=== PATIENT | female | born 1940 | race Caucasian/White ===

== ENCOUNTER 2018-03-23 09:40 | Emergency (ER) | payer OTHER ==
--- OUTSIDE RECORDS SUMMARY | 2018-03-23 09:43 | XMS REPORT ---
:1940 [facility] Address [address] [place] [id number] Care Team Providers Name Role Phone PENNY GAMEZ Unavailable Unavailable Problems This patient has no known problems. Allergies, Adverse Reactions, Alerts This patient has no known allergies or adverse reactions. Medications This patient has no known medications. Results Test Description Test Time Test Comments Text Results Atomic Results Result Comments CBC W/PLT COUNT & AUTO DIFFERENTIAL 2017-04-15 05:50:00 Test Item Value Reference Range Comments WHITE BLOOD CELL COUNT (BEAKER) (test erpf=211) 5.5 K/ L 4.0-10.0 RED BLOOD CELL COUNT (BEAKER) (test niqh=338) 3.54 M/ L 4.00-5.00 HEMOGLOBIN (BEAKER) (test uqtn=711) 10.8 GM/DL 12.0-15.0 HEMATOCRIT (BEAKER) (test gmgw=560) 33.5 % 36.0-45.0 MEAN CORPUSCULAR VOLUME (BEAKER) (test ccfq=787) 94.8 fL 82.0-99.0 MEAN CORPUSCULAR HEMOGLOBIN (BEAKER) (test giao=640) 30.4 pg 27.0-33.0 MEAN CORPUSCULAR HEMOGLOBIN CONC (BEAKER) (test yuph=189) 32.1 GM/DL 32.0- 36.0 RED CELL DISTRIBUTION WIDTH (BEAKER) (test nmpc=747) 12.7 % 10.3-14.2 PLATELET COUNT (BEAKER) (test hnqo=533) 190 K/CU MM 150-430 MEAN PLATELET VOLUME (BEAKER) (test tsha=262) 6.6 fL 6.5-10.5 NUCLEATED RED BLOOD CELLS (BEAKER) (test derh=840) 0 /100 WBC 0-0 NEUTROPHILS RELATIVE PERCENT (BEAKER) (test juqo=532) 59 % LYMPHOCYTES RELATIVE PERCENT (BEAKER) (test grnh=959) 30 % MONOCYTES RELATIVE PERCENT (BEAKER) (test ieoa=285) 8 % EOSINOPHILS RELATIVE PERCENT (BEAKER) (test nxic=556) 3 % BASOPHILS RELATIVE PERCENT (BEAKER) (test wbet=711) 0 % NEUTROPHILS ABSOLUTE COUNT (BEAKER) (test puky=119) 3.23 K/ L 1.80-8.00 LYMPHOCYTES ABSOLUTE COUNT (BEAKER) (test wlbl=407) 1.63 K/ L 1.48-4.50 MONOCYTES ABSOLUTE COUNT (BEAKER) (test blqq=546) 0.44 K/ L 0.00-1.30 EOSINOPHILS ABSOLUTE COUNT (BEAKER) (test dtox=887) 0.15 K/ L 0.00-0.50 BASOPHILS ABSOLUTE COUNT (BEAKER) (test jujh=931) 0.00 K/ L 0.00-0.20 0.00BASIC METABOLIC [id number] 05:42:00 Test Item Value Reference Range Comments SODIUM (BEAKER) (test 135 meq/L 136-145 dtyq=514) POTASSIUM (BEAKER) (test 4.1 meq/L 3.5-5.1 fxcx=080) CHLORIDE (BEAKER) (test 97 meq/L 98-107 dyma=894) CO2 (BEAKER) (test 31 meq/L 22-29 awfo=953) BLOOD UREA NITROGEN 21 mg/dL 7-21 (BEAKER) (test gofo=417) CREATININE (BEAKER) (test 0.66 mg/dL 0.57-1.25 kxfl=291) GLUCOSE RANDOM (BEAKER) 95 mg/dL 70-105 (test dqnx=843) CALCIUM (BEAKER) (test 9.1 mg/dL 8.4-10.2 fetv=536) EGFR (BEAKER) (test 88 mL/min/1.73 sq m ESTIMATED GFR IS NOT qqvc=2663) ACCURATE CREATININE CLEARANCE IN PREDICTING GLOMERULAR FILTRATION RATE. ESTIMATED GFR IS NOT APPLICABLE FOR DIALYSIS PATIENTS. [id number] 05:38:00 Test Item Value Reference Range Comments PROTIME (BEAKER) (test hqmt=838) 13.0 seconds 11.7-14.7 INR (BEAKER) (test bjyr=711) 1.0 <=5.9 PARTIAL THROMBOPLASTIN TIME (BEAKER) (test 27.7 seconds 22.5-36.0 bpjh=468) RECOMMENDED COUMADIN/WARFARIN INR THERAPY RANGESSTANDARD DOSE: 2.0 - 3.0 Includes: PROPHYLAXIS forvenous thrombosis, systemic embolization; TREATMENT for venous thrombosis and/or pulmonary embolus.HIGH RISK: Target INR is 2.5-3.5 for patients with mechanical heart valves.PROTHROMBIN [id number] 05:37: 00 Test Item Value Reference Range Comments PROTIME (BEAKER) (test ttvg=366) 13.0 seconds 11.7-14.7 INR (BEAKER) (test zcmi=716) 1.0 <=5.9 RECOMMENDED COUMADIN/WARFARIN INR THERAPY RANGESSTANDARD DOSE: 2.0 - 3.0 Includes: PROPHYLAXIS forvenous thrombosis, systemic embolization; TREATMENT for venous thrombosis and/or pulmonary embolus.HIGH RISK: Target INR is 2.5-3.5 for patients with mechanical heart valves.BASIC METABOLIC [id number] 05:34: 00 Test Item Value Reference Range Comments SODIUM (BEAKER) (test 137 meq/L 136-145 hycw=117) POTASSIUM (BEAKER) (test 4.0 meq/L 3.5-5.1 xjdn=528) CHLORIDE (BEAKER) (test 95 meq/L 98-107 kbco=384) CO2 (BEAKER) (test 34 meq/L 22-29 phsl=068) BLOOD UREA NITROGEN 20 mg/dL 7-21 (BEAKER) (test fnyz=162) CREATININE (BEAKER) (test 0.69 mg/dL 0.57-1.25 zmmv=002) GLUCOSE RANDOM (BEAKER) 114 mg/dL 70-105 (test qtqv=004) CALCIUM (BEAKER) (test 9.4 mg/dL 8.4-10.2 iwby=504) EGFR (BEAKER) (test 83 mL/min/1.73 sq m ESTIMATED GFR IS NOT shhr=7002) ACCURATE CREATININE CLEARANCE IN PREDICTING GLOMERULAR FILTRATION RATE. ESTIMATED GFR IS NOT APPLICABLE FOR DIALYSIS PATIENTS. BASIC METABOLIC [id number] 07:18:00 Test Item Value Reference Range Comments SODIUM (BEAKER) (test 134 meq/L 136-145 zzbx=193) POTASSIUM (BEAKER) (test 4.1 meq/L 3.5-5.1 gyjv=185) CHLORIDE (BEAKER) (test 93 meq/L 98-107 ipep=492) CO2 (BEAKER) (test 36 meq/L 22-29 htsy=506) BLOOD UREA NITROGEN 17 mg/dL 7-21 (BEAKER) (test mmok=802) CREATININE (BEAKER) (test 0.65 mg/dL 0.57-1.25 hjvr=944) GLUCOSE RANDOM (BEAKER) 100 mg/dL 70-105 (test spsv=795) CALCIUM (BEAKER) (test 9.6 mg/dL 8.4-10.2 kdzs=922) EGFR (BEAKER) (test 89 mL/min/1.73 sq m ESTIMATED GFR IS NOT ildd=6192) ACCURATE CREATININE CLEARANCE IN PREDICTING GLOMERULAR FILTRATION RATE. ESTIMATED GFR IS NOT APPLICABLE FOR DIALYSIS PATIENTS. URINALYSIS W/ REFLEX URINE [id number] 07:08:00 Test Item Value Reference Range Comments COLOR (BEAKER) (test srye=280) Yellow CLARITY (BEAKER) (test ldsh=738) Hazy SPECIFIC GRAVITY UA (BEAKER) (test qiwc=792) 1.035 1.001-1.035 PH UA (BEAKER) (test ebvj=772) 7.0 5.0-8.0 PROTEIN UA (BEAKER) (test wrek=956) 10 mg/dL Negative GLUCOSE UA (BEAKER) (test krtm=190) Negative Negative KETONES UA (BEAKER) (test clmq=756) Negative Negative BILIRUBIN UA (BEAKER) (test dybg=254) Negative Negative BLOOD UA (BEAKER) (test dzys=945) Negative Negative NITRITE UA (BEAKER) (test vzsp=946) Negative Negative LEUKOCYTE ESTERASE UA (BEAKER) (test gane=257) Small Negative UROBILINOGEN UA (BEAKER) (test qzfa=448) 0.2 mg/dL 0.2-1.0 RBC UA (BEAKER) (test vupl=848) 1 /HPF WBC UA (BEAKER) (test vlox=615) 9 /HPF BACTERIA (BEAKER) (test bkvi=614) Occasional MUCUS (BEAKER) (test iewm=9290) Rare SQUAMOUS EPITHELIAL (BEAKER) (test cmid=111) 7 /HPF SOURCE(BEAKER) (test qbro=0566) BASIC METABOLIC [id number] 06:11:00 Test Item Value Reference Range Comments SODIUM (BEAKER) (test 136 meq/L 136-145 nosn=140) POTASSIUM (BEAKER) (test 4.4 meq/L 3.5-5.1 tigu=785) CHLORIDE (BEAKER) (test 95 meq/L 98-107 ffvn=880) CO2 (BEAKER) (test 35 meq/L 22-29 ohvb=118) BLOOD UREA NITROGEN 25 mg/dL 7-21 (BEAKER) (test uull=471) CREATININE (BEAKER) (test 0.66 mg/dL 0.57-1.25 eiqu=144) GLUCOSE RANDOM (BEAKER) 116 mg/dL 70-105 (test vcmw=554) CALCIUM (BEAKER) (test 9.0 mg/dL 8.4-10.2 iind=417) EGFR (BEAKER) (test 88 mL/min/1.73 sq m ESTIMATED GFR IS NOT azga=7766) ACCURATE CREATININE CLEARANCE IN PREDICTING GLOMERULAR FILTRATION RATE. ESTIMATED GFR IS NOT APPLICABLE FOR DIALYSIS PATIENTS. VITAMIN D, [id number] 05:04:00 Test Item Value Reference Range Comments VITAMIN D 25-OH (BEAKER) (test ygtj=1839) < ng/mL 13.0-47.8 COMPREHENSIVE METABOLIC [id number] 22:54:00 Test Item Value Reference Range Comments TOTAL PROTEIN (BEAKER) 6.8 gm/dL 6.0-8.3 (test jply=265) ALBUMIN (BEAKER) (test 3.5 g/dL 3.5-5.0 ldrg=9859) ALKALINE PHOSPHATASE 83 U/L 40-150 (BEAKER) (test pcdx=972) BILIRUBIN TOTAL (BEAKER) 0.3 mg/dL 0.2-1.2 (test jabu=433) SODIUM (BEAKER) (test 136 meq/L 136-145 jobu=433) POTASSIUM (BEAKER) (test 4.4 meq/L 3.5-5.1 uhue=518) CHLORIDE (BEAKER) (test 95 meq/L 98-107 knku=737) CO2 (BEAKER) (test 34 meq/L 22-29 yggr=949) BLOOD UREA NITROGEN 28 mg/dL 7-21 (BEAKER) (test pokg=485) CREATININE (BEAKER) (test 0.76 mg/dL 0.57-1.25 teqp=126) GLUCOSE RANDOM (BEAKER) 150 mg/dL 70-105 (test bbpy=939) CALCIUM (BEAKER) (test 9.0 mg/dL 8.4-10.2 bdhq=747) AST (SGOT) (BEAKER) (test 22 U/L 5-34 erej=242) ALT (SGPT) (BEAKER) (test 51 U/L 6-55 iuyk=110) EGFR (BEAKER) (test 74 mL/min/1.73 sq m ESTIMATED GFR IS NOT fwqf=8055) ACCURATE CREATININE CLEARANCE IN PREDICTING GLOMERULAR FILTRATION RATE. ESTIMATED GFR IS NOT APPLICABLE FOR DIALYSIS PATIENTS. PROTHROMBIN [id number] 22:38:00 Test Item Value Reference Range Comments PROTIME (BEAKER) (test sbag=911) 13.3 seconds 11.7-14.7 INR (BEAKER) (test mktt=614) 1.0 <=5.9 RECOMMENDED COUMADIN/WARFARIN INR THERAPY RANGESSTANDARD DOSE: 2.0 - 3.0 Includes: PROPHYLAXIS forvenous thrombosis, systemic embolization; TREATMENT for venous thrombosis and/or pulmonary embolus.HIGH RISK: Target INR is 2.5-3.5 for patients with mechanical heart valves.CBC (HEMOGRAM ONLY)[id number] 22:31:00 Test Item Value Reference Range Comments WHITE BLOOD CELL COUNT (BEAKER) (test qxbf=344) 6.5 K/ L 4.0-10.0 RED BLOOD CELL COUNT (BEAKER) (test lvqa=218) 3.76 M/ L 4.00-5.00 HEMOGLOBIN (BEAKER) (test bygg=284) 11.4 GM/DL 12.0-15.0 HEMATOCRIT (BEAKER) (test otes=795) 35.5 % 36.0-45.0 MEAN CORPUSCULAR VOLUME (BEAKER) (test wvgu=567) 94.6 fL 82.0-99.0 MEAN CORPUSCULAR HEMOGLOBIN (BEAKER) (test 30.4 pg 27.0-33.0 eujm=570) MEAN CORPUSCULAR HEMOGLOBIN CONC (BEAKER) (test 32.2 GM/DL 32.0-36.0 xwnm=285) RED CELL DISTRIBUTION WIDTH (BEAKER) (test 13.6 % 10.3-14.2 zrrl=576) PLATELET COUNT (BEAKER) (test zrux=841) 195 K/CU MM 150-430 MEAN PLATELET VOLUME (BEAKER) (test uqxu=960) 6.2 fL 6.5-10.5 NUCLEATED RED BLOOD CELLS (BEAKER) (test 0 /100 WBC 0-0 uyhy=540) 0.00CBC W/PLT COUNT & AUTO [id number] 22:31:00 Test Item Value Reference Range Comments WHITE BLOOD CELL COUNT (BEAKER) (test jmrf=157) 6.5 K/ L 4.0-10.0 RED BLOOD CELL COUNT (BEAKER) (test wrka=741) 3.76 M/ L 4.00-5.00 HEMOGLOBIN (BEAKER) (test lndt=452) 11.4 GM/DL 12.0-15.0 HEMATOCRIT (BEAKER) (test azth=846) 35.5 % 36.0-45.0 MEAN CORPUSCULAR VOLUME (BEAKER) (test cgdn=973) 94.6 fL 82.0-99.0 MEAN CORPUSCULAR HEMOGLOBIN (BEAKER) (test 30.4 pg 27.0-33.0 nzsu=628) MEAN CORPUSCULAR HEMOGLOBIN CONC (BEAKER) (test 32.2 GM/DL 32.0-36.0 vdcz=114) RED CELL DISTRIBUTION WIDTH (BEAKER) (test 13.6 % 10.3-14.2 agad=011) PLATELET COUNT (BEAKER) (test pdtq=873) 195 K/CU MM 150-430 MEAN PLATELET VOLUME (BEAKER) (test bhwt=849) 6.2 fL 6.5-10.5 NUCLEATED RED BLOOD CELLS (BEAKER) (test 0 /100 WBC 0-0 xgwe=043) NEUTROPHILS RELATIVE PERCENT (BEAKER) (test 57 % yssj=339) LYMPHOCYTES RELATIVE PERCENT (BEAKER) (test 33 % mvag=669) MONOCYTES RELATIVE PERCENT (BEAKER) (test 8 % veot=098) EOSINOPHILS RELATIVE PERCENT (BEAKER) (test 2 % fymo=573) BASOPHILS RELATIVE PERCENT (BEAKER) (test 0 % ivmf=553) NEUTROPHILS ABSOLUTE COUNT (BEAKER) (test 3.66 K/ L 1.80-8.00 lkpr=231) LYMPHOCYTES ABSOLUTE COUNT (BEAKER) (test 2.13 K/ L 1.48-4.50 sugi=458) MONOCYTES ABSOLUTE COUNT (BEAKER) (test 0.52 K/ L 0.00-1.30 ypkv=712) EOSINOPHILS ABSOLUTE COUNT (BEAKER) (test 0.14 K/ L 0.00-0.50 esfc=903) BASOPHILS ABSOLUTE COUNT (BEAKER) (test 0.02 K/ L 0.00-0.20 kqim=853)
--- OUTSIDE RECORDS SUMMARY | 2018-03-23 09:43 | XMS REPORT | Clinical Summary ---
:1940 Author Organization [facility] Address [address] [place] [address] Phone Care Team Providers Name Role Phone Unavailable Primary Care Provider Unavailable Allergies Active Allergy Reactions Severity Noted Date Comments Penicillins Hives, Rash High 04/10/2017 Current Medications Prescription Sig. Disp. Refills Start Date End Date Status citalopram (CELEXA) Take 10 mg by Active 10 MG tablet mouth nightly. spironolactone Take 25 mg by Active (ALDACTONE) 25 MG mouth every tablet morning. predniSONE Take 5 mg by Active (DELTASONE) 5 MG mouth 2 (two) tablet times daily with breakfast and lunch. gabapentin Take 400 mg by Active (NEURONTIN) 400 MG mouth 2 (two) capsule times daily. primidone (MYSOLINE) Take 50 mg by Active 50 MG tablet mouth 2 (two) times daily. esomeprazole (NEXIUM) Take 40 mg by Active 40 MG capsule mouth daily. HYDROcodone-acetamino Take 1 tablet by Active phen (NORCO 10-325) mouth every 6 10-325 mg per tablet (six) hours as needed for Pain. ALPRAZolam (XANAX) Take 0.5 mg by Active 0.5 MG tablet mouth 4 (four) times daily as needed for Anxiety. QUEtiapine (SEROQUEL) Take 50 mg by Active 50 MG tablet mouth nightly. levalbuterol (XOPENEX Inhale 1 puff by Active HFA) 45 mcg/actuation mouth via inhaler inhaler 2 (two) times daily as needed for Wheezing or Shortness of Breath. metoprolol Take 25 mg by Active (LOPRESSOR) 25 MG mouth 2 (two) tabletIndications: times daily. hypertension senna (SENOKOT) 8.6 Take 1 tablet 30 tablet 0 04/18/2017 04/18/2018 Active mg tablet (8.6 mg total) by mouth every night as needed for Constipation. lidocaine (LIDODERM) Place 3 patches 30 patch 0 04/18/2017 05/18/2017 5 % patch onto the skin daily for 30 days Remove & Discard patch within 12 hours or as directed by MD. magnesium citrate Take 296 mLs by 300 mL 0 04/18/2017 04/18/2017 solution mouth once for 1 dose. polyethylene glycol Take 17 g by 14 each 0 04/18/2017 2017 (GLYCOLAX) 17 gram mouth daily as packet needed (Constipation) for up to 3 days. zolpidem (AMBIEN) 5 Take 1 tablet (5 30 tablet 0 04/18/2017 05/18/2017 MG tablet mg total) by mouth every night as needed for Insomnia for up to 30 days. Max Daily Amount: 5 mg Active Problems Problem Noted Date Back pain 04/10/2017 Pneumonia 04/10/2017 Right lower lobe pneumonia (HCC) 04/10/2017 Depression 04/10/2017 Anxiety 04/10/2017 Encounters Date Type Specialty Care Team Description 04/15/2017 Procedure Pass 04/15/2017 Surgery Virtual, Surgeon PROCEDURE DONE OUTSIDE OR 04/14/2017 Anesthesia Event Tanisha Phan CRNA 04/10/2017 - Hospital Encounter General Internal Georgiadis, Pneumonia of right 04/18/2017 Medicine Barrie lower lobe due to MD Duane infectious organism Jennie Alvarenga (HCC);Acute midline MD Sonny low back pain Baljinder Pearson MD without sciatica Chava Husain MD Kulkarni, Mrinalini Zade, MD after 03/22/2017 Social History Tobacco Use Types Packs/Day Years Used Date Former Smoker Cigarettes 1 60 Quit: 12/2016 Smokeless Tobacco: Never Used Alcohol Use Drinks/Week oz/Week Comments No Sex Assigned at Date Recorded Not on file Last Filed Vital Signs Vital Sign Reading Time Taken Blood Pressure 143/65 04/18/2017 7:54 PM CDT Pulse 67 04/18/2017 7:54 PM CDT Temperature 36.9 C (98.4 F) 04/18/2017 7:54 PM CDT Respiratory Rate 18 04/18/2017 7:54 PM CDT Oxygen Saturation 97% 04/18/2017 7:54 PM CDT Inhaled Oxygen Concentration - - Weight 56.4 kg (124 lb 4.8 oz) 04/10/2017 6:00 PM CDT Height 162.6 cm (5' 4") 04/10/2017 6:00 PM CDT Body Mass Index 21.34 04/10/2017 6:00 PM CDT Plan of Treatment Not on file Procedures Procedure Name Priority Date/Time Associated Diagnosis Comments PROCEDURE DONE OUTSIDE 04/15/2017 2:00 PM COMPRESSION FRACTURE OR CDT Special Needs (TO BE DONE IN [facility])( 2227 PT ROOM NUMBER) after 03/22/2017 Results RHYTHM STRIP - SCAN (04/23/2017 8:40 AM)NV Vertebroplasty/Kyphoplasty (2016 5:55 PM) Specimen Performing Laboratory GE RIS Impressions : 1. Technically successful L2 percutaneous vertebral augmentation. No immediate complications. Total fluoroscopy time: 9.6 mins Estimated dose reported as (Ka,r): 664 mGy Signed: Gunnar Llanes MD Report Verified Date/Time:04/22/2017 08:53:06 Reading Location: [place] [address] Angio Body Reading Room Narrative FINAL REPORT HISTORY: L2 compression fracture and severe lower back pain despite conservative therapy. PROCEDURE: Following informed written consent, general endotracheal anesthesia was performed by the anesthesiology service and the patient was placed in a prone position on the angiographic table. The lower back was prepped and draped in the usual sterile manner. 2% lidocaine was given locally for anesthesia. Using a bilateral posterior transpedicular approach and fluoroscopic guidance, the access needles were placed into the L2 vertebral body. Tracts were drilled through each cannula into the L2 vertebral body. Vertebral augmentation balloons were placed through the access cannulas and inflated bilaterally. The balloons were deflated, removed and a total of five cc of methyl methacrylate was infused into the L2 vertebral body under constant fluoroscopic visualization. The cannulas were then removed and the access sites closed with Steri-Strips. Sterile bandages were applied and the patient was transferred from the department in stable condition. There were no immediate complications. FINDINGS: Images obtained during the procedure show the access needles, cannulas and balloons in expected positions within the L2 vertebral body. Following methacrylate infusion, adequate distribution is seen within the L2 vertebral body without extravasation. Procedure Note Interface, External Ris In - 04/22/2017 8:55 AM CDT FINAL REPORT HISTORY: L2 compression fracture and severe lower back pain despite conservative therapy. PROCEDURE: Following informed written consent, general endotracheal anesthesia was performed by the anesthesiology service and the patient was placed in a prone position on the angiographic table. The lower back was prepped and draped in the usual sterile manner. 2% lidocaine was given locally for anesthesia. Using a bilateral posterior transpedicular approach and fluoroscopic guidance, the access needles were placed into the L2 vertebral body. Tracts were drilled through each cannula into the L2 vertebral body. Vertebral augmentation balloons were placed through the access cannulas and inflated bilaterally. The balloons were deflated, removed and a total of five cc of methyl methacrylate was infused into the L2 vertebral body under constant fluoroscopic visualization. The cannulas were then removed and the access sites closed with Steri-Strips. Sterile bandages were applied and the patient was transferred from the department in stable condition. There were no immediate complications. FINDINGS: Images obtained during the procedure show the access needles, cannulas and balloons in expected positions within the L2 vertebral body. Following methacrylate infusion, adequate distribution is seen within the L2 vertebral body without extravasation. IMPRESSION : 1. Technically successful L2 percutaneous vertebral augmentation. No immediate complications. Total fluoroscopy time: 9.6 mins Estimated dose reported as (Ka,r): 664 mGy Signed: Gunnar Llanes MD Report Verified Date/Time: 04/22/2017 08:53:06 Reading Location: [place] [address] Angio Body Reading Room /aPTT (04/15/2017 4:37 AM) Component Value Ref Range Protime 13.0 11.7 - 14.7 seconds INR 1.0 <=5.9 PTT 27.7 22.5 - 36.0 seconds Specimen Performing Laboratory [place] [address] Narrative RECOMMENDED COUMADIN/WARFARIN INR THERAPY RANGES STANDARD DOSE: 2.0 - 3.0 Includes: PROPHYLAXIS for venous thrombosis, systemic embolization; TREATMENT for venous thrombosis and/or pulmonary embolus. HIGH RISK: Target INR is 2.5-3.5 for patients with mechanical heart valves. CBC with platelet count + automated diff (04/15/2017 4:37 AM)Only the most recent of2 resultswithin the time period is included. Component Value Ref Range WBC 5.5 4.0 - 10.0 K/L RBC 3.54 (L) 4.00 - 5.00 M/L Hemoglobin 10.8 (L) 12.0 - 15.0 GM/DL Hematocrit 33.5 (L) 36.0 - 45.0 % MCV 94.8 82.0 - 99.0 fL MCH 30.4 27.0 - 33.0 pg MCHC 32.1 32.0 - 36.0 GM/DL RDW 12.7 10.3 - 14.2 % Platelets 190 150 - 430 K/CU MM MPV 6.6 6.5 - 10.5 fL nRBC 0 0 - 0 /100 WBC % Neutros 59 % % Lymphs 30 % % Monos 8 % % Eos 3 % % Baso 0 % # Neutros 3.23 1.80 - 8.00 K/L # Lymphs 1.63 1.48 - 4.50 K/L # Monos 0.44 0.00 - 1.30 K/L # Eos 0.15 0.00 - 0.50 K/L # Baso 0.00 0.00 - 0.20 K/L Specimen Performing Laboratory Blood [address] [address] Narrative 0.00 Prothrombin time/INR (04/15/2017 4:37 AM)Only the most recent of2 resultswithin the time period is included. Component Value Ref Range Protime 13.0 11.7 - 14.7 seconds INR 1.0 <=5.9 Specimen Performing Laboratory Blood [address] [address] Narrative RECOMMENDED COUMADIN/WARFARIN INR THERAPY RANGES STANDARD DOSE: 2.0 - 3.0 Includes: PROPHYLAXIS for venous thrombosis, systemic embolization; TREATMENT for venous thrombosis and/or pulmonary embolus. HIGH RISK: Target INR is 2.5-3.5 for patients with mechanical heart valves. CBC with platelet count + automated diff (04/15/2017 4:37 AM)Only the most recent of2 resultswithin the time period is included. Specimen Performing Laboratory Blood Narrative The following orders were created for panel order CBC with platelet count + automated diff. Procedure Abnormality Status --------- ------ CBC with platelet count ...[[id number]]AbnormalFinal result Please view results for these tests on the individual orders. Basic Metabolic Panel (04/15/2017 4:37 AM)Only the most recent of4 resultswithin the time period is included. Component Value Ref Range Sodium 135 (L) 136 - 145 meq/L Potassium 4.1 3.5 - 5.1 meq/L Chloride 97 (L) 98 - 107 meq/L CO2 31 (H) 22 - 29 meq/L BUN 21 7 - 21 mg/dL Creatinine 0.66 0.57 - 1.25 mg/dL Glucose 95 70 - 105 mg/dL Calcium 9.1 8.4 - 10.2 mg/dL EGFR 88Comment: ESTIMATED GFR IS NOT ACCURATE mL/min/1.73 sq m CREATININE CLEARANCE IN PREDICTING GLOMERULAR FILTRATION RATE. ESTIMATED GFR IS NOT APPLICABLE FOR DIALYSIS PATIENTS. Specimen Performing [place] [address] ECG 12 lead (04/13/2017 10:27 AM) Specimen Performing Laboratory GE MUSE Narrative Ventricular Rate 93 BPM Atrial Rate 93 BPM P-R Interval 136 ms QRS Duration 84 ms Q-T Interval 374 ms QTC Calculation(Bazett) 465 ms P [place] -19 degrees R [place] -18 degrees T [place] 27 degrees Normal sinus rhythm Inferior infarct , age undetermined Poor R wave progression Abnormal ECG No previous ECGs available Confirmed by Sil SALCIDO MICHAEL ([id number]) on 04/14/2017 8:11:01 AM Procedure Note Interface, External Ris In - 04/14/2017 8:11 AM CDT Ventricular Rate 93 BPM Atrial Rate 93 BPM P-R Interval 136 ms QRS Duration 84 ms Q-T Interval 374 ms QTC Calculation(Bazett) 465 ms P [place] -19 degrees R [place] -18 degrees T [place] 27 degrees Normal sinus rhythm Inferior infarct , age undetermined Poor R wave progression Abnormal ECG No previous ECGs available Confirmed by Sil SALCIDO MICHAEL ([id number]) on 04/14/2017 8:11:01 AM XR chest 2 views (04/11/2017 8:15 PM) Specimen Performing Laboratory GE RIS Impressions : Lungs and pleura: Focal airspace disease in the right base compatible with provided diagnosis of pneumonia. Small bilateral pleural effusions. Atelectasis in the right upper lobe. Heart and mediastinum: Prominent cardiac size. Unremarkable mediastinal contours. Osseous structures: Diffuse demineralization. Multifocal degenerative changes. Additional findings: None. Signed: JR Simon Robert MD Report Verified Date/Time:04/11/2017 21:59:21 Reading Location: [address] Transitional Reading Room Narrative FINAL REPORT INDICATION: PA and lateral view for follow up of pneumonia COMPARISON: None TECHNIQUE: Frontal and lateral views of the chest. Procedure Note Interface, External Ris In - 04/11/2017 10:01 PM CDT FINAL REPORT INDICATION: PA and lateral view for follow up of pneumonia COMPARISON: None TECHNIQUE: Frontal and lateral views of the chest. IMPRESSION : Lungs and pleura: Focal airspace disease in the right base compatible with provided diagnosis of pneumonia. Small bilateral pleural effusions. Atelectasis in the right upper lobe. Heart and mediastinum: Prominent cardiac size. Unremarkable mediastinal contours. Osseous structures: Diffuse demineralization. Multifocal degenerative changes. Additional findings: None. Signed: JR Simon Robert MD Report Verified Date/Time: 04/11/2017 21:59:21 Reading Location: [address] Transitional Reading Room spine lumbar without IV contrast (04/11/2017 8:00 PM) Specimen Performing Laboratory GE RIS Impressions : 1. Recent L2 biconcave compression fracture with moderate height loss, marrow edema, and perivertebral edema. No significant osseous retropulsion. 2. Multilevel degenerative changes with multifactorial moderate L4-5 and mild to moderate L2-3 and L3-4 spinal canal stenosis. 3. Lateral recess and neural foraminal stenoses as detailed above. Advise correlation with radiculopathic symptoms. 4. Cholelithiasis, biliary ductal dilatation, and colonic diverticulosis. Signed: Thad Bailey MD Report Verified Date/Time:04/11/2017 20:36:03 Reading Location: [facility] Radiology Reading Room Narrative FINAL REPORT MR Lumbar spine without contrast INDICATION: Back pain, L2 fracture. TECHNIQUE: MRI of the lumbar spine utilizing the following sequences: Sagittal T1, T2, STIR; axial T1 and T2 COMPARISON: None available. FINDINGS: There is a recent biconcave L2 compression fracture with marrow edema, visible fracture lines, perivertebral edema, and anterior vertebral height loss of 50%. There is mild posterior cortical buckling but no significant osseous retropulsion. There is moderate right convex lumbar spine curvature with left lateral listhesis at L2-3, right level of listhesis at L3-4, and mild retrolisthesis at L3-4 and L4-5. There is mild chronic upper sacral deformity at S3. There are degenerative vertebral endplate changes. Vertebral heights are otherwise maintained. The conus medullaris is unremarkable and terminates at T12-L1. T12-L1: Unremarkable L1-2: Mild disc bulge. Mild facet arthropathy. No significant canal or foraminal stenosis. L2-3: Right eccentric disc bulge of broad-based right foraminal/far lateral disc protrusion, bilateral facet arthropathy with joint effusions, and ligamentous thickening. Mild to moderate canal stenosis. Mild to moderate right and mild left foraminal stenosis. L3-4: Disc degeneration with diffuse bulge, broad-based disc protrusion, endplate osteophytes, facet arthropathy, and ligamentous thickening. Mild to moderate canal stenosis. Mild to moderate bilateral foraminal stenosis. L4-5: Disc degeneration with diffuse bulge, broad-based disc protrusion, endplate osteophytes, facet arthropathy, and ligamentous thickening. Moderate canal stenosis and severe right lateral recess stenosis. Moderate right and mild to moderate left foraminal stenosis. L5-S1: Disc degeneration with diffuse bulge extending into the foraminal regions, endplate osteophytes, broad-based central disc protrusion, facet arthropathy, and ligamentous thickening. Mild canal stenosis. Mild to moderate right greater than left foraminal stenosis. There is paraspinal muscle deconditioning, cholelithiasis, renal cystic lesions statistically likely reflecting cysts, common bile duct dilatation, aortic atherosclerosis, and colonic diverticulosis. Procedure Note Interface, External Ris In - 04/11/2017 8:38 PM CDT FINAL REPORT MR Lumbar spine without contrast INDICATION: Back pain, L2 fracture. TECHNIQUE: MRI of the lumbar spine utilizing the following sequences: Sagittal T1, T2, STIR; axial T1 and T2 COMPARISON: None available. FINDINGS: There is a recent biconcave L2 compression fracture with marrow edema, visible fracture lines, perivertebral edema, and anterior vertebral height loss of 50%. There is mild posterior cortical buckling but no significant osseous retropulsion. There is moderate right convex lumbar spine curvature with left lateral listhesis at L2-3, right level of listhesis at L3-4, and mild retrolisthesis at L3-4 and L4-5. There is mild chronic upper sacral deformity at S3. There are degenerative vertebral endplate changes. Vertebral heights are otherwise maintained. The conus medullaris is unremarkable and terminates at T12-L1. T12-L1: Unremarkable L1-2: Mild disc bulge. Mild facet arthropathy. No significant canal or foraminal stenosis. L2-3: Right eccentric disc bulge of broad-based right foraminal/far lateral disc protrusion, bilateral facet arthropathy with joint effusions, and ligamentous thickening. Mild to moderate canal stenosis. Mild to moderate right and mild left foraminal stenosis. L3-4: Disc degeneration with diffuse bulge, broad-based disc protrusion, endplate osteophytes, facet arthropathy, and ligamentous thickening. Mild to moderate canal stenosis. Mild to moderate bilateral foraminal stenosis. L4-5: Disc degeneration with diffuse bulge, broad-based disc protrusion, endplate osteophytes, facet arthropathy, and ligamentous thickening. Moderate canal stenosis and severe right lateral recess stenosis. Moderate right and mild to moderate left foraminal stenosis. L5-S1: Disc degeneration with diffuse bulge extending into the foraminal regions, endplate osteophytes, broad-based central disc protrusion, facet arthropathy, and ligamentous thickening. Mild canal stenosis. Mild to moderate right greater than left foraminal stenosis. There is paraspinal muscle deconditioning, cholelithiasis, renal cystic lesions statistically likely reflecting cysts, common bile duct dilatation, aortic atherosclerosis, and colonic diverticulosis. IMPRESSION : 1. Recent L2 biconcave compression fracture with moderate height loss, marrow edema, and perivertebral edema. No significant osseous retropulsion. 2. Multilevel degenerative changes with multifactorial moderate L4-5 and mild to moderate L2-3 and L3-4 spinal canal stenosis. 3. Lateral recess and neural foraminal stenoses as detailed above. Advise correlation with radiculopathic symptoms. 4. Cholelithiasis, biliary ductal dilatation, and colonic diverticulosis. Signed: Thad Bailey MD Report Verified Date/Time: 04/11/2017 20:36:03 Reading Location: [facility] Radiology Reading Room Urinalysis w/Microscopic + Reflex to Culture (04/11/2017 5:33 AM) Component Value Ref Range Color, UA Yellow Clarity, UA Hazy Specific [place], UA 1.035 1.001 - 1.035 pH, UA 7.0 5.0 - 8.0 Protein, UA 10 mg/dL (A) Negative Glucose, UA Negative Negative Ketones, UA Negative Negative Bilirubin, UA Negative Negative Blood, UA Negative Negative Nitrite, UA Negative Negative Leukocytes, UA Small (A) Negative Urobilinogen, UA 0.2 0.2 - 1.0 mg/dL RBC, UA 1 /HPF WBC, UA 9 /HPF Bacteria, UA Occasional Mucus Rare Squam Epithel, UA 7 /HPF Specimen Source Specimen Performing Laboratory Urine [address] [id number] Urine culture (04/11/2017 5:33 AM) Component Value Ref Range Result >100,000 col/mL skin manjit Specimen Performing Laboratory Urine - Urine, Unspecified Source [address] [address] Vitamin D, 25-Hydroxy (04/10/2017 10:20 PM) Component Value Ref Range Vitamin D 25-Hydroxy <13.0 (L) 13.0 - 47.8 ng/mL Specimen Performing Laboratory Blood [address] [address] CBC (Hemogram only) (04/10/2017 10:20 PM) Component Value Ref Range WBC 6.5 4.0 - 10.0 K/L RBC 3.76 (L) 4.00 - 5.00 M/L Hemoglobin 11.4 (L) 12.0 - 15.0 GM/DL Hematocrit 35.5 (L) 36.0 - 45.0 % MCV 94.6 82.0 - 99.0 fL MCH 30.4 27.0 - 33.0 pg MCHC 32.2 32.0 - 36.0 GM/DL RDW 13.6 10.3 - 14.2 % Platelets 195 150 - 430 K/CU MM MPV 6.2 (L) 6.5 - 10.5 fL nRBC 0 0 - 0 /100 WBC Specimen Performing Laboratory Blood [address] [address] Narrative 0.00 Comprehensive metabolic panel (04/10/2017 10:20 PM) Component Value Ref Range Protein, Total 6.8 6.0 - 8.3 gm/dL Albumin 3.5 3.5 - 5.0 g/dL Alkaline Phosphatase 83 40 - 150 U/L Total Bilirubin 0.3 0.2 - 1.2 mg/dL Sodium 136 136 - 145 meq/L Potassium 4.4 3.5 - 5.1 meq/L Chloride 95 (L) 98 - 107 meq/L CO2 34 (H) 22 - 29 meq/L BUN 28 (H) 7 - 21 mg/dL Creatinine 0.76 0.57 - 1.25 mg/dL Glucose 150 (H) 70 - 105 mg/dL Calcium 9.0 8.4 - 10.2 mg/dL AST 22 5 - 34 U/L ALT 51 6 - 55 U/L EGFR 74Comment: ESTIMATED GFR IS NOT ACCURATE mL/min/1.73 sq m CREATININE CLEARANCE IN PREDICTING GLOMERULAR FILTRATION RATE. ESTIMATED GFR IS NOT APPLICABLE FOR DIALYSIS PATIENTS. Specimen Performing Laboratory Blood [address] [address] after 03/22/2017
--- NOTE | 2018-03-23 10:14 | ER ---
Nurse's Notes [facility] Name: Zaynab Rehman Age: 77 yrs Sex: Female : 1940 Arrival Date: 03/23/2018 Time: 09:41 Bed 17 Private MD: Jabari Groves E Diagnosis: Generalized abdominal pain;Chronic pain syndrome Presentation: 03/23 09:50 Presenting complaint: Patient states: Abdominal pain and dark tarry stools and nausea x hb 1 week. Out of pain medication for the last week, was told by PCP to come to ED. Transition of care: patient was not received from another setting of care. Onset of symptoms is unknown. Initial Sepsis Screen: Does the patient meet any 2 criteria? No. Patient's initial sepsis screen is negative. Does the patient have a suspected source of infection? No. Patient's initial sepsis screen is negative. Care prior to arrival: None. 09:50 Method Of Arrival: Wheelchair hb 09:50 Acuity: CYNTHIA 3 hb Historical: - Allergies: 09:55 PENICILLINS; hb - Home Meds: 09:55 alprazolam 0.5 mg Oral tab 1 tab twice a day [Active]; Anoro Ellipta 62.5-25 hb mcg/actuation inhalation dsdv 1 puff once daily [Active]; Caltrate 600 + D 600 mg (1,500 mg)-800 unit Oral chew [Active]; gabapentin 400 mg Oral cap 1 cap twice a day [Active]; hydrocodone-acetaminophen 10-325 mg Oral tab 1 tab every 6 hours for chronic back pain [Active]; metoprolol tartrate 100 mg Oral tab 1 tab 2 times per day [Active]; Nasonex 50 mcg/actuation Nasal spry once daily [Active]; Neurontin 400 mg Oral cap daily [Active]; Nexium 40 mg Oral cpDR 1 cap once daily [Active]; nitroglycerin 0.4 mg SL subl 1 tab every 5 minutes [Active]; nystatin 100,000 unit/mL Oral susp 4 mL 4 times per day [Active]; Pennsaid 1.5 % Topical drop [Active]; primidone 50 mg Oral tab daily [Active]; Seroquel Oral [Active]; Spiriva Respimat 2.5 mcg/actuation inhalation mist 2 puffs once daily [Active]; spironolactone 25 mg Oral tab 1 tab once daily [Active]; Xanax 0.5 mg Oral tab 1 tab 3 times per day [Active]; Xopenex 1.25 mg/3 mL Inhl nebu 3 mL 3 times per day for Acute Asthma Attack [Active]; Zofran (as hydrochloride) 4 mg Oral tab 1 tabs 3 times per day [Active]; Zofran (as hydrochloride) 4 mg Oral tab every 6 hours [Active]; prednisone 5 mg Oral tab once daily [Active]; - PMHx: 09:55 Arthritis; COPD; Depression; Essential Tremor; Hypertension; hb - PSHx: 09:55 L knee sx; Hysterectomy; Carpal Tunnel Repair; Heart cath; hb - Immunization history:: Adult Immunizations up to date. - Social history:: Smoking status: Patient/guardian denies using tobacco. Screenin:05 Abuse screen: No signs of abuse noted. Nutritional screening: No deficits noted. aa5 Tuberculosis screening: No symptoms or risk factors identified. Fall Risk Secondary diagnosis (15 points) dementia, Ambulatory Aid- Crutches/Cane/Walker (15 pts). Mental Status- Overestimates/Forgets Limitations (15 pts.). Total Monk Fall Scale indicates High Risk Score (45 or more points). Fall prevention measures have been instituted. Side Rails Up X 2 Placed Close to Nursing Station Family Present and informed to notify staff if the need to leave the bedside. Assessment: 10:05 General: Appears comfortable, Behavior is calm, cooperative. Pain: Complains of pain in aa5 umbilical area Unable to use pain scale. Does not appear to understand pain scale. Neuro: Level of Consciousness is awake, obeys commands, confused, Oriented to person. Cardiovascular: Heart tones S1 S2 present Rhythm is regular. Respiratory: Airway is patent Respiratory effort is even, unlabored, Respiratory pattern is regular, symmetrical. GI: Parent/caregiver reports the patient having "black stools for 4 days" Pt's daughter denies nausea and vomiting. : No signs and/or symptoms were reported regarding the genitourinary system. EENT: No signs and/or symptoms were reported regarding the EENT system. Derm: Skin is pink, warm \\T\\ dry. Musculoskeletal: Range of motion: intact in all extremities. Vital Signs: 09:52 BP 113 / 69; Pulse 75; Resp 20; Temp 97.4; Pulse Ox 100% on 3 lpm NC; Pain 10/10; hb ED Course: 09:41 Patient arrived in ED. as 09:42 Jabari Groves MD is Private Physician. as 09:52 Triage completed. hb 09:53 Arm band placed on left wrist. hb 09:58 Domingo Birmingham MD is Attending Physician. gs 10:05 Patient has correct armband on for positive identification. Placed in gown. Bed in low aa5 position. Side rails up X2. Adult w/ patient. 10:08 Alexa Kern, RN is Primary Nurse. aa5 10:25 No provider procedures requiring assistance completed. aa5 10:25 Patient did not have IV access during this emergency room visit. aa5 Administered Medications: No medications were administered Point of Care Testing: Guaiac: 10:10 Stool Guaiac: Negative; Stool Hemoccult Control: Pass; aa5 10:10 Completed by MD aa5 Outcome: 10:13 Discharge ordered by MD. gs 10:25 Discharged to home via wheelchair, with family. aa5 10:25 Condition: stable 10:25 Discharge instructions given to family, Instructed on discharge instructions, follow up and referral plans. Demonstrated understanding of instructions, follow-up care. 10:30 Patient left the ED. aa5 Signatures: Sosa Sauer as Alexa Kern RN RN aa5 Rama Goetz RN RN Domingo Birmingham MD MD Corrections: (The following items were deleted from the chart) 09:55 09:52 BP 113 / 69; Pulse 75bpm; Resp 20bpm; Pulse Ox 100% RA; Temp 97.4F; Pain 10/10; hbhb 10:00 09:50 Presenting complaint: Patient states: Abdominal pain and dark tarry stools and hb nausea x 1 week. hb 11:19 10:35 Abuse screen: No signs of abuse noted aa5 aa5 11:19 10:35 Nutritional screening: No deficits noted. aa5 aa5 11:19 10:35 Tuberculosis screening: No symptoms or risk factors identified. aa5 aa5 11:19 10:35 Fall Risk Secondary diagnosis (15 points) dementia, Ambulatory Aid- aa5 Crutches/Cane/Walker (15 pts). Mental Status- Overestimates/Forgets Limitations (15 pts.). Total Monk Fall Scale indicates High Risk Score (45 or more points). Fall prevention measures have been instituted. Side Rails Up X 2 Placed Close to Nursing Station Family Present and informed to notify staff if the need to leave the bedside aa5
--- NOTE | 2018-03-23 10:14 | EDPHYS ---
Physician Documentation [facility] Name: Zaynab Rehman Age: 77 yrs Sex: Female : 1940 Arrival Date: 03/23/2018 Time: 09:41 Bed 17 Private MD: Jabari Groves E ED Physician Domingo Birmingham HPI: 03/23 10:15 This 77 yrs old Female presents to ER via Wheelchair with complaints of gs Black/Tarry Stools, Back Pain. 10:15 The patient presents to the emergency department with rectal bleeding, melena. Onset: gs The symptoms/episode began/occurred 5 day(s) ago. 10:16 Abdominal pain: described as crampy, chronic abd and back pain, ran out of pain gs medication. Associated signs and symptoms: Pertinent negatives: chest pain, constipation, diarrhea. Severity of symptoms: At their worst the symptoms were mild in the emergency department the symptoms are unchanged. Historical: - Allergies: 09:55 PENICILLINS; hb - Home Meds: 09:55 alprazolam 0.5 mg Oral tab 1 tab twice a day [Active]; Anoro Ellipta 62.5-25 hb mcg/actuation inhalation dsdv 1 puff once daily [Active]; Caltrate 600 + D 600 mg (1,500 mg)-800 unit Oral chew [Active]; gabapentin 400 mg Oral cap 1 cap twice a day [Active]; hydrocodone-acetaminophen 10-325 mg Oral tab 1 tab every 6 hours for chronic back pain [Active]; metoprolol tartrate 100 mg Oral tab 1 tab 2 times per day [Active]; Nasonex 50 mcg/actuation Nasal spry once daily [Active]; Neurontin 400 mg Oral cap daily [Active]; Nexium 40 mg Oral cpDR 1 cap once daily [Active]; nitroglycerin 0.4 mg SL subl 1 tab every 5 minutes [Active]; nystatin 100,000 unit/mL Oral susp 4 mL 4 times per day [Active]; Pennsaid 1.5 % Topical drop [Active]; primidone 50 mg Oral tab daily [Active]; Seroquel Oral [Active]; Spiriva Respimat 2.5 mcg/actuation inhalation mist 2 puffs once daily [Active]; spironolactone 25 mg Oral tab 1 tab once daily [Active]; Xanax 0.5 mg Oral tab 1 tab 3 times per day [Active]; Xopenex 1.25 mg/3 mL Inhl nebu 3 mL 3 times per day for Acute Asthma Attack [Active]; Zofran (as hydrochloride) 4 mg Oral tab 1 tabs 3 times per day [Active]; Zofran (as hydrochloride) 4 mg Oral tab every 6 hours [Active]; prednisone 5 mg Oral tab once daily [Active]; - PMHx: 09:55 Arthritis; COPD; Depression; Essential Tremor; Hypertension; hb - PSHx: 09:55 L knee sx; Hysterectomy; Carpal Tunnel Repair; Heart cath; hb - Immunization history:: Adult Immunizations up to date. - Social history:: Smoking status: Patient/guardian denies using tobacco. ROS: 10:16 All other systems are negative. gs Exam: 10:16 Head/Face: Normocephalic, atraumatic. Eyes: Pupils equal round and reactive to light, gs extra-ocular motions intact. Lids and lashes normal. Conjunctiva and sclera are non-icteric and not injected. Cornea within normal limits. Periorbital areas with no swelling, redness, or edema. ENT: Nares patent. No nasal discharge, no septal abnormalities noted. Tympanic membranes are normal and external auditory canals are clear. Oropharynx with no redness, swelling, or masses, exudates, or evidence of obstruction, uvula midline. Mucous membranes moist. Neck: Trachea midline, no thyromegaly or masses palpated, and no cervical lymphadenopathy. Supple, full range of motion without nuchal rigidity, or vertebral point tenderness. No Meningismus. Chest/axilla: Normal chest wall appearance and motion. Nontender with no deformity. No lesions are appreciated. Cardiovascular: Regular rate and rhythm with a normal S1 and S2. No gallops, murmurs, or rubs. Normal PMI, no JVD. No pulse deficits. Respiratory: Lungs have equal breath sounds bilaterally, clear to auscultation and percussion. No rales, rhonchi or wheezes noted. No increased work of breathing, no retractions or nasal flaring. Abdomen/GI: Soft, non-tender, with normal bowel sounds. No distension or tympany. No guarding or rebound. No evidence of tenderness throughout. Skin: Warm, dry with normal turgor. Normal color with no rashes, no lesions, and no evidence of cellulitis. MS/ Extremity: Pulses equal, no cyanosis. Neurovascular intact. Full, normal range of motion. Neuro: Awake and alert, GCS 15, oriented to person, place, time, and situation. Cranial nerves II-XII grossly intact. Motor strength 5/5 in all extremities. Sensory grossly intact. Cerebellar exam normal. Normal gait. 10:16 Constitutional: The patient appears alert, awake. 10:16 Abdomen/GI: Rectal exam: Stool: guaiac negative. Vital Signs: 09:52 BP 113 / 69; Pulse 75; Resp 20; Temp 97.4; Pulse Ox 100% on 3 lpm NC; Pain 10/10; hb MDM: 10:13 Patient medically screened. 10:16 Data reviewed: vital signs, nurses notes. ED course: daughter requested refill on chronic pain meds, i referred her to prescribing physician. pt doesn't want blood work will get done what pcp wanted has op appt today for blood work and mri of back. Administered Medications: No medications were administered Point of Care Testing: Guaiac: 10:10 Stool Guaiac: Negative; Stool Hemoccult Control: Pass; aa5 10:10 Completed by MD belcher Disposition: 03/23/18 10:13 Discharged to Home. Impression: Generalized abdominal pain, Chronic pain syndrome. - Condition is Stable. - Discharge Instructions: Abdominal Pain, Adult, Chronic Pain. - Medication Reconciliation Form, Thank You Letter, Antibiotic Education, Prescription Opioid Use form. - Follow up: Private Physician; When: 2 - 3 days; Reason: Re-evaluation by your physician. Signatures: Alexa Kern RN RN aa5 Rama Goetz RN RN Domingo Birmingham MD MD
[2018-03-23 10:42] VITALS: BP 113/69; TEMP 97.4; O2SAT 100
== END 2018-03-23 10:30 | disposition home or self-care (01) ==
LOC: ER 09:40
DX: R10.84 Generalized abdominal pain (principal); G89.4 Chronic pain syndrome; J44.9 Chronic obstructive pulmonary disease, unspecified; I10 Essential (primary) hypertension; F32.9 Major depressive disorder, single episode, unspecified; Z88.0 Allergy status to penicillin
CPT/HCPCS: 99282

== ENCOUNTER 2018-06-12 06:27 | Inpatient (IN) | payer OTHER ==
--- OUTSIDE RECORDS SUMMARY | 2018-06-12 06:29 | XMS REPORT | Clinical Summary ---
:1940 Author Organization [facility] Address [address] [place] [address] Phone Care Team Providers Name Role Phone [...] 1 tablet 30 tablet 0 04/18/2017 04/18/2018 mg tablet (8.6 mg total) by mouth every night as needed for Constipation. Active Problems Problem Noted Date Back pain 04/10/2017 Pneumonia 04/10/2017 Right lower lobe pneumonia (HCC) 04/10/2017 Depression 04/10/2017 Anxiety 04/10/2017 Social History Tobacco Use Types Packs/Day Years Used Date Former Smoker Cigarettes 1 60 Quit: 12/2016 Smokeless Tobacco: Never Used Alcohol Use Drinks/Week oz/Week Comments No Sex Assigned at Date Recorded Not on file Last Filed Vital Signs Not on file Plan of Treatment Not on file Results Not on fileafter 06/11/2017
--- OUTSIDE RECORDS SUMMARY | 2018-06-12 06:30 | XMS REPORT ---
:1940 [facility] [address] [place] [id number] Care Team Providers Name Role Phone AZAR GAMEZ Unavailable Unavailable Problems This patient has no known problems. Allergies, Adverse Reactions, Alerts This patient has no known allergies or adverse reactions. Medications This patient has no known medications. Results Test Description Test Time Test Comments Text Results Atomic Results Result Comments CBC W/PLT COUNT & AUTO DIFFERENTIAL 2017-04-15 05:50:00 Test Item Value Reference Range Comments WHITE BLOOD CELL COUNT (BEAKER) (test vzig=339) 5.5 K/ L 4.0-10.0 RED BLOOD CELL COUNT (BEAKER) (test aucj=318) 3.54 M/ L 4.00-5.00 HEMOGLOBIN (BEAKER) (test pfka=875) 10.8 GM/DL 12.0-15.0 HEMATOCRIT (BEAKER) (test hivh=348) 33.5 % 36.0-45.0 MEAN CORPUSCULAR VOLUME (BEAKER) (test mwmm=410) 94.8 fL 82.0-99.0 MEAN CORPUSCULAR HEMOGLOBIN (BEAKER) (test acuk=064) 30.4 pg 27.0-33.0 MEAN CORPUSCULAR HEMOGLOBIN CONC (BEAKER) (test lemd=912) 32.1 GM/DL 32.0- 36.0 RED CELL DISTRIBUTION WIDTH (BEAKER) (test jnpt=367) 12.7 % 10.3-14.2 PLATELET COUNT (BEAKER) (test vixz=062) 190 K/CU MM 150-430 MEAN PLATELET VOLUME (BEAKER) (test rdkp=355) 6.6 fL 6.5-10.5 NUCLEATED RED BLOOD CELLS (BEAKER) (test ibhy=291) 0 /100 WBC 0-0 NEUTROPHILS RELATIVE PERCENT (BEAKER) (test tbcj=901) 59 % LYMPHOCYTES RELATIVE PERCENT (BEAKER) (test sdlr=669) 30 % MONOCYTES RELATIVE PERCENT (BEAKER) (test dbvc=212) 8 % EOSINOPHILS RELATIVE PERCENT (BEAKER) (test sxqu=208) 3 % BASOPHILS RELATIVE PERCENT (BEAKER) (test tdoi=223) 0 % NEUTROPHILS ABSOLUTE COUNT (BEAKER) (test jhaa=303) 3.23 K/ L 1.80-8.00 LYMPHOCYTES ABSOLUTE COUNT (BEAKER) (test zkpo=202) 1.63 K/ L 1.48-4.50 MONOCYTES ABSOLUTE COUNT (BEAKER) (test fqwm=019) 0.44 K/ L 0.00-1.30 EOSINOPHILS ABSOLUTE COUNT (BEAKER) (test jzps=282) 0.15 K/ L 0.00-0.50 BASOPHILS ABSOLUTE COUNT (BEAKER) (test jufg=412) 0.00 K/ L 0.00-0.20 0.00BASIC METABOLIC [id number] 05:42:00 Test Item Value Reference Range Comments SODIUM (BEAKER) (test 135 meq/L 136-145 nkjx=996) POTASSIUM (BEAKER) (test 4.1 meq/L 3.5-5.1 anba=228) CHLORIDE (BEAKER) (test 97 meq/L 98-107 pwtp=986) CO2 (BEAKER) (test 31 meq/L 22-29 sjuv=054) BLOOD UREA NITROGEN 21 mg/dL 7-21 (BEAKER) (test zbbz=760) CREATININE (BEAKER) (test 0.66 mg/dL 0.57-1.25 gzyb=785) GLUCOSE RANDOM (BEAKER) 95 mg/dL 70-105 (test livr=760) CALCIUM (BEAKER) (test 9.1 mg/dL 8.4-10.2 flxv=179) EGFR (BEAKER) (test 88 mL/min/1.73 sq m ESTIMATED GFR IS NOT cifm=9617) ACCURATE CREATININE CLEARANCE IN PREDICTING GLOMERULAR FILTRATION RATE. ESTIMATED GFR IS NOT APPLICABLE FOR DIALYSIS PATIENTS. [id number] 05:38:00 Test Item Value Reference Range Comments PROTIME (BEAKER) (test fegr=930) 13.0 seconds 11.7-14.7 INR (BEAKER) (test mmhu=553) 1.0 <=5.9 PARTIAL THROMBOPLASTIN TIME (BEAKER) (test 27.7 seconds 22.5-36.0 obha=053) RECOMMENDED COUMADIN/WARFARIN INR THERAPY RANGESSTANDARD DOSE: 2.0 - 3.0 Includes: PROPHYLAXIS forvenous thrombosis, systemic embolization; TREATMENT for venous thrombosis and/or pulmonary embolus.HIGH RISK: Target INR is 2.5-3.5 for patients with mechanical heart valves.PROTHROMBIN [id number] 05:37: 00 Test Item Value Reference Range Comments PROTIME (BEAKER) (test lfte=672) 13.0 seconds 11.7-14.7 INR (BEAKER) (test kgxk=054) 1.0 <=5.9 RECOMMENDED COUMADIN/WARFARIN INR THERAPY RANGESSTANDARD DOSE: 2.0 - 3.0 Includes: PROPHYLAXIS forvenous thrombosis, systemic embolization; TREATMENT for venous thrombosis and/or pulmonary embolus.HIGH RISK: Target INR is 2.5-3.5 for patients with mechanical heart valves.BASIC METABOLIC [id number] 05:34: 00 Test Item Value Reference Range Comments SODIUM (BEAKER) (test 137 meq/L 136-145 jxsu=227) POTASSIUM (BEAKER) (test 4.0 meq/L 3.5-5.1 mhuk=108) CHLORIDE (BEAKER) (test 95 meq/L 98-107 moeo=180) CO2 (BEAKER) (test 34 meq/L 22-29 lzqh=383) BLOOD UREA NITROGEN 20 mg/dL 7-21 (BEAKER) (test gapj=741) CREATININE (BEAKER) (test 0.69 mg/dL 0.57-1.25 dblw=220) GLUCOSE RANDOM (BEAKER) 114 mg/dL 70-105 (test ruse=939) CALCIUM (BEAKER) (test 9.4 mg/dL 8.4-10.2 jpuq=168) EGFR (BEAKER) (test 83 mL/min/1.73 sq m ESTIMATED GFR IS NOT cjed=4550) ACCURATE CREATININE CLEARANCE IN PREDICTING GLOMERULAR FILTRATION RATE. ESTIMATED GFR IS NOT APPLICABLE FOR DIALYSIS PATIENTS. BASIC METABOLIC [id number] 07:18:00 Test Item Value Reference Range Comments SODIUM (BEAKER) (test 134 meq/L 136-145 zzjl=537) POTASSIUM (BEAKER) (test 4.1 meq/L 3.5-5.1 bcng=311) CHLORIDE (BEAKER) (test 93 meq/L 98-107 uerj=013) CO2 (BEAKER) (test 36 meq/L 22-29 xasv=510) BLOOD UREA NITROGEN 17 mg/dL 7-21 (BEAKER) (test orwd=454) CREATININE (BEAKER) (test 0.65 mg/dL 0.57-1.25 uxrk=054) GLUCOSE RANDOM (BEAKER) 100 mg/dL 70-105 (test skab=264) CALCIUM (BEAKER) (test 9.6 mg/dL 8.4-10.2 qnmm=278) EGFR (BEAKER) (test 89 mL/min/1.73 sq m ESTIMATED GFR IS NOT dose=9220) ACCURATE CREATININE CLEARANCE IN PREDICTING GLOMERULAR FILTRATION RATE. ESTIMATED GFR IS NOT APPLICABLE FOR DIALYSIS PATIENTS. URINALYSIS W/ REFLEX URINE [id number] 07:08:00 Test Item Value Reference Range Comments COLOR (BEAKER) (test advc=610) Yellow CLARITY (BEAKER) (test saxu=176) Hazy SPECIFIC GRAVITY UA (BEAKER) (test ocbt=999) 1.035 1.001-1.035 PH UA (BEAKER) (test ibhp=812) 7.0 5.0-8.0 PROTEIN UA (BEAKER) (test kudw=147) 10 mg/dL Negative GLUCOSE UA (BEAKER) (test emnu=902) Negative Negative KETONES UA (BEAKER) (test lgut=341) Negative Negative BILIRUBIN UA (BEAKER) (test dppr=117) Negative Negative BLOOD UA (BEAKER) (test swsy=377) Negative Negative NITRITE UA (BEAKER) (test wtpb=451) Negative Negative LEUKOCYTE ESTERASE UA (BEAKER) (test kfrj=280) Small Negative UROBILINOGEN UA (BEAKER) (test ojpg=889) 0.2 mg/dL 0.2-1.0 RBC UA (BEAKER) (test saui=819) 1 /HPF WBC UA (BEAKER) (test fqoy=512) 9 /HPF BACTERIA (BEAKER) (test slpa=831) Occasional MUCUS (BEAKER) (test vmeo=1177) Rare SQUAMOUS EPITHELIAL (BEAKER) (test fkqy=209) 7 /HPF SOURCE(BEAKER) (test bpka=5393) BASIC METABOLIC [id number] 06:11:00 Test Item Value Reference Range Comments SODIUM (BEAKER) (test 136 meq/L 136-145 bfha=141) POTASSIUM (BEAKER) (test 4.4 meq/L 3.5-5.1 zpkz=042) CHLORIDE (BEAKER) (test 95 meq/L 98-107 qcna=108) CO2 (BEAKER) (test 35 meq/L 22-29 pefw=903) BLOOD UREA NITROGEN 25 mg/dL 7-21 (BEAKER) (test wbkd=866) CREATININE (BEAKER) (test 0.66 mg/dL 0.57-1.25 lxxn=275) GLUCOSE RANDOM (BEAKER) 116 mg/dL 70-105 (test efqv=779) CALCIUM (BEAKER) (test 9.0 mg/dL 8.4-10.2 dfwx=539) EGFR (BEAKER) (test 88 mL/min/1.73 sq m ESTIMATED GFR IS NOT gzmo=3123) ACCURATE CREATININE CLEARANCE IN PREDICTING GLOMERULAR FILTRATION RATE. ESTIMATED GFR IS NOT APPLICABLE FOR DIALYSIS PATIENTS. VITAMIN D, [id number] 05:04:00 Test Item Value Reference Range Comments VITAMIN D 25-OH (BEAKER) (test bgky=8007) < ng/mL 13.0-47.8 COMPREHENSIVE METABOLIC [id number] 22:54:00 Test Item Value Reference Range Comments TOTAL PROTEIN (BEAKER) 6.8 gm/dL 6.0-8.3 (test fkkb=899) ALBUMIN (BEAKER) (test 3.5 g/dL 3.5-5.0 mckr=0458) ALKALINE PHOSPHATASE 83 U/L 40-150 (BEAKER) (test qobi=584) BILIRUBIN TOTAL (BEAKER) 0.3 mg/dL 0.2-1.2 (test bqxa=369) SODIUM (BEAKER) (test 136 meq/L 136-145 wngi=568) POTASSIUM (BEAKER) (test 4.4 meq/L 3.5-5.1 upwl=428) CHLORIDE (BEAKER) (test 95 meq/L 98-107 bnik=804) CO2 (BEAKER) (test 34 meq/L 22-29 ubgs=915) BLOOD UREA NITROGEN 28 mg/dL 7-21 (BEAKER) (test haqi=784) CREATININE (BEAKER) (test 0.76 mg/dL 0.57-1.25 egct=879) GLUCOSE RANDOM (BEAKER) 150 mg/dL 70-105 (test sgde=004) CALCIUM (BEAKER) (test 9.0 mg/dL 8.4-10.2 pwuc=501) AST (SGOT) (BEAKER) (test 22 U/L 5-34 mhht=778) ALT (SGPT) (BEAKER) (test 51 U/L 6-55 gxtq=659) EGFR (BEAKER) (test 74 mL/min/1.73 sq m ESTIMATED GFR IS NOT xdsi=4218) ACCURATE CREATININE CLEARANCE IN PREDICTING GLOMERULAR FILTRATION RATE. ESTIMATED GFR IS NOT APPLICABLE FOR DIALYSIS PATIENTS. PROTHROMBIN [id number] 22:38:00 Test Item Value Reference Range Comments PROTIME (BEAKER) (test zkjr=043) 13.3 seconds 11.7-14.7 INR (BEAKER) (test crwn=122) 1.0 <=5.9 RECOMMENDED COUMADIN/WARFARIN INR THERAPY RANGESSTANDARD DOSE: 2.0 - 3.0 Includes: PROPHYLAXIS forvenous thrombosis, systemic embolization; TREATMENT for venous thrombosis and/or pulmonary embolus.HIGH RISK: Target INR is 2.5-3.5 for patients with mechanical heart valves.CBC (HEMOGRAM ONLY)[id number] 22:31:00 Test Item Value Reference Range Comments WHITE BLOOD CELL COUNT (BEAKER) (test xtgn=103) 6.5 K/ L 4.0-10.0 RED BLOOD CELL COUNT (BEAKER) (test omoc=748) 3.76 M/ L 4.00-5.00 HEMOGLOBIN (BEAKER) (test mloi=098) 11.4 GM/DL 12.0-15.0 HEMATOCRIT (BEAKER) (test ygex=145) 35.5 % 36.0-45.0 MEAN CORPUSCULAR VOLUME (BEAKER) (test unfl=615) 94.6 fL 82.0-99.0 MEAN CORPUSCULAR HEMOGLOBIN (BEAKER) (test 30.4 pg 27.0-33.0 epks=946) MEAN CORPUSCULAR HEMOGLOBIN CONC (BEAKER) (test 32.2 GM/DL 32.0-36.0 hekf=983) RED CELL DISTRIBUTION WIDTH (BEAKER) (test 13.6 % 10.3-14.2 evfm=715) PLATELET COUNT (BEAKER) (test znow=182) 195 K/CU MM 150-430 MEAN PLATELET VOLUME (BEAKER) (test ufqr=490) 6.2 fL 6.5-10.5 NUCLEATED RED BLOOD CELLS (BEAKER) (test 0 /100 WBC 0-0 fxpg=607) 0.00CBC W/PLT COUNT & AUTO [id number] 22:31:00 Test Item Value Reference Range Comments WHITE BLOOD CELL COUNT (BEAKER) (test rasf=305) 6.5 K/ L 4.0-10.0 RED BLOOD CELL COUNT (BEAKER) (test rehf=717) 3.76 M/ L 4.00-5.00 HEMOGLOBIN (BEAKER) (test fgbg=452) 11.4 GM/DL 12.0-15.0 HEMATOCRIT (BEAKER) (test aqdd=532) 35.5 % 36.0-45.0 MEAN CORPUSCULAR VOLUME (BEAKER) (test fhyo=051) 94.6 fL 82.0-99.0 MEAN CORPUSCULAR HEMOGLOBIN (BEAKER) (test 30.4 pg 27.0-33.0 dwoa=915) MEAN CORPUSCULAR HEMOGLOBIN CONC (BEAKER) (test 32.2 GM/DL 32.0-36.0 knix=603) RED CELL DISTRIBUTION WIDTH (BEAKER) (test 13.6 % 10.3-14.2 xnaj=715) PLATELET COUNT (BEAKER) (test rtox=496) 195 K/CU MM 150-430 MEAN PLATELET VOLUME (BEAKER) (test pzxj=900) 6.2 fL 6.5-10.5 NUCLEATED RED BLOOD CELLS (BEAKER) (test 0 /100 WBC 0-0 unug=819) NEUTROPHILS RELATIVE PERCENT (BEAKER) (test 57 % pspp=621) LYMPHOCYTES RELATIVE PERCENT (BEAKER) (test 33 % iwbw=561) MONOCYTES RELATIVE PERCENT (BEAKER) (test 8 % vudx=126) EOSINOPHILS RELATIVE PERCENT (BEAKER) (test 2 % gyba=754) BASOPHILS RELATIVE PERCENT (BEAKER) (test 0 % potp=402) NEUTROPHILS ABSOLUTE COUNT (BEAKER) (test 3.66 K/ L 1.80-8.00 twan=923) LYMPHOCYTES ABSOLUTE COUNT (BEAKER) (test 2.13 K/ L 1.48-4.50 vorg=556) MONOCYTES ABSOLUTE COUNT (BEAKER) (test 0.52 K/ L 0.00-1.30 owen=430) EOSINOPHILS ABSOLUTE COUNT (BEAKER) (test 0.14 K/ L 0.00-0.50 wjqk=487) BASOPHILS ABSOLUTE COUNT (BEAKER) (test 0.02 K/ L 0.00-0.20 rwep=589)
[2018-06-12 07:11] LABS: Absolute Lymphocytes (CBC) 0.8 K/uL (0.7-4.9); Absolute Monocytes 1.1 K/uL (0.1-1.3); Absolute Neutrophil 7.5 K/uL (1.8-8.0); Basophils % 0.2 % (0-1.3); Eosinophils % 0.2 % (0-4.4); Hematocrit 31.5 % (36.0-45.0); Lymphocytes % 8.5 % (15.3-44.8); MCH 30.9 pg (27.0-35.0); MCV 93.1 fL (80-100); MPV 7.3 fL (7.6-11.3); Monocytes % 12.1 % (3.3-12.3); RBC Red Blood Cell Count 3.38 M/uL (3.86-4.86)
[2018-06-12 07:18] LABS: Protime INR 1.08
[2018-06-12 07:31] LABS: Albumin 3.2 g/dL (3.4-5.0); Bilirubin Direct 0.2 mg/dL (0-0.2); Bilirubin Total 0.5 mg/dL (0.2-1.0); Protein, Total 7.2 g/dL (6.4-8.2)
[2018-06-12 07:36] LABS: Urine Blood NEGATIVE (NEG); Urine Glucose NEGATIVE (NEG); Urine Protein TRACE (NEG)
[2018-06-12 07:40] LABS: Urine Amorphous Sediment 1+ /HPF (NONE SEEN); Urine Bacteria <20 /HPF (<20); Urine Culture Reflex Order NOT NEEDED; Urine RBC NONE SEEN /HPF (NONE SEEN)
[2018-06-12] MEDS ORDERED: NA CHLORIDE 0.9% 1,000 ML ONE ×2 (07:43→08:23)
--- NOTE | 2018-06-12 07:53 | RAD REPORT ---
EXAM DESCRIPTION: CT - Head Brain Wo Cont - 06/12/2018 7:38 am CLINICAL HISTORY: Confusion/alteration of awareness/head injury COMPARISON: 2016 TECHNIQUE: Computed axial tomography of the head was obtained. IV contrast was not requested. All CT scans are performed using dose optimization technique as appropriate and may include automated exposure control or mA/KV adjustment according to patient size. FINDINGS: An intracranial bleed is not seen . The ventricles are normal in caliber. No extra-axial fluid collection is noted. Fluid within the sinuses/ mastoids is not seen. IMPRESSION: No acute intracranial abnormality is seen. If patient's symptoms persist MRI of the bra in would be recommended.
[2018-06-12] MEDS ORDERED: ALBUTEROL 2.5 MG/3 ML NEB SOL ONE (07:55)
[2018-06-12] MEDS ORDERED: IPRATROPIUM BROM 0.5MG/2.5ML ONE (07:55)
--- NOTE | 2018-06-12 08:03 | EKG ---
Test Date: 2018-06-12 Test Time: 06:32:39 Clinical Trials Nurse: FRANCIS MEASUREMENT RESULTS: Intervals: Rate: 102 TN: 188 QRSD: 74 QT: 348 QTc: 453 [place]: P: 19 TN: 188 QRS: -59 T: 86 INTERPRETIVE STATEMENTS: Sinus tachycardia Left axis deviation Inferior infarct, age undetermined Anterior infarct, age undetermined Abnormal ECG Compared to ECG 01/17/2017 20:54:32 Left-axis deviation now present Sinus rhythm no longer present Myocardial infarct finding still present Electronically Signed On 06-12-18 08:03:00 CDT by Quoc Smith
--- NOTE | 2018-06-12 08:23 | ER ---
Nurse's Notes [facility] Name: Zaynab Rehman Age: 78 yrs Sex: Female : 1940 Arrival Date: 06/12/2018 Time: 06:31 Bed 3 Private MD: Diagnosis: Dehydration;Hypotension;Chronic obstructive pulmonary disease with (acute) exacerbation Presentation: 06/12 06:32 Presenting complaint: EMS states: Pt was having trouble breathing at home and fell out tl2 of bed, O2 sat was in high 80's and BP was 70's systolic after family had given her Nitro. A\T\A treatment and fluids given on EMS and O2 sat and BP increased. Family states that pt is altered and confused and this happens when she has a COPD exacerbation. Transition of care: patient was not received from another setting of care. Onset of symptoms was June 12, 2018 at 04:00. Risk Assessment: Do you want to hurt yourself or someone else? Patient reports no desire to harm self or others. Initial Sepsis Screen: Does the patient meet any 2 criteria? No. Patient's initial sepsis screen is negative. Does the patient have a suspected source of infection? No. Patient's initial sepsis screen is negative. Care prior to arrival: Medication(s) given: Albuterol Neb Atrovent Neb x 1, Normal saline infusion, 500 mL, IV initiated. 18 GA, in the left antecubital area. 06:32 Method Of Arrival: EMS: [facility] tl2 06:32 Acuity: CYNTHIA 2 tl2 Historical: - Allergies: 06:37 PENICILLINS; tl2 - Home Meds: 06:37 alprazolam 0.5 mg Oral tab 1 tab twice a day [Active]; Anoro Ellipta 62.5-25 tl2 mcg/actuation inhalation dsdv 1 puff once daily [Active]; Caltrate 600 + D 600 mg (1,500 mg)-800 unit Oral chew [Active]; gabapentin 400 mg Oral cap 1 cap twice a day [Active]; hydrocodone-acetaminophen 10-325 mg Oral tab 1 tab every 6 hours for chronic back pain [Active]; metoprolol tartrate 100 mg Oral tab 1 tab 2 times per day [Active]; Nasonex 50 mcg/actuation Nasal spry once daily [Active]; Neurontin 400 mg Oral cap daily [Active]; Nexium 40 mg Oral cpDR 1 cap once daily [Active]; nitroglycerin 0.4 mg SL subl 1 tab every 5 minutes [Active]; nystatin 100,000 unit/mL Oral susp 4 mL 4 times per day [Active]; Pennsaid 1.5 % Topical drop [Active]; prednisone 5 mg Oral tab 1 tab once daily [Active]; primidone 50 mg Oral tab daily [Active]; Seroquel Oral [Active]; Spiriva Respimat 2.5 mcg/actuation inhalation mist 2 puffs once daily [Active]; spironolactone 25 mg Oral tab 1 tab once daily [Active]; Xanax 0.5 mg Oral tab 1 tab 3 times per day [Active]; Zofran (as hydrochloride) 4 mg Oral tab 1 tabs 3 times per day [Active]; Xopenex 1.25 mg/3 mL Inhl nebu every 6 hours [Active]; - PMHx: 06:37 Arthritis; COPD; Depression; Essential Tremor; Hypertension; Dementia; tl2 - Immunization history:: Adult Immunizations up to date. - Social history:: Smoking status: Patient/guardian denies using tobacco. - Ebola Screening: : No symptoms or risks identified at this time. Screenin:38 Abuse screen: Denies threats or abuse. Nutritional screening: No deficits noted. tl2 Tuberculosis screening: No symptoms or risk factors identified. Fall Risk Fall in past 12 months (25 points). IV access (20 points). Assessment: 06:32 General: Appears uncomfortable, Behavior is inappropriate for age. Pain: Denies pain. jd3 Neuro: Level of Consciousness is awake, confused, Oriented to none Weakness Pupils are PERRLA. Cardiovascular: Heart tones S1 S2 present Capillary refill < 3 seconds Patient's skin is warm and dry. Respiratory: Reports shortness of breath at rest history of COPD Airway is patent Respiratory effort is even, labored, Respiratory pattern is symmetrical, Breath sounds with wheezes bilaterally. GI: Abdomen is round Bowel sounds present X 4 quads. Abd is soft and non tender X 4 quads. Patient currently denies pain, vomiting. : No signs and/or symptoms were reported regarding the genitourinary system. EENT: No signs and/or symptoms were reported regarding the EENT system. Derm: Skin is intact, Skin is dry, Skin is normal, Skin temperature is warm. Musculoskeletal: Circulation, motion, and sensation intact. Range of motion: intact in all extremities. Injury Description: Bruise sustained to head is green, purple, was sustained 1 day ago. 08:21 Reassessment: Patient appears in no apparent distress at this time. Patient and/or tw2 family updated on plan of care and expected duration. Pain level reassessed. 09:13 Reassessment: Patient appears in no apparent distress at this time. Patient and/or tw2 family updated on plan of care and expected duration. Pain level reassessed. Vital Signs: 06:37 BP 146 / 115; Pulse 105; Resp 22; Temp 99.1(O); Pulse Ox 100% on 3 lpm NC; Weight 57.15 tl2 kg; Height 5 ft. 5 in. (165.10 cm); Pain 0/10; 06:57 BP 135 / 80; Pulse 102; Resp 17; Pulse Ox 95% on 3 lpm NC; mt 07:50 BP 73 / 49; Pulse 100; Resp 15; Pulse Ox 100% on 3 lpm NC; hb 08:21 BP 87 / 51; Pulse 99; Resp 15; Pulse Ox 100% on Nebulizer Mask; tw2 08:34 BP 98 / 58; Pulse 99; Resp 15; Pulse Ox 100% on Nebulizer Mask; tw2 08:39 Pulse Ox 100% on BiPAP; tw2 09:12 BP 111 / 85; Pulse 116; Resp 18; Pulse Ox 98% on BiPAP; tw2 10:52 BP 112 / 84; Pulse 102; Resp 20; Pulse Ox 100% on 30% BiPAP; hb 06:37 Body Mass Index 20.97 (57.15 kg, 165.10 cm) tl2 07:50 provider aware of BP, ELGIN Webb states child cuff was on pt for initial vs, correct size hb cuff is now on pt 08:39 14/7, rate 18, FIO2 30% BIPAP at this time. tw2 ED Course: 06:31 Patient arrived in ED. jd3 06:32 Gabriel Rojas, ELGIN is Primary Nurse. jd3 06:34 Triage completed. tl2 06:37 Arm band placed on right wrist. tl2 06:38 Daniel Spring PA is PHCP. jr8 06:38 EKG done, by ED staff, reviewed by Jabari Smalls MD. mt 06:39 Jabari Smalls MD is Attending Physician. jr8 06:40 Maintain EMS IV. Dressing intact. Good blood return noted. Site clean \T\ dry. Gauge \T\ bp site: 18 GAUGE LEFT AC. 06:58 Radiology exam delayed due to procedure with nurse at this time. vr 07:00 Straight cath inserted, using sterile technique, 16 Fr. Specimen obtained. mt 07:04 Patient has correct armband on for positive identification. Placed in gown. Bed in low jd3 position. Call light in reach. Side rails up X2. Adult w/ patient. 07:14 Attending Physician role handed off by Jabari Smalls MD rn 07:14 Jose Mcclelland MD is Attending Physician. rn 07:39 CT Head Brain wo Cont In Process Unspecified. EDMS 08:22 Catherine Liz MD is Hospitalizing Provider. jr8 08:30 Chest Single View XRAY In Process Unspecified. EDMS 08:39 BIPAP Sent. tw2 09:13 Primary Nurse role handed off by Gabriel Rojas RN hb 09:13 Rama Goetz, ELGIN is Primary Nurse. hb 11:40 No provider procedures requiring assistance completed. Patient admitted, IV remains in hb place. Administered Medications: 07:43 Drug: NS 0.9% 1000 ml Route: IV; Rate: 1000 ml; Site: left antecubital; tw2 07:55 Drug: Albuterol - atroVENT (3:1) (2.5 mg - 0.5 mg) 3 ml Route: Nebulizer; tw2 08:39 Follow up: Response: No adverse reaction tw2 08:23 Drug: NS 0.9% 1000 ml Route: IV; Rate: 1000 ml; Site: left antecubital; tw2 Point of Care Testing: Blood Glucose: 07:08 Blood Glucose: 164 mg/dL; mt Ranges: Outcome: 08:23 Decision to Hospitalize by Provider. jr8 11:40 Admitted to Med/surg accompanied by tech, via stretcher, room 221, with oxygen, with hb chart, Report called to ELGIN Angel 11:40 Condition: stable 11:40 Instructed on the need for admit. 11:44 Patient left the ED. hb Signatures: Dispatcher [employer] EDMS Mcclelland, MD MD elgin Garcia Victoria vr Roszak, Josh, PA PA jr8 Rama Goetz RN RN Katharina Velasco RN RN tw2 Kayla Childs RN RN geno2 Cinthia Tan mt, Jonathon, RN RN jd3 Jon Vo RN RN bp Corrections: (The following items were deleted from the chart) 06:39 06:32 Presenting complaint: EMS states: Pt was having trouble breathing at home, O2 sat tl2 was in high 80's and BP was 70's systolic after family had given her Nitro. A\T\A treatment and fluids given on EMS and O2 sat and BP increased. Family states that pt is altered and confused and this happens when she has a COPD exacerbation tl2
--- NOTE | 2018-06-12 08:23 | EDPHYS ---
Physician Documentation [facility] Name: Zaynab Rehman Age: 78 yrs Sex: Female : 1940 Arrival Date: 06/12/2018 Time: 06:31 Bed 3 Private MD: ED Physician Jose Mcclelland HPI: 06/12 07:50 This 78 yrs old Female presents to ER via EMS with complaints of COPD jr8 Exacerbation, Altered Mental Status. 07:50 Onset: The symptoms/episode began/occurred acutely, today. Possible causes: unknown. jr8 Associated signs and symptoms: Pertinent positives: difficulty breathing. Current symptoms: In the emergency department the patient's symptoms are unchanged from the initial presentation. Patient's baseline: Neuro: alert and fully oriented, Motor: no deficits, Ambulation: walks without assistance, Speech: normal. The patient has experienced similar episodes in the past, a few times. The patient has not recently seen a physician. Daughter of patient stated that she has fallen the last couple of days. Stated that today was having breathing difficulty. Stated that she is not herself. Confused and will not respond appropriately. Stated that she normally can walk and talk just fine. Stated that she will do this when she has exacerbations of her COPD. Patient currently alert to verbal stimulus only but confused . Historical: - Allergies: 06:37 PENICILLINS; tl2 - Home Meds: 06:37 alprazolam 0.5 mg Oral tab 1 tab twice a day [Active]; Anoro Ellipta 62.5-25 tl2 mcg/actuation inhalation dsdv 1 puff once daily [Active]; Caltrate 600 + D 600 mg (1,500 mg)-800 unit Oral chew [Active]; gabapentin 400 mg Oral cap 1 cap twice a day [Active]; hydrocodone-acetaminophen 10-325 mg Oral tab 1 tab every 6 hours for chronic back pain [Active]; metoprolol tartrate 100 mg Oral tab 1 tab 2 times per day [Active]; Nasonex 50 mcg/actuation Nasal spry once daily [Active]; Neurontin 400 mg Oral cap daily [Active]; Nexium 40 mg Oral cpDR 1 cap once daily [Active]; nitroglycerin 0.4 mg SL subl 1 tab every 5 minutes [Active]; nystatin 100,000 unit/mL Oral susp 4 mL 4 times per day [Active]; Pennsaid 1.5 % Topical drop [Active]; prednisone 5 mg Oral tab 1 tab once daily [Active]; primidone 50 mg Oral tab daily [Active]; Seroquel Oral [Active]; Spiriva Respimat 2.5 mcg/actuation inhalation mist 2 puffs once daily [Active]; spironolactone 25 mg Oral tab 1 tab once daily [Active]; Xanax 0.5 mg Oral tab 1 tab 3 times per day [Active]; Zofran (as hydrochloride) 4 mg Oral tab 1 tabs 3 times per day [Active]; Xopenex 1.25 mg/3 mL Inhl nebu every 6 hours [Active]; - PMHx: 06:37 Arthritis; COPD; Depression; Essential Tremor; Hypertension; Dementia; tl2 - Immunization history:: Adult Immunizations up to date. - Social history:: Smoking status: Patient/guardian denies using tobacco. - Ebola Screening: : No symptoms or risks identified at this time. ROS: 07:50 Unable to obtain ROS due to altered mental status. jr8 Exam: 07:50 Head/Face: Normocephalic. Bruising noted to right frontal region of head Eyes: Pupils jr8 equal round and reactive to light, extra-ocular motions intact. Lids and lashes normal. Conjunctiva and sclera are non-icteric and not injected. Cornea within normal limits. Periorbital areas with no swelling, redness, or edema. ENT: Nares patent. No nasal discharge, no septal abnormalities noted. Tympanic membranes are normal and external auditory canals are clear. Oropharynx with no redness, swelling, or masses, exudates, or evidence of obstruction, uvula midline. Mucous membranes moist. Neck: Trachea midline, no thyromegaly or masses palpated, and no cervical lymphadenopathy. Supple, full range of motion without nuchal rigidity Cardiovascular: Sinus Tachycardia noted with a normal S1 and S2. No gallops, murmurs, or rubs. Normal PMI, no JVD. No pulse deficits. Respiratory: Lungs have equal breath sounds bilaterally, diffuse crackling noted throughout lung pretty. No increased work of breathing, no retractions or nasal flaring. Abdomen/GI: Soft, non-tender, with normal bowel sounds. No distension or tympany. No guarding or rebound. No evidence of tenderness throughout. Skin: Warm, dry with normal turgor. Normal color with no rashes, no lesions, and no evidence of cellulitis. MS/ Extremity: Pulses equal, no cyanosis. Neurovascular intact. Full, normal range of motion. Bruising noted to lower legs 07:50 Neuro: Orientation: Not oriented to person, place, time, situation, Mentation: slow to respond, confused, Memory: unable to test, Cranial nerves: extraocular movements are intact, Facial palsy and sensory deficits are absent. Speech is slowed, Tongue strength is normal, Motor: moves all fours, Sensation: no obvious gross deficits, seizure activity, is not displayed by the patient, Abnormal movements: resting tremor, is located in the left arm. 08:24 ECG was reviewed by the Attending Physician. jr8 Vital Signs: 06:37 BP 146 / 115; Pulse 105; Resp 22; Temp 99.1(O); Pulse Ox 100% on 3 lpm NC; Weight 57.15 tl2 kg; Height 5 ft. 5 in. (165.10 cm); Pain 0/10; 06:57 BP 135 / 80; Pulse 102; Resp 17; Pulse Ox 95% on 3 lpm NC; mt 07:50 BP 73 / 49; Pulse 100; Resp 15; Pulse Ox 100% on 3 lpm NC; hb 08:21 BP 87 / 51; Pulse 99; Resp 15; Pulse Ox 100% on Nebulizer Mask; tw2 08:34 BP 98 / 58; Pulse 99; Resp 15; Pulse Ox 100% on Nebulizer Mask; tw2 08:39 Pulse Ox 100% on BiPAP; tw2 09:12 BP 111 / 85; Pulse 116; Resp 18; Pulse Ox 98% on BiPAP; tw2 10:52 BP 112 / 84; Pulse 102; Resp 20; Pulse Ox 100% on 30% BiPAP; hb 06:37 Body Mass Index 20.97 (57.15 kg, 165.10 cm) tl2 07:50 provider aware of BP, ELGIN Webb states child cuff was on pt for initial vs, correct size hb cuff is now on pt 08:39 14/7, rate 18, FIO2 30% BIPAP at this time. tw2 MDM: 06:40 Patient medically screened. jr8 08:22 Differential Diagnosis: CVA, electrolyte abnormality, hypoglycemia, intracranial bleed, jr8 overdose, pneumonia, seizure, sepsis, TIA, UTI, volume depletion. Data reviewed: vital signs, nurses notes, lab test result(s), EKG, radiologic studies, CT scan, plain films, and as a result, I will admit patient. Data interpreted: Pulse oximetry: on room air is 100 %. Interpretation: normal. Counseling: I had a detailed discussion with the patient and/or guardian regarding: the historical points, exam findings, and any diagnostic results supporting the discharge/admit diagnosis, lab results, radiology results, the need for further work-up and treatment in the hospital. Response to treatment: the patient's symptoms have mildly improved after treatment. 06/12 06:40 Order name: Urine Microscopic Only; Complete Time: 07:43 06/12 06:40 Order name: Basic Metabolic Panel; Complete Time: 07:35 06/12 06:40 Order name: Blood Culture Adult (2) 06/12 06:40 Order name: CBC with Diff; Complete Time: 07:16 06/12 06:40 Order name: Lactate; Complete Time: 07:35 06/12 06:40 Order name: LFT's; Complete Time: 07:35 06/12 06:40 Order name: Lipase; Complete Time: 07:35 06/12 06:40 Order name: Procalcitonin; Complete Time: 07:56 06/12 06:40 Order name: Protime (+inr); Complete Time: 07:43 06/12 06:40 Order name: Troponin (emerg Dept Use Only); Complete Time: 07:35 06/12 06:40 Order name: Chest Single View XRAY; Complete Time: 09:44 06/12 06:40 Order name: CT Head Brain wo Cont; Complete Time: 07:56 06/12 07:29 Order name: Urine Dipstick--Ancillary (enter results); Complete Time: 07:43 bd 06/12 08:05 Order name: ABG; Complete Time: 08:48 06/12 06:40 Order name: Cath; Complete Time: 07:00 06/12 06:40 Order name: Accucheck; Complete Time: 07:08 06/12 06:40 Order name: Cardiac monitoring; Complete Time: 06:44 06/12 06:40 Order name: EKG - Nurse/Tech; Complete Time: 06:44 06/12 06:40 Order name: IV Saline Lock - Large Bore; Complete Time: 06:44 06/12 06:40 Order name: Labs collected and sent; Complete Time: 07:00 06/12 06:40 Order name: O2 Per Protocol; Complete Time: 06:44 06/12 06:40 Order name: O2 Sat Monitoring; Complete Time: 06:44 06/12 06:40 Order name: Urine Dipstick-Ancillary (obtain specimen); Complete Time: 07:00 06/12 07:39 Order name: EKG Electrocardiogram EDMA 06/12 08:26 Order name: BIPAP [facility] EC:24 Rate is 102 beats/min. Rhythm is regular, Sinus tachycardia. QRS [place] is Normal. DE jr8 interval is normal at 188 msec. QRS interval is normal at 74 msec. QT interval is normal at 453 msec. No Q waves. T waves are Normal. No ST changes noted. Clinical impression: Sinus tachycardia. Interpreted by me. Reviewed by me. Administered Medications: 07:43 Drug: NS 0.9% 1000 ml Route: IV; Rate: 1000 ml; Site: left antecubital; tw2 07:55 Drug: Albuterol - atroVENT (3:1) (2.5 mg - 0.5 mg) 3 ml Route: Nebulizer; tw2 08:39 Follow up: Response: No adverse reaction tw2 08:23 Drug: NS 0.9% 1000 ml Route: IV; Rate: 1000 ml; Site: left antecubital; tw2 Point of Care Testing: Blood Glucose: 07:08 Blood Glucose: 164 mg/dL; mt Ranges: Critical Glucose Levels:Adult <50 mg/dl or >400 mg/dl <40 mg/dl or >180 mg/dl Disposition: 19:06 Co-signature as Attending Physician, Jose Mcclelland MD. rn Disposition: 06/12/18 08:23 Hospitalization ordered by Catherine Liz for Inpatient Admission. Preliminary diagnosis are Dehydration, Hypotension, Chronic obstructive pulmonary disease with (acute) exacerbation. - Bed requested for Telemetry/MedSurg (Inpatient). - Status is Inpatient Admission. hb - Condition is Fair. - Problem is new. - Symptoms have improved. UTI on Admission? No Signatures: Dispatcher [employer] EDMS Prerna Mortensen bd Tiffanie Oneil, RN RN iw Jose Mcclelland MD MD rn Roszak, Josh, PA PA jr8 Rama Goetz, RN RN Katharina Lowe, RN RN tw2 Kayla Childs, RN RN tl2 Corrections: (The following items were deleted from the chart) 09:36 08:23 Hospitalization Ordered by Catherine Liz MD for Inpatient Admission. Preliminary iw diagnosis is Dehydration; Hypotension; Chronic obstructive pulmonary disease with (acute) exacerbation. Bed requested for Telemetry/MedSurg (Inpatient). Status is Inpatient Admission. Condition is Fair. Problem is new. Symptoms have improved. UTI on Admission? No. jr8 09:36 09:36 06/12/2018 08:23 Hospitalization Ordered by Catherine Liz MD for Inpatient iw Admission. Preliminary diagnosis is Dehydration; Hypotension; Chronic obstructive pulmonary disease with (acute) exacerbation. Bed requested for [facility] ER HOLD. Status is Inpatient Admission. Condition is Fair. Problem is new. Symptoms have improved. UTI on Admission? No. iw 10:46 09:36 06/12/2018 08:23 Hospitalization Ordered by Catherine Liz MD for Inpatient bd Admission. Preliminary diagnosis is Dehydration; Hypotension; Chronic obstructive pulmonary disease with (acute) exacerbation. Bed requested for [facility] ER HOLD. Status is Inpatient Admission. Condition is Fair. Problem is new. Symptoms have improved. UTI on Admission? No. iw 11:44 10:46 06/12/2018 08:23 Hospitalization Ordered by Catherine Liz MD for Inpatient hb Admission. Preliminary diagnosis is Dehydration; Hypotension; Chronic obstructive pulmonary disease with (acute) exacerbation. Bed requested for Telemetry/MedSurg (Inpatient). Status is Inpatient Admission. Condition is Fair. Problem is new. Symptoms have improved. UTI on Admission? No. bd
[2018-06-12 08:24] LABS: Arterial Blood Carboxyhemoglob 1.3 % (0-1.5); Blood Gas Oxyhemoglobin 97.4 % (94-97); Blood O2 Saturation 99.6 % (92-98.5)
[2018-06-12] MEDS ORDERED: ALBUTEROL 2.5 MG/3 ML NEB SOL NEB PRN (09:19)
[2018-06-12] MEDS ORDERED: IPRATROPIUM BROM 0.5MG/2.5ML NEB PRN (09:19)
[2018-06-12] MEDS ORDERED: ONDANSETRON 4 MG/2 ML VIAL IV PRN (09:19)
[2018-06-12] MEDS ORDERED: ACETAMINOPHEN 500 MG TAB PO PRN (09:19)
--- NOTE | 2018-06-12 09:44 | RAD REPORT ---
EXAM DESCRIPTION: Michelle Single View06/12/2018 8:29 am CLINICAL HISTORY: Chest pain COMPARISON: March 2017 FINDINGS: The lungs appear clear of acute infiltrate. The heart is normal size. An old proximal right humeral fracture is seen IMPRESSION: No acute abnormalities displayed
[2018-06-12] MEDS: METHYLPREDNISOLONE 40 MG INJ IV SCH ×2 (12:21→17:17)
[2018-06-12 13:12] VITALS: BMI 20.9
--- NOTE | 2018-06-12 18:11 | HP ---
Date of Admission: 06/12/2018 Primary Care Physician: Claudio Butts PA-C. Code Status: Full. Chief Complaint: Shortness of breath. History Of Present Illness: The patient is a 78-year-old female with past medical history of hyperte nsion, COPD, oxygen dependent, coronary artery disease, congestive heart failure, anxiety, GERD, and peripheral vascular disease, who comes in to the ER with shortness of breath. The patient is a poor historian due to her past medical condition and states that she has been having difficulty breathing, worse than usual for the past few days. Does report some cough with sputum production, can't tell m e what color sputum production. She denies any fevers or chills. No ill contacts. No family at the bedside. The patient's symptoms are constant, moderate, progressively worsening. No alleviating or aggravating factors. The patient's workup revealed normal white count. ABG showed acidosis, pH 7.3 , pCO2 was elevated at 73, and bicarb was 34. The patient has an episode of previous hypercapnia. S he was started on BiPAP and referred for admission. When seen in the ER, she was awake, alert, orien stella to self, confused. Past Medical History: COPD, hypertension, coronary artery disease, congestive heart failure, anxiety , gastroesophageal reflux disease, peripheral vascular disease. Surgical History: History of bladder suspension, carpal tunnel repair, bilateral knee surgery, cardi ac cath showing occlusion of the right coronary artery, and peripheral vascular disease. Allergies: PENICILLIN. Medications: List reviewed. Social History: The patient had long-standing use of tobacco, quit few years ago. No alcohol or ill icit drug use. The patient does have a daughter. Family History: Mother had stomach cancer. Review of Systems: Limited due to the patient's medical condition. Physical Examination: Vital Signs: Temperature 99.1, heart rate 105, blood pressure 146/115, respirations 22, and O2 satur ation 100% on 3 L via nasal cannula. General: Awake, alert, oriented to self only, confused, elderly female, frail. HEENT: Normocephalic, atraumatic. PERRLA. EOMI. Moist mucous membranes. Oropharynx is clear. Po or dentition. Conjunctivae anicteric. Neck: Supple. No JVD. Trachea midline. CV: S1, S2. No murmurs. Peripheral pulses present. Respiratory: Decreased breath sounds. Wheezi ng heard throughout. No crackles. The patient is slightly tachypneic. No use of accessory muscles Gastrointestinal: Abdomen is soft, nontender, nondistended. Positive bowel sounds. No guarding or rigidity. Extremities: No clubbing, cyanosis, or edema. No calf tenderness. Neuro: Cranial nerves 2 through 12 intact grossly. No focal neurological deficit. Speech is normal . Laboratory Data: WBC 9.4, H and H 10.4 and 31.5, platelets 140, and neutrophils 79%. INR 1.08. ABG ; pH 7.3, pCO2 73.2, pO2 256, and bicarb 34.9. Sodium 139, potassium 4, chloride 97, CO2 37, BUN 45, creatinine 0.9, glucose 151, lactate 1.7, and calcium 8.9. Troponin less than 0.02. Albumin 3.2. Procalcitonin 0.16. UA is negative. CT scan of the head shows no acute intracranial abnormality. C hest x-ray, personally reviewed, shows no acute abnormality. EKG shows rate of 102, sinus tachycardi a, left axis deviation. Assessment: A 78-year-old female with; 1.Acute chronic obstructive pulmonary disease exacerbation. We will continue with nebulizer treatme nts, IV steroids. We will continue with BiPAP. 2.Acute respiratory distress with hypercapnia. Continue with BiPAP. ABG shows hypercapnia and pH 7 .3. Repeat ABG if not improving. 3.History of essential hypertension. We will resume medications as appropriate. 4.History of coronary artery disease, te-moak artery, te-moak heart without angina. 5.Generalized anxiety disorder. 6.Gastroesophageal reflux disease without esophagitis. Continue PPI. 7.Peripheral vascular disease. 8.History of congestive heart failure. Last known ejection fraction from 2015 is 64%. Plan: Admit the patient to Med-Surg versus inpatient. /ROBERT Voice ID: [id number]
[2018-06-13] MEDS: METHYLPREDNISOLONE 40 MG INJ IV SCH ×3 (00:26→17:25)
[2018-06-13 05:20] LABS: Absolute Lymphocytes (CBC) 0.7 K/uL (0.7-4.9); Absolute Monocytes 0.4 K/uL (0.1-1.3); Absolute Neutrophil 6.7 K/uL (1.8-8.0); Basophils % 0.4 % (0-1.3); Eosinophils % 0.1 % (0-4.4); Hematocrit 27.6 % (36.0-45.0); Lymphocytes % 8.4 % (15.3-44.8); MCV 91.5 fL (80-100); MPV 8.3 fL (7.6-11.3); Monocytes % 5.6 % (3.3-12.3); RBC Red Blood Cell Count 3.02 M/uL (3.86-4.86)
[2018-06-13 05:23] LABS: BUN Blood Urea Nitrogen 28 mg/dL (7-18); Bicarbonate 33 mmol/L (21-32); Glucose Level 125 mg/dL (74-106); Potassium 4.3 mmol/L (3.5-5.1); Sodium Level 140 mmol/L (136-145)
[2018-06-13 05:48] LABS: Blood Morphology Comment NOT SEEN (NOT SEEN); Platelet Estimate ADEQ
[2018-06-13] MEDS: ARFORMOTEROL TARTRATE 15 MCG/2 ML VIAL.NEB NEB SCH ×2 (11:19→19:57)
[2018-06-13] MEDS ORDERED: GABAPENTIN 400 MG CAP PO PRN (11:20)
[2018-06-13] MEDS ORDERED: TIZANIDINE 4 MG TABLET PO PRN (11:20)
[2018-06-13] MEDS ORDERED: ALPRAZOLAM 0.5 MG TABLET PO PRN (11:20)
--- NOTE | 2018-06-13 11:22 | P.PN ---
Subjective Date of Service: 06/13/18 Chief Complaint: Shortness of breath Patient is 78 years of age admitted with COPD exacerbation still feels fairly weak denies any cough sputum or hemoptysis patient was hypercapnic on admission Review of Systems General: Weakness Respiratory: Cough, Shortness of Breath Physical Examination - Vital Signs Temperature: 97.7 F Blood Pressure: 120/58 Pulse: 102 Respirations: 20 Pulse Ox (%): 96 - Physical Exam General: Alert, Oriented x3 Neck: Supple Respiratory: Diminished, Expiratory wheezes Cardiovascular: No edema, Regular rate/rhythm Assessment & Plan - Problems (Diagnosis) (1) COPD exacerbation Onset Date: 06/12/18 Current Visit: Yes Status: Acute Plan: Patient is 78 years of age admitted with COPD exacerbation last fairly unremarkable she is hypercapnic chest x-rays clear continue with bronchodilators steroids Plan to discharge in: 24 Hours
[2018-06-13] MEDS: CEFTRIAXONE/SWI 1gm 1 GM/10 ML SYR IV SCH (13:17)
[2018-06-13] MEDS: PRIMIDONE 50 MG TAB PO SCH ×2 (13:18→20:43)
[2018-06-13] MEDS: IPRATROPIUM BROM 0.5MG/2.5ML NEB SCH ×2 (13:32→19:57)
[2018-06-13] MEDS: METOPROLOL TAR 25 MG TAB PO SCH (20:43)
[2018-06-14] MEDS: METHYLPREDNISOLONE 40 MG INJ IV SCH (00:10)
[2018-06-14] MEDS: IPRATROPIUM BROM 0.5MG/2.5ML NEB SCH ×2 (02:00→07:55)
[2018-06-14] MEDS ORDERED: PANTOPRAZOLE 40 MG INJ IVP ONE (03:19)
[2018-06-14] MEDS: TRAMADOL HCL 50 MG TAB PO PRN ×2 (03:37→10:16)
[2018-06-14] MEDS ORDERED: PANTOPRAZOLE 40MG TABLET PO SCH (06:30)
[2018-06-14] MEDS: ARFORMOTEROL TARTRATE 15 MCG/2 ML VIAL.NEB NEB SCH (07:55)
[2018-06-14 08:41] VITALS: BP 129/58; TEMP 97.7
[2018-06-14] MEDS ORDERED: HOME MED 1 EA UNK (Esomeprazole Mag Trihydrate [Nexium] 40 MG) PO SCH (09:00)
[2018-06-14] MEDS ORDERED: FUROSEMIDE 20 MG TABLET PO SCH (09:00)
[2018-06-14] MEDS ORDERED: CITALOPRAM 10 MG TABLET PO SCH (09:00)
--- NOTE | 2018-06-14 09:46 | P.PN ---
Subjective Date of Service: 06/14/18 Chief Complaint: COPD exacerbation Patient claims that she is not doing any better still short of breath anxious agitated feeling weak O improvement since admission Review of Systems General: Weakness Respiratory: Shortness of Breath Physical Examination - Vital Signs Temperature: 97.7 F Blood Pressure: 129/58 Pulse: 85 Respirations: 16 Pulse Ox (%): 94 - Physical Exam General: Alert, Oriented x3, Mild distress Neck: Supple Respiratory: Expiratory wheezes Cardiovascular: No edema, Normal pulses, Normal S1 S2 Gastrointestinal: Normal bowel sounds, Soft and benign Assessment & Plan - Problems (Diagnosis) (1) COPD exacerbation Onset Date: 06/12/18 Current Visit: Yes Status: Acute Plan: Patient is 78 years of age with a history of dementia admitted with COPD exacerbation feeling very weak patient's vital signs are all stable sat is 94% cultures negative currently satting 96% on 1 L patient has Perforomist at home can be discharged home on low-dose prednisone 10 mg twice a day for 10 days then 10 mg once a day ABGs there maintenance dose I recommend also adding some Dalresp 250 mg daily patient has oxygen at home no evidence of sepsis
[2018-06-14] MEDS: METOPROLOL TAR 25 MG TAB PO SCH (10:15)
[2018-06-14] MEDS: PRIMIDONE 50 MG TAB PO SCH (10:16)
[2018-06-14] MEDS: CEFTRIAXONE/SWI 1gm 1 GM/10 ML SYR IV SCH (10:17)
[2018-06-14 13:53] VITALS: O2SAT 94
--- NOTE | 2018-06-14 14:57 | P.DS ---
Admission Date: 06/12/18 Discharge Date: 06/14/18 Disposition: AMA-LEFT AGAINST MEDICAL ADVIC Reason for Admission: COPD exacerbation - Problems (1) COPD exacerbation Onset Date: 06/12/18 Status: Acute Brief History of Present Illness: Patient 78 years of age admitted with COPD exacerbation Hospital Course: Patient's condition remains stable she continued to be rather agitated and anxious. Patient was profoundly weak for decided to leave the hospital against medical advice Vital Signs/Physical Exam: Temp Pulse Resp BP Pulse Ox 97.7 F 85 16 129/58 L 94 06/14/18 09:46 06/14/18 10:15 06/14/18 09:46 06/14/18 10:15 06/14/18 09:46 Laboratory Data at Discharge: WBC 7.8 K/uL (4.3-10.9) D 06/13/18 04:47 Hgb 9.3 g/dL (12.0-15.0) L 06/13/18 04:47 Hct 27.6 % (36.0-45.0) L 06/13/18 04:47 Plt Count 137 K/uL (152-406) L 06/13/18 04:47 PT 12.7 SECONDS (9.5-12.5) H 06/12/18 06:55 INR 1.08 06/12/18 06:55 Sodium 140 mmol/L (136-145) 06/13/18 04:47 Potassium 4.3 mmol/L (3.5-5.1) 06/13/18 04:47 BUN 28 mg/dL (7-18) H 06/13/18 04:47 Creatinine 0.50 mg/dL (0.55-1.3) L 06/13/18 04:47 Glucose 125 mg/dL (74-106) H 06/13/18 04:47 Total Bilirubin 0.5 mg/dL (0.2-1.0) 06/12/18 06:55 AST 16 U/L (15-37) 06/12/18 06:55 ALT 17 U/L (12-78) 06/12/18 06:55 Alkaline Phosphatase 80 U/L (45-117) 06/12/18 06:55 Lipase 88 U/L (73-393) 06/12/18 06:55 Home Medications: Gabapentin [Neurontin*] 400 mg PO BID PRN 12/09/14 ALPRAZolam [Xanax*] 0.5 mg PO Q6HR PRN 04/18/15 Esomeprazole Mag Trihydrate [Nexium] 40 mg PO DAILY 01/28/16 Metoprolol Tartrate [Lopressor*] 25 mg PO BID #60 tab 04/02/16 Citalopram [Celexa] 10 mg PO DAILY 06/12/18 Furosemide 20 mg PO DAILY 06/12/18 Perforomist 20 mcg NEB PRN PRN 06/12/18 Primidone [Mysoline *] 50 mg PO TID 06/12/18 Tizanidine [Zanaflex] 4 mg PO BID PRN 06/12/18 predniSONE [Prednisone*] 5 mg PO DAILY 06/12/18
[2018-06-14] MEDS ORDERED: predniSONE 10 MG TAB PO SCH (21:00)
--- NOTE | 2018-06-15 07:43 | EKG ---
Test Date: 2018-06-14 Test Time: 02:35:07 Clinical Program Director: RT Ferris MEASUREMENT RESULTS: Intervals: Rate: 75 DC: 146 QRSD: 88 QT: 404 QTc: 451 [place]: P: 17 DC: 146 QRS: -15 T: 49 INTERPRETIVE STATEMENTS: Sinus rhythm with premature atrial complexes Inferior infarct, age undetermined Possible Anterior infarct, age undetermined Abnormal ECG Compared to ECG 06/12/2018 06:32:39 Atrial premature complex(es) now present Sinus tachycardia no longer present Left-axis deviation no longer present Myocardial infarct finding still present Electronically Signed On 06-15-18 07:42:58 CDT by Stan Haskins
== END 2018-06-14 11:53 | disposition left against medical advice (07) | DRG 192 ==
LOC: ER 06:27 → ERHOLD 08:23 → 2ND 11:06
PROVIDERS: ADMIT Family Medicine; ATTEND Internal Medicine Sleep Medicine
PROC: 5A09457 Assistance with Respiratory Ventilation, 24-96 Consecutive Hours, Continuous Positive Airway Pressure (ICD-10-PCS; principal; 2018-06-12)
DX: J44.1 Chronic obstructive pulmonary disease with (acute) exacerbation (principal); I95.9 Hypotension, unspecified; R06.03 Acute respiratory distress; F03.90 Unspecified dementia, unspecified severity, without behavioral disturbance, psychotic disturbance, mood disturbance, and anxiety; E86.0 Dehydration; F41.1 Generalized anxiety disorder; I25.10 Atherosclerotic heart disease of native coronary artery without angina pectoris; I11.0 Hypertensive heart disease with heart failure; I50.9 Heart failure, unspecified; K21.9 Gastro-esophageal reflux disease without esophagitis; I73.9 Peripheral vascular disease, unspecified; Z99.81 Dependence on supplemental oxygen; Z88.0 Allergy status to penicillin; Z87.891 Personal history of nicotine dependence
CPT/HCPCS: 36415; 51702; 70450; 71045; 80048; 80076; 81003; 81015; 82805; 82962; 83605; 83690; 84145; 84484; 85025; 85610; 87040; 93005; 94640; 94660; 94760; 97163; 99285; C9113; J0696; J2920; J7030; J7605

== ENCOUNTER 2018-08-30 12:04 | Inpatient (IN) | payer OTHER ==
--- OUTSIDE RECORDS SUMMARY | 2018-08-30 12:06 | XMS REPORT | Clinical Summary ---
:1940 Author Organization [facility] Address [address] [place] [address] Phone Care Team Providers Name Role Phone [...] Not on file Results Not on fileafter 08/29/2017
--- OUTSIDE RECORDS SUMMARY | 2018-08-30 12:07 | XMS REPORT ---
:1940 Author Organization [facility] Address [address] [place] [id number] Care Team Providers Name Role Phone AZAR [...] Comments WHITE BLOOD CELL COUNT (BEAKER) (test nupg=603) 5.5 K/ L 4.0-10.0 RED BLOOD CELL COUNT (BEAKER) (test hktz=378) 3.54 M/ L 4.00-5.00 HEMOGLOBIN (BEAKER) (test gofg=573) 10.8 GM/DL 12.0-15.0 HEMATOCRIT (BEAKER) (test obpi=598) 33.5 % 36.0-45.0 MEAN CORPUSCULAR VOLUME (BEAKER) (test prvd=494) 94.8 fL 82.0-99.0 MEAN CORPUSCULAR HEMOGLOBIN (BEAKER) (test lfvt=503) 30.4 pg 27.0-33.0 MEAN CORPUSCULAR HEMOGLOBIN CONC (BEAKER) (test uxlf=848) 32.1 GM/DL 32.0- 36.0 RED CELL DISTRIBUTION WIDTH (BEAKER) (test yvwa=577) 12.7 % 10.3-14.2 PLATELET COUNT (BEAKER) (test wfrm=740) 190 K/CU MM 150-430 MEAN PLATELET VOLUME (BEAKER) (test sfaj=051) 6.6 fL 6.5-10.5 NUCLEATED RED BLOOD CELLS (BEAKER) (test qhvi=199) 0 /100 WBC 0-0 NEUTROPHILS RELATIVE PERCENT (BEAKER) (test kvvf=673) 59 % LYMPHOCYTES RELATIVE PERCENT (BEAKER) (test bkso=218) 30 % MONOCYTES RELATIVE PERCENT (BEAKER) (test deiu=679) 8 % EOSINOPHILS RELATIVE PERCENT (BEAKER) (test eeer=833) 3 % BASOPHILS RELATIVE PERCENT (BEAKER) (test exxq=266) 0 % NEUTROPHILS ABSOLUTE COUNT (BEAKER) (test rnep=782) 3.23 K/ L 1.80-8.00 LYMPHOCYTES ABSOLUTE COUNT (BEAKER) (test dhbw=154) 1.63 K/ L 1.48-4.50 MONOCYTES ABSOLUTE COUNT (BEAKER) (test fqyf=132) 0.44 K/ L 0.00-1.30 EOSINOPHILS ABSOLUTE COUNT (BEAKER) (test dkxq=926) 0.15 K/ L 0.00-0.50 BASOPHILS ABSOLUTE COUNT (BEAKER) (test yavk=837) 0.00 K/ L 0.00-0.20 0.00BASIC METABOLIC [id number] 05:42:00 Test Item Value Reference Range Comments SODIUM (BEAKER) (test 135 meq/L 136-145 fmng=753) POTASSIUM (BEAKER) (test 4.1 meq/L 3.5-5.1 fiaj=032) CHLORIDE (BEAKER) (test 97 meq/L 98-107 zcdd=919) CO2 (BEAKER) (test 31 meq/L 22-29 nscr=116) BLOOD UREA NITROGEN 21 mg/dL 7-21 (BEAKER) (test kvgw=338) CREATININE (BEAKER) (test 0.66 mg/dL 0.57-1.25 limd=157) GLUCOSE RANDOM (BEAKER) 95 mg/dL 70-105 (test fawh=756) CALCIUM (BEAKER) (test 9.1 mg/dL 8.4-10.2 hnaq=756) EGFR (BEAKER) (test 88 mL/min/1.73 sq m ESTIMATED GFR IS NOT cfbp=4955) ACCURATE CREATININE CLEARANCE IN PREDICTING GLOMERULAR FILTRATION RATE. ESTIMATED GFR IS NOT APPLICABLE FOR DIALYSIS PATIENTS. [id number] 05:38:00 Test Item Value Reference Range Comments PROTIME (BEAKER) (test ljol=238) 13.0 seconds 11.7-14.7 INR (BEAKER) (test hjxl=746) 1.0 <=5.9 PARTIAL THROMBOPLASTIN TIME (BEAKER) (test 27.7 seconds 22.5-36.0 qcud=298) RECOMMENDED COUMADIN/WARFARIN INR THERAPY RANGESSTANDARD DOSE: 2.0 - 3.0 Includes: PROPHYLAXIS forvenous thrombosis, systemic embolization; TREATMENT for venous thrombosis and/or pulmonary embolus.HIGH RISK: Target INR is 2.5-3.5 for patients with mechanical heart valves.PROTHROMBIN [id number] 05:37: 00 Test Item Value Reference Range Comments PROTIME (BEAKER) (test rhvx=985) 13.0 seconds 11.7-14.7 INR (BEAKER) (test aliv=367) 1.0 <=5.9 RECOMMENDED COUMADIN/WARFARIN INR THERAPY RANGESSTANDARD DOSE: 2.0 - 3.0 Includes: PROPHYLAXIS forvenous thrombosis, systemic embolization; TREATMENT for venous thrombosis and/or pulmonary embolus.HIGH RISK: Target INR is 2.5-3.5 for patients with mechanical heart valves.BASIC METABOLIC [id number] 05:34: 00 Test Item Value Reference Range Comments SODIUM (BEAKER) (test 137 meq/L 136-145 ivuk=442) POTASSIUM (BEAKER) (test 4.0 meq/L 3.5-5.1 xyuf=219) CHLORIDE (BEAKER) (test 95 meq/L 98-107 vjkl=689) CO2 (BEAKER) (test 34 meq/L 22-29 hjdx=722) BLOOD UREA NITROGEN 20 mg/dL 7-21 (BEAKER) (test kqxc=980) CREATININE (BEAKER) (test 0.69 mg/dL 0.57-1.25 kueq=119) GLUCOSE RANDOM (BEAKER) 114 mg/dL 70-105 (test svvx=006) CALCIUM (BEAKER) (test 9.4 mg/dL 8.4-10.2 egyr=380) EGFR (BEAKER) (test 83 mL/min/1.73 sq m ESTIMATED GFR IS NOT rdla=7942) ACCURATE CREATININE CLEARANCE IN PREDICTING GLOMERULAR FILTRATION RATE. ESTIMATED GFR IS NOT APPLICABLE FOR DIALYSIS PATIENTS. BASIC METABOLIC [id number] 07:18:00 Test Item Value Reference Range Comments SODIUM (BEAKER) (test 134 meq/L 136-145 qqbk=515) POTASSIUM (BEAKER) (test 4.1 meq/L 3.5-5.1 eknd=362) CHLORIDE (BEAKER) (test 93 meq/L 98-107 ehko=468) CO2 (BEAKER) (test 36 meq/L 22-29 frst=936) BLOOD UREA NITROGEN 17 mg/dL 7-21 (BEAKER) (test kocx=442) CREATININE (BEAKER) (test 0.65 mg/dL 0.57-1.25 dkto=499) GLUCOSE RANDOM (BEAKER) 100 mg/dL 70-105 (test byoi=274) CALCIUM (BEAKER) (test 9.6 mg/dL 8.4-10.2 ngpn=179) EGFR (BEAKER) (test 89 mL/min/1.73 sq m ESTIMATED GFR IS NOT wuhy=7488) ACCURATE CREATININE CLEARANCE IN PREDICTING GLOMERULAR FILTRATION RATE. ESTIMATED GFR IS NOT APPLICABLE FOR DIALYSIS PATIENTS. URINALYSIS W/ REFLEX URINE [id number] 07:08:00 Test Item Value Reference Range Comments COLOR (BEAKER) (test iokf=578) Yellow CLARITY (BEAKER) (test utbv=307) Hazy SPECIFIC GRAVITY UA (BEAKER) (test cvby=606) 1.035 1.001-1.035 PH UA (BEAKER) (test jxxk=824) 7.0 5.0-8.0 PROTEIN UA (BEAKER) (test gbbs=144) 10 mg/dL Negative GLUCOSE UA (BEAKER) (test grxl=697) Negative Negative KETONES UA (BEAKER) (test grkb=359) Negative Negative BILIRUBIN UA (BEAKER) (test prbz=458) Negative Negative BLOOD UA (BEAKER) (test pjws=501) Negative Negative NITRITE UA (BEAKER) (test kkaj=983) Negative Negative LEUKOCYTE ESTERASE UA (BEAKER) (test ylaw=864) Small Negative UROBILINOGEN UA (BEAKER) (test qcmq=269) 0.2 mg/dL 0.2-1.0 RBC UA (BEAKER) (test tqzm=440) 1 /HPF WBC UA (BEAKER) (test grlc=090) 9 /HPF BACTERIA (BEAKER) (test fiid=263) Occasional MUCUS (BEAKER) (test btxb=5541) Rare SQUAMOUS EPITHELIAL (BEAKER) (test fhtc=066) 7 /HPF SOURCE(BEAKER) (test tiez=3053) BASIC METABOLIC [id number] 06:11:00 Test Item Value Reference Range Comments SODIUM (BEAKER) (test 136 meq/L 136-145 ukjj=635) POTASSIUM (BEAKER) (test 4.4 meq/L 3.5-5.1 zrmz=586) CHLORIDE (BEAKER) (test 95 meq/L 98-107 loik=292) CO2 (BEAKER) (test 35 meq/L 22-29 yrxq=716) BLOOD UREA NITROGEN 25 mg/dL 7-21 (BEAKER) (test qfdj=376) CREATININE (BEAKER) (test 0.66 mg/dL 0.57-1.25 qrrl=052) GLUCOSE RANDOM (BEAKER) 116 mg/dL 70-105 (test qepn=007) CALCIUM (BEAKER) (test 9.0 mg/dL 8.4-10.2 owyp=131) EGFR (BEAKER) (test 88 mL/min/1.73 sq m ESTIMATED GFR IS NOT kdtf=7652) ACCURATE CREATININE CLEARANCE IN PREDICTING GLOMERULAR FILTRATION RATE. ESTIMATED GFR IS NOT APPLICABLE FOR DIALYSIS PATIENTS. VITAMIN D, [id number] 05:04:00 Test Item Value Reference Range Comments VITAMIN D 25-OH (BEAKER) (test lwgh=9226) < ng/mL 13.0-47.8 COMPREHENSIVE METABOLIC [id number] 22:54:00 Test Item Value Reference Range Comments TOTAL PROTEIN (BEAKER) 6.8 gm/dL 6.0-8.3 (test qfyz=542) ALBUMIN (BEAKER) (test 3.5 g/dL 3.5-5.0 aflz=9599) ALKALINE PHOSPHATASE 83 U/L 40-150 (BEAKER) (test syzn=369) BILIRUBIN TOTAL (BEAKER) 0.3 mg/dL 0.2-1.2 (test irin=578) SODIUM (BEAKER) (test 136 meq/L 136-145 dvhp=655) POTASSIUM (BEAKER) (test 4.4 meq/L 3.5-5.1 cbmg=391) CHLORIDE (BEAKER) (test 95 meq/L 98-107 vtpq=115) CO2 (BEAKER) (test 34 meq/L 22-29 lxyh=572) BLOOD UREA NITROGEN 28 mg/dL 7-21 (BEAKER) (test xlcp=822) CREATININE (BEAKER) (test 0.76 mg/dL 0.57-1.25 qmcc=557) GLUCOSE RANDOM (BEAKER) 150 mg/dL 70-105 (test cggs=845) CALCIUM (BEAKER) (test 9.0 mg/dL 8.4-10.2 wsxp=395) AST (SGOT) (BEAKER) (test 22 U/L 5-34 kcro=763) ALT (SGPT) (BEAKER) (test 51 U/L 6-55 nhiu=389) EGFR (BEAKER) (test 74 mL/min/1.73 sq m ESTIMATED GFR IS NOT skeq=4299) ACCURATE CREATININE CLEARANCE IN PREDICTING GLOMERULAR FILTRATION RATE. ESTIMATED GFR IS NOT APPLICABLE FOR DIALYSIS PATIENTS. PROTHROMBIN [id number] 22:38:00 Test Item Value Reference Range Comments PROTIME (BEAKER) (test kvms=124) 13.3 seconds 11.7-14.7 INR (BEAKER) (test brfr=596) 1.0 <=5.9 RECOMMENDED COUMADIN/WARFARIN INR THERAPY RANGESSTANDARD DOSE: 2.0 - 3.0 Includes: PROPHYLAXIS forvenous thrombosis, systemic embolization; TREATMENT for venous thrombosis and/or pulmonary embolus.HIGH RISK: Target INR is 2.5-3.5 for patients with mechanical heart valves.CBC (HEMOGRAM ONLY)[id number] 22:31:00 Test Item Value Reference Range Comments WHITE BLOOD CELL COUNT (BEAKER) (test ahws=271) 6.5 K/ L 4.0-10.0 RED BLOOD CELL COUNT (BEAKER) (test ozfn=339) 3.76 M/ L 4.00-5.00 HEMOGLOBIN (BEAKER) (test gpxa=793) 11.4 GM/DL 12.0-15.0 HEMATOCRIT (BEAKER) (test zxtp=386) 35.5 % 36.0-45.0 MEAN CORPUSCULAR VOLUME (BEAKER) (test xjhm=596) 94.6 fL 82.0-99.0 MEAN CORPUSCULAR HEMOGLOBIN (BEAKER) (test 30.4 pg 27.0-33.0 wxdx=887) MEAN CORPUSCULAR HEMOGLOBIN CONC (BEAKER) (test 32.2 GM/DL 32.0-36.0 xgbe=522) RED CELL DISTRIBUTION WIDTH (BEAKER) (test 13.6 % 10.3-14.2 fxbg=347) PLATELET COUNT (BEAKER) (test acsx=053) 195 K/CU MM 150-430 MEAN PLATELET VOLUME (BEAKER) (test tlns=409) 6.2 fL 6.5-10.5 NUCLEATED RED BLOOD CELLS (BEAKER) (test 0 /100 WBC 0-0 pkkg=095) 0.00CBC W/PLT COUNT & AUTO [id number] 22:31:00 Test Item Value Reference Range Comments WHITE BLOOD CELL COUNT (BEAKER) (test hdoh=514) 6.5 K/ L 4.0-10.0 RED BLOOD CELL COUNT (BEAKER) (test ldyo=652) 3.76 M/ L 4.00-5.00 HEMOGLOBIN (BEAKER) (test suqr=784) 11.4 GM/DL 12.0-15.0 HEMATOCRIT (BEAKER) (test wgds=475) 35.5 % 36.0-45.0 MEAN CORPUSCULAR VOLUME (BEAKER) (test gzuw=442) 94.6 fL 82.0-99.0 MEAN CORPUSCULAR HEMOGLOBIN (BEAKER) (test 30.4 pg 27.0-33.0 zsaw=532) MEAN CORPUSCULAR HEMOGLOBIN CONC (BEAKER) (test 32.2 GM/DL 32.0-36.0 rmym=698) RED CELL DISTRIBUTION WIDTH (BEAKER) (test 13.6 % 10.3-14.2 pesu=668) PLATELET COUNT (BEAKER) (test asss=484) 195 K/CU MM 150-430 MEAN PLATELET VOLUME (BEAKER) (test cbkr=897) 6.2 fL 6.5-10.5 NUCLEATED RED BLOOD CELLS (BEAKER) (test 0 /100 WBC 0-0 dkrd=898) NEUTROPHILS RELATIVE PERCENT (BEAKER) (test 57 % dhby=067) LYMPHOCYTES RELATIVE PERCENT (BEAKER) (test 33 % ukof=100) MONOCYTES RELATIVE PERCENT (BEAKER) (test 8 % aruo=029) EOSINOPHILS RELATIVE PERCENT (BEAKER) (test 2 % opga=415) BASOPHILS RELATIVE PERCENT (BEAKER) (test 0 % xgqi=253) NEUTROPHILS ABSOLUTE COUNT (BEAKER) (test 3.66 K/ L 1.80-8.00 oenp=652) LYMPHOCYTES ABSOLUTE COUNT (BEAKER) (test 2.13 K/ L 1.48-4.50 fidd=009) MONOCYTES ABSOLUTE COUNT (BEAKER) (test 0.52 K/ L 0.00-1.30 cikc=086) EOSINOPHILS ABSOLUTE COUNT (BEAKER) (test 0.14 K/ L 0.00-0.50 cvpx=633) BASOPHILS ABSOLUTE COUNT (BEAKER) (test 0.02 K/ L 0.00-0.20 wugb=169)
[2018-08-30 12:54] LABS: Absolute Monocytes 1.1 K/uL (0.1-1.3); Absolute Neutrophil 7.1 K/uL (1.8-8.0); Basophils % 0.3 % (0-1.3); Eosinophils % 0.1 % (0-4.4); Hematocrit 34.5 % (36.0-45.0); Lymphocytes % 10.6 % (15.3-44.8); MPV 7.9 fL (7.6-11.3); Monocytes % 11.9 % (3.3-12.3); RBC Red Blood Cell Count 3.75 M/uL (3.86-4.86)
[2018-08-30] MEDS ORDERED: NA CHLORIDE 0.9% 1,000 ML ONE (12:55)
[2018-08-30 12:56] LABS: Protime INR 1.14
--- NOTE | 2018-08-30 12:59 | RAD REPORT ---
EXAM DESCRIPTION: RAD - Chest Single View - 08/30/2018 12:43 pm CLINICAL HISTORY: altered mental status Chest pain. COMPARISON: Chest Single View dated 06/12/2018; Chest Single View dated 04/10/2017; Chest Single View dated 01/17/2017; Chest Single View dated 03/28/2016 FINDINGS: Portable technique limits examination quality. Emphysematous changes are present throughout the lungs. The heart is normal in size. No displaced fra ctures. IMPRESSION: Advanced COPD.
[2018-08-30 13:28] LABS: Urine Bacteria <20 /HPF (<20); Urine Culture Reflex Order NOT NEEDED; Urine RBC <5 /HPF (NONE SEEN)
[2018-08-30 13:29] LABS: Urine Blood NEGATIVE (NEG); Urine Glucose NEGATIVE (NEG); Urine Protein 2+ (NEG); Urine Specific Gravity 1.025 (1.005-1.030)
[2018-08-30] MEDS ORDERED: CEFTRIAXONE/SWI 1gm 1 GM/10 ML SYR ONE (13:32)
[2018-08-30 13:39] LABS: Albumin 3.7 g/dL (3.4-5.0); Bilirubin Direct 0.2 mg/dL (0-0.2); Bilirubin Total 0.6 mg/dL (0.2-1.0); CKMB Creatine Kinase MB 2.5 ng/mL (0.3-3.6); Potassium 3.3 mmol/L (3.5-5.1); Protein, Total 8.2 g/dL (6.4-8.2); Troponin (Emerg Dept Use Only) 0.4 ng/mL (0.0-0.045)
--- NOTE | 2018-08-30 14:06 | ER ---
Nurse's Notes [facility] Name: Zaynab Rehman Age: 78 yrs Sex: Female : 1940 Arrival Date: 08/30/2018 Time: 12:13 Bed 4 Private MD: Diagnosis: Altered mental status, unspecified;Non-ST elevation (NSTEMI) myocardial infarction Presentation: 08/30 12:15 Presenting complaint: EMS states: " Pt is from home, is usually cared for by daughter ph but she went to correction 3 days ago and pt has been w/ granddaughter. Granddaughter is poor historian but reports that pt is usually ambulatory w/ slight confusion, family reports that pt has not eaten or drank anything in 3 days other than small drinks of water to take meds, pt found in brief saturated w/ urine, speech incomprehensible, A\\T\\O x none, Spo2 99% on 3L NC, BGL 167, other VSS. Transition of care: patient was not received from another setting of care. Onset of symptoms was August 30, 2018. Risk Assessment: Do you want to hurt yourself or someone else? Patient reports no desire to harm self or others. Initial Sepsis Screen: Does the patient meet any 2 criteria? RR > 20 per min. Altered Mental Status. Yes Does the patient have a suspected source of infection? Yes: Dysuria/Frequency/Urgency/UTI If YES to both, name of provider notified: Juanito Mas MD Care prior to arrival: None. 12:15 Method Of Arrival: EMS: [facility], [place] 12:15 Acuity: CYNTHIA 2 ph Historical: - Allergies: 12:46 PENICILLINS; ph - PMHx: 12:46 Arthritis; COPD; Dementia; Depression; Essential Tremor; Hypertension; ph - Immunization history:: Adult Immunizations unknown. - Social history:: Smoking status: unknown. - Ebola Screening: : No symptoms or risks identified at this time. Screenin:07 Abuse screen: unknown. Nutritional screening: unknown. Tuberculosis screening: No sv symptoms or risk factors identified. Fall Risk No fall in past 12 months (0 pts). Secondary diagnosis (15 points) dementia, IV access (20 points). Ambulatory Aid- None/Bed Rest/Nurse Assist (0 pts). Gait- Normal/Bed Rest/Wheelchair (0 pts) Mental Status- Overestimates/Forgets Limitations (15 pts.). Total Monk Fall Scale indicates High Risk Score (45 or more points). Fall prevention measures have been instituted. Side Rails Up X 2 Placed Close to Nursing Station Frequent Obs/Assessments Occuring As available patient and family educated on Fall Prevention Program and Strategies. Assessment: 12:30 General: Appears in no apparent distress. uncomfortable, slender, unkempt, Behavior is ph cooperative, drowsy, fussy, listless. Pain: Denies pain. Neuro: Level of Consciousness is awake, lethargic, Oriented to none. Cardiovascular: Capillary refill < 3 seconds in bilateral fingers Patient's skin is warm and dry. Respiratory: Airway is patent Respiratory effort is even, unlabored, Respiratory pattern is regular, symmetrical. GI: Bowel sounds present X 4 quads. Abd is soft and non tender X 4 quads. : Pt noted to be in urine soaked brief, pt cleaned and changed into fresh brief and gown. Derm: Skin is fragile, is thin, with poor turgor Skin is pale, Skin temperature is warm Wound noted right tricep Wound is large skin tear w/ dressing partially in place. Musculoskeletal: Circulation, motion, and sensation intact. 14:07 Reassessment: Patient appears in no apparent distress at this time. No changes from sv previously documented assessment. Patient and/or family updated on plan of care and expected duration. Pain level reassessed. 15:50 Reassessment: Patient appears in no apparent distress at this time. No changes from sv previously documented assessment. Patient and/or family updated on plan of care and expected duration. Pain level reassessed. 17:00 Reassessment: Patient appears in no apparent distress at this time. No changes from sv previously documented assessment. Patient and/or family updated on plan of care and expected duration. Pain level reassessed. Vital Signs: 12:44 BP 128 / 83; Pulse 99; Resp 24; Temp 97.6(A); Pulse Ox 100% 3 lpm ; Weight 54.43 kg; hb 14:00 BP 124 / 78; Pulse 92; Resp 18; Pulse Ox 98% on 2 lpm NC; ph 15:20 BP 122 / 76; Pulse 91; Resp 23; Pulse Ox 97% on 3 lpm NC; sv 16:00 BP 119 / 72; Pulse 89; Resp 16; Pulse Ox 99% on 2 lpm NC; ph 17:00 BP 121 / 78; Pulse 90; Resp 19; Pulse Ox 100% on 3 lpm NC; sv ED Course: 12:13 Patient arrived in ED. la1 12:13 Juanito Mas MD is Attending Physician. ps1 12:30 Nichole cath inserted, using sterile technique, 16 Fr., by me, balloon inflated, to ph gravity drainage, urine specimen collected. returned bettye urine. 12:39 Rosanne Kruger RN is Primary Nurse. ph 12:39 X-ray completed. Portable x-ray completed in exam room. Patient tolerated procedure tm4 well. 12:40 Chest Single View XRAY In Process Unspecified. EDMS 12:44 Triage completed. ph 12:46 Arm band placed on. ph 12:48 Initial lab(s) drawn, by me, sent to lab. Inserted saline lock: 22 gauge in left em1 antecubital area, using aseptic technique. Blood collected. 13:41 Notified ED physician of a critical lab result(s). Bicarb 43. hb 14:05 Casie Venegas MD is Hospitalizing Provider. ps1 14:07 Patient has correct armband on for positive identification. Bed in low position. Side sv rails up X2. threat monitoring analyst on. Pulse ox on. NIBP on. Warm blanket given. Head of bed elevated. 14:07 Inserted saline lock: 22 gauge in right forearm, using aseptic technique. ,using sv aseptic technique. diffusics Flushed right forearm with 5 ml normal saline. 15:50 Report given to Nigel Stokes RN. sv 15:50 No provider procedures requiring assistance completed. Patient admitted, IV remains in sv place. intact. Administered Medications: 13:00 Drug: NS 0.9% (30 ml/kg) 30 ml/kg {Note: 1650 mL given.} Route: IV; Rate: bolus; Site: ph left antecubital; 15:30 Follow up: Response: No adverse reaction; IV Status: Completed infusion ph 13:29 Drug: Rocephin - (cefTRIAXone) 1 grams {Note: given IVP per pharmacy instructions..} sv Route: IVPB; Infused Over: 30 mins; Site: left antecubital; 13:31 Follow up: Response: No adverse reaction; IV Status: Completed infusion; IV Intake: sv 10ml ; given IVP per pharmacy instructions 14:25 Drug: Heparin (OK-Bolus No thrombolytic) - HEParin 60 units/kg {Co-Signature: hb ph (Rama Goetz RN).} {Note: 3500 units.} Route: IVP; Site: right forearm; 14:56 Follow up: Response: No adverse reaction sv 14:27 Drug: Heparin (OK Drip) 12 units/kg/hr - (HEParin 56475 units, D5W 500 ml) ph {Co-Signature: hb (Rama Goetz RN).} {Note: 700 units/hr.} Route: IV; Rate: calculated rate; Site: right forearm; 17:00 Follow up: Response: No adverse reaction; IV Status: Infusion continued upon admission sv Intake: 13:31 IV: 10ml; Total: 10ml. sv Outcome: 14:06 Decision to Hospitalize by Provider. ps1 15:50 Admitted to Tele accompanied by tech, via stretcher, room 428, with oxygen, with chart, sv Report called to Nigel ALVAREZ RN 15:50 Condition: stable 15:50 Instructed on the need for admit. 17:09 Patient left the ED. ph Signatures: Dispatcher [employer] EDMS Peggy Burris RN RN Eda Membreno tm4 Jatinder Sauer em1 Radu Evans RN RN laRosanne Olivarez RN RN ph Baxter, Heather, RN RN hb Juanito Mas MD MD ps1 Rama vega Corrections: (The following items were deleted from the chart) 12:48 12:44 BP 128 / 83; Pulse 99bpm; Resp 24bpm; Pulse Ox 100% 3 lpm; Temp 97.6F Axillary; phhb 15:30 13:00 NS 0.9% (30 ml/kg) 30 ml/kg IV at bolus in left antecubital ph ph
--- NOTE | 2018-08-30 14:06 | EDPHYS ---
Physician Documentation [facility] Name: Zaynab Rehman Age: 78 yrs Sex: Female : 1940 Arrival Date: 08/30/2018 Time: 12:13 Bed 4 Private MD: ED Physician Juanito Mas HPI: 08/30 12:18 This 78 yrs old Female presents to ER via Unassigned with complaints of ps1 Altered Mental Status / Possible UTI. 12:18 The patient presents with confusion, decreased mental status, disorientation. Onset: ps1 The symptoms/episode began/occurred 3 day(s) ago. caregiver reportedly went to shelter and patient not taken care of. Now has strong smell of urine. Disoriented. Cannot provide history. Called by granddaughter and BIBEMS> . Historical: - Allergies: 12:46 PENICILLINS; ph - PMHx: 12:46 Arthritis; COPD; Dementia; Depression; Essential Tremor; Hypertension; ph - Immunization history:: Adult Immunizations unknown. - Social history:: Smoking status: unknown. - Ebola Screening: : No symptoms or risks identified at this time. ROS: 13:46 Unable to obtain ROS due to altered mental status. ps1 Exam: 13:46 Head/Face: Normocephalic, atraumatic. Eyes: Pupils equal round and reactive to light, ps1 extra-ocular motions intact. Lids and lashes normal. Conjunctiva and sclera are non-icteric and not injected. Chest/axilla: Normal chest wall appearance and motion. Nontender with no deformity. No lesions are appreciated. 13:46 Respiratory: Lungs have equal breath sounds bilaterally, clear to auscultation and percussion. No rales, rhonchi or wheezes noted. No increased work of breathing, no retractions or nasal flaring. Abdomen/GI: Soft, non-tender, with normal bowel sounds. No distension or tympany. No guarding or rebound. No evidence of tenderness throughout. 13:46 Constitutional: The patient appears emaciated, smells of urine. 13:46 ENT: Mouth: Oral mucosa: dry. 13:46 Cardiovascular: Rate: tachycardic. 13:46 Cardiovascular: Rhythm: regular, Pulses: no pulse deficits are appreciated. Vital Signs: 12:44 BP 128 / 83; Pulse 99; Resp 24; Temp 97.6(A); Pulse Ox 100% 3 lpm ; Weight 54.43 kg; hb 14:00 BP 124 / 78; Pulse 92; Resp 18; Pulse Ox 98% on 2 lpm NC; ph 15:20 BP 122 / 76; Pulse 91; Resp 23; Pulse Ox 97% on 3 lpm NC; sv 16:00 BP 119 / 72; Pulse 89; Resp 16; Pulse Ox 99% on 2 lpm NC; ph 17:00 BP 121 / 78; Pulse 90; Resp 19; Pulse Ox 100% on 3 lpm NC; sv MDM: 12:24 Patient medically screened. ps1 14:06 Data reviewed: vital signs, nurses notes, lab test result(s), radiologic studies, and ps1 as a result, I will admit patient. 08/30 12:17 Order name: Blood Culture Adult (2) ps1 08/30 12:17 Order name: CBC with Diff; Complete Time: 13:20 ps1 08/30 12:17 Order name: Ckmb; Complete Time: 13:42 ps1 08/30 12:17 Order name: Lactate; Complete Time: 13:20 ps1 08/30 12:17 Order name: LFT's; Complete Time: 13:42 ps1 08/30 12:17 Order name: Lipase; Complete Time: 13:42 ps1 08/30 12:17 Order name: Procalcitonin; Complete Time: 13:51 ps1 08/30 12:17 Order name: Protime (+inr); Complete Time: 13:20 ps1 08/30 12:17 Order name: Ptt, Activated; Complete Time: 13:20 ps1 08/30 12:17 Order name: Troponin (emerg Dept Use Only); Complete Time: 13:42 ps1 08/30 12:17 Order name: Urine Microscopic Only; Complete Time: 13:30 ps1 08/30 12:17 Order name: Chest Single View XRAY; Complete Time: 13:00 ps1 08/30 12:17 Order name: CMP; Complete Time: 13:42 ps1 08/30 13:03 Order name: Urine Dipstick--Ancillary (enter results); Complete Time: 13:30 eb 08/30 12:17 Order name: Accucheck; Complete Time: 13:21 ps1 08/30 12:17 Order name: Cardiac monitoring; Complete Time: 13:21 ps1 08/30 12:17 Order name: EKG - Nurse/Tech; Complete Time: 13:21 ps1 08/30 12:17 Order name: IV Saline Lock - Large Bore; Complete Time: 13:21 ps1 08/30 12:17 Order name: Labs collected and sent; Complete Time: 13:21 ps1 08/30 12:17 Order name: O2 Per Protocol; Complete Time: 13:21 ps1 08/30 12:17 Order name: O2 Sat Monitoring; Complete Time: 13:21 ps1 08/30 12:17 Order name: Urine Dipstick-Ancillary (obtain specimen); Complete Time: 13:21 ps1 Administered Medications: 13:00 Drug: NS 0.9% (30 ml/kg) 30 ml/kg {Note: 1650 mL given.} Route: IV; Rate: bolus; Site: ph left antecubital; 15:30 Follow up: Response: No adverse reaction; IV Status: Completed infusion ph 13:29 Drug: Rocephin - (cefTRIAXone) 1 grams {Note: given IVP per pharmacy instructions..} sv Route: IVPB; Infused Over: 30 mins; Site: left antecubital; 13:31 Follow up: Response: No adverse reaction; IV Status: Completed infusion; IV Intake: sv 10ml ; given IVP per pharmacy instructions 14:25 Drug: Heparin (AR-Bolus No thrombolytic) - HEParin 60 units/kg {Co-Signature: hb ph (Rama Goetz RN).} {Note: 3500 units.} Route: IVP; Site: right forearm; 14:56 Follow up: Response: No adverse reaction sv 14:27 Drug: Heparin (AR Drip) 12 units/kg/hr - (HEParin 06361 units, D5W 500 ml) ph {Co-Signature: hb (Rama Goetz RN).} {Note: 700 units/hr.} Route: IV; Rate: calculated rate; Site: right forearm; 17:00 Follow up: Response: No adverse reaction; IV Status: Infusion continued upon admission sv Disposition: 14:08 Chart complete. ps1 Disposition: 08/30/18 14:06 Hospitalization ordered by Casie Venegas for Inpatient Admission. Preliminary diagnosis are Altered mental status, unspecified, Non-ST elevation (NSTEMI) myocardial infarction. - Bed requested for Telemetry/MedSurg (Inpatient). - Status is Inpatient Admission. ph - Condition is Fair. - Problem is new. - Symptoms are unchanged. UTI on Admission? No Signatures: Dispatcher [employer] EDPeggy Downing RN RN Rosanne Kruger RN RN Juanito Mas MD MD ps1 Alyssa Rodriguez eb Rama Goetz RN Corrections: (The following items were deleted from the chart) 15:18 14:06 Hospitalization Ordered by Casie Venegas MD for Inpatient Admission. eb Preliminary diagnosis is Altered mental status, unspecified; Non-ST elevation (NSTEMI) myocardial infarction. Bed requested for Telemetry/MedSurg (Inpatient). Status is Inpatient Admission. Condition is Fair. Problem is new. Symptoms are unchanged. UTI on Admission? No. ps1 17:09 15:18 08/30/2018 14:06 Hospitalization Ordered by Casie Venegas MD for Inpatient ph Admission. Preliminary diagnosis is Altered mental status, unspecified; Non-ST elevation (NSTEMI) myocardial infarction. Bed requested for Telemetry/MedSurg (Inpatient). Status is Inpatient Admission. Condition is Fair. Problem is new. Symptoms are unchanged. UTI on Admission? No. eb
[2018-08-30] MEDS ORDERED: HEPARIN 5000 UNIT/ML 1 ML VIAL ONE (14:11)
[2018-08-30] MEDS ORDERED: HEPARIN/D5W 25,000 UNIT/500 ML BAG IV ONE (14:11)
[2018-08-30] MEDS ORDERED: ONDANSETRON 4 MG/2 ML VIAL IV PRN (14:47)
[2018-08-30] MEDS ORDERED: ACETAMINOPHEN 650MG/RECT SUPP PR PRN (14:47)
[2018-08-30] MEDS ORDERED: NA CHLORIDE 0.9% 2,000 ML ONE (14:56)
[2018-08-30] MEDS ORDERED: NITROGLYCERIN 0.4 MG/TAB SL PRN (15:21)
[2018-08-30] MEDS ORDERED: ASPIRIN 325 MG TAB PO ONE (16:00)
[2018-08-30] MEDS ORDERED: ENOXAPARIN 40 MG/0.4 ML SQ SCH (16:00)
[2018-08-30 18:08] LABS: Absolute Lymphocytes (CBC) 1.1 K/uL (0.7-4.9); Absolute Monocytes 0.9 K/uL (0.1-1.3); Absolute Neutrophil 5.6 K/uL (1.8-8.0); Basophils % 0.3 % (0-1.3); Eosinophils % 0.2 % (0-4.4); Hematocrit 30.9 % (36.0-45.0); Lymphocytes % 14.9 % (15.3-44.8); MCH 30.1 pg (27.0-35.0); MCV 91.5 fL (80-100); MPV 7.6 fL (7.6-11.3); Monocytes % 12.3 % (3.3-12.3); RBC Red Blood Cell Count 3.38 M/uL (3.86-4.86)
[2018-08-30 18:26] LABS: ALT/SGPT 18 U/L (12-78); AST/SGOT 18 U/L (15-37); Albumin 3.1 g/dL (3.4-5.0); Alkaline Phosphatase 84 U/L (45-117); BUN Blood Urea Nitrogen 34 mg/dL (7-18); Bicarbonate 37 mmol/L (21-32); Bilirubin Total 0.4 mg/dL (0.2-1.0); Glucose Level 127 mg/dL (74-106); Magnesium 2.1 mg/dL (1.8-2.4); Potassium 3.2 mmol/L (3.5-5.1); Protein, Total 7.3 g/dL (6.4-8.2); Sodium Level 140 mmol/L (136-145)
[2018-08-30 18:29] LABS: CKMB Creatine Kinase MB 2.6 ng/mL (0.3-3.6); Troponin I 0.39 ng/mL (0.0-0.045)
[2018-08-30 19:33] VITALS: BMI 18.8
[2018-08-30] MEDS ORDERED: ENOXAPARIN 60 MG/0.6 ML SQ ONE (19:33)
[2018-08-30 19:43] LABS: Urine White Blood Cell Casts OK
[2018-08-30 19:44] LABS: Blood Morphology Comment NOT SEEN (NOT SEEN); Platelet Estimate ADEQ
[2018-08-30] MEDS: IPRATROPIUM BROM 0.5MG/2.5ML NEB SCH (20:36)
[2018-08-30] MEDS: ALBUTEROL 2.5 MG/3 ML NEB SOL NEB SCH (20:36)
[2018-08-30] MEDS: METOPROLOL TAR 50 MG TAB PO SCH (20:47)
[2018-08-30] MEDS: CIPROFLOXACIN 400 MG/200 ML IVPB IV SCH (20:47)
[2018-08-30] MEDS: ATORVASTATIN 20 MG TAB PO SCH (20:47)
[2018-08-30] MEDS: KCL 20 MEQ/100 mL IVPB 20 MEQ/100 ML BAG IV SCH ×2 (20:47→22:00)
[2018-08-30] MEDS ORDERED: CIPROFLOXACIN 400mg IV 400 MG/200 ML BAG IV SCH (21:00)
[2018-08-30] MEDS ORDERED: ENOXAPARIN 100 MG/ML SYR SQ SCH (21:00)
[2018-08-30 23:53] LABS: CKMB Creatine Kinase MB 2.4 ng/mL (0.3-3.6); Troponin I 0.34 ng/mL (0.0-0.045)
[2018-08-31] MEDS: ALBUTEROL 2.5 MG/3 ML NEB SOL NEB SCH ×4 (01:32→19:45)
[2018-08-31] MEDS: IPRATROPIUM BROM 0.5MG/2.5ML NEB SCH ×4 (01:32→19:45)
--- NOTE | 2018-08-31 01:49 | HP ---
Date of Admission: 08/30/2018 Reason For Admission: Mental status change. History Of Present Illness: This is a 78-year-old female with history of multiple medical problems i ncluding hypertension, COPD, emphysema on home oxygen, coronary artery disease, CHF, anxiety, acid re flux, peripheral vascular disease, who presented today to the emergency room with progressive mental status change. Apparently, her daughter left town and granddaughter saw the patient getting much wor se and she thought of bringing her to the emergency room. Her urine was with strong odor, initially they thought in the ER she had UTI and UA was negative. Blood work done showed mild anemia, but abno rmal cardiac enzymes with troponin 0.4 and she was admitted until we rule that out. Patient is an ex tremely poor historian. Apparently, she has a history of dementia. She does not complain or express any signs of chest pain. She is only responding to any question with yawning gestures. She is lyin g comfortable now in the emergency room on 4 L oxygen and no family at the bedside, so history was ve ry limited. Past Medical History: Obtained mostly from the chart as patient is not able to give any history. Si gnificant for COPD, hypertension, carotid artery disease, CHF, anxiety, acid reflux, peripheral vascu lar disease. Past Surgical History: Significant for bladder suspension, carpal tunnel repair, bilaterally knee matamoros rgery, cardiac cath showed exclusion of the right coronary artery with peripheral vascular disease. Allergies: PENICILLIN. Medications: Medication list not available as family not at the bedside. Social History: Apparently, patient used to be an active smoker, quit a few years ago. She does not drink or use any drugs. Her daughter who is the caregiver is not in town and granddaughter is not a t the bedside, but the patient apparently lives with her daughter. Family History: Significant for mother have stomach cancer, otherwise unobtainable and again that is all obtained from the chart. Review of Systems: Unobtainable. The patient not answering any question or following commands. Physical Examination: Vital Signs: Currently, blood pressure is 128/83, respiratory rate 24, pulse 99, temperature 97.6, O 2 saturation 100% on 3 L. She is sleeping, but arousable. She is very confused and she is not able to answer any questions. She is very frail and cachectic. HEENT: Atraumatic, normocephalic. Oral mucosa is very dry with poor dentition. Neck: Supple. No JVD. No carotid bruits. Chest: Clear to auscultation with decreased breath sounds and poor effort. No expiratory wheezing. Heart: Regular rate and rhythm. S1, S2 normal. No gallop or murmur. Abdomen: Soft, nontender. No masses. No hepatosplenomegaly. Positive bowel sounds. Extremities: No clubbing, cyanosis, or edema. No calf tenderness. Neurologic: Exam deferred. The patient is not able to follow commands and she is not answering ques tions appropriately. Imaging: CAT scan of the head done last admission on June 12, did not show any acute intracranial ab normalities. Laboratory Data: Labs today showed mild anemia with hemoglobin at 11.3. Normal CBC. Chemistry with in normal except for sodium 135, potassium 3.3, BUN of 40, creatinine of 1. Troponin of 0.4. CK nor mal. Procalcitonin 0.15. EKG with nonspecific changes. Chest x-ray, shows COPD. Assessment And Plan: This is a 78-year-old female with history of multiple medical problems, present ed with decline in mental status and found to have elevated cardiac enzymes. 1.Lyb-DB-qorvqedti myocardial infarction. We will admit her to the floor and to recheck cardiac enz ymes. She will be on aspirin and Plavix, a dose of beta-miguel angel. Also Jt inhibitor and statin. We will use DVT prophylaxis of Lovenox given that the patient does not have any chest pain at this poin t. Based on cardiac enzyme results in a.m., we will decide if the patient need to go for a stress te st. If the family would like to consider that given that she has dementia versus Cardiology consult if recurrent enzyme continued to trend up. 2.History of chronic obstructive pulmonary disease with long history of smoking, patient this on neb ulizer every 6 hours. 3.Hypertension. We will resume her home medication when family provides the list. 4.Anxiety disorder. I will not place her on any antianxiety given that the patient is slightly obtu nded. 5.Declined mental status. I do not know what the patient's baseline but given history she apparentl y dementia. We will observe her overnight and we will do neuro checks. If she does not improve by t omorrow, we will consider CAT scan of the head, her last CAT scan in May 2018 was normal. 6.Acid reflux history. We will resume her home medication. 7.History of congestive heart failure, last ejection fraction was 2015 at 64%. No signs of CHF at t his point, so we will observe. 8.We need to clarify code with family when they are available. She is a full code now, but I think they should consider DNR/DNI given poor patient performance status and mental status overall. FRANCIS/ROBERT Voice ID: [id number]
[2018-08-31] MEDS: ENOXAPARIN 60 MG/0.6 ML SQ SCH ×2 (06:08→18:16)
--- NOTE | 2018-08-31 07:30 | EKG ---
Test Date: 2018-08-30 Test Time: 12:23:20 Soap Chipper: JOSELUIS MEASUREMENT RESULTS: Intervals: Rate: 100 MD: 142 QRSD: 84 QT: 408 QTc: 526 [place]: P: 52 MD: 142 QRS: -61 T: 80 INTERPRETIVE STATEMENTS: Sinus rhythm with frequent premature ventricular complexes Left axis deviation Inferior infarct, age undetermined Anterior infarct, age undetermined Prolonged QT Abnormal ECG Electronically Signed On 08-31-18 07:29:46 CDT by Stan Haskins
[2018-08-31 07:59] LABS: CKMB Creatine Kinase MB 1.8 ng/mL (0.3-3.6); Troponin I 0.29 ng/mL (0.0-0.045)
[2018-08-31 08:03] LABS: BUN Blood Urea Nitrogen 27 mg/dL (7-18); Bicarbonate 38 mmol/L (21-32); Glucose Level 125 mg/dL (74-106); HDL Cholesterol 40 mg/dL (40-60); LDL Cholesterol, Calculated 140 (<130); Sodium Level 140 mmol/L (136-145)
[2018-08-31 08:04] LABS: Potassium 2.9 mmol/L (3.5-5.1)
[2018-08-31] MEDS: CIPROFLOXACIN 400 MG/200 ML IVPB IV SCH (08:40)
[2018-08-31] MEDS: LISINOPRIL 10 MG TAB PO SCH (08:40)
[2018-08-31] MEDS: FUROSEMIDE 20 MG TABLET PO SCH (08:41)
[2018-08-31] MEDS: predniSONE 5 MG TAB PO SCH (08:41)
[2018-08-31] MEDS: METOPROLOL TAR 50 MG TAB PO SCH ×2 (08:41→21:00)
[2018-08-31] MEDS: PANTOPRAZOLE 40MG TABLET PO SCH (08:41)
[2018-08-31] MEDS: CITALOPRAM 10 MG TABLET PO SCH (08:42)
[2018-08-31] MEDS: CLOPIDOGREL 75 MG TABLET PO SCH (08:42)
[2018-08-31] MEDS ORDERED: POTASSIUM CL 40 MEQ in NA CHLORIDE 0.9% 500 ML IV SCH (09:00)
[2018-08-31] MEDS ORDERED: HOME MED 1 EA UNK (Esomeprazole Mag Trihydrate [Nexium] 40 MG) PO SCH (09:00)
--- NOTE | 2018-08-31 15:38 | RAD REPORT ---
EXAM DESCRIPTION: CT - Head Brain Wo Cont - 08/31/2018 3:17 pm CLINICAL HISTORY: Transient alteration of awareness COMPARISON: June 12 TECHNIQUE: Axial 5 mm thick images of the head were obtained without IV contrast. All CT scans are performed using dose optimization technique as appropriate and may include automated exposure control or mA/KV adjustment according to patient size. FINDINGS: No intracranial hemorrhage, mass, edema or shift of mid-line structures. No acute cortical based infarction. Atrophy and chronic ischemic pattern matches the June 12 study. Focal decreased at tenuation in the left thalamus is not clearly different from comparison. No abnormal extra-axial flui d collections. Ventricles are in proportion to volume loss. Arterial and physiologic calcifications a re present. Mastoid air cells and visualized portions of the paranasal sinuses are clear. No acute bony findings. IMPRESSION: Atrophy and chronic ischemic changes match the June 12 study. No hemorrhage or acute intracranial finding. Chronic ischemic changes can mask nonhemorrhagic acute infarction. MR brain followup can be obtained if there is ongoing concern for acute ischemia.
[2018-08-31] MEDS ORDERED: METOPROLOL TARTRATE 5 MG/5 ML INJ IV ONE (17:41)
[2018-08-31] MEDS ORDERED: METOPROLOL TARTRATE 5 MG/5 ML INJ IV STA (18:04)
[2018-08-31] MEDS ORDERED: MORPHINE 2 MG/ML SYR IV ONE (18:05)
--- NOTE | 2018-08-31 20:48 | RAD REPORT ---
EXAM DESCRIPTION: RAD - Knee Right 2 View - 08/31/2018 8:00 pm CLINICAL HISTORY: Pain COMPARISON: None. FINDINGS: No fracture, dislocation or periosteal reaction.No joint effusion seen. No joint space edouard rowing. Bones are osteopenic. Minimal marginal spurring. No significant soft tissue finding. Arterial calcifications are present. IMPRESSION: Osteopenic and minimal degenerative change. No acute bone or joint finding. Clinical concerns for internal derangement or occult bony injury could be further assessed with MR imaging.
--- NOTE | 2018-08-31 20:56 | PN ---
Date of Progress Note: 08/31/2018 Subjective: The patient is seen and examined. Chart reviewed and case discussed with RN. The patie nt is still very much confused, somewhat agitated. No family at the bedside. Review of Systems: Limited due to patient's medical condition. Code Status: Full. Physical Examination: Vital Signs: Temperature 97.4, heart rate 73, blood pressure 162/78, respirations 18, O2 97% on 2 L via nasal cannula. General: Awake, alert, oriented to place and self only. An agitated elderly female, frail, cachecti c, BMI 18. CV: S1, S2. Peripheral pulses present. Respiratory: Moving air well bilaterally. No wheezing or stridor. Gastrointestinal: Abdomen is soft, nontender, nondistended. Positive bowel sounds. No guarding or rigidity. Extremities: No clubbing, cyanosis, or edema. Neuro: Moves all 4 extremities. Follows some commands. No focal neurological deficit. Cranial ner ves are grossly intact. Difficult to assess properly due to the patient's medical condition and agit ation. Laboratory Data: Sodium 140, potassium 2.9, chloride 96, CO2 38, BUN 27, creatinine 0.5, glucose 125 , calcium 8.7, magnesium 2.2. Troponin level 0.39, 0.34, 0.29. Triglycerides 194, cholesterol 219, LDL 140, HDL 40. Blood cultures, no growth to date. CT scan of the head is pending. Chest x-ray sh ows advanced COPD. Assessment And Plan: A 78-year-old female with: 1.Acute metabolic encephalopathy, unclear etiology. We will obtain head CT scan to rule out any acu te bleed, stroke, or mass. The patient has been by herself as her primary caregiver has not been abl e to be with her. 2.Elevated troponin level, possible non-ST elevation myocardial infarction. I spoke with Dr. Haskins with Cardiology in the absence of EKG changes and chest pain. Did not recommend any catheterization due to the patient's comorbidities, not a candidate for any invasive procedures. We will add aspiri n beta-miguel angel, statin, and PETE inhibitor. Cardiac enzymes trended down. 3.Chronic obstructive pulmonary disease, chronic bronchitis. We will continue nebulizer treatments. 4.Hypokalemia. We will replace and monitor. 5.Essential hypertension. Resume home medications as appropriate once reconciled. 6.Generalized anxiety disorder. 7.Gastroesophageal reflux disease without esophagitis. We will resume home medications. 8.Hyperlipidemia mixed. We will continue with statin. 9.History of congestive heart failure. Ejection fraction is 64% from echo in 2015, chronic. No acu te decompensation. We will continue home medications as appropriate. 10.Normocytic normochromic anemia, likely anemia of chronic disease. We will monitor hemoglobin and hematocrit. 11.Gastrointestinal and deep venous thrombosis prophylaxis addressed. PLAN: We need to clarify code status with family and living arrangements. Apparently not safe to go back home as she does not have a caregiver. We will follow up with head CT scan and we will obtain ammonia level and UDS if mental status is not improved and we will need to discuss with family regard ing her baseline. The patient may need neuro evaluation and will likely need placement. Social Work has been consulted. DAMON Voice ID: [id number] Report ID: [id number]
--- NOTE | 2018-08-31 20:59 | RAD REPORT ---
EXAM DESCRIPTION: RAD - Humerus Right - 08/31/2018 8:02 pm CLINICAL HISTORY: Arm pain, fall COMPARISON: Portable June 12, 2018 FINDINGS: No acute fracture is seen and there is no or periosteal reaction. Configuration of the sub capital neck indicates remodeling from remote fracture. This is similar to the May imaging. Degenera tive changes are present along the superolateral humeral head. No elevation of the posterior fat pad at the elbow joint. Mild degenerative changes at the AC joint. No foreign body or other soft tissue a bnormality. IMPRESSION: Degenerative change to the humeral head. No acute fracture or dislocation.
[2018-08-31] MEDS ORDERED: POTASSIUM 25 MEQ EFFERV TAB PO ONE (21:00)
[2018-08-31] MEDS: ATORVASTATIN 20 MG TAB PO SCH (21:00)
[2018-09-01] MEDS: IPRATROPIUM BROM 0.5MG/2.5ML NEB SCH ×4 (01:32→19:55)
[2018-09-01] MEDS: ALBUTEROL 2.5 MG/3 ML NEB SOL NEB SCH ×4 (01:32→19:55)
[2018-09-01] MEDS: MELATONIN 5 MG TABLET PO PRN ×2 (03:26→21:07)
[2018-09-01] MEDS: HYDROCODONE/APAP 10/325 TAB PO PRN ×4 (03:26→21:09)
[2018-09-01 04:55] LABS: BUN Blood Urea Nitrogen 21 mg/dL (7-18); Bicarbonate 36 mmol/L (21-32); Glucose Level 139 mg/dL (74-106); Potassium 3.6 mmol/L (3.5-5.1); Sodium Level 139 mmol/L (136-145)
[2018-09-01] MEDS ORDERED: POTASSIUM CL SA 10 MEQ TAB PO ONE (05:02)
[2018-09-01] MEDS: ENOXAPARIN 60 MG/0.6 ML SQ SCH ×2 (05:45→17:01)
[2018-09-01] MEDS: ASPIRIN 325 MG TAB PO SCH (08:48)
[2018-09-01] MEDS: FUROSEMIDE 20 MG TABLET PO SCH (08:48)
[2018-09-01] MEDS: PANTOPRAZOLE 40MG TABLET PO SCH (08:48)
[2018-09-01] MEDS: CITALOPRAM 10 MG TABLET PO SCH (08:48)
[2018-09-01] MEDS: CLOPIDOGREL 75 MG TABLET PO SCH (08:48)
[2018-09-01] MEDS: METOPROLOL TAR 50 MG TAB PO SCH ×2 (08:48→21:08)
[2018-09-01] MEDS: predniSONE 5 MG TAB PO SCH (08:48)
[2018-09-01] MEDS: LISINOPRIL 10 MG TAB PO SCH (08:49)
--- NOTE | 2018-09-01 12:13 | EKG ---
Test Date: 2018-08-31 Test Time: 17:23:04 Wireless Team Member: NAHUN MEASUREMENT RESULTS: Intervals: Rate: 147 MD: QRSD: 84 QT: 316 QTc: 494 [place]: P: MD: QRS: -72 T: 118 INTERPRETIVE STATEMENTS: Supraventricular tachycardia Left axis deviation Septal infarct, age undetermined ST abnormality, non specific Abnormal ECG Compared to ECG 08/30/2018 12:23:20 ST (T wave) deviation now present Sinus rhythm no longer present Ventricular premature complex(es) no longer present Myocardial infarct finding still present Electronically Signed On 09-01-18 12:12:47 CDT by Stan Haskins
[2018-09-01] MEDS: ATORVASTATIN 20 MG TAB PO SCH (21:08)
--- NOTE | 2018-09-01 21:22 | P.PN ---
Subjective Date of Service: 09/01/18 The patient is seen and examined. Chart reviewed. The patient is still very much confused. No family at the bedside. Review of Systems is unable to be obtained Physical Examination - Vital Signs Temperature: 97.2 F Blood Pressure: 141/76 Pulse: 67 Respirations: 17 Pulse Ox (%): 96 - Physical Exam General: Alert, Oriented x2, Other (Frail, cachectic, elderly) Neck: JVD not distended Respiratory: Normal air movement Cardiovascular: Normal pulses, Regular rate/rhythm, Normal S1 S2 Gastrointestinal: Normal bowel sounds, Soft and benign Musculoskeletal: No clubbing, No swelling Assessment And Plan - Plan A 78-year-old female with: 1.Acute metabolic encephalopathy, unclear etiology. head CT scan without any acute bleed, stroke, or mass. The patient has been by herself as her primary caregiver has not been able to be with her. 2. Elevated troponin level, possible non-ST elevation myocardial infarction. Cardiology, in the absence of EKG changes and chest pain did not recommend any catheterization due to the patient's comorbidities, not a candidate for any invasive procedures. Continue aspirin beta-miguel angel, statin, and PETE inhibitor. Cardiac enzymes trended down. 3. Chronic obstructive pulmonary disease, chronic bronchitis. We will continue nebulizer treatments. 4. Hypokalemia. We will replace and monitor. 5. Essential hypertension. Resume home medications as appropriate once reconciled. 6. Generalized anxiety disorder. 7. Gastroesophageal reflux disease without esophagitis. We will resume home medications. 8. Hyperlipidemia mixed. We will continue with statin. 9. History of congestive heart failure. Ejection fraction is 64% from echo in 2015, chronic. No acute decompensation. We will continue home medications as appropriate. 10. Normocytic normochromic anemia, likely anemia of chronic disease. We will monitor hemoglobin and hematocrit. PLAN: We need to clarify code status with family and living arrangements. Apparently not safe to go back home as she does not have a caregiver. The patient may need neuro evaluation and will likely need placement. Social Work working on placement issue.
[2018-09-02] MEDS: IPRATROPIUM BROM 0.5MG/2.5ML NEB SCH ×4 (01:15→21:00)
[2018-09-02] MEDS: ALBUTEROL 2.5 MG/3 ML NEB SOL NEB SCH ×4 (01:15→21:00)
[2018-09-02 04:24] LABS: BUN Blood Urea Nitrogen 23 mg/dL (7-18); Bicarbonate 34 mmol/L (21-32); Glucose Level 104 mg/dL (74-106); Potassium 3.7 mmol/L (3.5-5.1); Sodium Level 140 mmol/L (136-145)
[2018-09-02] MEDS: HYDROCODONE/APAP 10/325 TAB PO PRN ×2 (04:38→22:29)
[2018-09-02] MEDS ORDERED: POTASSIUM 25 MEQ EFFERV TAB PO ONE (05:17)
[2018-09-02] MEDS: ENOXAPARIN 60 MG/0.6 ML SQ SCH ×2 (05:59→17:00)
[2018-09-02] MEDS: PANTOPRAZOLE 40MG TABLET PO SCH (07:58)
[2018-09-02] MEDS: CLOPIDOGREL 75 MG TABLET PO SCH (08:01)
[2018-09-02] MEDS: predniSONE 5 MG TAB PO SCH (08:01)
[2018-09-02] MEDS: CITALOPRAM 10 MG TABLET PO SCH (08:01)
[2018-09-02] MEDS: ASPIRIN 325 MG TAB PO SCH (08:01)
[2018-09-02] MEDS: METOPROLOL TAR 50 MG TAB PO SCH ×2 (08:09→21:50)
[2018-09-02] MEDS: FUROSEMIDE 20 MG TABLET PO SCH (08:10)
[2018-09-02] MEDS: LISINOPRIL 10 MG TAB PO SCH (08:10)
[2018-09-02 11:46] LABS: Urine Appearance SL CLOUDY; Urine Blood 2+ (NEG); Urine Color YELLOW; Urine Glucose NEGATIVE (NEG); Urine Specific Gravity 1.015 (1.005-1.030)
[2018-09-02 11:47] LABS: Urine Protein NEGATIVE (NEG); Urine pH 8.5 (5.0-7.0)
[2018-09-02 11:48] LABS: Urine Bacteria <20 /HPF (<20); Urine Culture Reflex Order REFLEXED
[2018-09-02 11:56] LABS: Urine Bilirubin 1+ (NEG)
--- NOTE | 2018-09-02 20:17 | P.PN ---
Subjective Date of Service: 09/02/18 The patient is seen and examined. Chart reviewed. The patient is still very much confused. No family at the bedside. Physical Examination - Vital Signs Temperature: 97.4 F Blood Pressure: 150/74 Pulse: 70 Respirations: 16 Pulse Ox (%): 98 - Physical Exam General: In no apparent distress, Oriented x2, Other (Frail, cachectic) HEENT: Normocephalic Neck: JVD not distended Respiratory: Clear to auscultation bilaterally, Normal air movement Cardiovascular: Normal pulses, Regular rate/rhythm Gastrointestinal: Normal bowel sounds, Soft and benign Musculoskeletal: No clubbing, No swelling Neurological: Normal speech Assessment And Plan - Plan A 78-year-old female with: 1.Acute metabolic encephalopathy, unclear etiology. head CT scan without any acute bleed, stroke, or mass. The patient has been by herself as her primary caregiver has not been able to be with her. 2. UTI: Urine noted to be dark and this morning, sent for UA. Seems sturdy, cultures pending. Will start patient on ceftriaxone until cultures are finalized. 2. Elevated troponin level, possible non-ST elevation myocardial infarction. Cardiology, in the absence of EKG changes and chest pain did not recommend any catheterization due to the patient's comorbidities, not a candidate for any invasive procedures. Continue aspirin beta-miguel angel, statin, and PETE inhibitor. Cardiac enzymes trended down. 3. Chronic obstructive pulmonary disease, chronic bronchitis. We will continue nebulizer treatments. 4. Hypokalemia. We will replace and monitor. 5. Essential hypertension. Resume home medications as appropriate once reconciled. 6. Generalized anxiety disorder. 7. Gastroesophageal reflux disease without esophagitis. We will resume home medications. 8. Hyperlipidemia mixed. We will continue with statin. 9. History of congestive heart failure. Ejection fraction is 64% from echo in 2015, chronic. No acute decompensation. We will continue home medications as appropriate. 10. Normocytic normochromic anemia, likely anemia of chronic disease. We will monitor hemoglobin and hematocrit. PLAN: Social Work working on placement issue for when patient is ready to be discharged.
[2018-09-02] MEDS: ATORVASTATIN 20 MG TAB PO SCH (21:50)
[2018-09-02] MEDS: MELATONIN 5 MG TABLET PO PRN (22:29)
[2018-09-03] MEDS: IPRATROPIUM BROM 0.5MG/2.5ML NEB SCH ×4 (02:03→20:05)
[2018-09-03] MEDS: ALBUTEROL 2.5 MG/3 ML NEB SOL NEB SCH ×4 (02:03→20:05)
[2018-09-03 05:32] LABS: BUN Blood Urea Nitrogen 15 mg/dL (7-18); Bicarbonate 34 mmol/L (21-32); Glucose Level 106 mg/dL (74-106); Potassium 3.6 mmol/L (3.5-5.1); Sodium Level 136 mmol/L (136-145)
[2018-09-03] MEDS: ENOXAPARIN 60 MG/0.6 ML SQ SCH ×2 (05:51→17:25)
[2018-09-03] MEDS ORDERED: POTASSIUM CL SA 10 MEQ TAB PO ONE (06:13)
[2018-09-03] MEDS: PANTOPRAZOLE 40MG TABLET PO SCH (08:22)
[2018-09-03] MEDS: predniSONE 5 MG TAB PO SCH (08:22)
[2018-09-03] MEDS: ASPIRIN 325 MG TAB PO SCH (08:22)
[2018-09-03] MEDS: CITALOPRAM 10 MG TABLET PO SCH (08:22)
[2018-09-03] MEDS: FUROSEMIDE 20 MG TABLET PO SCH (08:22)
[2018-09-03] MEDS: METOPROLOL TAR 50 MG TAB PO SCH ×2 (08:22→20:39)
[2018-09-03] MEDS: CLOPIDOGREL 75 MG TABLET PO SCH (08:22)
[2018-09-03] MEDS: LISINOPRIL 10 MG TAB PO SCH (08:22)
[2018-09-03] MEDS ORDERED: CEFTRIAXONE 1 GM/NS 50 ML 1 GM/50 ML BAG IV SCH (09:00)
[2018-09-03] MEDS: HYDROCODONE/APAP 10/325 TAB PO PRN ×2 (10:13→20:39)
[2018-09-03] MEDS: CEFTRIAXONE/SWI 1gm 1 GM/10 ML SYR IV SCH (12:42)
--- NOTE | 2018-09-03 19:06 | P.PN ---
Subjective Date of Service: 09/03/18 Chief Complaint: Altered mentation The patient is seen and examined. Chart reviewed. The patient is still very much confused. No family at the bedside. Review of Systems 10-point ROS is otherwise unremarkable Physical Examination - Vital Signs Temperature: 98.2 F Blood Pressure: 152/85 Pulse: 82 Respirations: 18 Pulse Ox (%): 97 - Physical Exam General: Alert, In no apparent distress, Oriented x2 (Frail, cachectic) HEENT: Atraumatic, Normocephalic Neck: JVD not distended Respiratory: Clear to auscultation bilaterally, Normal air movement Cardiovascular: No edema, Normal pulses, Regular rate/rhythm, Normal S1 S2 Gastrointestinal: Normal bowel sounds, Soft and benign Musculoskeletal: No clubbing, No swelling Assessment And Plan - Plan A 78-year-old female with: 1.Acute metabolic encephalopathy, unclear etiology. head CT scan without any acute bleed, stroke, or mass. The patient has been by herself as her primary caregiver has not been able to be with her. 2. UTI: Urine noted to be dark and this morning, sent for UA. Seems dirty. cultures pending. Will start patient on ceftriaxone until cultures are finalized. Will likely send home on oral cephalosporin on discharge. 2. Elevated troponin level, possible non-ST elevation myocardial infarction. Cardiology, in the absence of EKG changes and chest pain did not recommend any catheterization due to the patient's comorbidities, not a candidate for any invasive procedures. Continue aspirin beta-miguel angel, statin, and PETE inhibitor. Cardiac enzymes trended down. 3. Chronic obstructive pulmonary disease, chronic bronchitis. We will continue nebulizer treatments. 4. Hypokalemia. We will replace and monitor. 5. Essential hypertension. Resume home medications as appropriate once reconciled. 6. Generalized anxiety disorder. 7. Gastroesophageal reflux disease without esophagitis. We will resume home medications. 8. Hyperlipidemia mixed. We will continue with statin. 9. History of congestive heart failure. Ejection fraction is 64% from echo in 2015, chronic. No acute decompensation. We will continue home medications as appropriate. 10. Normocytic normochromic anemia, likely anemia of chronic disease. We will monitor hemoglobin and hematocrit. PLAN: Social Work working on home health for patient is ready to be discharged.
[2018-09-03] MEDS ORDERED: ATORVASTATIN 40 MG TAB PO SCH (21:00)
[2018-09-04] MEDS: HYDROCODONE/APAP 10/325 TAB PO PRN ×2 (01:28→07:32)
[2018-09-04] MEDS: ALBUTEROL 2.5 MG/3 ML NEB SOL NEB SCH ×3 (03:25→14:16)
[2018-09-04] MEDS: IPRATROPIUM BROM 0.5MG/2.5ML NEB SCH ×3 (03:25→14:16)
[2018-09-04 05:46] LABS: BUN Blood Urea Nitrogen 12 mg/dL (7-18); Bicarbonate 30 mmol/L (21-32); Glucose Level 94 mg/dL (74-106); Potassium 3.5 mmol/L (3.5-5.1); Sodium Level 136 mmol/L (136-145)
[2018-09-04] MEDS: ENOXAPARIN 60 MG/0.6 ML SQ SCH ×2 (05:48→17:04)
[2018-09-04] MEDS: PANTOPRAZOLE 40MG TABLET PO SCH (06:13)
[2018-09-04] MEDS ORDERED: POTASSIUM CL SA 10 MEQ TAB PO ONE (07:00)
[2018-09-04 08:51] VITALS: O2SAT 93
[2018-09-04] MEDS: METOPROLOL TAR 50 MG TAB PO SCH (08:55)
[2018-09-04] MEDS: ASPIRIN 325 MG TAB PO SCH (08:55)
[2018-09-04] MEDS: predniSONE 5 MG TAB PO SCH (08:56)
[2018-09-04] MEDS: LISINOPRIL 10 MG TAB PO SCH (08:56)
[2018-09-04] MEDS: CLOPIDOGREL 75 MG TABLET PO SCH (08:56)
[2018-09-04] MEDS: CITALOPRAM 10 MG TABLET PO SCH (08:56)
[2018-09-04] MEDS: FUROSEMIDE 20 MG TABLET PO SCH (08:56)
[2018-09-04] MEDS: CEFTRIAXONE/SWI 1gm 1 GM/10 ML SYR IV SCH (08:57)
[2018-09-04 12:40] VITALS: TEMP 98.1
[2018-09-04 16:46] VITALS: BP 131/73
--- NOTE | 2018-09-10 13:32 | P.DS ---
Admission Date: 08/30/18 Discharge Date: 09/10/18 Disposition: DC HOME/HOME HEALTH CARE Discharge Condition: FAIR Reason for Admission: Altered mentation Brief History of Present Illness: This is a 78-year-old female with history of multiple medical problems including hypertension, COPD, emphysema on home oxygen, coronary artery disease , CHF, anxiety, acid reflux, peripheral vascular disease, who presented today to the emergency room with progressive mental status change. Apparently, her daughter left town and granddaughter saw the patient getting much worse and she thought of bringing her to the emergency room. Her urine was with strong odor, initially they thought in the ER she had UTI and UA was negative. Blood work done showed mild anemia, but abnormal cardiac enzymes with troponin 0.4 and she was admitted until we rule that out. Patient is an extremely poor historian. Apparently, she has a history of dementia. She does not complain or express any signs of chest pain. She is only responding to any question with yawning gestures. She is lying comfortable now in the emergency room on 4 L oxygen and no family at the bedside, so history was very limited. Hospital Course: Dbw-[id number]-xezkdhayh myocardial infarction: Patient was admitted to the floor with tele monitoring. She was continued on aspirin, plavix, beta miguel angel, wayne- inhibitor and statin. She was continued on medical management throughout her stay as it was decided that due to her comorbidities, invasive interventions were not appropriate. Her cardiac enzymes trended down throughtout her stay.. AMS: Unknown baseline, though CT scan without any acute bleed, stroke or mass. It seems that she returned to baseline, when it was discussed with grand daughter. UTI: She was given a course of IV antibiotics and was discharged on home cephalosporin. Hx of COPD w/ long history of smoking. she was given nebulizer treatments and supplemental oxygen as needed. History of congestive heart failure, last ejection fraction was 2014 at 64%. No signs of CHF at this point, remained stable on medical management without any evidence of overload. Normocytic normochromic anemia, likely anemia of chronic disease.H&H was monitered. No transfusion required this hospitalization. Patient was discharged home with granddaughter with home health. Vital Signs/Physical Exam: Temp Pulse Resp BP Pulse Ox 98.1 F 84 18 131/73 96 09/04/18 16:00 09/04/18 16:00 09/04/18 16:00 09/04/18 16:00 09/04/18 16:00 Laboratory Data at Discharge: WBC 7.7 K/uL (4.3-10.9) D 08/30/18 18:01 Hgb 10.2 g/dL (12.0-15.0) L 08/30/18 18:01 Hct 30.9 % (36.0-45.0) L 08/30/18 18:01 Plt Count 169 K/uL (152-406) D 08/30/18 18:01 PT 13.5 SECONDS (9.5-12.5) H 08/30/18 12:35 INR 1.14 08/30/18 12:35 APTT 30.4 SECONDS (24.3-36.9) 08/30/18 12:35 Sodium 136 mmol/L (136-145) 09/04/18 04:21 Potassium 3.5 mmol/L (3.5-5.1) 09/04/18 04:21 BUN 12 mg/dL (7-18) 09/04/18 04:21 Creatinine 0.40 mg/dL (0.55-1.3) L 09/04/18 04:21 Glucose 94 mg/dL (74-106) 09/04/18 04:21 Magnesium 2.2 mg/dL (1.8-2.4) 08/31/18 08:30 Total Bilirubin 0.4 mg/dL (0.2-1.0) 08/30/18 18:01 AST 18 U/L (15-37) 08/30/18 18:01 ALT 18 U/L (12-78) 08/30/18 18:01 Alkaline Phosphatase 84 U/L (45-117) 08/30/18 18:01 Troponin I 0.29 ng/mL (0.0-0.045) H 08/31/18 06:45 Triglycerides 194 mg/dL (<150) H 08/31/18 06:45 Cholesterol 219 mg/dL (<200) H 08/31/18 06:45 HDL Cholesterol 40 mg/dL (40-60) 08/31/18 06:45 Cholesterol/HDL Ratio 5.48 08/31/18 06:45 Lipase 245 U/L (73-393) 08/30/18 12:35 Home Medications: Gabapentin [Neurontin*] 400 mg PO BID PRN 12/09/14 ALPRAZolam [Xanax*] 0.5 mg PO Q6HR PRN 04/18/15 Esomeprazole Mag Trihydrate [Nexium] 40 mg PO DAILY 01/28/16 Metoprolol Tartrate [Lopressor*] 25 mg PO BID #60 tab 04/02/16 Citalopram [Celexa*] 10 mg PO DAILY 06/12/18 Furosemide 20 mg PO DAILY 06/12/18 Perforomist 20 mcg NEB PRN PRN 06/12/18 Primidone [Mysoline *] 50 mg PO TID 06/12/18 predniSONE [Prednisone*] 5 mg PO DAILY 06/12/18 Atorvastatin Calcium [Lipitor] 40 mg PO BEDTIME #30 tab 09/04/18 Clopidogrel Bisulfate [Plavix*] 75 mg PO DAILY #30 tablet 09/04/18 New Medications: Atorvastatin Calcium [Lipitor] 40 mg PO BEDTIME #30 tab Clopidogrel Bisulfate [Plavix*] 75 mg PO DAILY #30 tablet Diet: Regular Activity: Fall precautions Followup: Jabari Groves MD [ACTIVE - CAN ADMIT] -
== END 2018-09-04 17:36 | disposition home health service (06) | DRG 280 ==
LOC: ER 12:04 → ERHOLD 14:23 → 4TH 15:56
PROVIDERS: ADMIT Internal Medicine; ATTEND Family Medicine
DX: I21.4 Non-ST elevation (NSTEMI) myocardial infarction (principal); G93.41 Metabolic encephalopathy; N39.0 Urinary tract infection, site not specified; Z99.81 Dependence on supplemental oxygen; Z88.0 Allergy status to penicillin; F41.9 Anxiety disorder, unspecified; K21.9 Gastro-esophageal reflux disease without esophagitis; I73.9 Peripheral vascular disease, unspecified; I25.10 Atherosclerotic heart disease of native coronary artery without angina pectoris; F03.90 Unspecified dementia, unspecified severity, without behavioral disturbance, psychotic disturbance, mood disturbance, and anxiety; Z87.891 Personal history of nicotine dependence; J44.9 Chronic obstructive pulmonary disease, unspecified; E87.6 Hypokalemia; E78.2 Mixed hyperlipidemia; D63.8 Anemia in other chronic diseases classified elsewhere; I11.0 Hypertensive heart disease with heart failure; I50.9 Heart failure, unspecified
CPT/HCPCS: 36415; 51702; 70450; 71045; 80048; 80053; 80061; 80076; 81001; 81003; 81015; 82140; 82550; 82553; 83605; 83690; 83735; 84132; 84145; 84484; 85025; 85610; 85730; 87040; 87086; 87088; 93005; 94760; 97163; 99285; J0696; J0744; J1644; J1650; J2270; J7030; J7512

== ENCOUNTER 2019-04-20 12:04 | Inpatient (IN) | payer OTHER ==
--- OUTSIDE RECORDS SUMMARY | 2019-04-20 12:07 | XMS REPORT | Clinical Summary ---
:1940 Author Organization [facility] Address [address] [place] [address] Care Team Providers Name Role Phone Sharpless Primary Care Provider Allergies Active Allergy Reactions Severity Noted Date Comments Penicillins Hives, Rash High 04/10/2017 Medications Medication Sig Dispensed Refills Start Date End Date Status citalopram (CELEXA) 10 Take 10 mg by 0 Active MG tablet mouth nightly. spironolactone Take 25 mg by 0 Active (ALDACTONE) 25 MG mouth every tablet morning. predniSONE (DELTASONE) Take 5 mg by 0 Active 5 MG tablet mouth 2 (two) times daily with breakfast and lunch. gabapentin (NEURONTIN) Take 400 mg by 0 Active 400 MG capsule mouth 2 (two) times daily. primidone (MYSOLINE) 50 Take 50 mg by 0 Active MG tablet mouth 2 (two) times daily. esomeprazole (NEXIUM) Take 40 mg by 0 Active 40 MG capsule mouth daily. HYDROcodone-acetaminoph Take 1 tablet by 0 Active en (NORCO 10-325) mouth every 6 10-325 mg per tablet (six) hours as needed for Pain. ALPRAZolam (XANAX) 0.5 Take 0.5 mg by 0 Active MG tablet mouth 4 (four) times daily as needed for Anxiety. QUEtiapine (SEROQUEL) Take 50 mg by 0 Active 50 MG tablet mouth nightly. levalbuterol (XOPENEX Inhale 1 puff by 0 Active HFA) 45 mcg/actuation mouth via inhaler inhaler 2 (two) times daily as needed for Wheezing or Shortness of Breath. metoprolol (LOPRESSOR) Take 25 mg by 0 Active 25 MG mouth 2 (two) tabletIndications: times daily. hypertension Active Problems Problem Noted Date Back pain 04/10/2017 Pneumonia 04/10/2017 Right lower lobe pneumonia 04/10/2017 Depression 04/10/2017 Anxiety 04/10/2017 Social History Tobacco Use Types Packs/Day Years Used Date Former Smoker Cigarettes 1 60 Quit: 12/2016 Smokeless Tobacco: Never Used Alcohol Use Drinks/Week oz/Week Comments No Sex Assigned at Date Recorded Not on file Job Start Date Occupation Industry Not on file Not on file Not on file Travel History Travel Start Travel End No recent travel history available. Last Filed Vital Signs Not on file Plan of Treatment Not on file Results Not on fileafter 04/19/2018 Insurance Payer Benefit Plan / Group Subscriber ID Type Phone [facility] Maps Contracted Advance Directives For more information, please contact:[address] [phone] Code Status Date Activated Date Inactivated Comments Full Code 04/10/2017 7:22 PM 04/18/2017 11:10 PM This code status was determined by: Patient
--- OUTSIDE RECORDS SUMMARY | 2019-04-20 12:07 | XMS REPORT ---
:1940 [facility] Organization [facility] Address [address] [place] [id number] Care Team Providers Name Role Phone AZAR [...] Comments WHITE BLOOD CELL COUNT (BEAKER) (test zmsz=690) 5.5 K/ L 4.0-10.0 RED BLOOD CELL COUNT (BEAKER) (test osxd=814) 3.54 M/ L 4.00-5.00 HEMOGLOBIN (BEAKER) (test npjb=066) 10.8 GM/DL 12.0-15.0 HEMATOCRIT (BEAKER) (test bnxg=593) 33.5 % 36.0-45.0 MEAN CORPUSCULAR VOLUME (BEAKER) (test nehv=671) 94.8 fL 82.0-99.0 MEAN CORPUSCULAR HEMOGLOBIN (BEAKER) (test bknu=472) 30.4 pg 27.0-33.0 MEAN CORPUSCULAR HEMOGLOBIN CONC (BEAKER) (test mkwb=214) 32.1 GM/DL 32.0- 36.0 RED CELL DISTRIBUTION WIDTH (BEAKER) (test jfrd=655) 12.7 % 10.3-14.2 PLATELET COUNT (BEAKER) (test gpwp=006) 190 K/CU MM 150-430 MEAN PLATELET VOLUME (BEAKER) (test xyuu=746) 6.6 fL 6.5-10.5 NUCLEATED RED BLOOD CELLS (BEAKER) (test rblz=066) 0 /100 WBC 0-0 NEUTROPHILS RELATIVE PERCENT (BEAKER) (test rxoq=905) 59 % LYMPHOCYTES RELATIVE PERCENT (BEAKER) (test knqu=185) 30 % MONOCYTES RELATIVE PERCENT (BEAKER) (test uzmp=968) 8 % EOSINOPHILS RELATIVE PERCENT (BEAKER) (test nmne=351) 3 % BASOPHILS RELATIVE PERCENT (BEAKER) (test deta=846) 0 % NEUTROPHILS ABSOLUTE COUNT (BEAKER) (test zamc=434) 3.23 K/ L 1.80-8.00 LYMPHOCYTES ABSOLUTE COUNT (BEAKER) (test wcre=490) 1.63 K/ L 1.48-4.50 MONOCYTES ABSOLUTE COUNT (BEAKER) (test oays=326) 0.44 K/ L 0.00-1.30 EOSINOPHILS ABSOLUTE COUNT (BEAKER) (test rood=826) 0.15 K/ L 0.00-0.50 BASOPHILS ABSOLUTE COUNT (BEAKER) (test fteg=235) 0.00 K/ L 0.00-0.20 0.00BASIC METABOLIC [id number] 05:42:00 Test Item Value Reference Range Comments SODIUM (BEAKER) (test 135 meq/L 136-145 nrvv=127) POTASSIUM (BEAKER) (test 4.1 meq/L 3.5-5.1 wslp=943) CHLORIDE (BEAKER) (test 97 meq/L 98-107 kcgm=766) CO2 (BEAKER) (test 31 meq/L 22-29 hlen=617) BLOOD UREA NITROGEN 21 mg/dL 7-21 (BEAKER) (test tfcq=801) CREATININE (BEAKER) (test 0.66 mg/dL 0.57-1.25 cpmf=781) GLUCOSE RANDOM (BEAKER) 95 mg/dL 70-105 (test eskg=317) CALCIUM (BEAKER) (test 9.1 mg/dL 8.4-10.2 eczb=941) EGFR (BEAKER) (test 88 mL/min/1.73 sq m ESTIMATED GFR IS NOT xlnh=9791) ACCURATE CREATININE CLEARANCE IN PREDICTING GLOMERULAR FILTRATION RATE. ESTIMATED GFR IS NOT APPLICABLE FOR DIALYSIS PATIENTS. [id number] 05:38:00 Test Item Value Reference Range Comments PROTIME (BEAKER) (test ybza=646) 13.0 seconds 11.7-14.7 INR (BEAKER) (test osvn=074) 1.0 <=5.9 PARTIAL THROMBOPLASTIN TIME (BEAKER) (test 27.7 seconds 22.5-36.0 nagx=860) RECOMMENDED COUMADIN/WARFARIN INR THERAPY RANGESSTANDARD DOSE: 2.0 - 3.0 Includes: PROPHYLAXIS forvenous thrombosis, systemic embolization; TREATMENT for venous thrombosis and/or pulmonary embolus.HIGH RISK: Target INR is 2.5-3.5 for patients with mechanical heart valves.PROTHROMBIN TIME/[id number] 05:37: 00 Test Item Value Reference Range Comments PROTIME (BEAKER) (test havd=776) 13.0 seconds 11.7-14.7 INR (BEAKER) (test foav=316) 1.0 <=5.9 RECOMMENDED COUMADIN/WARFARIN INR THERAPY RANGESSTANDARD DOSE: 2.0 - 3.0 Includes: PROPHYLAXIS forvenous thrombosis, systemic embolization; TREATMENT for venous thrombosis and/or pulmonary embolus.HIGH RISK: Target INR is 2.5-3.5 for patients with mechanical heart valves.BASIC METABOLIC [id number] 05:34: 00 Test Item Value Reference Range Comments SODIUM (BEAKER) (test 137 meq/L 136-145 opuf=232) POTASSIUM (BEAKER) (test 4.0 meq/L 3.5-5.1 uvoj=304) CHLORIDE (BEAKER) (test 95 meq/L 98-107 eshh=856) CO2 (BEAKER) (test 34 meq/L 22-29 htxc=230) BLOOD UREA NITROGEN 20 mg/dL 7-21 (BEAKER) (test jwpr=041) CREATININE (BEAKER) (test 0.69 mg/dL 0.57-1.25 ltqv=155) GLUCOSE RANDOM (BEAKER) 114 mg/dL 70-105 (test gfvv=611) CALCIUM (BEAKER) (test 9.4 mg/dL 8.4-10.2 lxva=562) EGFR (BEAKER) (test 83 mL/min/1.73 sq m ESTIMATED GFR IS NOT rubi=6703) ACCURATE CREATININE CLEARANCE IN PREDICTING GLOMERULAR FILTRATION RATE. ESTIMATED GFR IS NOT APPLICABLE FOR DIALYSIS PATIENTS. BASIC METABOLIC [id number] 07:18:00 Test Item Value Reference Range Comments SODIUM (BEAKER) (test 134 meq/L 136-145 mgcr=647) POTASSIUM (BEAKER) (test 4.1 meq/L 3.5-5.1 lshw=608) CHLORIDE (BEAKER) (test 93 meq/L 98-107 qrzl=961) CO2 (BEAKER) (test 36 meq/L 22-29 nhyh=626) BLOOD UREA NITROGEN 17 mg/dL 7-21 (BEAKER) (test uevw=983) CREATININE (BEAKER) (test 0.65 mg/dL 0.57-1.25 dklz=612) GLUCOSE RANDOM (BEAKER) 100 mg/dL 70-105 (test jrci=631) CALCIUM (BEAKER) (test 9.6 mg/dL 8.4-10.2 ocfh=556) EGFR (BEAKER) (test 89 mL/min/1.73 sq m ESTIMATED GFR IS NOT oezy=2239) ACCURATE CREATININE CLEARANCE IN PREDICTING GLOMERULAR FILTRATION RATE. ESTIMATED GFR IS NOT APPLICABLE FOR DIALYSIS PATIENTS. URINALYSIS W/ REFLEX URINE [id number] 07:08:00 Test Item Value Reference Range Comments COLOR (BEAKER) (test dmgi=602) Yellow CLARITY (BEAKER) (test fhpk=082) Hazy SPECIFIC GRAVITY UA (BEAKER) (test yrfo=994) 1.035 1.001-1.035 PH UA (BEAKER) (test nxmm=177) 7.0 5.0-8.0 PROTEIN UA (BEAKER) (test ioox=679) 10 mg/dL Negative GLUCOSE UA (BEAKER) (test gnfk=754) Negative Negative KETONES UA (BEAKER) (test ktaw=905) Negative Negative BILIRUBIN UA (BEAKER) (test joaq=809) Negative Negative BLOOD UA (BEAKER) (test yeef=054) Negative Negative NITRITE UA (BEAKER) (test waqj=714) Negative Negative LEUKOCYTE ESTERASE UA (BEAKER) (test zjii=244) Small Negative UROBILINOGEN UA (BEAKER) (test qdbj=931) 0.2 mg/dL 0.2-1.0 RBC UA (BEAKER) (test swvo=368) 1 /HPF WBC UA (BEAKER) (test ysmj=054) 9 /HPF BACTERIA (BEAKER) (test afdw=750) Occasional MUCUS (BEAKER) (test zscj=1705) Rare SQUAMOUS EPITHELIAL (BEAKER) (test kwto=249) 7 /HPF SOURCE(BEAKER) (test vujz=7216) BASIC METABOLIC [id number] 06:11:00 Test Item Value Reference Range Comments SODIUM (BEAKER) (test 136 meq/L 136-145 axey=560) POTASSIUM (BEAKER) (test 4.4 meq/L 3.5-5.1 xaau=142) CHLORIDE (BEAKER) (test 95 meq/L 98-107 tfda=208) CO2 (BEAKER) (test 35 meq/L 22-29 rnjl=020) BLOOD UREA NITROGEN 25 mg/dL 7-21 (BEAKER) (test dciv=142) CREATININE (BEAKER) (test 0.66 mg/dL 0.57-1.25 htlu=527) GLUCOSE RANDOM (BEAKER) 116 mg/dL 70-105 (test latb=224) CALCIUM (BEAKER) (test 9.0 mg/dL 8.4-10.2 luwa=429) EGFR (BEAKER) (test 88 mL/min/1.73 sq m ESTIMATED GFR IS NOT ggfo=0644) ACCURATE CREATININE CLEARANCE IN PREDICTING GLOMERULAR FILTRATION RATE. ESTIMATED GFR IS NOT APPLICABLE FOR DIALYSIS PATIENTS. VITAMIN D, [id number] 05:04:00 Test Item Value Reference Range Comments VITAMIN D 25-OH (BEAKER) (test iwwc=4932) < ng/mL 13.0-47.8 COMPREHENSIVE METABOLIC [id number] 22:54:00 Test Item Value Reference Range Comments TOTAL PROTEIN (BEAKER) 6.8 gm/dL 6.0-8.3 (test aruh=101) ALBUMIN (BEAKER) (test 3.5 g/dL 3.5-5.0 zopb=5470) ALKALINE PHOSPHATASE 83 U/L 40-150 (BEAKER) (test slec=661) BILIRUBIN TOTAL (BEAKER) 0.3 mg/dL 0.2-1.2 (test ibym=276) SODIUM (BEAKER) (test 136 meq/L 136-145 noqh=845) POTASSIUM (BEAKER) (test 4.4 meq/L 3.5-5.1 rjsm=555) CHLORIDE (BEAKER) (test 95 meq/L 98-107 wpsv=245) CO2 (BEAKER) (test 34 meq/L 22-29 dhxq=989) BLOOD UREA NITROGEN 28 mg/dL 7-21 (BEAKER) (test oplp=805) CREATININE (BEAKER) (test 0.76 mg/dL 0.57-1.25 ytdn=360) GLUCOSE RANDOM (BEAKER) 150 mg/dL 70-105 (test aiuu=266) CALCIUM (BEAKER) (test 9.0 mg/dL 8.4-10.2 zpkr=095) AST (SGOT) (BEAKER) (test 22 U/L 5-34 ekpw=084) ALT (SGPT) (BEAKER) (test 51 U/L 6-55 beud=591) EGFR (BEAKER) (test 74 mL/min/1.73 sq m ESTIMATED GFR IS NOT wpya=9190) ACCURATE CREATININE CLEARANCE IN PREDICTING GLOMERULAR FILTRATION RATE. ESTIMATED GFR IS NOT APPLICABLE FOR DIALYSIS PATIENTS. PROTHROMBIN TIME/[id number] 22:38:00 Test Item Value Reference Range Comments PROTIME (BEAKER) (test slyf=574) 13.3 seconds 11.7-14.7 INR (BEAKER) (test exlv=226) 1.0 <=5.9 RECOMMENDED COUMADIN/WARFARIN INR THERAPY RANGESSTANDARD DOSE: 2.0 - 3.0 Includes: PROPHYLAXIS forvenous thrombosis, systemic embolization; TREATMENT for venous thrombosis and/or pulmonary embolus.HIGH RISK: Target INR is 2.5-3.5 for patients with mechanical heart valves.CBC (HEMOGRAM ONLY)[id number] 22:31:00 Test Item Value Reference Range Comments WHITE BLOOD CELL COUNT (BEAKER) (test qgvo=686) 6.5 K/ L 4.0-10.0 RED BLOOD CELL COUNT (BEAKER) (test uzmg=404) 3.76 M/ L 4.00-5.00 HEMOGLOBIN (BEAKER) (test rbcz=394) 11.4 GM/DL 12.0-15.0 HEMATOCRIT (BEAKER) (test buiq=595) 35.5 % 36.0-45.0 MEAN CORPUSCULAR VOLUME (BEAKER) (test swbg=401) 94.6 fL 82.0-99.0 MEAN CORPUSCULAR HEMOGLOBIN (BEAKER) (test 30.4 pg 27.0-33.0 lhpe=753) MEAN CORPUSCULAR HEMOGLOBIN CONC (BEAKER) (test 32.2 GM/DL 32.0-36.0 itjq=979) RED CELL DISTRIBUTION WIDTH (BEAKER) (test 13.6 % 10.3-14.2 kwtj=606) PLATELET COUNT (BEAKER) (test ziea=961) 195 K/CU MM 150-430 MEAN PLATELET VOLUME (BEAKER) (test smkf=585) 6.2 fL 6.5-10.5 NUCLEATED RED BLOOD CELLS (BEAKER) (test 0 /100 WBC 0-0 twnb=207) 0.00CBC W/PLT COUNT & AUTO [id number] 22:31:00 Test Item Value Reference Range Comments WHITE BLOOD CELL COUNT (BEAKER) (test ldmj=512) 6.5 K/ L 4.0-10.0 RED BLOOD CELL COUNT (BEAKER) (test ralp=855) 3.76 M/ L 4.00-5.00 HEMOGLOBIN (BEAKER) (test ixrh=392) 11.4 GM/DL 12.0-15.0 HEMATOCRIT (BEAKER) (test ulxj=103) 35.5 % 36.0-45.0 MEAN CORPUSCULAR VOLUME (BEAKER) (test iklb=848) 94.6 fL 82.0-99.0 MEAN CORPUSCULAR HEMOGLOBIN (BEAKER) (test 30.4 pg 27.0-33.0 mjya=936) MEAN CORPUSCULAR HEMOGLOBIN CONC (BEAKER) (test 32.2 GM/DL 32.0-36.0 bgya=162) RED CELL DISTRIBUTION WIDTH (BEAKER) (test 13.6 % 10.3-14.2 cali=100) PLATELET COUNT (BEAKER) (test nibh=884) 195 K/CU MM 150-430 MEAN PLATELET VOLUME (BEAKER) (test qjsd=496) 6.2 fL 6.5-10.5 NUCLEATED RED BLOOD CELLS (BEAKER) (test 0 /100 WBC 0-0 ovcj=219) NEUTROPHILS RELATIVE PERCENT (BEAKER) (test 57 % wiod=414) LYMPHOCYTES RELATIVE PERCENT (BEAKER) (test 33 % nlzk=647) MONOCYTES RELATIVE PERCENT (BEAKER) (test 8 % dfdg=566) EOSINOPHILS RELATIVE PERCENT (BEAKER) (test 2 % dpvb=654) BASOPHILS RELATIVE PERCENT (BEAKER) (test 0 % puce=460) NEUTROPHILS ABSOLUTE COUNT (BEAKER) (test 3.66 K/ L 1.80-8.00 bgts=910) LYMPHOCYTES ABSOLUTE COUNT (BEAKER) (test 2.13 K/ L 1.48-4.50 hazw=179) MONOCYTES ABSOLUTE COUNT (BEAKER) (test 0.52 K/ L 0.00-1.30 ktlx=009) EOSINOPHILS ABSOLUTE COUNT (BEAKER) (test 0.14 K/ L 0.00-0.50 tbin=635) BASOPHILS ABSOLUTE COUNT (BEAKER) (test 0.02 K/ L 0.00-0.20 jtoe=254)
[2019-04-20] MEDS ORDERED: ACETAMINOPHEN 500 MG TAB ONE (12:58)
[2019-04-20] MEDS ORDERED: NA CHLORIDE 0.9% 2,000 ML ONE (12:58)
[2019-04-20 13:26] LABS: Absolute Lymphocytes (CBC) 1.2 K/uL (0.7-4.9); Absolute Monocytes 0.9 K/uL (0.1-1.3); Basophils % 0.4 % (0-1.3); Eosinophils % 0.1 % (0-4.4); Hematocrit 30.6 % (36.0-45.0); Lymphocytes % 8.3 % (15.3-44.8); MPV 7.4 fL (7.6-11.3); Monocytes % 6.4 % (3.3-12.3); RBC Red Blood Cell Count 3.34 M/uL (3.86-4.86)
[2019-04-20 13:32] LABS: Protime INR 0.99
[2019-04-20] MEDS ORDERED: METHYLPREDNISOLONE 125 MG INJ ONE (13:40)
[2019-04-20] MEDS ORDERED: IPRATROPIUM BROM 0.5MG/2.5ML ONE (13:40)
[2019-04-20] MEDS ORDERED: LEVALBUTEROL 1.25 MG/3 ML NEB ONE (13:40)
[2019-04-20] MEDS ORDERED: ACETAMINOPHEN 650MG/RECT SUPP PR ONE (13:40)
[2019-04-20] MEDS ORDERED: CEFTRIAXONE/SWI 1gm 1 GM/10 ML SYR ONE (13:41)
[2019-04-20 13:42] LABS: Magnesium 2.4 mg/dL (1.8-2.4)
[2019-04-20] MEDS ORDERED: AZITHROMYCIN 500 MG INJ IVPB ONE (13:42)
[2019-04-20] MEDS ORDERED: NA CHLORIDE 0.9% 250 ML ONE (13:42)
[2019-04-20 13:43] LABS: Arterial Blood Carboxyhemoglob 1.3 % (0-1.5); Blood Gas Oxyhemoglobin 88.2 % (94-97)
[2019-04-20 13:45] LABS: ALT/SGPT 16 U/L (12-78); AST/SGOT 13 U/L (15-37); Alkaline Phosphatase 95 U/L (45-117); BUN Blood Urea Nitrogen 16 mg/dL (7-18); Bicarbonate 32 mmol/L (21-32); Bilirubin Direct < 0.1 mg/dL (0-0.2); Bilirubin Total 0.4 mg/dL (0.2-1.0); CKMB Creatine Kinase MB < 1.0 ng/mL (0.3-3.6); Creatine Phosphokinase 30 U/L (26-192); Glucose Level 148 mg/dL (74-106); Lipase 85 U/L (73-393); Potassium 4.6 mmol/L (3.5-5.1); Protein, Total 7.5 g/dL (6.4-8.2); Sodium Level 134 mmol/L (136-145); Troponin (Emerg Dept Use Only) < 0.02 ng/mL (0.0-0.045)
--- NOTE | 2019-04-20 13:53 | RAD REPORT ---
EXAM DESCRIPTION: RAD - Chest Single View - 04/20/2019 1:45 pm CLINICAL HISTORY: Cough, fever, weakness COMPARISON: August 2018 TECHNIQUE: AP portable chest image was obtained 1343 hours . FINDINGS: Right hemithorax lung volume is reduced. Patient has prominent interstitial fibrotic lung pattern. Findings are more pronounced in the lower right lung field. This is in part due to the reduc ed lung volume. Early right lung base pneumonia is not excluded. No failure or volume overload suspected. Heart and vasculature are normal. No measurable pleural effu bailey and no pneumothorax. No acute bony abnormality seen. No acute aortic findings suspected. IMPRESSION: Patchy right lung base pneumonia is suspected. Fibrotic lung pattern and right hemithorax volume reduction accentuates interstitial pattern.
--- NOTE | 2019-04-20 14:08 | ER ---
Nurse's Notes [facility] Name: Zaynab Rehman Age: 78 yrs Sex: Female : 1940 Arrival Date: 04/20/2019 Time: 12:07 Bed 13 Private MD: Diagnosis: Pneumonia in diseases classified elsewhere;Acute respiratory failure Presentation: 04/20 12:11 Presenting complaint: Subjective fever, nonproductive cough, malaise, and generalized hb weakness x 3 days. Transition of care: patient was not received from another setting of care. 12:11 Method Of Arrival: Wheelchair 12:11 Onset of symptoms was April 17, 2019. Risk Assessment: Do you want to hurt yourself or hb someone else? Patient reports no desire to harm self or others. Care prior to arrival: None. 12:11 Acuity: YCNTHIA 3 hb 12:30 Initial Sepsis Screen: Does the patient have a suspected source of infection? Yes: ae4 Other: Possible urinary infection as patient is in adult diapers. 14:38 Initial Sepsis Screen: Does the patient meet any 2 criteria? Systolic BP < 90 mmHg. ae4 Altered Mental Status. Historical: - Allergies: 12:13 PENICILLINS; hb - Home Meds: 15:34 alprazolam 0.5 mg Oral tab 1 tab twice a day [Active]; Anoro Ellipta 62.5-25 ae4 mcg/actuation inhalation dsdv 1 puff once daily [Active]; Caltrate 600 + D 600 mg (1,500 mg)-800 unit Oral tab [Active]; gabapentin 400 mg Oral cap 1 cap twice a day [Active]; hydrocodone-acetaminophen 10-325 mg Oral tab 1 tab every 6 hours for chronic back pain [Active]; metoprolol tartrate 100 mg Oral tab 1 tab 2 times per day [Active]; Nasonex 50 mcg/actuation Nasal spry once daily [Active]; Neurontin 400 mg Oral cap daily [Active]; Nexium 40 mg Oral cpDR 1 cap once daily [Active]; nitroglycerin 0.4 mg SL subl 1 tab every 5 minutes [Active]; nystatin 100,000 unit/mL Oral susp 4 mL 4 times per day [Active]; Pennsaid 1.5 % Topical drop [Active]; prednisone 5 mg Oral tab 1 tab once daily [Active]; primidone 50 mg Oral tab daily [Active]; Seroquel Oral [Active]; Spiriva Respimat 2.5 mcg/actuation inhalation mist 2 puffs once daily [Active]; spironolactone 25 mg Oral tab 1 tab once daily [Active]; Xanax 0.5 mg Oral tab 1 tab 3 times per day [Active]; Xopenex 1.25 mg/3 mL Inhl nebu every 6 hours [Active]; Zofran (as hydrochloride) 4 mg Oral tab 1 tabs 3 times per day [Active]; - PMHx: 15:34 Arthritis; COPD; Dementia; Depression; Essential Tremor; Hypertension; ae4 - Immunization history:: Adult Immunizations up to date. - Social history:: Smoking status: Patient/guardian denies using tobacco, Patient/guardian denies using alcohol, street drugs, The patient lives with family. - Ebola Screening: : No symptoms or risks identified at this time. - Family history:: not pertinent. - Hospitalizations: : No recent hospitalization is reported. Screenin:44 Abuse screen: Denies threats or abuse. Nutritional screening: No deficits noted. ae4 Tuberculosis screening: No symptoms or risk factors identified. Fall Risk Ambulatory Aid- Crutches/Cane/Walker (15 pts). Mental Status- Oriented to own ability (0 pts). Assessment: 12:30 General: Appears slender, unkempt, Behavior is drowsy. Pain: Unable to use pain scale. ae4 Patient is unresponsive. Neuro: Level of Consciousness is stuporous, Oriented to person. Neuro: Level of Consciousness is appears to be sleeping, will respond to voice . Oriented to. 14:45 Reassessment: patient is resting, daughter at bedside, bipap applied. Patient can open ae4 eyes and respond by nodding head yes and no. Patient states symptoms have improved. 15:42 Reassessment: Patient appears in no apparent distress at this time. Patient appears to ae4 be sleeping, can be awakened and will respond yes and no by nodding. 16:00 Reassessment: Report called to Tran and bedside report continued at bedside in ICU. ae4 Vital Signs: 12:12 BP 104 / 58; Pulse 94; Resp 20; Temp 99.2; Pulse Ox 96% on 3 lpm NC; Weight 55.79 kg; hb Height 5 ft. 4 in. (162.56 cm); Pain 10/10; 13:18 BP 87 / 65; Pulse 79; Resp 20; Temp 97.6(A); Pulse Ox 97% on BiPAP; mh5 13:49 BP 112 / 78; Pulse 72; Resp 18; Pulse Ox 100% on BiPAP; ae4 14:37 BP 102 / 66; Pulse 77; Resp 21; Pulse Ox 97% on 40% BiPAP; ae4 15:29 BP 85 / 59; Pulse 67; Resp 17; Pulse Ox 99% on 40% BiPAP; ae4 12:12 Body Mass Index 21.11 (55.79 kg, 162.56 cm) hb Wally Coma Score: 15:25 Eye Response: to voice(3). Verbal Response: oriented(5). Motor Response: obeys ae4 commands(6). Total: 14. ED Course: 12:07 Patient arrived in ED. as 12:12 Triage completed. hb 12:13 Arm band placed on. hb 12:19 Jermaine Lewis, ELGIN is Primary Nurse. ae4 12:27 Pedro Santizo MD is Attending Physician. ma2 13:00 Initial lab(s) drawn, by me, sent to lab. First set of blood cultures drawn by me. mh5 Inserted saline lock: 22 gauge in left antecubital area, using aseptic technique. Blood collected. 13:05 Inserted saline lock: 20 gauge in right antecubital area, using aseptic technique. ae4 ,using aseptic technique. blood cultures drawn from 2nd site. Blood collected. 13:15 Patient has correct armband on for positive identification. Placed in gown. Bed in low mh5 position. Call light in reach. Side rails up X2. Adult w/ patient. Warm blanket given. potline monitor on. Pulse ox on. NIBP on. 13:16 D-Dimer Sent. 5 13:16 Basic Metabolic Panel Sent. 5 13:16 Blood Culture Adult (2) Sent. 5 13:16 CBC with Diff Sent. 5 13:17 Ckmb Sent. 5 13:17 CPK Sent. 5 13:17 Lactate Sent. 5 13:17 LFT's Sent. 5 13:17 Lipase Sent. 5 13:17 Procalcitonin Sent. 5 13:17 Protime (+inr) Sent. 5 13:17 Ptt, Activated Sent. 5 13:17 Troponin (emerg Dept Use Only) Sent. 5 13:44 X-ray completed. Portable x-ray completed in exam room. Patient tolerated procedure ml well. 13:51 Chest Single View XRAY In Process Unspecified. EDMS 14:06 Catherine Liz MD is Hospitalizing Provider. ma2 14:10 Yonny Tan DO is Hospitalizing Provider. ma2 14:22 Nichole cath inserted, using sterile technique, 16 Fr., by az, balloon inflated, to ae4 gravity drainage, clamped. urine specimen collected. 16:22 No provider procedures requiring assistance completed. Patient admitted, IV remains in ae4 place. Administered Medications: 13:07 Drug: NS 0.9% (30 ml/kg) 30 ml/kg Route: IV; Rate: bolus; Site: left antecubital; ae4 15:20 Follow up: IV Status: Completed infusion ae4 13:37 Drug: Xopenex 1.25 mg Route: Inhalation; ae4 13:37 Drug: AtroVENT Aerosol 0.5 mg Route: Inhalation; ae4 13:38 Drug: SOLU-Medrol 125 mg Route: IVP; Site: left antecubital; ae4 14:55 Follow up: Response: No adverse reaction ae4 13:39 Drug: AZITHromycin 500 mg Route: IVPB; Infused Over: 1 hrs; Site: right antecubital; ae4 14:57 Follow up: IV Status: Completed infusion ae4 13:41 Drug: Rocephin 1 grams Route: IV; Rate: calculated rate; Site: right antecubital; ae4 13:45 Follow up: IV Status: Completed infusion ae4 14:00 Drug: AtroVENT Aerosol 0.5 mg Route: Inhalation; ae4 14:00 Drug: Acetaminophen Suppository 650 mg Route: RI; ae4 14:56 Follow up: Response: Temperature is decreased ae4 14:21 Not Given (Order changed to suppository, per physician): Acetaminophen 1000 mg PO once ae4 14:22 Drug: AtroVENT Aerosol 0.5 mg Route: Inhalation; ae4 Point of Care Testing: Blood Glucose: 13:05 Blood Glucose: 170 mg/dL; ae4 Ranges: Outcome: 14:07 Decision to Hospitalize by Provider. ma2 16:22 Admitted to ICU accompanied by nurse, accompanied by tech, via stretcher, room 6, with ae4 oxygen, on monitor, with chart, Report called to ELGIN Mayfield 16:22 Condition: stable 16:22 Discharge instructions given to patient, Instructed on Instructions an need for admit were given to daughter at bedside earlier in the afternoon. Demonstrated understanding of instructions. 16:24 Patient left the ED. ae4 Signatures: Dispatcher [employer] Sosa Suarez Melissa ml Baxter, Heather, ELGIN RN Giana Barksdale 5 Pedro Santizo MD MD ma2 Jermaine Lewis RN RN ae4
--- NOTE | 2019-04-20 14:08 | EDPHYS ---
Physician Documentation [facility] Name: Zaynab Rehman Age: 78 yrs Sex: Female : 1940 Arrival Date: 04/20/2019 Time: 12:07 Bed 13 Private MD: ED Physician Pedro Santizo HPI: 04/20 12:42 This 78 yrs old Female presents to ER via Wheelchair with complaints of ma2 Fever, Weakness. 12:42 The patient reports fever, not measured (subjective). Onset: The symptoms/episode ma2 began/occurred gradually, 1 day(s) ago. Associated signs and symptoms: Pertinent positives: cough, Pertinent negatives: abdominal pain, arthralgias, chest pain, runny nose. Severity of symptoms: At their worst the symptoms were moderate in the emergency department the symptoms are unchanged. The patient has experienced similar episodes in the past. Historical: - Allergies: 12:13 PENICILLINS; hb - Home Meds: 15:34 alprazolam 0.5 mg Oral tab 1 tab twice a day [Active]; Anoro Ellipta 62.5-25 ae4 mcg/actuation inhalation dsdv 1 puff once daily [Active]; Caltrate 600 + D 600 mg (1,500 mg)-800 unit Oral tab [Active]; gabapentin 400 mg Oral cap 1 cap twice a day [Active]; hydrocodone-acetaminophen 10-325 mg Oral tab 1 tab every 6 hours for chronic back pain [Active]; metoprolol tartrate 100 mg Oral tab 1 tab 2 times per day [Active]; Nasonex 50 mcg/actuation Nasal spry once daily [Active]; Neurontin 400 mg Oral cap daily [Active]; Nexium 40 mg Oral cpDR 1 cap once daily [Active]; nitroglycerin 0.4 mg SL subl 1 tab every 5 minutes [Active]; nystatin 100,000 unit/mL Oral susp 4 mL 4 times per day [Active]; Pennsaid 1.5 % Topical drop [Active]; prednisone 5 mg Oral tab 1 tab once daily [Active]; primidone 50 mg Oral tab daily [Active]; Seroquel Oral [Active]; Spiriva Respimat 2.5 mcg/actuation inhalation mist 2 puffs once daily [Active]; spironolactone 25 mg Oral tab 1 tab once daily [Active]; Xanax 0.5 mg Oral tab 1 tab 3 times per day [Active]; Xopenex 1.25 mg/3 mL Inhl nebu every 6 hours [Active]; Zofran (as hydrochloride) 4 mg Oral tab 1 tabs 3 times per day [Active]; - PMHx: 15:34 Arthritis; COPD; Dementia; Depression; Essential Tremor; Hypertension; ae4 - Immunization history:: Adult Immunizations up to date. - Social history:: Smoking status: Patient/guardian denies using tobacco, Patient/guardian denies using alcohol, street drugs, The patient lives with family. - Ebola Screening: : No symptoms or risks identified at this time. - Family history:: not pertinent. - Hospitalizations: : No recent hospitalization is reported. ROS: 12:42 Constitutional: Negative for fever, chills, and weight loss. ma2 12:42 Cardiovascular: Negative for chest pain, palpitations, and edema. 12:42 Respiratory: Positive for cough, wheezing, Negative for dyspnea on exertion, pleurisy. 12:42 All other systems are negative. Exam: 12:42 Constitutional: This is a well developed, well nourished patient who is awake, alert, ma2 and in no acute distress. ENT: Nares patent. No nasal discharge, no septal abnormalities noted. Tympanic membranes are normal and external auditory canals are clear. Oropharynx with no redness, swelling, or masses, exudates, or evidence of obstruction, uvula midline. Mucous membranes moist. Chest/axilla: Normal chest wall appearance and motion. Nontender with no deformity. No lesions are appreciated. Cardiovascular: Regular rate and rhythm with a normal S1 and S2. No gallops, murmurs, or rubs. Normal PMI, no JVD. No pulse deficits. Abdomen/GI: Soft, non-tender, with normal bowel sounds. No distension or tympany. No guarding or rebound. No evidence of tenderness throughout. Back: No spinal tenderness. No costovertebral tenderness. Full range of motion. MS/ Extremity: Pulses equal, no cyanosis. Neurovascular intact. Full, normal range of motion. Neuro: Awake and alert, GCS 15, oriented to person, place, time, and situation. Cranial nerves II-XII grossly intact. Motor strength 5/5 in all extremities. Sensory grossly intact. Cerebellar exam normal. Normal gait. 12:42 Respiratory: mild respiratory distress is noted, Respirations: prolonged exhalation, Breath sounds: rhonchi, that are moderate, are located in both bases, wheezing: that is moderate, is heard diffusely. Vital Signs: 12:12 BP 104 / 58; Pulse 94; Resp 20; Temp 99.2; Pulse Ox 96% on 3 lpm NC; Weight 55.79 kg; hb Height 5 ft. 4 in. (162.56 cm); Pain 10/10; 13:18 BP 87 / 65; Pulse 79; Resp 20; Temp 97.6(A); Pulse Ox 97% on BiPAP; mh5 13:49 BP 112 / 78; Pulse 72; Resp 18; Pulse Ox 100% on BiPAP; ae4 14:37 BP 102 / 66; Pulse 77; Resp 21; Pulse Ox 97% on 40% BiPAP; ae4 15:29 BP 85 / 59; Pulse 67; Resp 17; Pulse Ox 99% on 40% BiPAP; ae4 12:12 Body Mass Index 21.11 (55.79 kg, 162.56 cm) hb [place] Coma Score: 15:25 Eye Response: to voice(3). Verbal Response: oriented(5). Motor Response: obeys ae4 commands(6). Total: 14. MDM: 12:27 Patient medically screened. tn2 12:42 Differential diagnosis: viral Infection, bacterial infection, URI, bronchitis, ma2 pneumonia. 14:03 Data reviewed: vital signs, nurses notes, EMS record, lab test result(s), finger stick ma2 glucose, amylase and lipase, EKG. Counseling: I had a detailed discussion with the patient and/or guardian regarding: the historical points, exam findings, and any diagnostic results supporting the discharge/admit diagnosis, the presence of at least one elevated blood pressure reading (>120/80) during this emergency department visit, the need for outpatient follow up. Response to treatment: the patient's symptoms have markedly improved after treatment. ED course: has pneumonia on cxr, elevated wbc, worsening of her copd. 04/20 12:34 Order name: Basic Metabolic Panel; Complete Time: 13:56 [facility] 04/20 12:34 Order name: Blood Culture Adult (2) [facility] 04/20 12:34 Order name: CBC with Diff; Complete Time: 13:40 ma04/20 12:34 Order name: Ckmb; Complete Time: 13:56 tn04/20 12:34 Order name: CPK; Complete Time: 13:56 tn04/20 12:34 Order name: Lactate; Complete Time: 13:56 tn04/20 12:34 Order name: LFT's; Complete Time: 13:56 [facility] 04/20 12:34 Order name: Lipase; Complete Time: 13:56 [facility] 04/20 12:34 Order name: Procalcitonin; Complete Time: 14:02 tn04/20 12:34 Order name: Protime (+inr); Complete Time: 13:56 tn04/20 12:34 Order name: Ptt, Activated; Complete Time: 13:56 tn04/20 12:34 Order name: Troponin (emerg Dept Use Only); Complete Time: 13:56 [facility] 04/20 12:34 Order name: Urine Microscopic Only [facility] 04/20 12:42 Order name: D-Dimer; Complete Time: 13:40 [facility] 04/20 12:34 Order name: Chest Single View XRAY tn04/20 12:34 Order name: Accucheck; Complete Time: 13:16 tn04/20 12:42 Order name: BIPAP [facility] 04/20 12:42 Order name: Magnesium; Complete Time: 13:56 tn04/20 12:42 Order name: NT PRO-BNP; Complete Time: 13:56 tn04/20 12:42 Order name: EKG; Complete Time: 12:43 tn04/20 12:58 Order name: ABG; Complete Time: 13:56 [facility] 04/20 14:36 Order name: Urine Dipstick--Ancillary (enter results) bd 04/20 12:34 Order name: Cardiac monitoring; Complete Time: 13:16 tn04/20 12:34 Order name: EKG - Nurse/Tech; Complete Time: 13:49 tn04/20 12:34 Order name: IV Saline Lock - Large Bore; Complete Time: 13:16 tn04/20 12:34 Order name: Labs collected and sent; Complete Time: 13:16 [facility] 04/20 12:34 Order name: O2 Per Protocol; Complete Time: 13:16 [facility] 04/20 12:34 Order name: O2 Sat Monitoring; Complete Time: 13:17 [facility] 04/20 12:34 Order name: Urine Dipstick-Ancillary (obtain specimen); Complete Time: 14:22 [facility] 04/20 12:42 Order name: IV Saline Lock; Complete Time: 13:16 [facility] 04/20 14:22 Order name: Nichole; Complete Time: 14:22 ae4 Administered Medications: 13:07 Drug: NS 0.9% (30 ml/kg) 30 ml/kg Route: IV; Rate: bolus; Site: left antecubital; ae4 15:20 Follow up: IV Status: Completed infusion ae4 13:37 Drug: Xopenex 1.25 mg Route: Inhalation; ae4 13:37 Drug: AtroVENT Aerosol 0.5 mg Route: Inhalation; ae4 13:38 Drug: SOLU-Medrol 125 mg Route: IVP; Site: left antecubital; ae4 14:55 Follow up: Response: No adverse reaction ae4 13:39 Drug: AZITHromycin 500 mg Route: IVPB; Infused Over: 1 hrs; Site: right antecubital; ae4 14:57 Follow up: IV Status: Completed infusion ae4 13:41 Drug: Rocephin 1 grams Route: IV; Rate: calculated rate; Site: right antecubital; ae4 13:45 Follow up: IV Status: Completed infusion ae4 14:00 Drug: AtroVENT Aerosol 0.5 mg Route: Inhalation; ae4 14:00 Drug: Acetaminophen Suppository 650 mg Route: FL; ae4 14:56 Follow up: Response: Temperature is decreased ae4 14:21 Not Given (Order changed to suppository, per physician): Acetaminophen 1000 mg PO once ae4 14:22 Drug: AtroVENT Aerosol 0.5 mg Route: Inhalation; ae4 Point of Care Testing: Blood Glucose: 13:05 Blood Glucose: 170 mg/dL; ae4 Ranges: Critical Glucose Levels:Adult <50 mg/dl or >400 mg/dl <40 mg/dl or >180 mg/dl Disposition: 04/20/19 14:07 Hospitalization ordered by Yonny Tan for Inpatient Admission. Preliminary diagnosis are Pneumonia in diseases classified elsewhere, Acute respiratory failure. - Bed requested for Intensive Care Unit. - Status is Inpatient Admission. ae4 - Condition is Stable. - Problem is new. - Symptoms are unchanged. UTI on Admission? No Critical care time excluding procedures: 14:21 Critical care time: Bedside Care: 30 minutes, Consultation: 20 minutes, Family ma2 Intervention: 10 minutes. Total time: 60 minutes Signatures: Dispatcher [employer] Kristine Staples RN RN Rama Goetz RN RN Pedro Santizo MD MD [facility] Jermaine Lewis RN RN ae4 Corrections: (The following items were deleted from the chart) 14:10 14:07 Hospitalization Ordered by Catherine Liz MD for Inpatient Admission. Preliminary tn2 diagnosis is Pneumonia in diseases classified elsewhere. Bed requested for Telemetry/MedSurg (Inpatient). Status is Inpatient Admission. Condition is Stable. Problem is new. Symptoms are unchanged. UTI on Admission? No. ma2 14:21 14:10 04/20/2019 14:07 Hospitalization Ordered by Yonny Tan DO for Inpatient ma2 Admission. Preliminary diagnosis is Pneumonia in diseases classified elsewhere. Bed requested for Telemetry/MedSurg (Inpatient). Status is Inpatient Admission. Condition is Stable. Problem is new. Symptoms are unchanged. UTI on Admission? No. ma2 14:23 14:21 04/20/2019 14:07 Hospitalization Ordered by Yonny Tan DO for Inpatient ma2 Admission. Preliminary diagnosis is Pneumonia in diseases classified elsewhere. Bed requested for Intensive Care Unit. Status is Inpatient Admission. Condition is Stable. Problem is new. Symptoms are unchanged. UTI on Admission? No. ma2 15:08 14:23 04/20/2019 14:07 Hospitalization Ordered by Yonny Tan DO for Inpatient dw Admission. Preliminary diagnosis is Pneumonia in diseases classified elsewhere; Acute respiratory failure. Bed requested for Intensive Care Unit. Status is Inpatient Admission. Condition is Stable. Problem is new. Symptoms are unchanged. UTI on Admission? No. ma2 16:24 15:08 04/20/2019 14:07 Hospitalization Ordered by Yonny Tan DO for Inpatient ae4 Admission. Preliminary diagnosis is Pneumonia in diseases classified elsewhere; Acute respiratory failure. Bed requested for Intensive Care Unit. Status is Inpatient Admission. Condition is Stable. Problem is new. Symptoms are unchanged. UTI on Admission? No. dw
--- NOTE | 2019-04-20 14:58 | P.HP ---
Certification for Inpatient Patient admitted to: Inpatient Patient will require the following post-hospital care: Home Health Services Practitioner: I am a practitioner with admitting privileges, knowledge of patient current condition, hospital course, and medical plan of care. Services: Services provided to patient in accordance with Admission requirements found in Title 42 Section 412.3 of the Code of Federal Regulations Patient History Date of Service: 04/20/19 Primary Care Provider: Dr. Groves; Pulmonary-Dr. Orellana Reason for admission: Shortness of breath, cough History of Present Illness: 78-year-old female presented to the emergency room with increasing shortness of breath and cough. Patient with past medical history of COPD on chronic oxygen and steroids, GERD, tremors, and depression. Patient came into the ER with increasing shortness of breath, fever, chills, cough. Most of the information came the daughter. The daughter gave the patient some nebulized treatments this morning without improvement. Her condition worsen. She was brought in to the ER for further evaluation. In the ER patient evaluated. Patient was tachypneic and required BiPAP. Initial blood gases showed a pH is 7.36 with a pCO2 of 60 and a PO2 of 61. White count elevated at 14.1, hemoglobin 9.6. Pro calcitonin elevated at 1.05. Lactic acid within normal range. BUN of 16, creatinine 0.8. GFR 62. Glucose 148. Chest x-ray showed right lower lobe pneumonia. Fibrotic lung noted with right rylan thorax volume reduction. Patient was given treatment in the ER. Antibiotics started. Cultures obtained. Patient will be admitted to ICU. When I saw the patient the ER, she was stable on BiPAP. She was able to answer questions and responses. Allergies Penicillins Allergy (Mild, Verified 02/16/15 15:13) Hives Home medications list reviewed: Yes Home Medications: Gabapentin [Neurontin*] 400 mg PO BID PRN 12/09/14 ALPRAZolam [Xanax*] 0.5 mg PO Q6HR PRN 04/18/15 Esomeprazole Mag Trihydrate [Nexium] 40 mg PO DAILY 01/28/16 Metoprolol Tartrate [Lopressor*] 25 mg PO BID #60 tab 04/02/16 Citalopram [Celexa*] 10 mg PO DAILY 06/12/18 Furosemide 20 mg PO DAILY 06/12/18 Perforomist 20 mcg NEB PRN PRN 06/12/18 Primidone [Mysoline *] 50 mg PO TID 06/12/18 predniSONE [Prednisone*] 5 mg PO DAILY 06/12/18 Atorvastatin Calcium [Lipitor] 40 mg PO BEDTIME #30 tab 09/04/18 Clopidogrel Bisulfate [Plavix*] 75 mg PO DAILY #30 tablet 09/04/18 - Past Medical/Surgical History Diabetic: No -: Hypertension -: COPD, chronic oxygen and steroid dependent -: CAD -: CHF -: Depression with anxiety -: GERD -: Peripheral vascular disease -: Essential tremors -: Chronic pain -: bladder suspension -: carpal tunnel repair -: bilateral knee surgery -: 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 -: Peripheral vascular disease Psychosocial/ Personal History: Lives with the daughter - Family History Mom -: Cancer Notes: stomach - Social History Smoking Status: Former smoker Alcohol use: No CD- Drugs: No Caffeine use: Yes Place of Residence: Home Review of Systems General: Fever, Chills, Weakness, As per HPI Eyes: Unremarkable ENT: Nose Congestion, As per HPI Respiratory: Cough, Shortness of Breath, As per HPI Cardiovascular: As per HPI Gastrointestinal: Unremarkable Genitourinary: Unremarkable Musculoskeletal: Unremarkable Integumentary: Unremarkable Neurological: Unremarkable Lymphatics: Unremarkable Physical Examination - Physical Exam General: Alert, Cooperative, Mild distress (Currently on BiPAP but stable.), Other (Patient appropriate and commands. Patient appears malnourished) HEENT: Atraumatic, Normocephalic, Other (Nasal congestion noted) Neck: Supple, No Thyromegaly Respiratory: Diminished (To the right side.) Cardiovascular: Normal pulses, Regular rate/rhythm Gastrointestinal: Normal bowel sounds, Soft and benign, Non-distended, No tenderness, No masses, No rebound, No guarding Musculoskeletal: No erythema, No tenderness, No warmth Integumentary: No tenderness/swelling, No erythema, No warmth, No cyanosis Neurological: Normal speech, Normal strength at 5/5 x4 extr, Normal tone, Normal affect Other Physical/Emotional Findings: Muscle atrophy noted throughout - Studies Laboratory Data (last 24 hrs) 04/20/19 13:00: Magnesium 2.4 04/20/19 13:00: PT 11.7, INR 0.99, APTT 31.5 04/20/19 13:00: WBC 14.1 H, Hgb 9.6 L, Hct 30.6 L, Plt Count 206 04/20/19 13:00: Sodium 134 L, Potassium 4.6, BUN 16, Creatinine 0.88, Glucose 148 H, Total Bilirubin 0.4, AST 13 L, ALT 16, Alkaline Phosphatase 95, Lipase 85 Assessment and Plan - Plan Impression: Acute on chronic respiratory failure secondary to right lower lobe pneumonia complicated with COPD exacerbation on chronic oxygen and steroid dependent GERD Depression with anxiety Chronic pain Chronic diastolic CHF Hypertension CAD/PVD Anemia of chronic disease Moderate malnutrition Plan: Acute on chronic respiratory failure secondary to right lower lobe pneumonia complicated with COPD exacerbation on chronic oxygen and steroid dependent: Patient will be admitted to ICU. Patient currently on BiPAP. Will have respiratory wean off BiPAP. Maintain sats above 90%. Will continue with DVT prophylaxis-Lovenox. Patient started on Zithromax and Rocephin. Pharmacy to monitor and adjust medications appropriately. Will obtain sputum and blood cultures. Will monitor closely. Will recheck chest x-ray and ABG tomorrow. Will consult pulmonology to further evaluate. Await recommendations. Will continue with COPD medication including IV Solu-Medrol. Will continue to reassess and monitor closely. GERD: Will provide medication. Depression with anxiety: Restart home medication. Chronic pain: Continue with her pain medication. Will hold if with increase sedation. Chronic diastolic CHF: Will monitor closely. Will continue with Lasix. Hold Aldactone at this time. Hypertension: Restart home medication. Will monitor closely. Will adjust appropriately. CAD/PVD: Continue with DVT prophylaxis-Lovenox Anemia of chronic disease: Will check iron and B12 studies. Patient may require supplementation. Will monitor closely. Moderate malnutrition: Encourage oral intake. Patient may require dietary consultation. Discharge Plan: Home Plan to discharge in: Greater than 2 days - Advance Directives Does patient have a Living Will: No Does patient have a Durable POA for Healthcare: Yes - Code Status/Comfort Care Code Status Assessed: Yes (Patient is full code.) Time Spent Managing Pts Care (In Minutes): 55
--- NOTE | 2019-04-20 15:38 | EKG ---
Test Date: 2019-04-20 Test Time: 13:44:55 Laboratory Administrative Director: MARTHA MEASUREMENT RESULTS: Intervals: Rate: 71 MO: 158 QRSD: 82 QT: 426 QTc: 462 [place]: P: 18 MO: 158 QRS: -26 T: 34 INTERPRETIVE STATEMENTS: Normal sinus rhythm Inferior infarct, age undetermined Possible Anterior infarct, age undetermined Abnormal ECG Compared to ECG 08/31/2018 17:23:04 Supraventricular tachycardia no longer present Left-axis deviation no longer present ST (T wave) deviation no longer present Myocardial infarct finding still present Electronically Signed On 04-20-19 15:37:21 CDT by Quoc Smith
[2019-04-20] MEDS ORDERED: IPRATROPIUM BROM 0.5MG/2.5ML NEB PRN (16:28)
[2019-04-20] MEDS ORDERED: NA CHLORIDE 0.9% 1,000 ML IV SCH (16:28)
[2019-04-20] MEDS ORDERED: ACETAMINOPHEN 500 MG TAB PO PRN (16:28)
[2019-04-20] MEDS ORDERED: HYDROCODONE/APAP 10/325 TAB PO PRN (16:28)
[2019-04-20] MEDS ORDERED: BENZONATATE 100 MG CAP PO PRN (16:28)
[2019-04-20] MEDS ORDERED: ONDANSETRON 4 MG/2 ML VIAL IV PRN (16:28)
[2019-04-20] MEDS ORDERED: ALBUTEROL 2.5 MG/3 ML NEB SOL NEB PRN (16:28)
[2019-04-20 17:02] LABS: Urine Bacteria <20 /HPF (<20); Urine Culture Reflex Order NOT NEEDED; Urine RBC <5 /HPF (NONE SEEN)
[2019-04-20 17:10] LABS: Urine Blood NEGATIVE (NEG); Urine Glucose NEGATIVE (NEG); Urine Protein 2+ (NEG)
[2019-04-20 17:48] LABS: Thyroid Stimulating Hormone 1.09 uIU/mL (0.360-3.740)
[2019-04-20] MEDS: METOPROLOL TAR 25 MG TAB PO SCH (18:00)
[2019-04-20 18:26] VITALS: BMI 20.9
[2019-04-20] MEDS: ENOXAPARIN 40 MG/0.4 ML SQ SCH (19:21)
[2019-04-20] MEDS: ARFORMOTEROL TARTRATE 15 MCG/2 ML VIAL.NEB NEB SCH ×2 (20:10→21:10)
[2019-04-20] MEDS: QUETIAPINE 25 MG TAB PO SCH (21:00)
[2019-04-20] MEDS: GABAPENTIN 400 MG CAP PO SCH (21:00)
[2019-04-20] MEDS ORDERED: METHYLPREDNISOLONE 125 MG INJ IV SCH (21:00)
[2019-04-20] MEDS: IPRATROPIUM BROM 0.5MG/2.5ML NEB SCH (21:10)
[2019-04-20] MEDS: GUAIFENESIN 600 MG SA TAB PO SCH (22:35)
[2019-04-20] MEDS: PRIMIDONE 50 MG TAB PO SCH (22:35)
[2019-04-21 05:13] LABS: Arterial Blood Carboxyhemoglob 1.5 % (0-1.5); Blood Gas Oxyhemoglobin 94.5 % (94-97); Blood O2 Saturation 96.4 % (92-98.5)
[2019-04-21 05:17] LABS: Absolute Lymphocytes (CBC) 0.5 K/uL (0.7-4.9); Absolute Monocytes 0.1 K/uL (0.1-1.3); Absolute Neutrophil 5.3 K/uL (1.8-8.0); Basophils % 0.1 % (0-1.3); Hematocrit 25.7 % (36.0-45.0); Lymphocytes % 8.6 % (15.3-44.8); MPV 7.5 fL (7.6-11.3); Monocytes % 2.1 % (3.3-12.3); RBC Red Blood Cell Count 2.81 M/uL (3.86-4.86)
[2019-04-21 05:23] LABS: BUN Blood Urea Nitrogen 18 mg/dL (7-18); Bicarbonate 31 mmol/L (21-32); Glucose Level 120 mg/dL (74-106); Magnesium 2.3 mg/dL (1.8-2.4); Potassium 4.5 mmol/L (3.5-5.1); Sodium Level 138 mmol/L (136-145)
[2019-04-21 05:46] LABS: Basophilic Stippling 1+; Blood Morphology Comment NOTED (NOT SEEN); Hypochromasia 1+; Platelet Estimate ADEQ
[2019-04-21] MEDS: METOPROLOL TAR 25 MG TAB PO SCH ×2 (06:19→18:35)
--- NOTE | 2019-04-21 08:25 | RAD REPORT ---
EXAM DESCRIPTION: RAD - Chest Single View - 04/21/2019 6:04 am CLINICAL HISTORY: Follow up pneumonia/COPD Chest pain. COMPARISON: Chest Single View dated 04/20/2019; Chest Single View dated 08/30/2018; Chest Single View dated 06/12/2018; Chest Single View dated 04/10/2017 FINDINGS: Portable technique limits examination quality. Since 04/20/2019, mild worsening in right lung base pleural and parenchymal lung opacification. The l ungs are elsewhere diffusely emphysematous. The heart is normal in size. No displaced fractures.Aorti c atherosclerosis. IMPRESSION: Mild worsening in right lung base aeration since comparative study.
[2019-04-21] MEDS: ARFORMOTEROL TARTRATE 15 MCG/2 ML VIAL.NEB NEB SCH (08:30)
--- NOTE | 2019-04-21 08:34 | P.CNS ---
Primary Care Provider: Dr. Groves; Pulmonary-Dr. Orellana Chief Complaint: Shortness of breath, cough History of Present Illness: Patient is 79 years of age admitted to the hospital complaining of worsening shortness of breath and cough patient has a difficulty communicating has significant hoarseness and dysphonia has been getting progressively weak with smoking 2-3 years ago has oxygen at home denies taking any bronchodilators patient was hypoxic hypercapnic normal kidney function. Stable since admission to the ICU Allergies Penicillins Allergy (Mild, Verified 02/16/15 15:13) Hives Home Medications: Gabapentin [Neurontin*] 400 mg PO BID PRN 12/09/14 ALPRAZolam [Xanax*] 0.5 mg PO Q6HR PRN 04/18/15 Esomeprazole Mag Trihydrate [Nexium] 40 mg PO DAILY 01/28/16 Metoprolol Tartrate [Lopressor*] 25 mg PO BID #60 tab 04/02/16 Citalopram [Celexa*] 10 mg PO DAILY 06/12/18 Furosemide 20 mg PO DAILY 06/12/18 Perforomist 20 mcg NEB PRN PRN 06/12/18 Primidone [Mysoline *] 50 mg PO TID 06/12/18 predniSONE [Prednisone*] 5 mg PO DAILY 06/12/18 Atorvastatin Calcium [Lipitor] 40 mg PO BEDTIME #30 tab 09/04/18 Clopidogrel Bisulfate [Plavix*] 75 mg PO DAILY #30 tablet 09/04/18 - Past Medical/Surgical History Diabetic: No -: Hypertension -: COPD, chronic oxygen and steroid dependent -: CAD -: CHF -: Depression with anxiety -: GERD -: Peripheral vascular disease -: Essential tremors -: Chronic pain -: bladder suspension -: carpal tunnel repair -: bilateral knee surgery -: 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 -: Peripheral vascular disease Psychosocial/ Personal History: Lives with the daughter - Family History Mom Medical History: Cancer Notes: stomach - Social History Smoking Status: Unknown if ever smoked Alcohol use: No CD- Drugs: No Caffeine use: Yes Place of Residence: Home Review of Systems General: Weakness Respiratory: Cough, Shortness of Breath Physical Examination Temp Pulse Resp BP Pulse Ox 97.2 F 61 15 118/64 100 04/21/19 04:00 04/21/19 07:00 04/21/19 07:00 04/21/19 07:00 04/21/19 07:00 General: Alert, In no apparent distress, Oriented x3 Neck: Supple Respiratory: Diminished, Expiratory wheezes Cardiovascular: No edema, Regular rate/rhythm, Normal S1 S2 Gastrointestinal: Normal bowel sounds, Soft and benign Musculoskeletal: No clubbing, No swelling Integumentary: No rashes, No breakdown Laboratory Data (last 24 hrs) 04/20/19 13:00: Magnesium 2.4 04/20/19 13:00: PT 11.7, INR 0.99, APTT 31.5 04/20/19 13:00: WBC 14.1 H, Hgb 9.6 L, Hct 30.6 L, Plt Count 206 04/20/19 13:00: Sodium 134 L, Potassium 4.6, BUN 16, Creatinine 0.88, Glucose 148 H, Total Bilirubin 0.4, AST 13 L, ALT 16, Alkaline Phosphatase 95, Lipase 85 - Problems (1) COPD exacerbation Current Visit: Yes Status: Acute Plan: Patient is 79 years of age admitted with hypoxic hypercapnic respiratory failure has become progressively weak quit smoking 2-3 years ago chest x-ray shows some chronic interstitial changes consistent with her obstructive airways disease patient is mildly anemic pro calcitonin level mildly elevated BNP is also elevated home medication list not verified vital signs oxygenation stable patient is very hoarse will need an outpatient ENT evaluation
[2019-04-21] MEDS ORDERED: CYANOCOBALAMIN 1000MCG/ML INJ IM ONE (08:53)
[2019-04-21] MEDS ORDERED: CEFTRIAXONE/SWI 1gm 1 GM/10 ML SYR IVP SCH (09:00)
[2019-04-21] MEDS ORDERED: AZITHROMYCIN IV 500 MG in NA CHLORIDE 0.9% 250 ML IVPB SCH (09:00)
--- NOTE | 2019-04-21 09:00 | P.PN ---
Subjective Date of Service: 04/21/19 Primary Care Provider: Dr. Groves; Pulmonary-Dr. Orellana Chief Complaint: Shortness of breath, cough Subjective: Improving (Patient has improved. Patient no longer requires BiPAP. Stable on nasal cannula.) Physical Examination - Vital Signs Temperature: 97.2 F Blood Pressure: 118/64 Pulse: 61 Respirations: 15 Pulse Ox (%): 100 - Physical Exam General: Alert, In no apparent distress, Oriented x3, Cooperative HEENT: Atraumatic Neck: Supple Respiratory: Diminished (Slightly diminished to the right side but significantly improved aeration) Cardiovascular: Normal pulses, Regular rate/rhythm Gastrointestinal: Normal bowel sounds, Soft and benign, Non-distended, No tenderness, No masses, No rebound, No guarding Musculoskeletal: No erythema, No tenderness, No warmth Integumentary: No erythema, No warmth, No cyanosis Neurological: Normal speech, Normal strength at 5/5 x4 extr, Normal tone, Other (Muscle wasting to the upper and lower extremities including torso) Other Physical/Emotional Findings: Muscle atrophy noted throughout - Studies Laboratory Data (last 24 hrs) 04/20/19 13:00: Magnesium 2.4 04/20/19 13:00: PT 11.7, INR 0.99, APTT 31.5 04/20/19 13:00: WBC 14.1 H, Hgb 9.6 L, Hct 30.6 L, Plt Count 206 04/20/19 13:00: Sodium 134 L, Potassium 4.6, BUN 16, Creatinine 0.88, Glucose 148 H, Total Bilirubin 0.4, AST 13 L, ALT 16, Alkaline Phosphatase 95, Lipase 85 Medications List Reviewed: Yes Assessment & Plan Discharge Plan: Home Plan to discharge in: 24 Hours Physician Review Additional Text: Impression: Acute on chronic respiratory failure with hypoxia and hypercapnia secondary to right lower lobe pneumonia complicated with COPD exacerbation on chronic oxygen and steroid dependent GERD Depression with anxiety Chronic pain Chronic diastolic CHF Hypertension CAD/PVD Anemia of chronic disease with iron and B12 deficiency Moderate malnutrition Plan: Acute on chronic respiratory failure with hypoxia and hypercapnia secondary to right lower lobe pneumonia complicated with COPD exacerbation on chronic oxygen and steroid dependent: Patient has significantly improved. Patient no longer requires BiPAP. Continue with nasal cannula to maintain sats above 90%. Will discuss case with pulmonology. Pulmonology has adjusted medication. Will discontinue Zithromax and Rocephin. Patient transition to oral Levaquin. Will transition to oral steroid as well. Blood and urine culture obtained. Will transfer patient to the floor. Continue with COPD treatment. Will consult dietary to evaluate and treat her malnutrition. Patient will likely require home health at discharge. Patient on chronic oxygen and steroid the. Anticipate discharge as early as tomorrow. Will discuss with daughter. Patient agrees with current plan of care. Will transfer patient to the a regular floor. GERD: Will continue with medication. Depression with anxiety: Continue with home medication. Chronic pain: Continue with her pain medication. Will hold if with increase sedation. Chronic diastolic CHF: Will monitor closely. Will continue with Lasix. Hold Aldactone at this time. Will hope locked IV once taking good oral intake Hypertension: Continue with home medication. Will monitor closely. Will adjust appropriately. CAD/PVD: Continue with DVT prophylaxis-Lovenox Anemia of chronic disease with noted iron and B12 deficiency: Will start iron and B12 supplementation. Moderate malnutrition: Encourage oral intake. Consult dietary to address and treat her malnutrition. Time Spent Managing Pts Care (In Minutes): 55
[2019-04-21] MEDS: GUAIFENESIN 600 MG SA TAB PO SCH ×2 (10:43→20:08)
[2019-04-21] MEDS: CYANOCOBALAMIN 1,000 MCG TAB PO SCH (10:43)
[2019-04-21] MEDS: CITALOPRAM 10 MG TABLET PO SCH (10:44)
[2019-04-21] MEDS: FOLIC ACID 1 MG TABLET PO SCH (10:44)
[2019-04-21] MEDS: levoFLOXacin 500 MG TAB PO SCH (10:44)
[2019-04-21] MEDS: ENOXAPARIN 40 MG/0.4 ML SQ SCH (10:45)
[2019-04-21] MEDS: PANTOPRAZOLE 40MG TABLET PO SCH (10:45)
[2019-04-21] MEDS: FUROSEMIDE 20 MG TABLET PO SCH (10:45)
[2019-04-21] MEDS: GABAPENTIN 400 MG CAP PO SCH ×2 (10:45→20:09)
[2019-04-21] MEDS: FERROUS SULFATE 325 MG TAB PO SCH ×2 (10:45→20:08)
[2019-04-21] MEDS: predniSONE 20 MG TAB PO SCH ×2 (10:45→20:08)
[2019-04-21] MEDS: THIAMINE HCL 100 MG TABLET PO SCH (10:46)
[2019-04-21] MEDS: PRIMIDONE 50 MG TAB PO SCH ×3 (10:50→20:08)
--- NOTE | 2019-04-21 13:19 | ECHO ---
HEIGHT: 5 ft 2 in WEIGHT: 114 lb 4 oz DATE OF STUDY: 04/21/[address]: Xu Orellana MD 2-DIMENSIONAL: YES M.MODE: YES DOPPLER: YES COLOR FLOW: YES TDS: YES PORTABLE: NO DEFINITY: NO BUBBLE STUDY: NO DIAGNOSIS: CONGESTIVE HEART FAILURE CARDIAC HISTORY: CATHERIZATION: YES SURGERY: NO PROSTHETIC VALVE: NO PACEMAKER: NO MEASUREMENTS (cm) DIASTOLIC (NORMALS) SYSTOLIC (NORMALS) IVSd 1.0 (0.6-1.2) LA Diam (1.9-4.0) LVEF 78% LVIDd 3.2 (3.5-5.7) LVIDs 1.8 (2.0-3.5) %FS 45% LVPWd 1.1 (0.6-1.2) Ao Diam 3.2 (2.0-3.7) 2 DIMENSIONAL ASSESSMENT: RIGHT ATRIUM: PROMINENT EUSTACHIAN VALVE LEFT ATRIUM: DILATED RIGHT VENTRICLE: NORMAL LEFT VENTRICLE: NORMAL TRICUSPID VALVE: NORMAL MITRAL VALVE: NORMAL PULMONIC VALVE: NORMAL AORTIC VALVE: SCLEROSIS PERICARDIAL EFFUSION: NONE AORTIC ROOT: NORMAL LEFT VENTRICULAR WALL MOTION: NORMAL. DOPPLER/COLOR FLOW: IMPAIRED LEFT VENTRICULAR RELAXATION. NO AORTIC STENOSIS OR AORTIC REGURGITATION. COMMENTS: NORMAL LEFT VENTRICULAR EJECTION FRACTION. DILATED LEFT AND RIGHT ATRIUM. AORTIC SCLEROSIS WITH NO AORTIC STENOSIS/ AORTIC REGURGITATION. IMPAIRED LEFT VENTRICULAR RELAXATION. TECHNOLOGIST: ABDIRASHID FITZPATRICK
[2019-04-21] MEDS: IPRATROPIUM BROM 0.5MG/2.5ML NEB SCH (14:30)
[2019-04-21] MEDS ORDERED: ENSURE ENLIVE 237 ML CAN PO PRN (15:27)
[2019-04-21] MEDS: QUETIAPINE 25 MG TAB PO SCH (20:08)
[2019-04-22] MEDS: IPRATROPIUM BROM 0.5MG/2.5ML NEB SCH ×2 (01:05→08:55)
[2019-04-22 05:20] VITALS: BP 119/58
[2019-04-22] MEDS: METOPROLOL TAR 25 MG TAB PO SCH (05:20)
[2019-04-22 05:27] VITALS: TEMP 98.4
[2019-04-22 06:24] LABS: Absolute Lymphocytes (CBC) 0.7 K/uL (0.7-4.9); Absolute Monocytes 0.3 K/uL (0.1-1.3); Absolute Neutrophil 3.2 K/uL (1.8-8.0); Basophils % 0.1 % (0-1.3); Hematocrit 23.8 % (36.0-45.0); Lymphocytes % 16.6 % (15.3-44.8); MPV 7.6 fL (7.6-11.3); Monocytes % 6.1 % (3.3-12.3); RBC Red Blood Cell Count 2.62 M/uL (3.86-4.86)
[2019-04-22 06:32] LABS: BUN Blood Urea Nitrogen 10 mg/dL (7-18); Bicarbonate 30 mmol/L (21-32); Glucose Level 112 mg/dL (74-106); Magnesium 2.2 mg/dL (1.8-2.4); Potassium 4.1 mmol/L (3.5-5.1); Sodium Level 138 mmol/L (136-145)
[2019-04-22] MEDS: PANTOPRAZOLE 40MG TABLET PO SCH (07:30)
[2019-04-22] MEDS: ARFORMOTEROL TARTRATE 15 MCG/2 ML VIAL.NEB NEB SCH (08:55)
[2019-04-22] MEDS: FUROSEMIDE 20 MG TABLET PO SCH (09:23)
[2019-04-22] MEDS: FERROUS SULFATE 325 MG TAB PO SCH (09:23)
[2019-04-22] MEDS: predniSONE 20 MG TAB PO SCH (09:23)
[2019-04-22] MEDS: CITALOPRAM 10 MG TABLET PO SCH (09:23)
[2019-04-22] MEDS: PRIMIDONE 50 MG TAB PO SCH ×2 (09:24→14:00)
[2019-04-22] MEDS: CYANOCOBALAMIN 1,000 MCG TAB PO SCH (09:24)
[2019-04-22] MEDS: GABAPENTIN 400 MG CAP PO SCH (09:24)
[2019-04-22] MEDS: GUAIFENESIN 600 MG SA TAB PO SCH (09:24)
[2019-04-22] MEDS: FOLIC ACID 1 MG TABLET PO SCH (09:24)
[2019-04-22] MEDS: THIAMINE HCL 100 MG TABLET PO SCH (09:24)
[2019-04-22] MEDS: levoFLOXacin 500 MG TAB PO SCH (09:24)
[2019-04-22] MEDS: ENOXAPARIN 40 MG/0.4 ML SQ SCH (09:24)
--- NOTE | 2019-04-22 09:33 | P.PN ---
Subjective Date of Service: 04/22/19 Primary Care Provider: Dr. Groves; Pulmonary-Dr. Orellana Chief Complaint: Shortness of breath, cough Subjective: Improving Physical Examination - Vital Signs Temperature: 98.4 F Blood Pressure: 119/58 Pulse: 78 Respirations: 20 Pulse Ox (%): 100 - Physical Exam General: Alert, In no apparent distress, Oriented x3, Cooperative HEENT: Atraumatic Neck: Supple Respiratory: Clear to auscultation bilaterally, Normal air movement Cardiovascular: Normal pulses, Regular rate/rhythm Gastrointestinal: Normal bowel sounds, Soft and benign, Non-distended, No masses , No rebound, No guarding Musculoskeletal: No erythema, No tenderness, No warmth Integumentary: No erythema, No warmth, No cyanosis Neurological: Normal speech, Normal strength at 5/5 x4 extr, Normal tone, Normal affect Other Physical/Emotional Findings: Muscle atrophy noted throughout - Studies Medications List Reviewed: Yes Assessment & Plan Discharge Plan: Home Plan to discharge in: 24 Hours Physician Review Additional Text: Impression: Acute on chronic respiratory failure with hypoxia and hypercapnia secondary to right lower lobe pneumonia complicated with COPD exacerbation on chronic oxygen and steroid dependent GERD Depression with anxiety Chronic pain Chronic diastolic CHF Hypertension CAD/PVD Anemia of chronic disease with iron and B12 deficiency Moderate malnutrition Hoarseness Plan: Acute on chronic respiratory failure with hypoxia and hypercapnia secondary to right lower lobe pneumonia complicated with COPD exacerbation on chronic oxygen and steroid dependent: Patient continues to show improvement. Patient on nasal cannula. Patient transition to [facility]. Patient uses home oxygen. This will need to be continued at discharge. Will recheck chest x-ray today. Continue with COPD medication. Continue prednisone at this time. Encourage oral intake. Possible home later today after recheck of hemoglobin and hematocrit. Will discuss with pulmonology. GERD: Will continue with medication. Depression with anxiety: Continue with home medication. Chronic pain: Continue with her pain medication. Will hold if with increase sedation. Chronic diastolic CHF: Will monitor closely. Will continue with Lasix. Continue to Hold Aldactone at this time. Hypertension: Continue with home medication. Will monitor closely. Will adjust appropriately. CAD/PVD: Continue with DVT prophylaxis-Lovenox Anemia of chronic disease with noted iron and B12 deficiency: Patient with severe iron B12 deficiency. Will continue with supplementation. Will recheck hemoglobin and hematocrit. Patient may require transfusion if hemoglobin below 7.5. Will reassess. Patient will need evaluation by GI in the future. Moderate malnutrition: Encourage oral intake. Consult dietary to address and treat her malnutrition. Hoarseness: Patient should have ENT evaluation as an outpatient as recommended by pulmonology. Time Spent Managing Pts Care (In Minutes): 55
[2019-04-22 10:24] VITALS: O2SAT 95
[2019-04-22 10:47] LABS: Hematocrit 26.6 % (36.0-45.0)
--- NOTE | 2019-04-22 12:56 | RAD REPORT ---
EXAM DESCRIPTION: RAD - Chest Pa And Lat (2 Views) - 04/22/2019 12:24 pm CLINICAL HISTORY: Follow up pneumonia/COPD Chest pain. COMPARISON: Chest Single View dated 04/21/2019; Chest Single View dated 04/20/2019; Chest Single View dated 08/30/2018; Chest Single View dated 06/12/2018 FINDINGS: Emphysematous changes are present. Poorly defined right basilar lung opacity is present wi th a small right pleural effusion, likely representing infiltrate/ pneumonia but appearing moderately improved since the comparative study. The heart is normal in size. No displaced fractures. IMPRESSION: Moderate improvement in right basilar pneumonia since comparative study.
--- NOTE | 2019-04-22 13:07 | P.PN ---
Subjective Date of Service: 04/22/19 Primary Care Provider: Dr. Groves; Pulmonary-Dr. Orellana Chief Complaint: COPD exacerbation Subjective: Improving (Patient is improving hoarseness has resolved non compliant with medication does not take any bronchodilators at home she used to be on Advair and Spiriva) Review of Systems General: Weakness (Difficulty walking) Respiratory: Cough, Shortness of Breath Physical Examination - Vital Signs Temperature: 98.4 F Blood Pressure: 119/58 Pulse: 78 Respirations: 20 Pulse Ox (%): 100 - Physical Exam General: Alert, In no apparent distress, Oriented x3 Respiratory: Clear to auscultation bilaterally, Diminished Cardiovascular: No edema, Regular rate/rhythm Other Physical/Emotional Findings: Muscle atrophy noted throughout - Studies Medications List Reviewed: Yes Assessment & Plan - Problems (Diagnosis) (1) COPD exacerbation Current Visit: Yes Status: Acute Plan: Patient admitted with COPD exacerbation clinically is a lot better patient has oxygen at home to resume Advair and Spiriva admitted with pneumonia doing better can be discharged home on levofloxacin and low-dose prednisone patient cultures are all negative patient is also anemic I have instructed her to follow up with me Physician Review Additional Text: Impression: Acute on chronic respiratory failure with hypoxia and hypercapnia secondary to right lower lobe pneumonia complicated with COPD exacerbation on chronic oxygen and steroid dependent GERD Depression with anxiety Chronic pain Chronic diastolic CHF Hypertension CAD/PVD Anemia of chronic disease with iron and B12 deficiency Moderate malnutrition Hoarseness Plan: Acute on chronic respiratory failure with hypoxia and hypercapnia secondary to right lower lobe pneumonia complicated with COPD exacerbation on chronic oxygen and steroid dependent: Patient continues to show improvement. Patient on nasal cannula. Patient transition to [facility]. Patient uses home oxygen. This will need to be continued at discharge. Will recheck chest x-ray today. Continue with COPD medication. Continue prednisone at this time. Encourage oral intake. Possible home later today after recheck of hemoglobin and hematocrit. Will discuss with pulmonology. GERD: Will continue with medication. Depression with anxiety: Continue with home medication. Chronic pain: Continue with her pain medication. Will hold if with increase sedation. Chronic diastolic CHF: Will monitor closely. Will continue with Lasix. Continue to Hold Aldactone at this time. Hypertension: Continue with home medication. Will monitor closely. Will adjust appropriately. CAD/PVD: Continue with DVT prophylaxis-Lovenox Anemia of chronic disease with noted iron and B12 deficiency: Patient with severe iron B12 deficiency. Will continue with supplementation. Will recheck hemoglobin and hematocrit. Patient may require transfusion if hemoglobin below 7.5. Will reassess. Patient will need evaluation by GI in the future. Moderate malnutrition: Encourage oral intake. Consult dietary to address and treat her malnutrition. Hoarseness: Patient should have ENT evaluation as an outpatient as recommended by pulmonology.
--- NOTE | 2019-04-22 13:28 | P.DS ---
Admission Date: 04/20/19 Discharge Date: 04/22/19 Primary Care Provider: Dr. Groves; Pulmonary-Dr. Orellana Disposition: ROUTINE DISCHARGE Discharge Condition: GOOD Reason for Admission: COPD exacerbation Consultations: Pulmonary-Dr. Orellana Procedures: Follow up CXR: COMPARISON: Chest Single View dated 04/21/2019; Chest Single View dated 2018; Chest Single View dated 08/30/2018; Chest Single View dated 06/12/2018 FINDINGS: Emphysematous changes are present. Poorly defined right basilar lung opacity is present with a small right pleural effusion, likely representing infiltrate/ pneumonia but appearing moderately improved since the comparative study. The heart is normal in size. No displaced fractures. IMPRESSION: Moderate improvement in right basilar pneumonia since comparative study. ECHO: EF 75% LEFT VENTRICULAR WALL MOTION: NORMAL. DOPPLER/COLOR FLOW: IMPAIRED LEFT VENTRICULAR RELAXATION. NO AORTIC STENOSIS OR AORTIC REGURGITATION. COMMENTS: NORMAL LEFT VENTRICULAR EJECTION FRACTION. DILATED LEFT AND RIGHT ATRIUM. AORTIC SCLEROSIS WITH NO AORTIC STENOSIS/ AORTIC REGURGITATION. IMPAIRED LEFT VENTRICULAR RELAXATION. Medical Problem List: Acute on chronic respiratory failure with hypoxia and hypercapnia secondary to right lower lobe pneumonia complicated with COPD exacerbation on chronic oxygen and steroid dependent GERD Depression with anxiety Chronic pain Chronic diastolic CHF Hypertension CAD/PVD Anemia of chronic disease with iron and B12 deficiency Moderate malnutrition Chronic Hoarseness Brief History of Present Illness: 78-year-old female presented to the emergency room with increasing shortness of breath and cough. Patient with past medical history of COPD on chronic oxygen and steroids, GERD, tremors, and depression. Patient came into the ER with increasing shortness of breath, fever, chills, cough. Most of the information came the daughter. The daughter gave the patient some nebulized treatments this morning without improvement. Her condition worsen. She was brought in to the ER for further evaluation. In the ER patient evaluated. Patient was tachypneic and required BiPAP. Initial blood gases showed a pH is 7.36 with a pCO2 of 60 and a PO2 of 61. White count elevated at 14.1, hemoglobin 9.6. Pro calcitonin elevated at 1.05. Lactic acid within normal range. BUN of 16, creatinine 0.8. GFR 62. Glucose 148. Chest x-ray showed right lower lobe pneumonia. Fibrotic lung noted with right rylan thorax volume reduction. Patient was given treatment in the ER. Antibiotics started. Cultures obtained. Patient will be admitted to ICU. When I saw the patient the ER, she was stable on BiPAP. She was able to answer questions and responses. Hospital Course: Patient presented with shortness of breath in the emergency room. Patient found to have acute on chronic respiratory failure with hypoxia and hypercapnia. This was secondary to right lower lobe pneumonia complicated with COPD exacerbation. Patient is oxygen and steroid dependent. Patient was treated during her stay. Her condition improved. Patient was seen and evaluated by pulmonology. Patient was weaned from BiPAP to nasal cannula. Antibiotics were adjusted. At discharge she is without any significant shortness of breath. Patient back to her baseline level. At discharge patient will continue with Levaquin 500 mg daily for 5 more days, Mucinex 600 mg twice daily as needed for congestion and Tessalon Perles 100 mg 3 times a day as needed for cough. Patient will continue with COPD medication. Compliance addressed in detail. Patient will continue with Spiriva 1 puff daily and Advair 1 puff twice daily. Patient will also continue with Pro air 2 puffs 3 times a day as needed for shortness of breath. Patient will continue with home oxygen to maintain sats above 90%. Patient will continue with prednisone 20 mg 1 pill twice daily for 5 days, then 10 mg daily for 5 days. After that she will continue with 5 mg twice daily as she is steroid dependent. Compliance with medication will need to be monitored. Recommend to follow up with pulmonology in 1 week to follow up this hospitalization. Recommend to recheck chest x-ray in 2-4 weeks to monitor resolution. Recommend to follow up with her PCP in 1 week to follow up this hospitalization. Prescriptions will be provided. Patient with GERD. Patient will continue with Nexium 40 mg daily. Recommend to follow up with GI as an outpatient to further monitor. Patient with depression with anxiety. At discharge she will continue with her medications-Celexa 10 mg daily and Xanax 0.5 mg twice daily as needed for anxiety. Patient to limit use of Xanax over time. She is to hold medication if with increase sedation. Patient with history of chronic diastolic CHF. Medications have been adjusted in her stay. Aldactone has been discontinued due to potential side affects of hyperkalemia. At discharge she will continue with Lasix 20 mg daily. Patient will need to increase her potassium intake. Recommend to recheck lab-BMP in 1 week to monitor her progress. This can be further addressed by her PCP. She may continue with a 1500 cc per day fluid restriction and low-salt diet. She is to monitor her weight daily. Further adjustment in medication can be done by her PCP. Patient with hypertension, CAD. This remained stable. Patient will continue with her medication-metoprolol 25 mg 1 pill twice daily and aspirin 81 mg daily. Recommend to maintain blood pressures less 150/80. Further adjustment can be done by her PCP. Patient with chronic pain. Patient may continue with her current medication- Neurontin 400 mg 1 pill twice daily, Zanaflex as needed for muscle spasm, and [place] 10/325 mg every 6 hr as needed for pain. Recommend to limit hydrocodone and Zanaflex use and wean off over time. She is to hold her medications if with increase sedation. This can be further monitored and addressed by her PCP. Patient with moderate malnutrition. Patient also found to have iron and B12 deficiency anemia. Patient was encouraged to increase oral intake. Patient may continue with oral supplementation daily as an outpatient. Patient will also continue with vitamin B12 daily and iron 325 mg 1 pill twice daily. Recommend to recheck lab-CBC, vitamin B12 and iron in 1 month to monitor progress. Patient may benefit with GI evaluation as an outpatient to further address. This can be followed up by her PCP. Patient with essential tremors. At discharge she will continue with medication primidone 50 mg 3 times a day. Patient also had chronic hoarseness. Pulmonology recommends that the patient be evaluated by ENT as an outpatient to further evaluate and address. Vital Signs/Physical Exam: Temp Pulse Resp BP Pulse Ox 98.4 F 78 20 119/58 L 100 04/22/19 13:07 04/22/19 13:07 04/22/19 13:07 04/22/19 13:04/22/19 13:07 General: Alert, In no apparent distress, Oriented x3, Cooperative HEENT: Atraumatic Neck: Supple Respiratory: Clear to auscultation bilaterally, Normal air movement Cardiovascular: Normal pulses, Regular rate/rhythm Gastrointestinal: Normal bowel sounds, Soft and benign, Non-distended, No tenderness, No masses, No rebound, No guarding Musculoskeletal: No erythema, No tenderness, No warmth Integumentary: No tenderness/swelling, No erythema, No warmth, No cyanosis Neurological: Normal speech, Normal strength at 5/5 x4 extr, Normal tone, Normal affect Other Physical/Emotional Findings: Muscle atrophy noted throughout Laboratory Data at Discharge: WBC 4.2 K/uL (4.3-10.9) L D 04/22/19 05:37 Hgb 8.6 g/dL (12.0-15.0) L 04/22/19 10:33 Hct 26.6 % (36.0-45.0) L 04/22/19 10:33 Plt Count 186 K/uL (152-406) D 04/22/19 05:37 PT 11.7 SECONDS (9.5-12.5) 04/20/19 13:00 INR 0.99 04/20/19 13:00 APTT 31.5 SECONDS (24.3-36.9) 04/20/19 13:00 Sodium 138 mmol/L (136-145) 04/22/19 05:37 Potassium 4.1 mmol/L (3.5-5.1) 04/22/19 05:37 BUN 10 mg/dL (7-18) 04/22/19 05:37 Creatinine 0.56 mg/dL (0.55-1.3) 04/22/19 05:37 Glucose 112 mg/dL (74-106) H 04/22/19 05:37 Magnesium 2.2 mg/dL (1.8-2.4) 04/22/19 05:37 Total Bilirubin 0.4 mg/dL (0.2-1.0) 04/20/19 13:00 AST 13 U/L (15-37) L 04/20/19 13:00 ALT 16 U/L (12-78) 04/20/19 13:00 Alkaline Phosphatase 95 U/L (45-117) 04/20/19 13:00 Lipase 85 U/L (73-393) 04/20/19 13:00 Home Medications: Gabapentin [Neurontin*] 400 mg PO BID 12/09/14 ALPRAZolam [Xanax*] 0.5 mg PO TID 04/18/15 Esomeprazole Mag Trihydrate [Nexium] 40 mg PO DAILY 01/28/16 Metoprolol Tartrate [Lopressor*] 25 mg PO BID #60 tab 04/02/16 Citalopram [Celexa*] 10 mg PO DAILY 06/12/18 Furosemide 20 mg PO DAILY 06/12/18 Primidone [Mysoline *] 50 mg PO TID 06/12/18 predniSONE [Prednisone*] 5 mg PO BID 06/12/18 Hydrocodone 10/APAP 325 [[place] 10/325*] 1 tab PO Q6H 04/21/19 Nitroglycerin [Nitrostat*] 0.4 mg SL Q5M PRN 04/21/19 Tizanidine HCl 4 mg PO BID PRN 04/21/19 Albuterol Sulfate [Proair Hfa] 2 puff IH TID PRN #1 hfa.aer.ad 04/22/19 Benzonatate [Tessalon Perle*] 100 mg PO TID PRN #20 cap 04/22/19 Cyanocobalamin [Vitamin B-12*] 1,000 mcg PO DAILY #90 tab 04/22/19 Ensure Enlive 237 ml PO DAILY PRN #30 can 04/22/19 Ferrous Sulfate [Ferrous Sulfate*] 325 mg PO BID #60 tab 04/22/19 Fluticasone/Salmeterol [Advair 250-50 Diskus] 1 puff IH BID #1 blst.w.dev Guaifenesin [Mucinex] 600 mg PO BID PRN #20 tab.er.12h 04/22/19 Prednisone [Deltasone] 20 mg PO SEECOM #15 tablet 04/22/19 Tiotropium [place] [Spiriva] 1 puff IH DAILY #1 cap.w.dev 04/22/19 levoFLOXacin [Levaquin*] 500 mg PO DAILY #5 tab 04/22/19 New Medications: Albuterol Sulfate [Proair Hfa] 2 puff IH TID PRN #1 hfa.aer.ad PRN Reason: Shortness Of Breath Benzonatate [Tessalon Perle*] 100 mg PO TID PRN #20 cap PRN Reason: Cough Cyanocobalamin [Vitamin B-12*] 1,000 mcg PO DAILY #90 tab Ensure Enlive 237 ml PO DAILY PRN #30 can PRN Reason: For added nutrition Ferrous Sulfate [Ferrous Sulfate*] 325 mg PO BID #60 tab Fluticasone/Salmeterol [Advair 250-50 Diskus] 1 puff IH BID #1 blst.w.dev Guaifenesin [Mucinex] 600 mg PO BID PRN #20 tab.er.12h PRN Reason: Cough levoFLOXacin [Levaquin*] 500 mg PO DAILY #5 tab Prednisone [Deltasone] 20 mg PO SEECOM #15 tablet Tiotropium [place] [Spiriva] 1 puff IH DAILY #1 cap.w.dev Patient Discharge Instructions: 1. Recommend a follow up with her PCP in 1 week to follow up this hospitalization. 2. Patient presented with shortness of breath in the emergency room. Patient found to have acute on chronic respiratory failure with hypoxia and hypercapnia. This was secondary to right lower lobe pneumonia complicated with COPD exacerbation. Patient is oxygen and steroid dependent. Patient was treated during her stay. Her condition improved. Patient was seen and evaluated by pulmonology. Patient was weaned from BiPAP to nasal cannula. Antibiotics were adjusted. At discharge she is without any significant shortness of breath. Patient back to her baseline level. At discharge patient will continue with Levaquin 500 mg daily for 5 more days, Mucinex 600 mg twice daily as needed for congestion and Tessalon Perles 100 mg 3 times a day as needed for cough. Patient will continue with COPD medication. Compliance addressed in detail. Patient will continue with Spiriva 1 puff daily and Advair 1 puff twice daily. Patient will also continue with Pro air 2 puffs 3 times a day as needed for shortness of breath. Patient will continue with home oxygen to maintain sats above 90%. Patient will continue with prednisone 20 mg 1 pill twice daily for 5 days, then 10 mg daily for 5 days. After that she will continue with 5 mg twice daily as she is steroid dependent. Compliance with medication will need to be monitored. Recommend to follow up with pulmonology in 1 week to follow up this hospitalization. Recommend to recheck chest x-ray in 2-4 weeks to monitor resolution. Recommend to follow up with her PCP in 1 week to follow up this hospitalization. Prescriptions will be provided. 3. Patient with GERD. Patient will continue with Nexium 40 mg daily. Recommend to follow up with GI as an outpatient to further monitor. 4. Patient with depression with anxiety. At discharge she will continue with her medications-Celexa 10 mg daily and Xanax 0.5 mg twice daily as needed for anxiety. Patient to limit use of Xanax over time. She is to hold medication if with increase sedation. 5. Patient with history of chronic diastolic CHF. Medications have been adjusted in her stay. Aldactone has been discontinued due to potential side affects of hyperkalemia. At discharge she will continue with Lasix 20 mg daily. Patient will need to increase her potassium intake. Recommend to recheck lab-BMP in 1 week to monitor her progress. This can be further addressed by her PCP. She may continue with a 1500 cc per day fluid restriction and low-salt diet. She is to monitor her weight daily. Further adjustment in medication can be done by her PCP. 6. Patient with hypertension, CAD. This remained stable. Patient will continue with her medication-metoprolol 25 mg 1 pill twice daily and aspirin 81 mg daily. Recommend to maintain blood pressures less 150/80. Further adjustment can be done by her PCP. 7. Patient with chronic pain. Patient may continue with her current medication-Neurontin 400 mg 1 pill twice daily, Zanaflex as needed for muscle spasm, and [place] 10/325 mg every 6 hr as needed for pain. Recommend to limit hydrocodone and Zanaflex use and wean off over time. She is to hold her medications if with increase sedation. This can be further monitored and addressed by her PCP. 8. Patient with moderate malnutrition. Patient also found to have iron and B12 deficiency anemia. Patient was encouraged to increase oral intake. Patient may continue with oral supplementation daily as an outpatient. Patient will also continue with vitamin B12 daily and iron 325 mg 1 pill twice daily. Recommend to recheck lab- CBC, vitamin B12 and iron in 1 month to monitor progress. Patient may benefit with GI evaluation as an outpatient to further address. This can be followed up by her PCP. 9. Patient with essential tremors. At discharge she will continue with medication primidone 50 mg 3 times a day. 10. Patient also had chronic hoarseness. Pulmonology recommends that the patient be evaluated by ENT as an outpatient to further evaluate and address. Diet: AHA Activity: Fall precautions Time spent managing pt's care (in minutes): 55
== END 2019-04-22 16:04 | disposition home health service (06) | DRG 193 ==
LOC: ER 12:04 → ERHOLD 14:39 → 3RD-ICU 15:55 → 2ND 04-21 11:25
PROVIDERS: ADMIT Family Medicine; ATTEND Family Medicine
DX: J18.1 Lobar pneumonia, unspecified organism (principal); J96.22 Acute and chronic respiratory failure with hypercapnia; J96.21 Acute and chronic respiratory failure with hypoxia; J44.0 Chronic obstructive pulmonary disease with (acute) lower respiratory infection; J44.1 Chronic obstructive pulmonary disease with (acute) exacerbation; I50.32 Chronic diastolic (congestive) heart failure; E44.0 Moderate protein-calorie malnutrition; Z99.81 Dependence on supplemental oxygen; K21.9 Gastro-esophageal reflux disease without esophagitis; F41.8 Other specified anxiety disorders; G89.29 Other chronic pain; I11.0 Hypertensive heart disease with heart failure; I25.10 Atherosclerotic heart disease of native coronary artery without angina pectoris; Z91.14 Patient's other noncompliance with medication regimen; I73.9 Peripheral vascular disease, unspecified; D63.8 Anemia in other chronic diseases classified elsewhere; D50.9 Iron deficiency anemia, unspecified; D51.9 Vitamin B12 deficiency anemia, unspecified; R49.0 Dysphonia; Z68.20 Body mass index [BMI] 20.0-20.9, adult; Z79.52 Long term (current) use of systemic steroids; Z87.891 Personal history of nicotine dependence; Z88.0 Allergy status to penicillin
CPT/HCPCS: 36415; 51702; 71045; 71046; 80048; 80076; 81003; 81015; 82550; 82553; 82607; 82728; 82805; 82962; 83540; 83605; 83690; 83735; 83880; 84145; 84439; 84443; 84466; 84484; 85014; 85018; 85025; 85379; 85610; 85730; 87040; 93005; 93306; 94660; 94760; 97163; 99285; J0456; J0696; J1650; J2930; J3420; J7030; J7512; J7605

== ENCOUNTER 2019-11-24 20:27 | Inpatient (IN) | payer OTHER ==
--- OUTSIDE RECORDS SUMMARY | 2019-11-24 20:29 | XMS REPORT ---
:1940 [facility] [address] [place] [id number] Care Team Providers Name Role Phone AZAR [...] Comments WHITE BLOOD CELL COUNT (BEAKER) (test wtjg=081) 5.5 K/ L 4.0-10.0 RED BLOOD CELL COUNT (BEAKER) (test ldlk=279) 3.54 M/ L 4.00-5.00 HEMOGLOBIN (BEAKER) (test wxex=384) 10.8 GM/DL 12.0-15.0 HEMATOCRIT (BEAKER) (test qjuk=192) 33.5 % 36.0-45.0 MEAN CORPUSCULAR VOLUME (BEAKER) (test puag=806) 94.8 fL 82.0-99.0 MEAN CORPUSCULAR HEMOGLOBIN (BEAKER) (test xkgc=347) 30.4 pg 27.0-33.0 MEAN CORPUSCULAR HEMOGLOBIN CONC (BEAKER) (test wquy=651) 32.1 GM/DL 32.0- 36.0 RED CELL DISTRIBUTION WIDTH (BEAKER) (test lvfi=299) 12.7 % 10.3-14.2 PLATELET COUNT (BEAKER) (test kper=246) 190 K/CU MM 150-430 MEAN PLATELET VOLUME (BEAKER) (test fjex=215) 6.6 fL 6.5-10.5 NUCLEATED RED BLOOD CELLS (BEAKER) (test kylz=820) 0 /100 WBC 0-0 NEUTROPHILS RELATIVE PERCENT (BEAKER) (test tjcr=453) 59 % LYMPHOCYTES RELATIVE PERCENT (BEAKER) (test nxis=067) 30 % MONOCYTES RELATIVE PERCENT (BEAKER) (test qwwt=927) 8 % EOSINOPHILS RELATIVE PERCENT (BEAKER) (test fmyn=577) 3 % BASOPHILS RELATIVE PERCENT (BEAKER) (test bkno=791) 0 % NEUTROPHILS ABSOLUTE COUNT (BEAKER) (test fmzd=572) 3.23 K/ L 1.80-8.00 LYMPHOCYTES ABSOLUTE COUNT (BEAKER) (test plqb=002) 1.63 K/ L 1.48-4.50 MONOCYTES ABSOLUTE COUNT (BEAKER) (test fons=230) 0.44 K/ L 0.00-1.30 EOSINOPHILS ABSOLUTE COUNT (BEAKER) (test xhvr=508) 0.15 K/ L 0.00-0.50 BASOPHILS ABSOLUTE COUNT (BEAKER) (test hlec=030) 0.00 K/ L 0.00-0.20 0.00BASIC METABOLIC [id number] 05:42:00 Test Item Value Reference Range Comments SODIUM (BEAKER) (test 135 meq/L 136-145 jibh=188) POTASSIUM (BEAKER) (test 4.1 meq/L 3.5-5.1 aels=277) CHLORIDE (BEAKER) (test 97 meq/L 98-107 zeta=662) CO2 (BEAKER) (test 31 meq/L 22-29 rjso=096) BLOOD UREA NITROGEN 21 mg/dL 7-21 (BEAKER) (test gugn=098) CREATININE (BEAKER) (test 0.66 mg/dL 0.57-1.25 gzsw=994) GLUCOSE RANDOM (BEAKER) 95 mg/dL 70-105 (test tbcc=220) CALCIUM (BEAKER) (test 9.1 mg/dL 8.4-10.2 hghn=721) EGFR (BEAKER) (test 88 mL/min/1.73 sq m ESTIMATED GFR IS NOT urne=7508) ACCURATE CREATININE CLEARANCE IN PREDICTING GLOMERULAR FILTRATION RATE. ESTIMATED GFR IS NOT APPLICABLE FOR DIALYSIS PATIENTS. PT/[id number] 05:38:00 Test Item Value Reference Range Comments PROTIME (BEAKER) (test pmks=816) 13.0 seconds 11.7-14.7 INR (BEAKER) (test dgzh=361) 1.0 <=5.9 PARTIAL THROMBOPLASTIN TIME (BEAKER) (test 27.7 seconds 22.5-36.0 umku=314) RECOMMENDED COUMADIN/WARFARIN INR THERAPY RANGESSTANDARD DOSE: 2.0 - 3.0 Includes: PROPHYLAXIS forvenous thrombosis, systemic embolization; TREATMENT for venous thrombosis and/or pulmonary embolus.HIGH RISK: Target INR is 2.5-3.5 for patients with mechanical heart valves.PROTHROMBIN [id number] 05:37: 00 Test Item Value Reference Range Comments PROTIME (BEAKER) (test uxjm=719) 13.0 seconds 11.7-14.7 INR (BEAKER) (test gyqz=010) 1.0 <=5.9 RECOMMENDED COUMADIN/WARFARIN INR THERAPY RANGESSTANDARD DOSE: 2.0 - 3.0 Includes: PROPHYLAXIS forvenous thrombosis, systemic embolization; TREATMENT for venous thrombosis and/or pulmonary embolus.HIGH RISK: Target INR is 2.5-3.5 for patients with mechanical heart valves.BASIC METABOLIC [id number] 05:34: 00 Test Item Value Reference Range Comments SODIUM (BEAKER) (test 137 meq/L 136-145 xkoe=016) POTASSIUM (BEAKER) (test 4.0 meq/L 3.5-5.1 ftje=734) CHLORIDE (BEAKER) (test 95 meq/L 98-107 avgs=730) CO2 (BEAKER) (test 34 meq/L 22-29 cone=060) BLOOD UREA NITROGEN 20 mg/dL 7-21 (BEAKER) (test jbwi=873) CREATININE (BEAKER) (test 0.69 mg/dL 0.57-1.25 meus=134) GLUCOSE RANDOM (BEAKER) 114 mg/dL 70-105 (test yikm=020) CALCIUM (BEAKER) (test 9.4 mg/dL 8.4-10.2 cnfk=131) EGFR (BEAKER) (test 83 mL/min/1.73 sq m ESTIMATED GFR IS NOT nvfe=1509) ACCURATE CREATININE CLEARANCE IN PREDICTING GLOMERULAR FILTRATION RATE. ESTIMATED GFR IS NOT APPLICABLE FOR DIALYSIS PATIENTS. BASIC METABOLIC [id number] 07:18:00 Test Item Value Reference Range Comments SODIUM (BEAKER) (test 134 meq/L 136-145 inzc=460) POTASSIUM (BEAKER) (test 4.1 meq/L 3.5-5.1 mzba=247) CHLORIDE (BEAKER) (test 93 meq/L 98-107 tztn=927) CO2 (BEAKER) (test 36 meq/L 22-29 wtfv=910) BLOOD UREA NITROGEN 17 mg/dL 7-21 (BEAKER) (test yqwc=458) CREATININE (BEAKER) (test 0.65 mg/dL 0.57-1.25 notm=077) GLUCOSE RANDOM (BEAKER) 100 mg/dL 70-105 (test vesk=219) CALCIUM (BEAKER) (test 9.6 mg/dL 8.4-10.2 cgtk=540) EGFR (BEAKER) (test 89 mL/min/1.73 sq m ESTIMATED GFR IS NOT phgh=6626) ACCURATE CREATININE CLEARANCE IN PREDICTING GLOMERULAR FILTRATION RATE. ESTIMATED GFR IS NOT APPLICABLE FOR DIALYSIS PATIENTS. URINALYSIS W/ REFLEX URINE [id number] 07:08:00 Test Item Value Reference Range Comments COLOR (BEAKER) (test nfqn=918) Yellow CLARITY (BEAKER) (test koin=348) Hazy SPECIFIC GRAVITY UA (BEAKER) (test svwf=704) 1.035 1.001-1.035 PH UA (BEAKER) (test dune=396) 7.0 5.0-8.0 PROTEIN UA (BEAKER) (test qdbz=886) 10 mg/dL Negative GLUCOSE UA (BEAKER) (test hkac=346) Negative Negative KETONES UA (BEAKER) (test gkkz=684) Negative Negative BILIRUBIN UA (BEAKER) (test cssj=082) Negative Negative BLOOD UA (BEAKER) (test ssud=642) Negative Negative NITRITE UA (BEAKER) (test nsxo=113) Negative Negative LEUKOCYTE ESTERASE UA (BEAKER) (test etot=450) Small Negative UROBILINOGEN UA (BEAKER) (test qnyg=710) 0.2 mg/dL 0.2-1.0 RBC UA (BEAKER) (test qhui=278) 1 /HPF WBC UA (BEAKER) (test qmzp=439) 9 /HPF BACTERIA (BEAKER) (test kvve=329) Occasional MUCUS (BEAKER) (test ciai=1864) Rare SQUAMOUS EPITHELIAL (BEAKER) (test htop=802) 7 /HPF SOURCE(BEAKER) (test vxfk=9890) BASIC METABOLIC [id number] 06:11:00 Test Item Value Reference Range Comments SODIUM (BEAKER) (test 136 meq/L 136-145 znwj=885) POTASSIUM (BEAKER) (test 4.4 meq/L 3.5-5.1 tlzu=810) CHLORIDE (BEAKER) (test 95 meq/L 98-107 kfny=360) CO2 (BEAKER) (test 35 meq/L 22-29 nvhb=325) BLOOD UREA NITROGEN 25 mg/dL 7-21 (BEAKER) (test vkkv=229) CREATININE (BEAKER) (test 0.66 mg/dL 0.57-1.25 rosh=429) GLUCOSE RANDOM (BEAKER) 116 mg/dL 70-105 (test vtaq=587) CALCIUM (BEAKER) (test 9.0 mg/dL 8.4-10.2 znmz=300) EGFR (BEAKER) (test 88 mL/min/1.73 sq m ESTIMATED GFR IS NOT qhgj=9837) ACCURATE CREATININE CLEARANCE IN PREDICTING GLOMERULAR FILTRATION RATE. ESTIMATED GFR IS NOT APPLICABLE FOR DIALYSIS PATIENTS. VITAMIN D, [id number] 05:04:00 Test Item Value Reference Range Comments VITAMIN D 25-OH (BEAKER) (test kjom=7135) < ng/mL 13.0-47.8 COMPREHENSIVE METABOLIC [id number] 22:54:00 Test Item Value Reference Range Comments TOTAL PROTEIN (BEAKER) 6.8 gm/dL 6.0-8.3 (test honr=932) ALBUMIN (BEAKER) (test 3.5 g/dL 3.5-5.0 tuok=1576) ALKALINE PHOSPHATASE 83 U/L 40-150 (BEAKER) (test otzn=830) BILIRUBIN TOTAL (BEAKER) 0.3 mg/dL 0.2-1.2 (test gtes=120) SODIUM (BEAKER) (test 136 meq/L 136-145 psdv=244) POTASSIUM (BEAKER) (test 4.4 meq/L 3.5-5.1 xzoj=935) CHLORIDE (BEAKER) (test 95 meq/L 98-107 klbx=222) CO2 (BEAKER) (test 34 meq/L 22-29 ekta=186) BLOOD UREA NITROGEN 28 mg/dL 7-21 (BEAKER) (test rnpq=119) CREATININE (BEAKER) (test 0.76 mg/dL 0.57-1.25 qgyw=609) GLUCOSE RANDOM (BEAKER) 150 mg/dL 70-105 (test eblj=165) CALCIUM (BEAKER) (test 9.0 mg/dL 8.4-10.2 fqrc=403) AST (SGOT) (BEAKER) (test 22 U/L 5-34 qukq=058) ALT (SGPT) (BEAKER) (test 51 U/L 6-55 rias=149) EGFR (BEAKER) (test 74 mL/min/1.73 sq m ESTIMATED GFR IS NOT qsva=8208) ACCURATE CREATININE CLEARANCE IN PREDICTING GLOMERULAR FILTRATION RATE. ESTIMATED GFR IS NOT APPLICABLE FOR DIALYSIS PATIENTS. PROTHROMBIN [id number] 22:38:00 Test Item Value Reference Range Comments PROTIME (BEAKER) (test ecwx=178) 13.3 seconds 11.7-14.7 INR (BEAKER) (test pdyj=236) 1.0 <=5.9 RECOMMENDED COUMADIN/WARFARIN INR THERAPY RANGESSTANDARD DOSE: 2.0 - 3.0 Includes: PROPHYLAXIS forvenous thrombosis, systemic embolization; TREATMENT for venous thrombosis and/or pulmonary embolus.HIGH RISK: Target INR is 2.5-3.5 for patients with mechanical heart valves.CBC (HEMOGRAM ONLY)[id number] 22:31:00 Test Item Value Reference Range Comments WHITE BLOOD CELL COUNT (BEAKER) (test pmla=155) 6.5 K/ L 4.0-10.0 RED BLOOD CELL COUNT (BEAKER) (test mlbl=547) 3.76 M/ L 4.00-5.00 HEMOGLOBIN (BEAKER) (test gkcp=696) 11.4 GM/DL 12.0-15.0 HEMATOCRIT (BEAKER) (test wzgj=683) 35.5 % 36.0-45.0 MEAN CORPUSCULAR VOLUME (BEAKER) (test sjvs=234) 94.6 fL 82.0-99.0 MEAN CORPUSCULAR HEMOGLOBIN (BEAKER) (test 30.4 pg 27.0-33.0 llcw=433) MEAN CORPUSCULAR HEMOGLOBIN CONC (BEAKER) (test 32.2 GM/DL 32.0-36.0 nhqr=372) RED CELL DISTRIBUTION WIDTH (BEAKER) (test 13.6 % 10.3-14.2 nsas=520) PLATELET COUNT (BEAKER) (test bfhi=232) 195 K/CU MM 150-430 MEAN PLATELET VOLUME (BEAKER) (test zalf=161) 6.2 fL 6.5-10.5 NUCLEATED RED BLOOD CELLS (BEAKER) (test 0 /100 WBC 0-0 nvsh=554) 0.00CBC W/PLT COUNT & AUTO [id number] 22:31:00 Test Item Value Reference Range Comments WHITE BLOOD CELL COUNT (BEAKER) (test lxdn=344) 6.5 K/ L 4.0-10.0 RED BLOOD CELL COUNT (BEAKER) (test xael=034) 3.76 M/ L 4.00-5.00 HEMOGLOBIN (BEAKER) (test qegk=585) 11.4 GM/DL 12.0-15.0 HEMATOCRIT (BEAKER) (test tzjo=201) 35.5 % 36.0-45.0 MEAN CORPUSCULAR VOLUME (BEAKER) (test xkdl=388) 94.6 fL 82.0-99.0 MEAN CORPUSCULAR HEMOGLOBIN (BEAKER) (test 30.4 pg 27.0-33.0 hsuq=333) MEAN CORPUSCULAR HEMOGLOBIN CONC (BEAKER) (test 32.2 GM/DL 32.0-36.0 ogmt=245) RED CELL DISTRIBUTION WIDTH (BEAKER) (test 13.6 % 10.3-14.2 tjql=660) PLATELET COUNT (BEAKER) (test jgso=374) 195 K/CU MM 150-430 MEAN PLATELET VOLUME (BEAKER) (test czbo=096) 6.2 fL 6.5-10.5 NUCLEATED RED BLOOD CELLS (BEAKER) (test 0 /100 WBC 0-0 kdpi=202) NEUTROPHILS RELATIVE PERCENT (BEAKER) (test 57 % rplg=899) LYMPHOCYTES RELATIVE PERCENT (BEAKER) (test 33 % iznz=548) MONOCYTES RELATIVE PERCENT (BEAKER) (test 8 % kbmz=678) EOSINOPHILS RELATIVE PERCENT (BEAKER) (test 2 % xhvi=380) BASOPHILS RELATIVE PERCENT (BEAKER) (test 0 % hppn=952) NEUTROPHILS ABSOLUTE COUNT (BEAKER) (test 3.66 K/ L 1.80-8.00 jpvt=581) LYMPHOCYTES ABSOLUTE COUNT (BEAKER) (test 2.13 K/ L 1.48-4.50 ohjz=729) MONOCYTES ABSOLUTE COUNT (BEAKER) (test 0.52 K/ L 0.00-1.30 wlss=627) EOSINOPHILS ABSOLUTE COUNT (BEAKER) (test 0.14 K/ L 0.00-0.50 flrw=337) BASOPHILS ABSOLUTE COUNT (BEAKER) (test 0.02 K/ L 0.00-0.20 mvdb=365)
[2019-11-24] MEDS ORDERED: NA CHLORIDE 0.9% 1,000 ML ONE (20:34)
[2019-11-24 21:37] LABS: Absolute Lymphocytes (CBC) 1.3 K/uL (0.7-4.9); Basophils % 0.4 % (0-1.3); Hematocrit 26.5 % (36.0-45.0); Lymphocytes % 6.6 % (15.3-44.8); MPV 7.7 fL (7.6-11.3); RBC Red Blood Cell Count 2.89 M/uL (3.86-4.86)
[2019-11-24 21:38] LABS: Protime INR 1.27
[2019-11-24 22:00] LABS: ALT/SGPT 92 U/L (12-78); AST/SGOT 40 U/L (15-37); Albumin 2.1 g/dL (3.4-5.0); Alkaline Phosphatase 142 U/L (45-117); BUN Blood Urea Nitrogen 40 mg/dL (7-18); Bicarbonate 31 mmol/L (21-32); Bilirubin Direct 0.2 mg/dL (0-0.2); Bilirubin Total 0.5 mg/dL (0.2-1.0); Glucose Level 112 mg/dL (74-106); Magnesium 2.2 mg/dL (1.8-2.4); NT PRO-BNP 1271 pg/mL (<450); Potassium 3.7 mmol/L (3.5-5.1); Protein, Total 6.1 g/dL (6.4-8.2); Sodium Level 140 mmol/L (136-145); Troponin (Emerg Dept Use Only) < 0.02 ng/mL (0.0-0.045)
[2019-11-24 22:38] LABS: Blood Morphology Comment NOT SEEN (NOT SEEN); Platelet Estimate ADEQ
[2019-11-24 22:42] LABS: Urine Blood NEGATIVE (NEG); Urine Glucose NEGATIVE (NEG); Urine Protein 2+ (NEG); Urine Specific Gravity 1.025 (1.005-1.030); Urine pH 5.5 (5.0-7.0)
[2019-11-25 00:05] LABS: Arterial Blood Carboxyhemoglob 1.3 % (0-1.5); Blood Gas Oxyhemoglobin 80.8 % (94-97); Blood O2 Saturation 82.6 % (92-98.5)
--- NOTE | 2019-11-25 03:03 | ER ---
Nurse's Notes [facility] Name: Zaynab Rehman Age: 79 yrs Sex: Female : 1940 Arrival Date: 11/24/2019 Time: 20:31 Bed 14 Private MD: Diagnosis: Altered mental status. Leukocytosis. COPD exacerbation. Hypoxia Presentation: 11/24 20:43 Presenting complaint: EMS states: daughter called because of altered mental status. rv with history of dementia. she is not eating or drinking well. initial systolic blood pressure was 70s. blood sugar of 98. Transition of care: patient was not received from another setting of care. Onset of symptoms was November 24, 2019 at 08:00. Risk Assessment: Do you want to hurt yourself or someone else? Patient reports no desire to harm self or others. Initial Sepsis Screen: Does the patient meet any 2 criteria? No. Patient's initial sepsis screen is negative. Does the patient have a suspected source of infection? No. Patient's initial sepsis screen is negative. Care prior to arrival: None. 20:43 Method Of Arrival: EMS: [facility] 20:43 Acuity: CYNTHIA 3 rv 11/25 04:35 Note Pt's daughter Mandi phone number [phone]. bb Historical: - Allergies: 11/24 22:19 PENICILLINS; rv - PMHx: 22:19 Arthritis; COPD; Dementia; Depression; Essential Tremor; Hypertension; rv - PSHx: 22:19 None; rv - Immunization history:: Adult Immunizations up to date. - Social history:: Smoking status: Patient/guardian denies using tobacco. - Ebola Screening: : No symptoms or risks identified at this time. Screenin:20 Abuse screen: Denies threats or abuse. Denies injuries from another. Nutritional rv screening: No deficits noted. Tuberculosis screening: No symptoms or risk factors identified. Fall Risk None identified. Assessment: 20:45 General: Appears ill, Behavior is quiet. Pain: Denies pain. Neuro: Level of rv Consciousness is lethargic. Cardiovascular: Patient's skin is warm and dry. Rhythm is regular. Respiratory: Airway is patent. Derm: Skin with poor turgor. 22:21 Reassessment: Patient appears in no apparent distress at this time. Patient and/or rv family updated on plan of care and expected duration. Pain level reassessed. Patient is alert, oriented x 3, equal unlabored respirations, skin warm/dry/pink. taken to CT scan. 23:49 Reassessment: Patient appears in no apparent distress at this time. Patient and/or rv family updated on plan of care and expected duration. Pain level reassessed. Patient is alert, oriented x 3, equal unlabored respirations, skin warm/dry/pink. 11/25 01:55 Reassessment: Patient appears in no apparent distress at this time. Patient and/or rv family updated on plan of care and expected duration. Pain level reassessed. Patient is alert, oriented x 3, equal unlabored respirations, skin warm/dry/pink. patient is asleep. 03:30 Reassessment: Patient and/or family updated on plan of care and expected duration. Pain ea level reassessed. Pt resting with eyes closed, respirations even and unlabored. 04:50 Reassessment: Pt moaning, alert, oriented to zero, respirations even and unlabored. ea Chest expansions even and symmetrical. Dr. Cordero notified of pt moaning, verbal order for morphine 3 mg IVP once. Medication administered, pt tolerating well. 05:50 Reassessment: Report called to receiving nurse on fourth. Pt alert, oriented to 0, ea respirations even and unlabored. Pt admitted to fourth, left ED via hospital bed. Vital Signs: 11/24 20:45 BP 92 / 74; Pulse 70; Resp 18; Temp 98; Pulse Ox 98% on R/A; Weight 40.82 kg; rv 21:00 BP 98 / 57; Pulse 71; Resp 18; Pulse Ox 97% on R/A; rv 21:30 BP 111 / 60; Pulse 82; Resp 18; Pulse Ox 98% on 2 lpm NC; rv 22:00 BP 107 / 60; Pulse 82; Resp 21; Pulse Ox 98% on 2 lpm NC; rv 22:30 BP 105 / 56; Pulse 79; Resp 16; Pulse Ox 96% on 2 lpm NC; rv 23:00 BP 107 / 52; Pulse 82; Resp 17; Pulse Ox 98% on 2 lpm NC; rv 23:45 BP 98 / 52; Pulse 82; Resp 13; Pulse Ox 96% on 2 lpm NC; rv 11/25 00:30 BP 102 / 33; Pulse 85; Resp 18; Pulse Ox 96% on 2 lpm NC; rv 01:00 BP 117 / 56; Pulse 92; Resp 20; Pulse Ox 94% on 2 lpm NC; rv 01:30 BP 106 / 54; Pulse 90; Resp 20; Pulse Ox 96% on 2 lpm NC; rv 01:45 BP 108 / 53; Pulse 90; Resp 20; Pulse Ox 96% on 2 lpm NC; rv 04:30 BP 120 / 64; Pulse 100; Resp 16; Pulse Ox 97% on 2 lpm NC; ea 05:37 BP 114 / 60; Pulse 103; Resp 16; Temp 98.2; Pulse Ox 95% on 2 lpm NC; ea ED Course: 11/24 20:31 Patient arrived in ED. rv 20:40 Eliseo Mccloud MD is Attending Physician. pkl 20:45 Triage completed. rv 21:14 Mike Davis, ELGIN is Primary Nurse. rv 21:15 Initial lab(s) drawn, by sd, sent to lab. First set of blood cultures drawn by sd. mw 21:30 Second set of blood cultures drawn by sd. bb 21:33 XRAY Chest (1 view) In Process Unspecified. EDMS 21:50 Radiology exam delayed due to Jamison RN to call when patient is ready. nj 22:19 Nichole cath inserted, using sterile technique, 16 Fr., by me, balloon inflated, to rv gravity drainage, urine specimen collected. Inserted saline lock: 22 gauge in right forearm, using aseptic technique. 22:20 Arm band placed on right wrist. rv 22:20 Patient has correct armband on for positive identification. Bed in low position. Call rv light in reach. Side rails up X 1. discount clerk on. Pulse ox on. NIBP on. 22:48 CT Head Brain wo Cont In Process Unspecified. EDMS 01 01:29 CT Chest For PE Angio In Process Unspecified. EDMS 01:32 CT completed. Pt tolerated procedure poorly. Patient moved to CT via stretcher. Patient eh moved back from CT. 03:00 Pedro Cordero MD is Hospitalizing Provider. pkl 05:36 No provider procedures requiring assistance completed. Patient admitted, IV remains in ea place. Administered Medications: 11/24 21:00 Drug: NS 0.9% 500 ml Route: IV; Rate: bolus; Site: left antecubital; rv 23:50 Follow up: IV Status: Completed infusion; IV Intake: 500ml rv 21:15 Drug: NS 0.9% 1000 ml Route: IV; Rate: 100 ml/hr; Site: left antecubital; rv 11/25 06:19 Follow up: IV Status: Completed infusion; IV Intake: 1000ml ea Intake: 11/24 23:50 IV: 500ml; Total: 500ml. rv 11/25 06:19 IV: 1000ml; Total: 1500ml. ea Outcome: 03:02 Decision to Hospitalize by Provider. pkl 05:36 Admitted to Med/surg accompanied by tech, room 402, with chart, Report called to ea Receiving nurse on fourth :36 Condition: stable 06:20 Patient left the ED. ea Signatures: Dispatcher [employer] EDMS Jenna Smalls, RN RN Eliseo Joyce MD MD pk Pb Perez Brenda, RN RN bb Jordan, Nathan nj Antunez, Elena, RN RN ea Vicente, Ronaldo, RN RN rv
--- NOTE | 2019-11-25 03:04 | EDPHYS ---
Physician Documentation [facility] Name: Zaynab Rehman Age: 79 yrs Sex: Female : 1940 Arrival Date: 11/24/2019 Time: 20:31 Bed 14 Private MD: ED Physician Eliseo Mccloud HPI: 11/24 21:23 This 79 yrs old Female presents to ER via EMS with unknown complaint. pkl 21:23 The patient presents with decreased mental status. Onset: The symptoms/episode pkl began/occurred yesterday. Associated signs and symptoms: Pertinent positives: not eating well for the past 2 days. Historical: - Allergies: 22:19 PENICILLINS; rv - PMHx: 22:19 Arthritis; COPD; Dementia; Depression; Essential Tremor; Hypertension; rv - PSHx: 22:19 None; rv - Immunization history:: Adult Immunizations up to date. - Social history:: Smoking status: Patient/guardian denies using tobacco. - Ebola Screening: : No symptoms or risks identified at this time. ROS: 21:23 Eyes: Negative for injury, pain, redness, and discharge, ENT: Negative for injury, pkl pain, and discharge, Neck: Negative for injury, pain, and swelling, Cardiovascular: Negative for chest pain, palpitations, and edema, Respiratory: Negative for shortness of breath, cough, wheezing, and pleuritic chest pain, Abdomen/GI: Negative for abdominal pain, nausea, vomiting, diarrhea, and constipation, Back: Negative for injury and pain, : Negative for injury, bleeding, discharge, and swelling, MS/Extremity: Negative for injury and deformity, Skin: Negative for injury, rash, and discoloration. 21:23 Neuro: Positive for altered mental status, headache. Exam: 21:23 Head/Face: Normocephalic, atraumatic. Eyes: Pupils equal round and reactive to light, pkl extra-ocular motions intact. Lids and lashes normal. Conjunctiva and sclera are non-icteric and not injected. Cornea within normal limits. Periorbital areas with no swelling, redness, or edema. ENT: Nares patent. No nasal discharge, no septal abnormalities noted. Tympanic membranes are normal and external auditory canals are clear. Oropharynx with no redness, swelling, or masses, exudates, or evidence of obstruction, uvula midline. Mucous membranes moist. Neck: Trachea midline, no thyromegaly or masses palpated, and no cervical lymphadenopathy. Supple, full range of motion without nuchal rigidity, or vertebral point tenderness. No Meningismus. Chest/axilla: Normal chest wall appearance and motion. Nontender with no deformity. No lesions are appreciated. Cardiovascular: Regular rate and rhythm with a normal S1 and S2. No gallops, murmurs, or rubs. Normal PMI, no JVD. No pulse deficits. Respiratory: Lungs have equal breath sounds bilaterally, clear to auscultation and percussion. No rales, rhonchi or wheezes noted. No increased work of breathing, no retractions or nasal flaring. Abdomen/GI: Soft, non-tender, with normal bowel sounds. No distension or tympany. No guarding or rebound. No evidence of tenderness throughout. Back: No spinal tenderness. No costovertebral tenderness. Full range of motion. Skin: Warm, dry with normal turgor. Normal color with no rashes, no lesions, and no evidence of cellulitis. MS/ Extremity: Pulses equal, no cyanosis. Neurovascular intact. Full, normal range of motion. 21:23 Neuro: Orientation: to person, place, time, Mentation: responsive to voice slow to respond, Cranial nerves: grossly normal, Motor: moves all fours. Vital Signs: 20:45 BP 92 / 74; Pulse 70; Resp 18; Temp 98; Pulse Ox 98% on R/A; Weight 40.82 kg; rv 21:00 BP 98 / 57; Pulse 71; Resp 18; Pulse Ox 97% on R/A; rv 21:30 BP 111 / 60; Pulse 82; Resp 18; Pulse Ox 98% on 2 lpm NC; rv 22:00 BP 107 / 60; Pulse 82; Resp 21; Pulse Ox 98% on 2 lpm NC; rv 22:30 BP 105 / 56; Pulse 79; Resp 16; Pulse Ox 96% on 2 lpm NC; rv 23:00 BP 107 / 52; Pulse 82; Resp 17; Pulse Ox 98% on 2 lpm NC; rv 23:45 BP 98 / 52; Pulse 82; Resp 13; Pulse Ox 96% on 2 lpm NC; rv 11/25 00:30 BP 102 / 33; Pulse 85; Resp 18; Pulse Ox 96% on 2 lpm NC; rv 01:00 BP 117 / 56; Pulse 92; Resp 20; Pulse Ox 94% on 2 lpm NC; rv 01:30 BP 106 / 54; Pulse 90; Resp 20; Pulse Ox 96% on 2 lpm NC; rv 01:45 BP 108 / 53; Pulse 90; Resp 20; Pulse Ox 96% on 2 lpm NC; rv 04:30 BP 120 / 64; Pulse 100; Resp 16; Pulse Ox 97% on 2 lpm NC; ea 05:37 BP 114 / 60; Pulse 103; Resp 16; Temp 98.2; Pulse Ox 95% on 2 lpm NC; ea MDM: 11/24 20:40 Patient medically screened. pkl 23:44 Data reviewed: vital signs, nurses notes, lab test result(s), EKG, radiologic studies, pkl CT scan, plain films. 11/25 02:59 ED course: Talked to Dr. Cordero. Admit. pkl 11/24 20:56 Order name: Glucose, Ancillary Testing; Complete Time: 21:41 EDMS 11/24 21:07 Order name: Basic Metabolic Panel; Complete Time: 22:40 pkl 11/24 21:07 Order name: CBC with Diff; Complete Time: 22:40 pkl 11/24 21:07 Order name: LFT's; Complete Time: 22:40 pkl 11/24 21:07 Order name: Magnesium; Complete Time: 22:40 pkl 11/24 21:07 Order name: NT PRO-BNP; Complete Time: 22:40 pkl 11/24 21:07 Order name: PT-INR; Complete Time: 21:54 pkl 11/24 21:07 Order name: Troponin (emerg Dept Use Only); Complete Time: 22:40 pkl 11/24 21:07 Order name: Blood Culture Adult (2) pkl 11/24 21:07 Order name: Lactate; Complete Time: 22:40 pkl 11/24 22:13 Order name: Manual Differential; Complete Time: 22:40 EDMS 11/24 22:27 Order name: Urine Dipstick--Ancillary (enter results); Complete Time: 23:46 mw2 11/24 23:46 Order name: ABG; Complete Time: 00:11 pkl 11/25 04:30 Order name: CBC with Automated Diff EDMS 11/24 21:07 Order name: XRAY Chest (1 view) pkl 11/24 21:07 Order name: EKG; Complete Time: 21:08 pkl 11/24 21:07 Order name: CT Head Brain wo Cont pkl 11/25 00:11 Order name: CT Chest For PE Angio pkl 11/25 04:30 Order name: CONS Pharmacy Consult EDMS 11/25 04:30 Order name: CBC with Automated Diff EDMS 11/25 04:30 Order name: Comprehensive Metabolic Panel EDMS 11/25 04:30 Order name: Comprehensive Metabolic Panel EDMS 11/25 04:30 Order name: Troponin I EDMS 11/25 04:30 Order name: Troponin I EDMS 11/25 04:30 Order name: Troponin I EDMS 11/25 04:30 Order name: Troponin I EDMS 11/25 04:30 Order name: Troponin I EDMS 11/25 04:30 Order name: Troponin I EDMS 11/24 21:07 Order name: Cardiac monitoring; Complete Time: 21:15 pk 11/24 21:07 Order name: EKG - Nurse/Tech; Complete Time: 21:09 pkl 11/24 21:07 Order name: IV Saline Lock; Complete Time: 21:15 pkl 11/24 21:07 Order name: Labs collected and sent; Complete Time: 21:15 pkl 11/24 21:07 Order name: O2 Per Protocol; Complete Time: 21:15 pkl 11/24 21:07 Order name: O2 Sat Monitoring; Complete Time: 21:15 pkl 11/24 21:07 Order name: Nichole; Complete Time: 22:32 pk 11/25 04:30 Order name: Regular EDMS Administered Medications: 11/24 21:00 Drug: NS 0.9% 500 ml Route: IV; Rate: bolus; Site: left antecubital; rv 23:50 Follow up: IV Status: Completed infusion; IV Intake: 500ml rv 21:15 Drug: NS 0.9% 1000 ml Route: IV; Rate: 100 ml/hr; Site: left antecubital; rv 11/25 06:19 Follow up: IV Status: Completed infusion; IV Intake: 1000ml ea Disposition: 11/25/19 03:02 Hospitalization ordered by Pedro Cordero for Inpatient Admission. Preliminary diagnosis is Altered mental status. Leukocytosis. COPD exacerbation. Hypoxia. - Bed requested for Telemetry/MedSurg (observation). - Status is Inpatient Admission. ea - Condition is Stable. - Problem is new. - Symptoms are unchanged. UTI on Admission? No Signatures: Dispatcher [employer] EDMS Jenna Smalls RN RN mw Lam, Pin, MD MD pkDanni Torres RN RN ea Vicente, Ronaldo, RN RN rv Corrections: (The following items were deleted from the chart) 04:32 03:02 Hospitalization Ordered by Pedro Cordero MD for Inpatient Admission. Preliminary diagnosis is Altered mental status. Leukocytosis. COPD exacerbation. Hypoxia. Bed requested for Telemetry/MedSurg (observation). Status is Inpatient Admission. Condition is Stable. Problem is new. Symptoms are unchanged. UTI on Admission? No. pkl 06:20 04:32 11/25/2019 03:02 Hospitalization Ordered by Pedro Cordero MD for Inpatient ea Admission. Preliminary diagnosis is Altered mental status. Leukocytosis. COPD exacerbation. Hypoxia. Bed requested for Telemetry/MedSurg (observation). Status is Inpatient Admission. Condition is Stable. Problem is new. Symptoms are unchanged. UTI on Admission? No. mw
[2019-11-25] MEDS ORDERED: ACETAMINOPHEN 500 MG TAB PO PRN (04:27)
[2019-11-25] MEDS ORDERED: ONDANSETRON 4 MG/2 ML VIAL IV PRN (04:27)
[2019-11-25] MEDS ORDERED: MORPHINE 4 MG/ML SYR ONE (04:42)
[2019-11-25] MEDS ORDERED: ONDANSETRON 4 MG/2 ML VIAL ONE (04:42)
[2019-11-25] MEDS ORDERED: NA CHLORIDE 0.9% 1,000 ML IV SCH (05:00)
[2019-11-25] MEDS ORDERED: MORPHINE 2 MG/ML SYR IV ONE (05:05)
[2019-11-25] MEDS ORDERED: MORPHINE 4 MG/ML SYR IV ONE (06:00)
[2019-11-25 06:16] VITALS: BMI 15.4
--- NOTE | 2019-11-25 07:55 | P.HP ---
Certification for Inpatient Patient admitted to: Inpatient With expected LOS: >2 Midnights Patient will require the following post-hospital care: None Practitioner: I am a practitioner with admitting privileges, knowledge of patient current condition, hospital course, and medical plan of care. Services: Services provided to patient in accordance with Admission requirements found in Title 42 Section 412.3 of the Code of Federal Regulations Patient History Date of Service: 11/25/19 Reason for admission: AMS; hypotension History of Present Illness: Patient is a 79yo who was admitted to the hospital with altered mentation. Patient does have severe dementia. Her mentation is not really that different from when I have seen her in the past. She normally gets like this whenever he is upset. She was admitted to the hospital because of blood pressure was low. She is on numerous antihypertensives and anxiolytics. She is crying out in pain and then when you ask her where the pain is she does not really able to relate where she is feeling it. It is very difficult to communicate with her. In the emergency room, she was found have a leukocytosis. Her CT of the chest reveals COPD changes as well as a 1.7 cm lung mass. At this time, patient will be admitted to the hospital for further workup. She really does not qualify for any aggressive intervention her workup regarding this mass. Will stabilize her clinically and have her follow-up as an outpatient with her PCP. Allergies Penicillins Allergy (Mild, Verified 02/16/15 15:13) Hives Home Medications: Gabapentin [Neurontin*] 400 mg PO BID 12/09/14 ALPRAZolam [Xanax*] 0.5 mg PO TID 04/18/15 Esomeprazole Mag Trihydrate [Nexium] 40 mg PO DAILY 01/28/16 Metoprolol Tartrate [Lopressor*] 25 mg PO BID #60 tab 04/02/16 Citalopram [Celexa*] 10 mg PO DAILY 06/12/18 Furosemide 20 mg PO DAILY 06/12/18 Primidone [Mysoline *] 50 mg PO TID 06/12/18 predniSONE [Prednisone*] 5 mg PO BID 06/12/18 Hydrocodone 10/APAP 325 [Muddy 10/325*] 1 tab PO Q6H 04/21/19 Nitroglycerin [Nitrostat*] 0.4 mg SL Q5M PRN 04/21/19 Tizanidine HCl 4 mg PO BID PRN 04/21/19 Albuterol Sulfate [Proair Hfa] 2 puff IH TID PRN #1 hfa.aer.ad 04/22/19 Benzonatate [Tessalon Perle*] 100 mg PO TID PRN #20 cap 04/22/19 Cyanocobalamin [Vitamin B-12*] 1,000 mcg PO DAILY #90 tab 04/22/19 Ensure Enlive 237 ml PO DAILY PRN #30 can 04/22/19 Ferrous Sulfate [Ferrous Sulfate*] 325 mg PO BID #60 tab 04/22/19 Fluticasone/Salmeterol [Advair 250-50 Diskus] 1 puff IH BID #1 blst.w.dev Guaifenesin [Mucinex] 600 mg PO BID PRN #20 tab.er.12h 04/22/19 Tiotropium [place] [Spiriva] 1 puff IH DAILY #1 cap.w.dev 04/22/19 levoFLOXacin [Levaquin*] 500 mg PO DAILY #5 tab 04/22/19 predniSONE [Deltasone] 20 mg PO SEECOM #15 tablet 04/22/19 - Past Medical/Surgical History Diabetic: No -: Hypertension -: COPD, chronic oxygen and steroid dependent -: CAD -: CHF -: Depression with anxiety -: GERD -: Peripheral vascular disease -: Essential tremors -: Chronic pain -: bladder suspension -: carpal tunnel repair -: bilateral knee surgery -: 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 moist/pink, EOMI, Sclerae nonicteric Neck: Supple, 2+ carotid pulse no bruit, No LAD, Without JVD or thyroid abnormality Respiratory: Clear to auscultation bilaterally, Normal air movement Cardiovascular: Regular rate/rhythm, Normal S1 S2, Systolic murmur Gastrointestinal: Normal bowel sounds, Soft and benign, Non-distended, No tenderness Musculoskeletal: No clubbing, No swelling, No tenderness Integumentary: No rashes Neurological: Normal strength at 5/5 x4 extr, Normal tone, Cranial nerves 3-12 intact, Abnormal gait, Abnormal speech, Abnormal strength (Patient strength is 4 /5) Lymphatics: No axilla or inguinal lymphadenopathy - Studies Laboratory Data (last 24 hrs) 11/24/19 21:15: PT 14.8 H, INR 1.27 11/24/19 21:15: WBC 19.1 H, Hgb 8.5 L, Hct 26.5 L, Plt Count 255 11/24/19 21:15: Sodium 140, Potassium 3.7, BUN 40 H, Creatinine 1.28, Glucose 112 H, Magnesium 2.2, Total Bilirubin 0.5, AST 40 H, ALT 92 H, Alkaline Phosphatase 142 H Assessment & Plan - Problems (Diagnosis) (1) Leukocytosis Current Visit: Yes Status: Acute (2) Gastroesophageal reflux disease Current Visit: No Status: Active (3) Osteoarthritis Current Visit: No Status: Active (4) Tobacco dependence syndrome Current Visit: No Status: Active (5) Altered mental status Onset Date: 06/12/18 Current Visit: No Status: Acute (6) CHF (congestive heart failure) Onset Date: 02/17/15 Current Visit: No Status: Acute (7) COPD (chronic obstructive pulmonary disease) Onset Date: 01/29/16 Current Visit: No Status: Acute (8) CAD (coronary artery disease) Current Visit: Yes Status: Acute - Plan Plan: 1. IV antibiotics 2. Gentle hydration 3. Anxiolytics as needed 4. Continue medication for blood pressure and COPD 5. GI and DVT prophylaxis Discharge Plan: Home Plan to discharge in: Greater than 2 days - Advance Directives Does patient have a Living Will: No Does patient have a Durable POA for Healthcare: Yes - Code Status/Comfort Care Code Status Assessed: Yes Code Status: Full Code Critical Care: No Time Spent Managing PTS Care (In Minutes): 45
--- NOTE | 2019-11-25 08:29 | RAD REPORT ---
EXAM DESCRIPTION: RAD - Chest Single View - 11/24/2019 9:34 pm CLINICAL HISTORY: Altered mental status, shortness of breath COMPARISON: March 2019 TECHNIQUE: AP portable chest image was obtained 2128 hours . FINDINGS: Lung volumes are low. Fibrotic lung changes are present. Fibrotic pattern is similar to co mparison. No acute infiltrative process identifiable. Failure and volume overload are not suspected. Heart and vasculature are normal. No measurable pleural effusion and no pneumothorax. No acute bony a bnormality seen. No acute aortic findings suspected. IMPRESSION: Limited shallow inspiration exam showing fibrotic lung pattern not substantially differe nt from comparison.
[2019-11-25] MEDS: MORPHINE 2 MG/ML SYR IV PRN ×2 (08:59→13:50)
--- NOTE | 2019-11-25 10:09 | RAD REPORT ---
EXAM DESCRIPTION: CT - Head Brain Wo Cont - 11/24/2019 10:48 pm CLINICAL HISTORY: 79 years Female, altered mental status TECHNIQUE: 5 mm axial images were obtained along with 3 mm reformatted coronal and sagittal images. This exam was performed according to our departmental dose-optimization program, which includes autom ated exposure control, adjustment of the mA and/or kV according to patient size and/or use of iterati ve reconstruction technique. COMPARISON: None. FINDINGS: No acute abnormal extracerebral fluid collections are demonstrated. The cortical sulci, ventricles, and cisterns are within normal limits. There is mild chronic bilateral periventricular microangiopathic white matter changes. There is atherosclerotic disease about the internal carotid arteries bilaterally. There are no areas of altered attenuation identified to suggest acute hemorrhage, infarction, or mass lesion. The visualized portions of the paranasal sinuses and mastoid air cells are clear. IMPRESSION: 1. No acute intracranial abnormalities. Electronically signed by: En Combs MD 11/24/2019 10:53 PM GEOPHYSICAL COMPUTER Due to temporary technical issues with the PACS/Fluency reporting system, reports are being signed by the in house radiologist as a courtesy to ensure prompt reporting. The interpreting radiologist is f ully responsible for the content of the report.
--- NOTE | 2019-11-25 10:11 | RAD REPORT ---
EXAM DESCRIPTION: CT - Chest For Pe Angio - 11/25/2019 1:29 am CLINICAL HISTORY: Hypoxia;COPD COMPARISON: CT chest December 24, 2014 TECHNIQUE: Multiple helical axial tomographic images were obtained of the chest following administra tion of intravenous contrast per angiographic protocol. MIP reformatted images were obtained. This exam was performed according to our departmental dose-optimization program, which includes autom ated exposure control, adjustment of the mA and/or kV according to patient size and/or use of iterati ve reconstruction technique. FINDINGS: Thyroid gland: There are a few rounded hypodense structures in the thyroid gland measuring up to 1 cm. Axilla: unremarkable. Pulmonary arteries: Pulmonary arteries appear patent. No evidence of pulmonary embolism. Aorta: Aortic atherosclerosis is present. No evidence of aortic dissection or aneurysm. Mediastinum: Unremarkable. No adenopathy. Heart: Heart is normal in size. Coronary artery atherosclerosis is noted. Lungs/airways: There is a rounded nodule in the left upper lobe measuring up to 1.7 cm with spiculate d densities extending to the pleural surface concerning for malignancy. There is a 0.7 cm irregular n odular density in the left upper lobe (series 5, image 16). There is a 1 cm irregular nodular density in the left upper lobe more inferiorly (series 5, image 37). No consolidation. Airways are patent. M oderate centrilobular emphysematous changes are present. Dependent atelectasis is present. Pleural spaces: No significant pleural effusion. No pneumothorax. Osseous: Degenerative changes of the spine noted. There are chronic appearing compression fractures o f T5, T8, and T10. Soft tissues: Unremarkable. Visualized abdomen: Unremarkable. IMPRESSION: 1. No evidence of pulmonary embolism. 2. Left upper lobe 1.7 cm nodule concerning for malignancy. Consider biopsy for further evaluation. 3. Additional indeterminate nodular densities in the left upper lobe as above. 4. Emphysematous changes. 5. 1.0 cm incidental thyroid nodule. No follow-up imaging is recommended. Reference: J Am Catarina Radiol . 2015 Dec;12(2): 143-50 Electronically signed by: Clayton Pascual MD 11/25/2019 2:13 AM MACHINIST 2ND SHIFT Due to temporary technical issues with the PACS/Fluency reporting system, reports are being signed by the in house radiologist as a courtesy to ensure prompt reporting. The interpreting radiologist is f omarly responsible for the content of the report.
[2019-11-25] MEDS ORDERED: SODIUM CHLORIDE 0.9% 10ML INJ IV PRN (15:04)
--- NOTE | 2019-11-25 15:14 | P.PN ---
Subjective Date of Service: 11/25/19 Primary Care Provider: unknown Chief Complaint: AMS; hypotension Subjective: Demented Physical Examination - Vital Signs Temperature: 98.7 F Blood Pressure: 106/61 Pulse: 120 Respirations: 16 Pulse Ox (%): 96 - Physical Exam General: Alert, Demented, Other (Severe dementia) HEENT: Atraumatic Neck: Supple Respiratory: Expiratory wheezes Cardiovascular: Regular rate/rhythm Gastrointestinal: Normal bowel sounds, Soft and benign, Non-distended, No tenderness, No masses, No rebound, No guarding Integumentary: Other (Muscle wasting to the upper lower extremities) Neurological: Normal speech, Dementia - Studies Laboratory Data (last 24 hrs) 11/24/19 21:15: PT 14.8 H, INR 1.27 11/24/19 21:15: WBC 19.1 H, Hgb 8.5 L, Hct 26.5 L, Plt Count 255 11/24/19 21:15: Sodium 140, Potassium 3.7, BUN 40 H, Creatinine 1.28, Glucose 112 H, Magnesium 2.2, Total Bilirubin 0.5, AST 40 H, ALT 92 H, Alkaline Phosphatase 142 H Medications List Reviewed: Yes Assessment & Plan Discharge Plan: Home Plan to discharge in: 72 Hours Physician Review Additional Text: Impression: Altered mental status likely toxic encephalopathy with possible pneumonia complicated with COPD exacerbation Acute renal injury likely from dehydration 1.7 cm left upper lobe nodule suspicious for malignancy with additional intermediate nodular densities in the left upper lobe 1.0 cm thyroid nodule Severe dementia Anemia likely of chronic disease Plan: Altered mental status likely toxic encephalopathy with possible pneumonia complicated with COPD exacerbation: Will continue with COPD medication. Will add IV Solu-Medrol. Respiratory to maintain sats above 93%. Will cover with antibiotic coverage for possible pneumonia. Will check pro calcitonin. Recheck chest x-ray. Blood cultures obtained. Will check sputum culture. Urinalysis unremarkable. Continue IV fluid hydration. Will need to discuss CT findings with family as the patient is severely demented. Will also readdress advanced directives. Patient likely not a candidate for workup for suspicious lung malignancy. Will recommend hospice. Will continue monitor closely. Acute renal injury likely from dehydration: Continue IV fluid hydration. Will check pro calcitonin. 1.7 cm left upper lobe nodule suspicious for malignancy with additional intermediate nodular densities in the left upper lobe: This appears to be malignant in nature. Patient with history of tobacco abuse. Likely lung cancer. Patient not a good candidate for workup and possible treatment in the future. Will discuss with family about advanced directives and possible hospice at discharge. 1.0 cm thyroid nodule: As above Severe dementia: Will address advanced directives and possible hospice at discharge with family. Anemia likely of chronic disease: Will monitor hemoglobin closely. Will provide PPI. Will check iron and B12 studies. Time Spent Managing Pts Care (In Minutes): 55
[2019-11-25] MEDS: METHYLPREDNISOLONE 40 MG INJ IV SCH (15:39)
[2019-11-25] MEDS: CEFTRIAXONE/SWI 1gm 1 GM/10 ML SYR IVP SCH (15:39)
[2019-11-25] MEDS: AZITHROMYCIN IV 500 MG in NA CHLORIDE 0.9% 250 ML IVPB SCH (15:40)
[2019-11-25 16:22] LABS: Ferritin 220.2 ng/mL (8-388)
[2019-11-25] MEDS ORDERED: LORazepam 2 MG/ML VIAL IV PRN (16:58)
--- NOTE | 2019-11-25 17:24 | P.PN ---
Subjective Date of Service: 11/25/19 Primary Care Provider: unknown Chief Complaint: AMS; hypotension Subjective: Other (Spoke with daughter.) Physical Examination - Vital Signs Temperature: 97.9 F Blood Pressure: 123/62 Pulse: 113 Respirations: 16 Pulse Ox (%): 98 - Studies Laboratory Data (last 24 hrs) 11/24/19 21:15: PT 14.8 H, INR 1.27 11/24/19 21:15: WBC 19.1 H, Hgb 8.5 L, Hct 26.5 L, Plt Count 255 11/24/19 21:15: Sodium 140, Potassium 3.7, BUN 40 H, Creatinine 1.28, Glucose 112 H, Magnesium 2.2, Total Bilirubin 0.5, AST 40 H, ALT 92 H, Alkaline Phosphatase 142 H Medications List Reviewed: Yes Assessment & Plan Physician Review Additional Text: Impression: Altered mental status likely toxic encephalopathy with possible pneumonia complicated with COPD exacerbation Acute renal injury likely from dehydration 1.7 cm left upper lobe nodule suspicious for malignancy with additional intermediate nodular densities in the left upper lobe 1.0 cm thyroid nodule Severe dementia Anemia likely of chronic disease Plan: Altered mental status likely toxic encephalopathy with possible pneumonia complicated with COPD exacerbation: Will continue with COPD medication. Will add IV Solu-Medrol. Respiratory to maintain sats above 93%. Will cover with antibiotic coverage for possible pneumonia. Will check pro calcitonin. Recheck chest x-ray. Blood cultures obtained. Will check sputum culture. Urinalysis unremarkable. Continue IV fluid hydration. Will need to discuss CT findings with family as the patient is severely demented. Will also readdress advanced directives. Patient likely not a candidate for workup for suspicious lung malignancy. Will recommend hospice. Will continue monitor closely. Acute renal injury likely from dehydration: Continue IV fluid hydration. Will check pro calcitonin. 1.7 cm left upper lobe nodule suspicious for malignancy with additional intermediate nodular densities in the left upper lobe: This appears to be malignant in nature. Patient with history of tobacco abuse. Likely lung cancer. Patient not a good candidate for workup and possible treatment in the future. Will discuss with family about advanced directives and possible hospice at discharge. 1.0 cm thyroid nodule: As above Severe dementia: Will address advanced directives and possible hospice at discharge with family. Anemia likely of chronic disease: Will monitor hemoglobin closely. Will provide PPI. Will check iron and B12 studies. Spoke with daughter at length. Plan of care addressed. Advanced directives also addressed. Patient is DNR. This was confirmed with daughter. Will continue to monitor closely. Will change advanced directives. If her condition continues to decline will need to consider hospice. Daughter open to the idea of this. Will continue to monitor closely. Patient had some dysphagia this afternoon. Will keep the patient NPO at this time. Will provide medication for anxiety. Time Spent Managing Pts Care (In Minutes): 35
[2019-11-25] MEDS: D5 0.45 NS 1,000 ML IV SCH (18:08)
[2019-11-25] MEDS: FORMOTEROL FUMARATE 20 MCG/2 ML VIAL.NEB NEB SCH (20:05)
[2019-11-26] MEDS: METHYLPREDNISOLONE 40 MG INJ IV SCH ×3 (03:06→17:53)
[2019-11-26 05:14] LABS: ALT/SGPT 55 U/L (12-78); AST/SGOT 16 U/L (15-37); Absolute Lymphocytes (CBC) 0.5 K/uL (0.7-4.9); Alkaline Phosphatase 157 U/L (45-117); BUN Blood Urea Nitrogen 34 mg/dL (7-18); Basophils % 0.1 % (0-1.3); Bicarbonate 31 mmol/L (21-32); Bilirubin Total 0.2 mg/dL (0.2-1.0); Glucose Level 149 mg/dL (74-106); Hematocrit 25.1 % (36.0-45.0); Lymphocytes % 3.9 % (15.3-44.8); MPV 8.1 fL (7.6-11.3); Potassium 3.8 mmol/L (3.5-5.1); Protein, Total 6.4 g/dL (6.4-8.2); RBC Red Blood Cell Count 2.75 M/uL (3.86-4.86); Sodium Level 144 mmol/L (136-145); Troponin I < 0.02 ng/mL (0.0-0.045)
[2019-11-26] MEDS ORDERED: VANCOMYCIN IVPB ONE (06:14)
[2019-11-26] MEDS ORDERED: NA CHLORIDE 0.9% IVPB ONE (06:14)
--- NOTE | 2019-11-26 06:47 | EKG ---
Test Date: 2019-11-24 Test Time: 20:33:59 Employment Evaluator/Case Manager: YANETH MEASUREMENT RESULTS: Intervals: Rate: 106 NH: 160 QRSD: 82 QT: 446 QTc: 592 [place]: P: NH: 160 QRS: -10 T: 46 INTERPRETIVE STATEMENTS: Sinus rhythm with premature supraventricular complexes and with occasional premature ventricular complexes Possible Anterior infarct, age undetermined Prolonged QT Abnormal ECG Compared to ECG 04/20/2019 13:44:55 Atrial premature complex(es) now present Ventricular premature complex(es) now present Prolonged QT interval now present Myocardial infarct finding still present Electronically Signed On 11-26-19 06:43:50 ROLL UP HELPER by Quoc Smith
[2019-11-26] MEDS ORDERED: VANCOMYCIN 1 GM in NA CHLORIDE 0.9% 250 ML IVPB ONE ×2 (07:00→08:00)
[2019-11-26] MEDS ORDERED: HYDROCODONE/APAP 7.5/325 MG TAB PO PRN (07:19)
[2019-11-26] MEDS ORDERED: TRAMADOL HCL 50 MG TAB PO PRN (07:19)
[2019-11-26] MEDS: D5 0.45 NS 1,000 ML IV SCH ×2 (07:20→20:52)
[2019-11-26] MEDS: FORMOTEROL FUMARATE 20 MCG/2 ML VIAL.NEB NEB SCH (07:53)
[2019-11-26] MEDS: ALBUTEROL 2.5 MG/3 ML NEB SOL NEB PRN (07:53)
[2019-11-26] MEDS: IPRATROPIUM BROM 0.5MG/2.5ML NEB PRN (07:53)
[2019-11-26] MEDS: METOPROLOL TAR 25 MG TAB PO SCH ×3 (08:00→20:49)
--- NOTE | 2019-11-26 08:28 | RAD REPORT ---
EXAM DESCRIPTION: RAD - Chest Single View - 11/26/2019 5:51 am CLINICAL HISTORY: COPD exacerbation, shortness of breath COMPARISON: November 25 CT chest, November 24 portable chest TECHNIQUE: AP portable chest image was obtained 0544 hours . FINDINGS: Fibrotic lung pattern again noted. Medial left upper lobe spiculated mass remains poorly v isualized on this study. The mass is closely approximated to the aortic arch. Left hemidiaphragm is p oorly visualized. Infiltrate and/ or atelectasis at the left base remains. Medial right base patchy o pacification is still present. Heart size is normal range. Vasculature within normal limits. No pneumothorax or measurable pleural fluid collection. No acute bony abnormality seen. No acute aortic findings suspected. IMPRESSION: Atelectasis and/or infiltrate at the left base. Similar or perhaps slightly worse than c omparison. Baseline COPD pattern. No CHF/volume overload suspected. Patient has a spiculated mass medial left upper lung field in proximity to the aortic arch. This mass is poorly visualized on portable chest imaging.
[2019-11-26] MEDS: CITALOPRAM 10 MG TABLET PO SCH (09:00)
[2019-11-26] MEDS: ALPRAZOLAM 0.5 MG TABLET PO SCH ×3 (09:00→20:49)
[2019-11-26] MEDS: PANTOPRAZOLE 40 MG INJ IVP SCH (10:56)
[2019-11-26] MEDS: CEFTRIAXONE/SWI 1gm 1 GM/10 ML SYR IVP SCH (10:56)
[2019-11-26] MEDS: AZITHROMYCIN IV 500 MG in NA CHLORIDE 0.9% 250 ML IVPB SCH (11:02)
--- NOTE | 2019-11-26 18:45 | P.PN ---
Subjective Date of Service: 11/26/19 Primary Care Provider: unknown Chief Complaint: AMS; hypotension Subjective: Improving Physical Examination - Vital Signs Temperature: 97.9 F Blood Pressure: 149/72 Pulse: 75 Respirations: 17 Pulse Ox (%): 97 - Physical Exam General: Alert, Demented, Other (More alert today) Neck: Supple Respiratory: Expiratory wheezes Cardiovascular: Normal pulses, Regular rate/rhythm Gastrointestinal: Normal bowel sounds, Soft and benign, Non-distended - Studies Medications List Reviewed: Yes Assessment & Plan Discharge Plan: Home (With hospice) Plan to discharge in: 48 Hours Physician Review Additional Text: Impression: Altered mental status likely toxic encephalopathy with possible pneumonia complicated with COPD exacerbation Acute renal injury likely from dehydration 1.7 cm left upper lobe nodule suspicious for malignancy with additional intermediate nodular densities in the left upper lobe 1.0 cm thyroid nodule Severe dementia Anemia likely of chronic disease Plan: Altered mental status likely toxic encephalopathy with possible pneumonia complicated with COPD exacerbation: Will continue with COPD medication. Continue current medications. Case discussed with daughter yesterday. Patient likely has underlying cancer. Workup not likely. Patient would benefit with hospice at discharge. Will talk to high school social studies teacher. Continue to monitor closely. Will advance diet once more alert. Reassess tomorrow. 1.7 cm left upper lobe nodule suspicious for malignancy with additional intermediate nodular densities in the left upper lobe: This appears to be malignant in nature. Patient with history of tobacco abuse. Likely lung cancer. Patient not a good candidate for workup and possible treatment in the future. Case discussed with family member. Patient is do not resuscitate. Patient not a good candidate for treatment. Patient would benefit with hospice at discharge. 1.0 cm thyroid nodule: As above Severe dementia: Will address advanced directives and possible hospice at discharge with family. Anemia likely of chronic disease: Will monitor hemoglobin closely. Will provide PPI. Will check iron and B12 studies. Patient may require transfusion if hemoglobin low. Time Spent Managing Pts Care (In Minutes): 55
[2019-11-26] MEDS: ARFORMOTEROL TARTRATE 15 MCG/2 ML VIAL.NEB IH SCH (20:35)
[2019-11-27] MEDS: METHYLPREDNISOLONE 40 MG INJ IV SCH ×3 (00:20→17:59)
[2019-11-27] MEDS: ARFORMOTEROL TARTRATE 15 MCG/2 ML VIAL.NEB IH SCH (07:40)
[2019-11-27] MEDS: IPRATROPIUM BROM 0.5MG/2.5ML NEB PRN (07:40)
[2019-11-27] MEDS: ALBUTEROL 2.5 MG/3 ML NEB SOL NEB PRN (07:40)
[2019-11-27] MEDS ORDERED: VANCOMYCIN 750 MG in NA CHLORIDE 0.9% 150 ML IVPB SCH ×2 (08:00→19:00)
[2019-11-27 08:31] LABS: BUN Blood Urea Nitrogen 29 mg/dL (7-18); Bicarbonate 29 mmol/L (21-32); Glucose Level 165 mg/dL (74-106); Magnesium 2.5 mg/dL (1.8-2.4); Potassium 3.5 mmol/L (3.5-5.1); Sodium Level 140 mmol/L (136-145)
[2019-11-27] MEDS: ALPRAZOLAM 0.5 MG TABLET PO SCH ×2 (09:14→13:00)
[2019-11-27] MEDS: METOPROLOL TAR 25 MG TAB PO SCH (09:14)
[2019-11-27] MEDS: PANTOPRAZOLE 40 MG INJ IVP SCH (09:14)
[2019-11-27] MEDS: CEFTRIAXONE/SWI 1gm 1 GM/10 ML SYR IVP SCH (09:14)
[2019-11-27] MEDS: CITALOPRAM 10 MG TABLET PO SCH (09:15)
[2019-11-27] MEDS: AZITHROMYCIN IV 500 MG in NA CHLORIDE 0.9% 250 ML IVPB SCH (09:16)
--- NOTE | 2019-11-27 11:34 | P.DS ---
Admission Date: 11/25/19 Discharge Date: 11/27/19 Primary Care Provider: Dr. Groves; Pulmonary-Dr. Orellana Disposition: ROUTINE DISCHARGE Discharge Condition: GOOD Reason for Admission: AMS; hypotension Consultations: Pulmonary-Dr. Orellana Procedures: CT Head: COMPARISON: None. FINDINGS: No acute abnormal extracerebral fluid collections are demonstrated. The cortical sulci, ventricles, and cisterns are within normal limits. There is mild chronic bilateral periventricular microangiopathic white matter changes. There is atherosclerotic disease about the internal carotid arteries bilaterally. There are no areas of altered attenuation identified to suggest acute hemorrhage , infarction, or mass lesion. The visualized portions of the paranasal sinuses and mastoid air cells are clear. IMPRESSION: 1. No acute intracranial abnormalities. CT Chest: FINDINGS: Thyroid gland: There are a few rounded hypodense structures in the thyroid gland measuring up to 1 cm. Axilla: unremarkable. Pulmonary arteries: Pulmonary arteries appear patent. No evidence of pulmonary embolism. Aorta: Aortic atherosclerosis is present. No evidence of aortic dissection or aneurysm. Mediastinum: Unremarkable. No adenopathy. Heart: Heart is normal in size. Coronary artery atherosclerosis is noted. Lungs/airways: There is a rounded nodule in the left upper lobe measuring up to 1.7 cm with spiculated densities extending to the pleural surface concerning for malignancy. There is a 0.7 cm irregular nodular density in the left upper lobe (series 5, image 16). There is a 1 cm irregular nodular density in the left upper lobe more inferiorly (series 5, image 37). No consolidation. Airways are patent. Moderate centrilobular emphysematous changes are present. Dependent atelectasis is present. Pleural spaces: No significant pleural effusion. No pneumothorax. Osseous: Degenerative changes of the spine noted. There are chronic appearing compression fractures of T5, T8, and T10. Soft tissues: Unremarkable. Visualized abdomen: Unremarkable. IMPRESSION: 1. No evidence of pulmonary embolism. 2. Left upper lobe 1.7 cm nodule concerning for malignancy. Consider biopsy for further evaluation. 3. Additional indeterminate nodular densities in the left upper lobe as above. 4. Emphysematous changes. 5. 1.0 cm incidental thyroid nodule. No follow-up imaging is recommended. Follow up CXR: FINDINGS: Fibrotic lung pattern again noted. Medial left upper lobe spiculated mass remains poorly visualized on this study. The mass is closely approximated to the aortic arch. Left hemidiaphragm is poorly visualized. Infiltrate and/ or atelectasis at the left base remains. Medial right base patchy opacification is still present. Heart size is normal range. Vasculature within normal limits. No pneumothorax or measurable pleural fluid collection. No acute bony abnormality seen. No acute aortic findings suspected. IMPRESSION: Atelectasis and/or infiltrate at the left base. Similar or perhaps slightly worse than comparison. Baseline COPD pattern. No CHF/volume overload suspected. Patient has a spiculated mass medial left upper lung field in proximity to the aortic arch. This mass is poorly visualized on portable chest imaging. Medical Problem List: Altered mental status likely toxic encephalopathy with possible left base pneumonia complicated with COPD exacerbation, steroid and home oxygen dependent Acute renal injury likely from dehydration 1.7 cm left upper lobe spiculated mass suspicious for malignancy with additional intermediate nodular densities in the left upper lobe 1.0 cm thyroid nodule Severe dementia Anemia of chronic disease with iron and B12 deficiency GERD Essential tremors Hypertension Chronic pain Moderate protein malnutrition Depression with anxiety Brief History of Present Illness: 79-year-old female with history of COPD, dementia and chronic pain. Patient presented with altered mental status which shortness of breath. Patient found to have COPD exacerbation with possible pneumonia. CT chest also showed left upper lung mass. Patient admitted for further evaluation and treatment. Hospital Course: Patient presented with altered mental status and shortness of breath secondary to toxic encephalopathy with possible left lobe pneumonia complicated with COPD exacerbation. 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 Patient was treated in the course of her stay. Patient has improved. Blood cultures negative. Influenza test negative. CT did reveal a 1.7 cm left upper lobe spiculated mass with additional intermediate nodular densities in the left upper lobe. This is highly suspicious for cancer. This was addressed in detail with patient and daughter. Patient likely not a candidate for further evaluation and treatment. Patient understands this. At discharge she is without significant shortness of breath. Overall improved. At discharge she will continue with doxycycline 100 mg 1 pill twice daily for 7 days. Patient will continue with prednisone 20 mg 1 pill twice daily for 5 days then 1 pill once daily for 5 days. Then she may continue with her maintenance steroid medication- prednisone 5 mg 1 pill twice daily. Patient will continue with home oxygen to maintain sats above 93%. Patient will continue with her COPD medication-Advair 1 puff twice daily, Spiriva 1 puff daily, and Pro air 2 puffs 3 times a day as needed for shortness of breath. Recommend follow up with pulmonology in 1-2 weeks to follow up this hospitalization. Recommend to recheck chest x-ray in 2-4 weeks to monitor resolution. Patient will need follow up with pulmonology to further address the lung mass. Patient also found to have 1 cm thyroid nodule. This does not look suspicious as per radiology. No further workup required. Patient had acute renal injury likely from dehydration. This improved with IV fluids. Patient with underlying dementia. Advanced directives address in detail. Patient is do not resuscitate. Patient may require hospice in the future. This was addressed in detail with patient and family. Patient with anemia of chronic disease. Patient with iron and B12 deficiency. Hemoglobin has remained between 7.8 and 8.5. No melena, rectal bleeding noted. At discharge patient will continue with iron 325 mg 1 pill daily and vitamin B12 supplementation daily. Recommend to recheck CBC and iron level in 2-4 weeks to monitor her progress. Patient with chronic pain. At discharge she will continue with her medications: [place] 10/325 mg 1 pill 4 times a day as needed for pain, gabapentin 400 mg twice daily, and Zanaflex as needed for muscle spasm. Patient with depression anxiety. This has remained stable. At discharge she will continue with Celexa 10 mg daily and Xanax 0.5 mg 3 times a day as needed for anxiety. Patient with essential tremors. At discharge she will continue with primidone 50 mg 3 times a day. Patient with GERD. At discharge she will continue with Nexium 40 mg daily. Patient with hypertension. At discharge she will continue with metoprolol 25 mg 1 pill twice daily. Patient with moderate protein malnutrition. Encourage intake. Patient may continue with Ensure supplementation. Vital Signs/Physical Exam: Temp Pulse Resp BP Pulse Ox 97.7 F 62 20 140/64 95 11/27/19 08:00 11/27/19 09:14 11/27/19 10:28 11/27/19 09:14 11/27/19 10:28 General: Alert, In no apparent distress, Cooperative HEENT: Atraumatic Neck: Supple Respiratory: Clear to auscultation bilaterally, Normal air movement Cardiovascular: Normal pulses, Regular rate/rhythm Gastrointestinal: Normal bowel sounds, Soft and benign, Non-distended Neurological: Normal speech, Normal strength at 5/5 x4 extr, Normal tone Laboratory Data at Discharge: WBC 12.5 K/uL (4.3-10.9) H D 11/26/19 04:37 Hgb 7.8 g/dL (12.0-15.0) L* 11/26/19 12:14 Hct 24.0 % (36.0-45.0) L 11/26/19 12:14 Plt Count 269 K/uL (152-406) 11/26/19 04:37 PT 14.8 SECONDS (9.5-12.5) H 11/24/19 21:15 INR 1.27 11/24/19 21:15 Sodium 140 mmol/L (136-145) 11/27/19 07:55 Potassium 3.5 mmol/L (3.5-5.1) 11/27/19 07:55 BUN 29 mg/dL (7-18) H 11/27/19 07:55 Creatinine 0.48 mg/dL (0.55-1.3) L 11/27/19 07:55 Glucose 165 mg/dL (74-106) H 11/27/19 07:55 Magnesium 2.5 mg/dL (1.8-2.4) H 11/27/19 07:55 Total Bilirubin 0.2 mg/dL (0.2-1.0) 11/26/19 04:37 AST 16 U/L (15-37) 11/26/19 04:37 ALT 55 U/L (12-78) 11/26/19 04:37 Alkaline Phosphatase 157 U/L (45-117) H 11/26/19 04:37 Troponin I < 0.02 ng/mL (0.0-0.045) 11/27/19 05:51 Home Medications: Gabapentin [Neurontin*] 400 mg PO BID 12/09/14 ALPRAZolam [Xanax*] 0.5 mg PO TID 04/18/15 Esomeprazole Mag Trihydrate [Nexium] 40 mg PO DAILY 01/28/16 Metoprolol Tartrate [Lopressor*] 25 mg PO BID #60 tab 04/02/16 Citalopram [Celexa*] 10 mg PO DAILY 06/12/18 Furosemide 20 mg PO DAILY 06/12/18 Primidone [Mysoline *] 50 mg PO TID 06/12/18 predniSONE [Prednisone*] 5 mg PO BID 06/12/18 Hydrocodone 10/APAP 325 [[place] 10/325*] 1 tab PO Q6H 04/21/19 Nitroglycerin [Nitrostat*] 0.4 mg SL Q5M PRN 04/21/19 Tizanidine HCl 4 mg PO BID PRN 04/21/19 Albuterol Sulfate [Proair Hfa] 2 puff IH TID PRN #1 hfa.aer.ad 04/22/19 Benzonatate [Tessalon [place]le*] 100 mg PO TID PRN #20 cap 04/22/19 Cyanocobalamin [Vitamin B-12*] 1,000 mcg PO DAILY #90 tab 04/22/19 Ensure Enlive 237 ml PO DAILY PRN #30 can 04/22/19 Fluticasone/Salmeterol [Advair 250-50 Diskus] 1 puff IH BID #1 blst.w.dev Guaifenesin [Mucinex] 600 mg PO BID PRN #20 tab.er.12h 04/22/19 Tiotropium [place] [Spiriva] 1 puff IH DAILY #1 cap.w.dev 04/22/19 Doxycycline Hyclate 100 mg PO BID #14 tablet 11/27/19 Ferrous Sulfate [Ferrous Sulfate*] 325 mg PO BID #60 tab 11/27/19 predniSONE [Prednisone] 20 mg PO SEECOM #15 tablet 11/27/19 New Medications: Doxycycline Hyclate 100 mg PO BID #14 tablet Ferrous Sulfate [Ferrous Sulfate*] 325 mg PO BID #60 tab predniSONE [Prednisone] 20 mg PO SEECOM #15 tablet Patient Discharge Instructions: 1. Patient may follow up with PCP within 1 week. 2. Patient presented with altered mental status and shortness of breath secondary to toxic encephalopathy with possible left lobe pneumonia complicated with COPD exacerbation. 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 Patient was treated in the course of her stay. Patient has improved. Blood cultures negative. Influenza test negative. CT did reveal a 1.7 cm left upper lobe spiculated mass with additional intermediate nodular densities in the left upper lobe. This is highly suspicious for cancer. This was addressed in detail with patient and daughter. Patient likely not a candidate for further evaluation and treatment. Patient understands this. At discharge she is without significant shortness of breath. Overall improved. At discharge she will continue with doxycycline 100 mg 1 pill twice daily for 7 days. Patient will continue with prednisone 20 mg 1 pill twice daily for 5 days then 1 pill once daily for 5 days. Then she may continue with her maintenance steroid medication- prednisone 5 mg 1 pill twice daily. Patient will continue with home oxygen to maintain sats above 93%. Patient will continue with her COPD medication-Advair 1 puff twice daily, Spiriva 1 puff daily, and Pro air 2 puffs 3 times a day as needed for shortness of breath. Recommend follow up with pulmonology in 1-2 weeks to follow up this hospitalization. Recommend to recheck chest x-ray in 2-4 weeks to monitor resolution. Patient will need follow up with pulmonology to further address the lung mass. 3. Patient also found to have 1 cm thyroid nodule. This does not look suspicious as per radiology. No further workup required. 4. Patient had acute renal injury likely from dehydration. This improved with IV fluids. 5. Patient with underlying dementia. Advanced directives address in detail. Patient is do not resuscitate. Patient may require hospice in the future. This was addressed in detail with patient and family. 6. Patient with anemia of chronic disease. Patient with iron and B12 deficiency. At discharge patient will continue with iron 325 mg 1 pill daily and vitamin B12 supplementation daily. Recommend to recheck CBC and iron level in 2-4 weeks to monitor her progress. 7. Patient with chronic pain. At discharge she will continue with her medications: [place] 10/325 mg 1 pill 4 times a day as needed for pain, gabapentin 400 mg twice daily, and Zanaflex as needed for muscle spasm. 8. Patient with depression anxiety. This has remained stable. At discharge she will continue with Celexa 10 mg daily and Xanax 0.5 mg 3 times a day as needed for anxiety. 9. Patient with essential tremors. At discharge she will continue with primidone 50 mg 3 times a day. 10. Patient with GERD. At discharge she will continue with Nexium 40 mg daily. 11. Patient with hypertension. At discharge she will continue with metoprolol 25 mg 1 pill twice daily. 12. Patient with moderate protein malnutrition. Encourage intake. Patient may continue with Ensure supplementation. Diet: AHA Activity: Fall precautions Time spent managing pt's care (in minutes): 55
[2019-11-27 11:52] VITALS: O2SAT 98
[2019-11-27 13:57] LABS: Absolute Lymphocytes (CBC) 0.4 K/uL (0.7-4.9); Hematocrit 25.4 % (36.0-45.0); MPV 7.8 fL (7.6-11.3); RBC Red Blood Cell Count 2.79 M/uL (3.86-4.86)
[2019-11-27 17:27] VITALS: BP 138/63; TEMP 97.4
[2019-11-27 20:53] LABS: Anisocytosis 2+; Blood Morphology Comment NOTED (NOT SEEN); Hypochromasia 1+; Platelet Estimate ADEQ
== END 2019-11-27 18:17 | disposition home or self-care (01) | DRG 193 ==
LOC: ER 20:27 → ERHOLD 11-25 04:27 → 4TH 11-25 05:17
PROVIDERS: ADMIT Hospitalist; ATTEND Family Medicine
DX: J18.9 Pneumonia, unspecified organism (principal); G92 Toxic encephalopathy; J44.1 Chronic obstructive pulmonary disease with (acute) exacerbation; N17.9 Acute kidney failure, unspecified; E44.0 Moderate protein-calorie malnutrition; Z68.1 Body mass index [BMI] 19.9 or less, adult; C34.92 Malignant neoplasm of unspecified part of left bronchus or lung; R91.8 Other nonspecific abnormal finding of lung field; I10 Essential (primary) hypertension; I25.10 Atherosclerotic heart disease of native coronary artery without angina pectoris; K21.9 Gastro-esophageal reflux disease without esophagitis; I73.9 Peripheral vascular disease, unspecified; I50.9 Heart failure, unspecified; F17.210 Nicotine dependence, cigarettes, uncomplicated; M19.90 Unspecified osteoarthritis, unspecified site; D72.829 Elevated white blood cell count, unspecified; D63.8 Anemia in other chronic diseases classified elsewhere; F03.90 Unspecified dementia, unspecified severity, without behavioral disturbance, psychotic disturbance, mood disturbance, and anxiety; E04.1 Nontoxic single thyroid nodule; Z99.81 Dependence on supplemental oxygen
CPT/HCPCS: 36415; 51702; 70450; 71045; 71275; 80048; 80053; 80076; 81003; 82607; 82728; 82805; 82947; 83540; 83605; 83735; 83880; 84145; 84466; 84484; 85014; 85018; 85025; 85610; 87040; 87205; 87804; 93005; 96360; 96361; 99285; C9113; J0456; J0696; J2270; J2405; J2920; J7030; J7605; J7799; Q9967

== ENCOUNTER 2020-05-21 17:51 | Inpatient (IN) | payer MEDICARE ==
--- OUTSIDE RECORDS SUMMARY | 2020-05-21 17:55 | XMS REPORT | Clinical Summary ---
:1940 Author Organization [facility] Address [address] [place] [address] Care Team Providers Name Role Phone Sharpless Primary Care Provider Allergies Active Allergy Reactions Severity Noted Date Comments Penicillins Hives, Rash High 04/10/2017 Medications Medication Sig Dispensed Refills Start Date End Date Status citalopram (CELEXA) 10 Take 10 mg by 0 Active MG tablet mouth nightly. spironolactone Take 25 mg by 0 A ctive (ALDACTONE) 25 MG mouth every tablet morning. [...] Active 25 MG mouth 2 (two) tabletIndications: high times daily. blood pressure Active Problems Problem Noted Date Back pain [...] Not on file Results Not on fileafter 05/21/2019 Insurance Payer Benefit Plan / Group Subscriber ID Type Phone A ddress [employer] xxxxxxxxx Maps Contracted Advance Directives For more information, please contact:[address] [phone] Code Status Date Activated Date Inactivated Comments Full Code 04/10/2017 7:22 PM 04/18/2017 11:10 PM This code status was determined by: Patient
--- OUTSIDE RECORDS SUMMARY | 2020-05-21 17:55 | XMS REPORT | Continuity of Care Document ---
:1940 Author Organization [facility] t Address [address] [place] [address] Care Team Providers Name Role Phone Sharpless Primary Care Physician PENNY GAMEZ Attending Clinician Unavailable PENNY GAMEZ Admitting Clinician Unavailable Problems Condition Condition Condition Status Onset Resolution Last Treating Co mments Source Name Details Category Date Date Treatment Clinician Date Back pain Back pain [facility] [place] Pneumonia Pneumonia Disease [facility] 00 [place] Right Right Disease Active [facility] lower lobe lower lobe 5-18 [facility] k[facility] - pneumonia pneumonia 00:00: [place] Depression Depression Disease Active [facility] 00 [place] Anxiety Anxiety Disease Active [facility] 00 [place] Allergies, Adverse Reactions, Alerts Allergy Allergy Status Severity Reaction(s) Onset Inactive Treating Comm ents Source Name Type Date Date Clinician Penicill Drug Active Hives, Rash [facility]: [facility] 00 [place] Social History Social Habit Start Date Stop Date Quantity Comments Source History of tobacco [facility] Sex Assigned At [facility] Cigarettes smoked 2017-04-15 2017-04-15 [facility] - current (pack per 00:00:00 00:00:00 [facility] Center day) - Reported Cigarette 2017-04-15 2017-04-[address] [facility] - pack-[facility] 00:[facility]:00 [facility]:00 [facility] Smoking Status Start Date Stop Date Source Former smoker 2017-04-15 00:00:00 2017-04-15 00:00:[address] [facility] Medications Ordered Filled Start Stop Current Ordering Indication Dosage Frequency Signature Comments Components Source Medication Medication Date Date Medication? Clinician (SIG) Name Name metoprolol Yes high blood 25mg Q.5D Take [address] [facility] (LOPRESSOR) 5-23 pressure by mouth 2 [facility] - 25 MG 20:57: (two) Medical tablet 22 times Center daily. HYDROcodone 2017 Yes 1{tbl} Take [address] -acetaminop 5-18 tablet by [facility] - hen (NORCO 20:50: mouth Medica l 10-325) 16 every 6 Center 10-325 mg (six) per tablet hours as needed for Pain. ALPRAZolam 2017 Yes .5mg Take 0.[address] [facility] (XANAX) 0.5 5-18 mg by [facility] - MG tablet 20:50: mouth 4 Medic al 16 (four) Center times daily as needed for Anxiety. QUEtiapine 2017 Yes 50mg QD Take [address] (SEROQUEL) 5-18 by mouth [facility] - 50 MG 20:50: nightly. Medical tablet 16 Center levalbutero Yes 1{puff} Inhale [address] [address] [facility] (XOPENEX 5-18 puff by [facility] - HFA) 45 20:50: mouth via Medic al mcg/actuati [address] on inhaler (two) times daily as needed for Wheezing or Shortness of Breath. gabapentin 2017- Yes 400mg Q.5D Take [address] (NEURONTIN) 5-18 mg by [facility] - 400 MG 20:50: mouth 2 Medical capsule 15 (two) Center times daily. primidone 2017-0 Yes 50mg Q.5D Take [address] (MYSOLINE) 5-18 by mouth 2 [facility] [facility] - 50 MG 20:50: (two) Medical tablet 15 times Center daily. esomeprazol 2017- Yes 40mg QD Take [address] (NEXIUM) 5-18 by mouth [facility] - 40 MG 20:50: daily. Medical capsule 15 Center citalopram Yes 10mg QD Take [address] (CELEXA) 10 5-18 by mouth Luke s - MG tablet 20:45: nightly. [facility] [place] 46 Center spironolact 2017 Yes 25mg QD Take [address] [address] one 5-18 by mouth [facility] - (ALDACTONE) 20:45: every Medic al 25 MG 46 morning. [place] tablet predniSONE 2017 Yes 5mg Take [address] [facility] (DELTASONE) 5-18 by mouth 2 Marisa kes - 5 MG tablet 20:45: (two) Medic al 46 times Center daily with breakfast and lunch. Procedures This patient has no known procedures. Results Test Description Test Time Test Comments Results Result Comments Source CBC W/PLT COUNT & AUTO DIFFERENTIAL 2017-04-15 05:50:00 Test Item Value Reference Range Interpretation Comme nts WHITE BLOOD CELL COUNT (BEAKER) (test code = 775) 5.5 K/ L 4.0- 10.0 RED BLOOD CELL COUNT (BEAKER) (test code = 761) 3.54 M/ L 4.00-5 .00 L HEMOGLOBIN (BEAKER) (test code = 410) 10.8 GM/DL 12.0-15.0 L HEMATOCRIT (BEAKER) (test code = 411) 33.5 % 36.0-45.0 L MEAN CORPUSCULAR VOLUME (BEAKER) (test code = 753) 94.8 fL 82. 0-99.0 MEAN CORPUSCULAR HEMOGLOBIN (BEAKER) (test code = 751) 30.4 pg 27.0-33.0 MEAN CORPUSCULAR HEMOGLOBIN CONC (BEAKER) (test code = 752) 32.1 GM/DL 32.0-36.0 RED CELL DISTRIBUTION WIDTH (BEAKER) (test code = 412) 12.7 % 10.3-14.2 PLATELET COUNT (BEAKER) (test code = 756) 190 K/CU MM 150-430 MEAN PLATELET VOLUME (BEAKER) (test code = 754) 6.6 fL 6.5-10 .5 NUCLEATED RED BLOOD CELLS (BEAKER) (test code = 413) 0 /100 WBC 0 -0 NEUTROPHILS RELATIVE PERCENT (BEAKER) (test code = 429) 59 % LYMPHOCYTES RELATIVE PERCENT (BEAKER) (test code = 430) 30 % MONOCYTES RELATIVE PERCENT (BEAKER) (test code = 431) 8 % EOSINOPHILS RELATIVE PERCENT (BEAKER) (test code = 432) 3 % BASOPHILS RELATIVE PERCENT (BEAKER) (test code = 437) 0 % NEUTROPHILS ABSOLUTE COUNT (BEAKER) (test code = 670) 3.23 K/ L 1.80-8.00 LYMPHOCYTES ABSOLUTE COUNT (BEAKER) (test code = 414) 1.63 K/ L 1.48-4.50 MONOCYTES ABSOLUTE COUNT (BEAKER) (test code = 415) 0.44 K/ L 0. 00-1.30 EOSINOPHILS ABSOLUTE COUNT (BEAKER) (test code = 416) 0.15 K/ L 0.00-0.50 BASOPHILS ABSOLUTE COUNT (BEAKER) (test code = 417) 0.00 K/ L 0. 00-0.20 0.00BASIC METABOLIC [id number] 05:42:00 Test Item Value Reference Range Interpretation Comments SODIUM (BEAKER) 135 meq/L 136-145 L (test code = 381) POTASSIUM (BEAKER) 4.1 meq/L 3.5-5.1 (test code = 379) CHLORIDE (BEAKER) 97 meq/L 98-107 L (test code = 382) CO2 (BEAKER) (test 31 meq/L 22-29 H code = 355) BLOOD UREA NITROGEN 21 mg/dL 7-21 (BEAKER) (test code = 354) CREATININE (BEAKER) 0.66 mg/dL 0.57-1.25 (test code = 358) GLUCOSE RANDOM 95 mg/dL 70-105 (BEAKER) (test code = 652) CALCIUM (BEAKER) 9.1 mg/dL 8.4-10.2 (test code = 697) EGFR (BEAKER) (test 88 mL/min/1.73 ESTIMA LAURO GFR IS code = 1092) sq m NOT ACCURATE CREATININE CLEARANCE IN PREDICTING GLOMERULAR FILTRATION RATE . ESTIMATED GFR I S NOT APPLICABLE FOR DIALYSIS PATIEN TS. [id number] 05:38:00 Test Item Value Reference Range Interpretation Comments PROTIME (BEAKER) (test code = 13.0 seconds 11.7-14.7 759) INR (BEAKER) (test code = 370) 1.0 <=5.9 PARTIAL THROMBOPLASTIN TIME 27.7 seconds 22.5-36.0 (BEAKER) (test code = 760) RECOMMENDED COUMADIN/WARFARIN INR THERAPY RANGESSTANDARD DOSE: 2.0 - 3.0 Includes: PROPHYLAXIS forvenous thrombosis, systemic embolization; TREATMENT for venous thrombosis and/or pulmonary embolus.HIGH RISK: Target INR is 2.5-3.5 for patients with mechanical heart valves.PROTHROMBIN [id number] 05:37:00 Test Item Value Reference Range Interpretation Comments PROTIME (BEAKER) (test code = 13.0 seconds 11.7-14.7 759) INR (BEAKER) (test code = 370) 1.0 <=5.9 RECOMMENDED COUMADIN/WARFARIN INR THERAPY RANGESSTANDARD DOSE: 2.0 - 3.0 Includes: PROPHYLAXIS forvenous thrombosis, systemic embolization; TREATMENT for venous thrombosis and/or pulmonary embolus.HIGH RISK: Target INR is 2.5-3.5 for patients with mechanical heart valves.BASIC METABOLIC [id number] 05:34:00 Test Item Value Reference Range Interpretation Comments SODIUM (BEAKER) 137 meq/L 136-145 (test code = 381) POTASSIUM (BEAKER) 4.0 meq/L 3.5-5.1 (test code = 379) CHLORIDE (BEAKER) 95 meq/L 98-107 L (test code = 382) CO2 (BEAKER) (test 34 meq/L 22-29 H code = 355) BLOOD UREA NITROGEN 20 mg/dL 7-21 (BEAKER) (test code = 354) CREATININE (BEAKER) 0.69 mg/dL 0.57-1.25 (test code = 358) GLUCOSE RANDOM 114 mg/dL 70-105 H (BEAKER) (test code = 652) CALCIUM (BEAKER) 9.4 mg/dL 8.4-10.2 (test code = 697) EGFR (BEAKER) (test 83 mL/min/1.73 ESTIMA LAURO GFR IS code = 1092) sq m NOT ACCURATE CREATININE CLEARANCE IN PREDICTING GLOMERULAR FILTRATION RATE . ESTIMATED GFR I S NOT APPLICABLE FOR DIALYSIS PATIEN TS. BASIC METABOLIC [id number] 07:18:00 Test Item Value Reference Range Interpretation Comments SODIUM (BEAKER) 134 meq/L 136-145 L (test code = 381) POTASSIUM (BEAKER) 4.1 meq/L 3.5-5.1 (test code = 379) CHLORIDE (BEAKER) 93 meq/L 98-107 L (test code = 382) CO2 (BEAKER) (test 36 meq/L 22-29 H code = 355) BLOOD UREA NITROGEN 17 mg/dL 7-21 (BEAKER) (test code = 354) CREATININE (BEAKER) 0.65 mg/dL 0.57-1.25 (test code = 358) GLUCOSE RANDOM 100 mg/dL 70-105 (BEAKER) (test code = 652) CALCIUM (BEAKER) 9.6 mg/dL 8.4-10.2 (test code = 697) EGFR (BEAKER) (test 89 mL/min/1.73 ESTIMA LAURO GFR IS code = 1092) sq m NOT ACCURATE CREATININE CLEARANCE IN PREDICTING GLOMERULAR FILTRATION RATE . ESTIMATED GFR I S NOT APPLICABLE FOR DIALYSIS PATIEN TS. URINALYSIS W/ REFLEX URINE [id number] 07:08:00 Test Item Value Reference Range Interpretation Comments COLOR (BEAKER) (test code = 470) Yellow CLARITY (BEAKER) (test code = 469) Hazy SPECIFIC GRAVITY UA (BEAKER) (test 1.035 1.001-1.035 code = 468) PH UA (BEAKER) (test code = 467) 7.0 5.0-8.0 PROTEIN UA (BEAKER) (test code = 10 mg/dL Negative A 464) GLUCOSE UA (BEAKER) (test code = Negative Negative 365) KETONES UA (BEAKER) (test code = Negative Negative 371) BILIRUBIN UA (BEAKER) (test code = Negative Negative 462) BLOOD UA (BEAKER) (test code = Negative Negative 461) NITRITE UA (BEAKER) (test code = Negative Negative 465) LEUKOCYTE ESTERASE UA (BEAKER) Small Negative A (test code = 466) UROBILINOGEN UA (BEAKER) (test 0.2 mg/dL 0.2-1.0 code = 463) RBC UA (BEAKER) (test code = 519) 1 /HPF WBC UA (BEAKER) (test code = 520) 9 /HPF BACTERIA (BEAKER) (test code = Occasional 517) MUCUS (BEAKER) (test code = 9524) Rare SQUAMOUS EPITHELIAL (BEAKER) (test 7 /HPF code = 516) SOURCE(BEAKER) (test code = 3899) BASIC METABOLIC [id number] 06:11:00 Test Item Value Reference Range Interpretation Comments SODIUM (BEAKER) 136 meq/L 136-145 (test code = 381) POTASSIUM (BEAKER) 4.4 meq/L 3.5-5.1 (test code = 379) CHLORIDE (BEAKER) 95 meq/L 98-107 L (test code = 382) CO2 (BEAKER) (test 35 meq/L 22-29 H code = 355) BLOOD UREA NITROGEN 25 mg/dL 7-21 H (BEAKER) (test code = 354) CREATININE (BEAKER) 0.66 mg/dL 0.57-1.25 (test code = 358) GLUCOSE RANDOM 116 mg/dL 70-105 H (BEAKER) (test code = 652) CALCIUM (BEAKER) 9.0 mg/dL 8.4-10.2 (test code = 697) EGFR (BEAKER) (test 88 mL/min/1.73 ESTIMA LAURO GFR IS code = 1092) sq m NOT ACCURATE CREATININE CLEARANCE IN PREDICTING GLOMERULAR FILTRATION RATE . ESTIMATED GFR I S NOT APPLICABLE FOR DIALYSIS PATIEN TS. VITAMIN D, [id number] 05:04:00 Test Item Value Reference Range Interpretation Comments VITAMIN D 25-OH (BEAKER) (test code = < ng/mL 13.0-47.8 L 2764) COMPREHENSIVE METABOLIC [id number] 22:54:00 Test Item Value Reference Range Interpretation Comments TOTAL PROTEIN 6.8 gm/dL 6.0-8.3 (BEAKER) (test code = 770) ALBUMIN (BEAKER) 3.5 g/dL 3.5-5.0 (test code = 1145) ALKALINE PHOSPHATASE 83 U/L 40-150 (BEAKER) (test code = 346) BILIRUBIN TOTAL 0.3 mg/dL 0.2-1.2 (BEAKER) (test code = 377) SODIUM (BEAKER) (test 136 meq/L 136-145 code = 381) POTASSIUM (BEAKER) 4.4 meq/L 3.5-5.1 (test code = 379) CHLORIDE (BEAKER) 95 meq/L 98-107 L (test code = 382) CO2 (BEAKER) (test 34 meq/L 22-29 H code = 355) BLOOD UREA NITROGEN 28 mg/dL 7-21 H (BEAKER) (test code = 354) CREATININE (BEAKER) 0.76 mg/dL 0.57-1.25 (test code = 358) GLUCOSE RANDOM 150 mg/dL 70-105 H (BEAKER) (test code = 652) CALCIUM (BEAKER) 9.0 mg/dL 8.4-10.2 (test code = 697) AST (SGOT) (BEAKER) 22 U/L 5-34 (test code = 353) ALT (SGPT) (BEAKER) 51 U/L 6-55 (test code = 347) EGFR (BEAKER) (test 74 mL/min/1.73 ESTIMA LAURO GFR IS code = 1092) sq m NOT ACCURATE CREATININE CLEARANCE IN PREDICTING GLOMERULAR FILTRATION RATE . ESTIMATED GFR I S NOT APPLICABLE FOR DIALYSIS PATIEN TS. PROTHROMBIN [id number] 22:38:00 Test Item Value Reference Range Interpretation Comments PROTIME (BEAKER) (test code = 13.3 seconds 11.7-14.7 759) INR (BEAKER) (test code = 370) 1.0 <=5.9 RECOMMENDED COUMADIN/WARFARIN INR THERAPY RANGESSTANDARD DOSE: 2.0 - 3.0 Includes: PROPHYLAXIS forvenous thrombosis, systemic embolization; TREATMENT for venous thrombosis and/or pulmonary embolus.HIGH RISK: Target INR is 2.5-3.5 for patients with mechanical heart valves.CBC (HEMOGRAM ONLY)[id number] 22:31:00 Test Item Value Reference Range Interpretation Comments WHITE BLOOD CELL COUNT (BEAKER) 6.5 K/ L 4.0-10.0 (test code = 775) RED BLOOD CELL COUNT (BEAKER) 3.76 M/ L 4.00-5.00 L (test code = 761) HEMOGLOBIN (BEAKER) (test code = 11.4 GM/DL 12.0-15.0 L 410) HEMATOCRIT (BEAKER) (test code = 35.5 % 36.0-45.0 L 411) MEAN CORPUSCULAR VOLUME (BEAKER) 94.6 fL 82.0-99.0 (test code = 753) MEAN CORPUSCULAR HEMOGLOBIN 30.4 pg 27.0-33.0 (BEAKER) (test code = 751) MEAN CORPUSCULAR HEMOGLOBIN CONC 32.2 GM/DL 32.0-36.0 (BEAKER) (test code = 752) RED CELL DISTRIBUTION WIDTH 13.6 % 10.3-14.2 (BEAKER) (test code = 412) PLATELET COUNT (BEAKER) (test 195 K/CU MM 150-430 code = 756) MEAN PLATELET VOLUME (BEAKER) 6.2 fL 6.5-10.5 L (test code = 754) NUCLEATED RED BLOOD CELLS 0 /100 WBC 0-0 (BEAKER) (test code = 413) 0.00CBC W/PLT COUNT & AUTO [id number] 22:31:00 Test Item Value Reference Range Interpretation Comments WHITE BLOOD CELL COUNT (BEAKER) 6.5 K/ L 4.0-10.0 (test code = 775) RED BLOOD CELL COUNT (BEAKER) 3.76 M/ L 4.00-5.00 L (test code = 761) HEMOGLOBIN (BEAKER) (test code = 11.4 GM/DL 12.0-15.0 L 410) HEMATOCRIT (BEAKER) (test code = 35.5 % 36.0-45.0 L 411) MEAN CORPUSCULAR VOLUME (BEAKER) 94.6 fL 82.0-99.0 (test code = 753) MEAN CORPUSCULAR HEMOGLOBIN 30.4 pg 27.0-33.0 (BEAKER) (test code = 751) MEAN CORPUSCULAR HEMOGLOBIN CONC 32.2 GM/DL 32.0-36.0 (BEAKER) (test code = 752) RED CELL DISTRIBUTION WIDTH 13.6 % 10.3-14.2 (BEAKER) (test code = 412) PLATELET COUNT (BEAKER) (test 195 K/CU MM 150-430 code = 756) MEAN PLATELET VOLUME (BEAKER) 6.2 fL 6.5-10.5 L (test code = 754) NUCLEATED RED BLOOD CELLS 0 /100 WBC 0-0 (BEAKER) (test code = 413) NEUTROPHILS RELATIVE PERCENT 57 % (BEAKER) (test code = 429) LYMPHOCYTES RELATIVE PERCENT 33 % (BEAKER) (test code = 430) MONOCYTES RELATIVE PERCENT 8 % (BEAKER) (test code = 431) EOSINOPHILS RELATIVE PERCENT 2 % (BEAKER) (test code = 432) BASOPHILS RELATIVE PERCENT 0 % (BEAKER) (test code = 437) NEUTROPHILS ABSOLUTE COUNT 3.66 K/ L 1.80-8.00 (BEAKER) (test code = 670) LYMPHOCYTES ABSOLUTE COUNT 2.13 K/ L 1.48-4.50 (BEAKER) (test code = 414) MONOCYTES ABSOLUTE COUNT (BEAKER) 0.52 K/ L 0.00-1.30 (test code = 415) EOSINOPHILS ABSOLUTE COUNT 0.14 K/ L 0.00-0.50 (BEAKER) (test code = 416) BASOPHILS ABSOLUTE COUNT (BEAKER) 0.02 K/ L 0.00-0.20 (test code = 417)
--- NOTE | 2020-05-21 19:26 | RAD REPORT ---
EXAM DESCRIPTION: RAD - Pelvis - 05/21/2020 6:47 pm CLINICAL HISTORY: Pelvic pain status post injury FINDINGS: Lucency is present within the greater trochanter left femur. This could represent a nondis placed fracture or prominent trabecula and should be correlated clinically to see if patient has pain in this region. The bones are osteoporotic. No dislocation
--- NOTE | 2020-05-21 19:28 | RAD REPORT ---
EXAM DESCRIPTION: RAD - Forearm Left - 05/21/2020 6:47 pm CLINICAL HISTORY: Left forearm pain status post injury FINDINGS: Calcific densities along the posterior aspect of the elbow probably chronic calcification s. Bones are osteoporotic. No fracture or dislocation seen. A laceration involves the soft tissues of the mid to distal forearm
[2020-05-21 19:38] LABS: Absolute Lymphocytes (CBC) 0.9 K/uL (0.7-4.9); Basophils % 0.5 % (0-1.3); Hematocrit 28.4 % (36.0-45.0); Lymphocytes % 8.6 % (15.3-44.8); MPV 7.5 fL (7.6-11.3); RBC Red Blood Cell Count 3.14 M/uL (3.86-4.86)
[2020-05-21 19:45] LABS: Protime INR 0.9
[2020-05-21] MEDS ORDERED: MORPHINE 2 MG/ML SYR ONE ×2 (19:54→22:22)
[2020-05-21 20:09] LABS: BUN Blood Urea Nitrogen 14 mg/dL (7-18); Bicarbonate 33 mmol/L (21-32); Glucose Level 131 mg/dL (74-106); Potassium 4.2 mmol/L (3.5-5.1); Sodium Level 142 mmol/L (136-145)
--- NOTE | 2020-05-21 20:15 | RAD REPORT ---
EXAM DESCRIPTION: CTSpine Lumbar Wo Con05/21/2020 7:53 pm CLINICAL HISTORY: Back injury with back pain status post fall COMPARISON: None TECHNIQUE: Computed axial tomography lumbar spine was obtained with coronal and sagittal reconstruct ion. All CT scans are performed using dose optimization technique as appropriate and may include automated exposure control or mA/KV adjustment according to patient size. FINDINGS: A moderate old compression deformity involves the L1 vertebral body A a moderate to marked old compression deformity involves the L2 vertebral body. Cement has been plac ed. Minimal posterior subluxation L2 on L3 No acute fracture or dislocation Minimal posterior subluxation L4 on L5 and L5 on S1 Spondylosis L3-4 results in moderate narrowing of the thecal sac Small to moderate left paracentral disc herniation L5-S1 IMPRESSION: Old compression fractures of L1 and L2 Spondylosis L3-4 resulting in moderate central spinal stenosis Small to moderate left paracentral disc herniation L5-S1
--- NOTE | 2020-05-21 20:22 | RAD REPORT ---
EXAM DESCRIPTION: CT - Pelvis Wo Cont - 05/21/2020 7:53 pm CLINICAL HISTORY: Pelvic pain status post fall TECHNIQUE: Computed axial tomography of the pelvis was obtained. Coronal and sagittal reconstruction performed All CT scans are performed using dose optimization technique as appropriate and may include automated exposure control or mA/KV adjustment according to patient size. FINDINGS: Comminuted avulsion fracture involves the greater trochanter left femur. No dislocation The bones are osteoporotic. Rectal wall appears thickened IMPRESSION: Comminuted avulsion fracture greater trochanter left femur Apparent thickening rectal wall may be secondary to inflammation, mass or incomplete distention
--- NOTE | 2020-05-21 20:31 | RAD REPORT ---
EXAM DESCRIPTION: CT - Head C Spine Mpr Wo Con - 05/21/2020 7:52 pm CLINICAL HISTORY: Head and neck injury status post fall. Head and neck pain COMPARISON: 2016 and November 2019 TECHNIQUE: Computed axial tomography of the head and cervical spine was obtained. Sagittal and coronal reconstruction was performed. All CT scans are performed using dose optimization technique as appropriate and may include automated exposure control or mA/KV adjustment according to patient size. FINDINGS: 7 millimeter low-density area has developed within the left thalamus. Mild low-density areas within periventricular, deep and subcortical white matter likely ischemic odonnell ges secondary to small vessel disease. An intracranial bleed is not seen. The ventricles are normal in caliber. An extra-axial fluid collect ion is not noted.Fluid within the visualized sinuses and mastoids is not seen A cervical fracture is not visualized. No dislocation is noted. A 3.2 centimeter left upper lobe nodule has increased in size IMPRESSION: No acute intracranial abnormality A cervical fracture is not visualized. If the patient continues to have symptoms to suggest intracra nial /spinal cord pathology then MRI would be recommended 3.2 centimeter left upper lobe nodule has increased in size probably represents neoplasm
[2020-05-21] MEDS ORDERED: NA CHLORIDE 0.9% 250 ML ONE (20:44)
[2020-05-21] MEDS ORDERED: CEFTRIAXONE/SWI 1gm 1 GM/10 ML SYR ONE (21:01)
[2020-05-21 21:20] LABS: Urine Bacteria >50 /HPF (<20); Urine Culture Reflex Order REFLEXED; Urine RBC >50 /HPF (NONE SEEN)
[2020-05-21 21:21] LABS: Urine Blood 3+ (NEG); Urine Glucose NEGATIVE (NEG); Urine Protein 3+ (NEG); Urine Specific Gravity >1.030 (1.005-1.030)
--- NOTE | 2020-05-21 21:58 | EDPHYS ---
Physician Documentation [facility] Name: Zaynab Rehman Age: 80 yrs Sex: Female : 1940 Arrival Date: 05/21/2020 Time: 17:56 Bed 8 Private MD: ED Physician Pedro Santizo HPI: 05/21 18:05 This 80 yrs old Female presents to ER via EMS with complaints of Fall Injury. cp 18:05 Details of fall: The patient fell from an upright position, while standing. Onset: The cp symptoms/episode began/occurred just prior to arrival. Associated injuries: The patient sustained injury to the low back, pain, left forearm, skin tear. Historical: - Allergies: 17:56 PENICILLINS; rb1 - PMHx: 17:56 Arthritis; COPD; Dementia; Depression; Essential Tremor; Hypertension; rb1 - PSHx: 17:56 None; rb1 - Immunization history:: Adult Immunizations unknown. - Social history:: Smoking status: unknown. ROS: 18:10 Constitutional: Negative for body aches, chills, fever, poor PO intake. cp 18:10 Eyes: Negative for injury, pain, redness, and discharge. cp 18:10 Neck: Negative for pain with movement, pain at rest. 18:10 Cardiovascular: Negative for chest pain, edema. 18:10 Respiratory: Negative for cough, shortness of breath. 18:10 Abdomen/GI: Negative for abdominal pain, nausea, vomiting, and diarrhea. 18:10 Skin: Positive for of the left forearm, skin tear. 18:10 Neuro: Negative for altered mental status, headache, loss of consciousness, syncope. 18:10 All other systems are negative. Exam: 18:15 Constitutional: The patient appears in no acute distress, alert, awake, cp non-diaphoretic, non-toxic, well developed, frail. 18:15 Head/Face: Normocephalic, atraumatic. cp 18:15 Eyes: Periorbital structures: appear normal, Pupils: equal, round, and reactive to light and accomodation, Conjunctiva: normal, no exudate, no injection, Lids and lashes: appear normal, bilaterally. 18:15 ENT: External ear(s): are unremarkable, Nose: is normal, Mouth: is normal, Posterior pharynx: is normal, airway is patent. 18:15 Neck: C-spine: vertebral tenderness, is not appreciated, crepitus, is not appreciated, ROM/movement: is normal, is supple, no nuchal rigidity. 18:15 Chest/axilla: Inspection: normal, Palpation: is normal, no crepitus, no tenderness. 18:15 Cardiovascular: Rate: tachycardic, Rhythm: regular, Edema: is not appreciated, JVD: is not appreciated. 18:15 Respiratory: the patient does not display signs of respiratory distress, Respirations: normal, no use of accessory muscles, no retractions, labored breathing, is not present, Breath sounds: are clear throughout, no decreased breath sounds. 18:15 Abdomen/GI: Inspection: abdomen appears normal, Bowel sounds: active, all quadrants, Palpation: abdomen is soft and non-tender, in all quadrants. 18:15 Back: vertebral tenderness, is not appreciated. 18:15 Musculoskeletal/extremity: Exam is negative for decreased range of motion, deformity. 18:15 Skin: injury, that can be described as irregular, without bleeding, tear left forearm. 18:15 Neuro: Orientation: to person, place, situation, Mentation: able to follow commands. 18:45 ECG was reviewed by the Attending Physician. cp Vital Signs: 17:57 BP 156 / 96; Pulse 110; Resp 19; Temp 98.3; Pulse Ox 100% on 4 lpm NC; Pain 0/10; rb1 19:48 BP 164 / 112; Pulse 108; Resp 17; Pulse Ox 100% on R/A; ea 20:30 BP 167 / 110; Pulse 104; Resp 17; Pulse Ox 100% ; ea 21:00 BP 139 / 92; Pulse 100; Resp 16; Pulse Ox 100% on R/A; ea 22:00 BP 158 / 93; Pulse 91; Resp 17; Pulse Ox 100% on R/A; ea 23:05 BP 159 / 95; Pulse 93; Resp 18; Pulse Ox 100% on R/A; ea 05/22 00:54 BP 142 / 78; Pulse 93; Resp 18; Pulse Ox 100% ; ea MDM: 05/21 17:57 Patient medically screened. cp 20:35 Data reviewed: vital signs, nurses notes, lab test result(s), EKG, radiologic studies, cp CT scan, plain films, I have discussed the patient's presentation/case with the attending Emergency Department Physician;. 20:35 Test interpretation: by ED physician or midlevel provider: ECG. 21:37 Physician consultation: Jame Cross MD was contacted at 21:37, regarding consult, cp patient's condition, and will see patient in inpatient room, tomorrow. 05/21 18:16 Order name: Urine Microscopic Only; Complete Time: 21:32 05/21 21:33 Interpretation: Reviewed. 05/21 18:17 Order name: Basic Metabolic Panel; Complete Time: 20:30 cp 05/21 20:30 Interpretation: Normal except: CO2 33; GLUC 131; CA 8.4. 05/21 18:17 Order name: CBC with Diff; Complete Time: 20:30 05/21 20:30 Interpretation: Normal except: RBC 3.14; HGB 9.1; HCT 28.4; RDW 16.1; MPV 7.5; HAIDER% cp 82.2; LYM% 8.6; NEUT A 8.6. 05/21 18:17 Order name: PT-INR; Complete Time: 20:30 05/21 18:17 Order name: Procalcitonin; Complete Time: 21:32 05/21 20:39 Order name: Urine Dipstick--Ancillary (enter results); Complete Time: 21:32 ar5 05/21 21:33 Interpretation: Normal except: USPGR >1.030; UBLD 3+; UPROT 3+; U NIT POSITIVE; UESTR cp 3+. 05/21 17:57 Order name: XRAY Forearm LEFT; Complete Time: 19:29 05/21 18:16 Order name: Pelvis XRAY; Complete Time: 19:28 05/21 21:37 Interpretation: Report reviewed. 05/21 18:17 Order name: CT Head C Spine; Complete Time: 20:34 cp 05/21 19:33 Order name: CT Lumbar Spine Wo Con; Complete Time: 20:30 05/21 19:33 Order name: CT Pelvis wo Cont; Complete Time: 20:30 05/21 21:21 Order name: Urine Culture EDIA 05/21 18:16 Order name: Urine Dipstick-Ancillary (obtain specimen); Complete Time: 20:57 05/21 18:17 Order name: EKG; Complete Time: 18:18 cp 05/21 18:17 Order name: Cardiac monitoring; Complete Time: 18:42 cp 05/21 18:17 Order name: EKG - Nurse/Tech; Complete Time: 18:43 cp 05/21 18:17 Order name: IV Saline Lock; Complete Time: 19:27 cp 05/21 18:17 Order name: Labs collected and sent; Complete Time: 19:27 cp 05/21 18:17 Order name: O2 Per Protocol; Complete Time: 18:50 cp 05/21 18:17 Order name: O2 Sat Monitoring; Complete Time: 18:50 cp EC:45 Rate is 111 beats/min. Rhythm is regular. PA interval is normal. QRS interval is cp normal. QT interval is normal. T waves are Inverted in lead aVL. Interpreted by me. Reviewed by me. Administered Medications: 19:51 Drug: morphine 1 mg Route: IVP; Site: left hand; jd3 22:00 Follow up: Response: No adverse reaction; Pain is decreased; RASS: Alert and Calm (0) ea 20:50 Drug: NS 0.9% 250 ml Route: IV; Rate: bolus; Site: left hand; ea 22:07 Follow up: Response: No adverse reaction; IV Status: Completed infusion; IV Intake: ea 250ml 20:56 Drug: Rocephin 1 grams Route: IV; Rate: calculated rate; Site: left hand; ea 22:39 Follow up: Response: No adverse reaction; IV Status: Completed infusion ea 22:15 Drug: morphine 1 mg {Note: RASS 1.} Route: IVP; Site: left hand; ea 23:06 Follow up: Response: No adverse reaction; Pain is decreased ea Disposition: 05/22 03:10 Co-signature as Attending Physician, Pedro Santizo MD. ma2 Disposition: 05/21/20 21:58 Hospitalization ordered by [facility] for Observation. Preliminary diagnosis are Fall on same level from slipping, tripping and stumbling, Unspecified trochanteric fracture of left femur, Urinary tract infection, site not specified. - Bed requested for Telemetry/MedSurg (observation). - Status is Observation. ea - Condition is Stable. - Problem is new. - Symptoms have improved. Signatures: Dispatcher [employer] EDMS Lloyd Singh PA PA cp Garcia, Cindy, RN RN Chantale Orrecca, RN RN rb1 Danni Luciano RN RN ea Davies, Jonathon, RN RN jd3 Alzahri, Mohammad, MD MD ma2 Nika Smith ar5 Corrections: (The following items were deleted from the chart) 05/21 20:30 20:30 Normal except: CO2 33; GLUC 131. cp cp 05/22 00:01 05/21 21:58 Hospitalization Ordered by [facility] for Observation. Preliminary cg diagnosis is Fall on same level from slipping, tripping and stumbling; Unspecified trochanteric fracture of left femur; Urinary tract infection, site not specified. Bed requested for Telemetry/MedSurg (observation). Status is Observation. Condition is Stable. Problem is new. Symptoms have improved. cp 05/22 00:42 00:01 05/21/2020 21:58 Hospitalization Ordered by [facility] for Observation. ar5 Preliminary diagnosis is Fall on same level from slipping, tripping and stumbling; Unspecified trochanteric fracture of left femur; Urinary tract infection, site not specified. Bed requested for Telemetry/MedSurg (observation). Status is Observation. Condition is Stable. Problem is new. Symptoms have improved. cg 01:18 00:42 05/21/2020 21:58 Hospitalization Ordered by [facility] for Observation. ea Preliminary diagnosis is Fall on same level from slipping, tripping and stumbling; Unspecified trochanteric fracture of left femur; Urinary tract infection, site not specified. Bed requested for Telemetry/MedSurg (observation). Status is Observation. Condition is Stable. Problem is new. Symptoms have improved. ar5
--- NOTE | 2020-05-21 21:58 | ER ---
Nurse's Notes [facility] Name: Zaynab Rehman Age: 80 yrs Sex: Female : 1940 Arrival Date: 05/21/2020 Time: 17:56 Bed 8 Private MD: Diagnosis: Fall on same level from slipping, tripping and stumbling;Unspecified trochanteric fracture of left femur;Urinary tract infection, site not specified Presentation: 05/21 17:57 Chief complaint: EMS states: Pt. is A \T\ O x 3, pt. fell at a hotel and received a skin rb1 tear to the left forearm. EMS applied 4x4 and Kerlix to the left forearm. NKA, History of 15% capacity of a lung. Daughter administered Nitro pill x 1 for a fast heart rate according to EMS report. Sinus Tachycardia on the 12 - Lead. BP 170/90, P 118, R 18, T 98.3, O2 sat 95% 4 L NC. Daughter reported to EMS that the pt. is a DNR, but EMS does not have any written documentation. Onset of symptoms was May 21, 2020 at 17:30. 17:57 Method Of Arrival: EMS: [facility] rb1 17:57 Acuity: CYNTHIA 3 rb1 17:57 Care prior to arrival: None. Mechanism of Injury: Fall. rb1 19:30 Coronavirus screen: Proceed with normal triage. Ebola Screen: No symptoms or risks ea identified at this time. Initial Sepsis Screen: Does the patient meet any 2 criteria? HR > 90 bpm. Does the patient have a suspected source of infection? No. Patient's initial sepsis screen is negative. Risk Assessment: Do you want to hurt yourself or someone else? Patient reports no desire to harm self or others. Historical: - Allergies: 17:56 PENICILLINS; rb1 - PMHx: 17:56 Arthritis; COPD; Dementia; Depression; Essential Tremor; Hypertension; rb1 - PSHx: 17:56 None; rb1 - Immunization history:: Adult Immunizations unknown. - Social history:: Smoking status: unknown. Screenin:57 Abuse screen: Denies threats or abuse. Nutritional screening: No deficits noted. rb1 Tuberculosis screening: No symptoms or risk factors identified. Fall Risk Fall in past 12 months (25 points). Secondary diagnosis (15 points) dementia, impaired mobility, No IV (0 pts). Ambulatory Aid- Crutches/Cane/Walker (15 pts). Gait- Impaired (20 pts.). Mental Status- Overestimates/Forgets Limitations (15 pts.). Total Monk Fall Scale indicates High Risk Score (45 or more points). Fall prevention measures have been instituted. Side Rails Up X 2 Placed Close to Nursing Station 1:1 Attendant Assigned Frequent Obs/Assessments Occuring As available patient and family educated on Fall Prevention Program and Strategies. Assessment: 17:57 General: Appears in no apparent distress. comfortable, Behavior is calm, cooperative. rb1 Pain: Denies pain. Neuro: Level of Consciousness is awake, obeys commands, confused, Oriented to person, place, situation. Cardiovascular: Capillary refill < 3 seconds. Respiratory: Airway is patent Respiratory effort is even, unlabored, Respiratory pattern is regular, symmetrical. GI: No signs and/or symptoms were reported involving the gastrointestinal system. : No signs and/or symptoms were reported regarding the genitourinary system. Derm: Skin tear noted to the left forearm. EMS applied 4x4 and Kerlix. Musculoskeletal: Range of motion: intact in all extremities. 19:15 General: Appears in no apparent distress. Behavior is calm, cooperative. Pain: ea Complains of pain in dorsal aspect of left forearm. Neuro: Level of Consciousness is awake, obeys commands, Oriented to person, place, situation. Cardiovascular: Respiratory: Airway is patent Respiratory effort is even, unlabored, Respiratory pattern is regular, symmetrical. Derm: dressing noted to the left forearm. 20:57 Reassessment: Patient and/or family updated on plan of care and expected duration. Pain ea level reassessed. Patient is alert, oriented x 3, equal unlabored respirations, skin warm/dry/pink. 22:02 Reassessment: Patient and/or family updated on plan of care and expected duration. Pain ea level reassessed. Patient is alert, oriented x 3, equal unlabored respirations, skin warm/dry/pink. Daughter at bedside. 23:30 Reassessment: Pt resting with eyes closed, respirations even and unlabored, chest ea expansions even and symmetrical. 05/22 00:56 Reassessment: Patient and/or family updated on plan of care and expected duration. Pain ea level reassessed. Patient is alert, oriented x 3, equal unlabored respirations, skin warm/dry/pink. Pt admitted to second floor. Left ED via stretcher per tech. Pt tolerating well. No s/s of pain or discomfort noted at this time. Vital Signs: 05/21 17:57 BP 156 / 96; Pulse 110; Resp 19; Temp 98.3; Pulse Ox 100% on 4 lpm NC; Pain 0/10; rb1 19:48 BP 164 / 112; Pulse 108; Resp 17; Pulse Ox 100% on R/A; ea 20:30 BP 167 / 110; Pulse 104; Resp 17; Pulse Ox 100% ; ea 21:00 BP 139 / 92; Pulse 100; Resp 16; Pulse Ox 100% on R/A; ea 22:00 BP 158 / 93; Pulse 91; Resp 17; Pulse Ox 100% on R/A; ea 23:05 BP 159 / 95; Pulse 93; Resp 18; Pulse Ox 100% on R/A; ea 05/22 00:54 BP 142 / 78; Pulse 93; Resp 18; Pulse Ox 100% ; ea ED Course: 05/21 17:56 Patient arrived in ED. rb1 17:56 Lloyd Singh PA is PHCP. cp 17:56 Jose Mcclelland MD is Attending Physician. cp 17:57 Arm band placed on right wrist. rb1 18:03 Triage completed. rb1 18:45 Lynette Gonzalez, RN is Primary Nurse. rb1 18:45 Patient has correct armband on for positive identification. Placed in gown. Bed in low mh5 position. Call light in reach. Side rails up X2. Warm blanket given. bus van driver on. Pulse ox on. NIBP on. 18:47 XRAY Forearm LEFT In Process Unspecified. EDMS 18:47 Pelvis XRAY In Process Unspecified. EDMS 19:01 Missed attempt(s): 22 gauge in left antecubital area. mh5 19:08 Attending Physician role handed off by Jose Mcclelland MD cp 19:08 Pedro Santizo MD is Attending Physician. cp 19:24 Inserted saline lock: 24 gauge in left hand, using aseptic technique. Blood collected. ea 19:53 CT Head C Spine In Process Unspecified. EDMS 19:53 CT Lumbar Spine Wo Con In Process Unspecified. EDMS 19:53 CT Pelvis wo Cont In Process Unspecified. EDMS 20:59 Dressings: Skin tear cleansed with normal saline, Steri strips placed on skin tear to ea left forearm, pt tolerated well. 21:56 [facility] is Hospitalizing Provider. cp 22:05 No provider procedures requiring assistance completed. Patient admitted, IV remains in ea place. Administered Medications: 19:51 Drug: morphine 1 mg Route: IVP; Site: left hand; jd3 22:00 Follow up: Response: No adverse reaction; Pain is decreased; RASS: Alert and Calm (0) ea 20:50 Drug: NS 0.9% 250 ml Route: IV; Rate: bolus; Site: left hand; ea 22:07 Follow up: Response: No adverse reaction; IV Status: Completed infusion; IV Intake: ea 250ml 20:56 Drug: Rocephin 1 grams Route: IV; Rate: calculated rate; Site: left hand; ea 22:39 Follow up: Response: No adverse reaction; IV Status: Completed infusion ea 22:15 Drug: morphine 1 mg {Note: RASS 1.} Route: IVP; Site: left hand; ea 23:06 Follow up: Response: No adverse reaction; Pain is decreased ea Intake: 22:07 IV: 250ml; Total: 250ml. ea Outcome: 21:58 Decision to Hospitalize by Provider. cp 22:05 Instructed on the need for admit, Demonstrated understanding of instructions. ea 05/22 00:53 Admitted to Med/surg accompanied by tech, via stretcher, room 201, with chart, Report ea called to Receiving nurse on second floor. Condition: stable 01:18 Patient left the ED. ea Signatures: Dispatcher [employer] EDWA Lloyd Singh PA PA cp Barber, Rebecca, RN RN Giana Zee [facility] Danni Luciano RN RN ea Davies, Jonathon, RN RN jd3
--- NOTE | 2020-05-21 23:44 | P.HP ---
Certification for Inpatient Patient admitted to: Inpatient With expected LOS: >2 Midnights Practitioner: I am a practitioner with admitting privileges, knowledge of patient current condition, hospital course, and medical plan of care. Services: Services provided to patient in accordance with Admission requirements found in Title 42 Section 412.3 of the Code of Federal Regulations Patient History Date of Service: 05/21/20 Reason for admission: Inability to walk History of Present Illness: 80-year-old woman with a history of severe emphysema, lung nodule suspected to be cancer and dementia was brought to the emergency department due to inability to walk secondary to pain. Daughter was present by her bedside mentioned patient suddenly developed pain and was unable to get up and walk. Patient reports previous falls. CT of the pelvis done in the ED and demonstrate divorce of fracture of the left to Femoral trochanter. Dr. Lainez orthopedic surgery informed, patient admitted for further management. Allergies Penicillins Allergy (Mild, Verified 02/16/15 15:13) Hives Home Medications: Gabapentin [Neurontin*] 400 mg PO BID 12/09/14 ALPRAZolam [Xanax*] 0.5 mg PO TID 04/18/15 Esomeprazole Mag Trihydrate [Nexium] 40 mg PO DAILY 01/28/16 Metoprolol Tartrate [Lopressor*] 25 mg PO BID #60 tab 04/02/16 Citalopram [Celexa*] 10 mg PO DAILY 06/12/18 Furosemide 20 mg PO DAILY 06/12/18 Primidone [Mysoline *] 50 mg PO TID 06/12/18 predniSONE [Prednisone*] 5 mg PO BID 06/12/18 Hydrocodone 10/APAP 325 [Vass 10/325*] 1 tab PO Q6H 04/21/19 Nitroglycerin [Nitrostat*] 0.4 mg SL Q5M PRN 04/21/19 Tizanidine HCl 4 mg PO BID PRN 04/21/19 Albuterol Sulfate [Proair Hfa] 2 puff IH TID PRN #1 hfa.aer.ad 04/22/19 Benzonatate [Tessalon Perle*] 100 mg PO TID PRN #20 cap 04/22/19 Cyanocobalamin [Vitamin B-12*] 1,000 mcg PO DAILY #90 tab 04/22/19 Ensure Enlive 237 ml PO DAILY PRN #30 can 04/22/19 Fluticasone/Salmeterol [Advair 250-50 Diskus] 1 puff IH BID #1 blst.w.dev 04/22/19 Guaifenesin [Mucinex] 600 mg PO BID PRN #20 tab.er.12h 04/22/19 Tiotropium [place] [Spiriva] 1 puff IH DAILY #1 cap.w.dev 04/22/19 Doxycycline Hyclate 100 mg PO BID #14 tablet 11/27/19 Ferrous Sulfate [Ferrous Sulfate*] 325 mg PO BID #60 tab 11/27/19 predniSONE [Prednisone] 20 mg PO SEECOM #15 tablet 11/27/19 - Past Medical/Surgical History Diabetic: No -: Hypertension -: COPD, chronic oxygen and steroid dependent -: CAD -: CHF -: Depression with anxiety -: GERD -: Peripheral vascular disease -: Essential tremors -: Chronic pain -: bladder suspension -: carpal tunnel repair -: bilateral knee surgery -: 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 Physical Examination - Physical Exam General: Oriented x2, Other (Awake,) HEENT: Atraumatic, Mucous membr. moist/pink, Sclerae nonicteric Neck: Supple, JVD not distended Respiratory: Clear to auscultation bilaterally, Normal air movement Cardiovascular: No edema, Regular rate/rhythm, Normal S1 S2 Capillary refill: <2 Seconds Gastrointestinal: Normal bowel sounds, Soft and benign, No tenderness Musculoskeletal: No swelling, No erythema, Other (Left leg is laterally rotated) Integumentary: No rashes, No erythema Neurological: Normal speech, Cranial nerves 3-12 intact - Studies Laboratory Data (last 24 hrs) 05/21/20 19:24: PT 10.6, INR 0.90 05/21/20 19:24: WBC 10.4, Hgb 9.1 L, Hct 28.4 L, Plt Count 197 05/21/20 19:24: Sodium 142, Potassium 4.2, BUN 14, Creatinine 0.58, Glucose 131 H Assessment and Plan - Problems (Diagnosis) (1) Femoral fracture Current Visit: Yes Status: Acute (2) Falls Current Visit: Yes Status: Acute (3) Rectal mass Current Visit: Yes Status: Acute (4) Pulmonary nodule Current Visit: Yes Status: Acute (5) Chronic respiratory failure with hypoxia Current Visit: Yes Status: Acute (6) Pulmonary emphysema Current Visit: Yes Status: Acute - Plan Admit to the medical floor. Supportive measures with IV hydration. IV opioids for pain. Consult orthopedic surgery. Consult to pulmonary for preop evaluation. Hold Lasix Continue oral Prednisone Scheduled bronchodilators. DVT prophylaxis. - Advance Directives Does patient have a Living Will: No Does patient have a Durable POA for Healthcare: Yes - Code Status/Comfort Care Code Status Assessed: Yes Code Status: Do Not Attempt Resuscitat
[2020-05-22 01:17] VITALS: BMI 20.5
[2020-05-22] MEDS ORDERED: NA CHLORIDE 0.9% 1,000 ML IV SCH (01:21)
[2020-05-22] MEDS ORDERED: ACETAMINOPHEN 500 MG TAB PO PRN (01:21)
[2020-05-22] MEDS: IPRATROPIUM BROM 0.5MG/2.5ML NEB SCH ×2 (02:10→07:56)
[2020-05-22] MEDS: ALBUTEROL 2.5 MG/3 ML NEB SOL NEB SCH ×2 (02:10→07:56)
[2020-05-22] MEDS: MORPHINE 2 MG/ML SYR IV PRN ×2 (02:32→18:02)
[2020-05-22] MEDS ORDERED: Levofloxacin 750mg IV 750 MG/150 ML BAG IV SCH (03:00)
[2020-05-22 06:14] LABS: Absolute Lymphocytes (CBC) 1.2 K/uL (0.7-4.9); Basophils % 0.5 % (0-1.3); Hematocrit 26.8 % (36.0-45.0); Lymphocytes % 17.6 % (15.3-44.8); RBC Red Blood Cell Count 2.95 M/uL (3.86-4.86)
[2020-05-22 06:32] LABS: BUN Blood Urea Nitrogen 12 mg/dL (7-18); Bicarbonate 33 mmol/L (21-32); Glucose Level 100 mg/dL (74-106); Magnesium 2.4 mg/dL (1.8-2.4); Phosphorus 3.3 mg/dL (2.5-4.9); Potassium 3.7 mmol/L (3.5-5.1); Sodium Level 141 mmol/L (136-145)
[2020-05-22] MEDS ORDERED: KCL 20 MEQ/100 mL IVPB 20 MEQ/100 ML BAG IV SCH (08:00)
[2020-05-22] MEDS ORDERED: ALBUTEROL 2.5 MG/3 ML NEB SOL NEB PRN (08:42)
[2020-05-22] MEDS ORDERED: ENOXAPARIN 40 MG/0.4 ML SQ SCH (09:00)
[2020-05-22] MEDS: ARFORMOTEROL TARTRATE 15 MCG/2 ML VIAL.NEB NEB SCH ×2 (09:07→20:10)
[2020-05-22] MEDS ORDERED: MORPHINE 2 MG/ML SYR IV ONE (09:23)
[2020-05-22] MEDS ORDERED: LORazepam 2 MG/ML VIAL IV PRN (12:40)
--- NOTE | 2020-05-22 12:42 | P.CNS ---
Date of Consult: 05/22/20 Reason for Consult: Recent fall fracture of the hip Chief Complaint: History of COPD History of Present Illness: Patient is 80 years of age fell and fractured her hip currently complaining of some discomfort otherwise stable she has a history of COPD on nasal cannula oxygen compliant with the bronchodilators Allergies Penicillins Allergy (Mild, Verified 02/16/15 15:13) Hives Home Medications: Albuterol Sulfate [Proair Hfa] 8.5 gm IH BIDP PRN 05/22/20 Alprazolam [Xanax] 1 mg PO TID 05/22/20 Citalopram Hydrobromide [Citalopram HBr] 10 mg PO DAILY 05/22/20 Esomeprazole Magnesium 40 mg PO DAILY 05/22/20 Furosemide [Lasix] 20 mg PO DAILY 05/22/20 Gabapentin 600 mg PO BID 05/22/20 Hydrocodone Bit/Acetaminophen [Hydrocodon-Acetaminophn 10-325] 1 each PO Q4HP PRN 05/22/20 Ipratropium/Albuterol Sulfate [Combivent Respimat Inhal Brady] 4 gm IH BID 05/22/20 Ipratropium/Albuterol Sulfate [Iprat-Albut 0.5-3(2.5) mg/3 ml] 3 ml IH PRN PRN 05/22/20 Metoprolol Tartrate [Lopressor] 25 mg PO BID 05/22/20 Montelukast [Singulair] 10 mg PO DAILY 05/22/20 Nitroglycerin [Nitrostat] 0.4 mg SL Q5M PRN 05/22/20 Primidone [Mysoline] 50 mg PO TID 05/22/20 Quetiapine Fumarate [Seroquel] 50 mg PO BEDTIME 05/22/20 Tizanidine HCl 4 mg PO BIDP PRN 05/22/20 Umeclidinium Brm/Vilanterol Tr [Anoro Ellipta 62.5-25 Mcg INH] 1 puff IH BID 05/22/20 predniSONE [Deltasone] 5 mg PO BID 05/22/20 - Past Medical/Surgical History Diabetic: No -: Hypertension -: COPD, chronic oxygen and steroid dependent -: CAD -: CHF -: Depression with anxiety -: GERD -: Peripheral vascular disease -: Essential tremors -: Chronic pain -: bladder suspension -: carpal tunnel repair -: bilateral knee surgery -: 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 -: Peripheral vascular disease Psychosocial/ Personal History: Lives with the daughter - Family History Mom Medical History: Cancer Notes: stomach - Social History Smoking Status: Unknown if ever smoked Alcohol use: No CD- Drugs: No Caffeine use: Yes Place of Residence: Home Review of Systems General: Weakness Respiratory: Shortness of Breath Musculoskeletal: As per HPI Physical Examination Temp Pulse Resp BP Pulse Ox 96.9 F 86 18 137/60 96 05/22/20 08:00 05/22/20 08:00 05/22/20 11:59 05/22/20 08:00 05/22/20 11:59 General: Alert Neck: Supple Cardiovascular: No edema Gastrointestinal: Normal bowel sounds, Soft and benign Musculoskeletal: No clubbing Integumentary: No rashes Laboratory Data (last 24 hrs) 05/21/20 19:24: PT 10.6, INR 0.90 05/21/20 19:24: WBC 10.4, Hgb 9.1 L, Hct 28.4 L, Plt Count 197 05/21/20 19:24: Sodium 142, Potassium 4.2, BUN 14, Creatinine 0.58, Glucose 131 H - Problems (1) COPD (chronic obstructive pulmonary disease) Current Visit: Yes Status: Acute Plan: Patient is 80 years of age admitted with Comminuted avulsion fracture greater trochanter left femur patient is currently stable status COPD stable stable for surgery chemistries reviewed mildly anemic normocytic anemia continue with bronchodilators
[2020-05-22] MEDS ORDERED: TIZANIDINE 4 MG TABLET PO PRN (13:57)
--- NOTE | 2020-05-22 14:06 | P.PN ---
Subjective Date of Service: 05/22/20 Chief Complaint: History of COPD Subjective: Improving, Doing well, Other (Patient reports pain) Physical Examination - Vital Signs Temperature: 97.2 F Blood Pressure: 126/63 Pulse: 94 Respirations: 16 Pulse Ox (%): 99 - Physical Exam General: Alert, Cooperative, Other (Increase anxiety noted) HEENT: Atraumatic Neck: Supple Respiratory: Clear to auscultation bilaterally, Normal air movement Cardiovascular: Normal pulses, Regular rate/rhythm Gastrointestinal: Normal bowel sounds, Soft and benign, Non-distended Integumentary: No erythema, No warmth, No cyanosis Neurological: Normal speech, Normal strength at 5/5 x4 extr, Normal tone, Other (Increase anxiety noted) - Studies Laboratory Data (last 24 hrs) 05/21/20 19:24: PT 10.6, INR 0.90 05/21/20 19:24: WBC 10.4, Hgb 9.1 L, Hct 28.4 L, Plt Count 197 05/21/20 19:24: Sodium 142, Potassium 4.2, BUN 14, Creatinine 0.58, Glucose 131 H Medications List Reviewed: Yes Assessment & Plan Discharge Plan: Home Plan to discharge in: 24 Hours Physician Review Additional Text: Impression: Fall with noted comminuted avulsion fracture of the left greater trochanter femur COPD on chronic oxygen and steroids Hypertension Depression with anxiety History of CHF likely diastolic 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 Orthopedics reports this is nonsurgical. Recommends physical therapy to immobilize. Weightbearing as tolerated. Patient desires to go home at discharge. Spoke with daughter who was present. Will pursue home health and physical therapy at discharge. Likely home as early as tomorrow. Fall precautions in place. COPD on chronic oxygen and steroids: Continue COPD medication. Case discussed with pulmonology. Hypertension: Continue medication Depression with anxiety: Continue medication History of CHF likely diastolic: Patient stable this time. Hold Lasix at this time. 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 No intervention recommended at this time. Chronic pain with history of degenerative disc disease and spinal stenosis: Continue home medication. Limit IV pain medication Anemia of chronic disease: Will monitor closely. Time Spent Managing Pts Care (In Minutes): 55
[2020-05-22] MEDS: PRIMIDONE 50 MG TAB PO SCH ×2 (14:15→20:04)
[2020-05-22] MEDS: ALPRAZOLAM 1 MG TABLET PO SCH ×2 (14:15→20:04)
[2020-05-22] MEDS: GABAPENTIN 300 MG CAP PO SCH (20:03)
[2020-05-22] MEDS: METOPROLOL TAR 25 MG TAB PO SCH (20:03)
[2020-05-22] MEDS: QUETIAPINE 25 MG TAB PO SCH (20:04)
[2020-05-22] MEDS: predniSONE 5 MG TAB PO SCH (20:04)
[2020-05-22 23:33] LABS: Arterial Blood Carboxyhemoglob 1.8 % (0-1.5); Blood Gas Oxyhemoglobin 94.5 % (94-97); Blood O2 Saturation 97.3 % (92-98.5)
[2020-05-23] MEDS ORDERED: Levofloxacin500mg IV 500 MG/100 ML BAG IV SCH (03:00)
--- NOTE | 2020-05-23 03:03 | CON ---
Date of Consultation: 05/22/2020 Reason For Consultation: Left hip pain. History Of Present Illness: Zaynab is a 80-year-old female, who was brought to the emergency [facility] last night after she sustained a fall. Patient had a CAT scan in the emergency room, which demons trated a minimally displaced comminuted left greater trochanter fracture of her femur. Patient was h aving difficulty ambulating and was admitted for further evaluation and physical therapy. She does r eport history of multiple falls in the past. Review of Systems: As above, otherwise negative. Past Medical History: Hypertension, COPD, CAD, CHF, depression, GERD, peripheral vascular disease. Past Surgical History: Carpal tunnel, bilateral knee surgery, and bladder suspension. Allergies: PENICILLIN. Social History: Denies tobacco or alcohol use. Home Medications: Per medication reconciliation form. Physical Examination: General: No apparent distress. HEENT: Normocephalic, atraumatic. Neck: Supple. Cardiovascular: Brisk cap refill to all digits. Chest: Nonlabored breathing. Abdomen: Nondistended. Psychiatric: Responsive to exam. Musculoskeletal: Bilateral upper extremities with functional range of motion without pain of her anu ateral elbows, shoulders, wrists. She does have a bandage over her left forearm, where her laceratio n was treated in the emergency room. Moves all her digits grossly. Right lower extremity with funct ional range of motion without pain of the right hip, knee, and ankle. No gross deformities. No obvi ous dislocations. Left lower extremity with tenderness to palpation over the left greater trochanter . No pain with internal or external rotation of the hip. No tenderness to palpation of the knee, fo ot, or ankle. Neurovascularly intact distally. X-rays: Diagnostic imaging of her left hip demonstrates a minimally displaced comminuted left greate r trochanteric femur fracture. Assessment And Plan: Ms. Rehman is a 80-year-old female with a left greater trochanter fracture of h er left femur. I discussed with the patient at length that her diagnosis is a stable fracture patter n. No surgical intervention is indicated at this time. She may be weightbearing as tolerated on her left lower extremity. Physical Therapy will be consulted. She may follow up in my clinic in 2 week s for followup and x-rays of her left hip. CV/MODL Voice ID: [id number] Report ID: [id number]
[2020-05-23] MEDS ORDERED: NA CHLORIDE 0.9% 250 ML IV PRN (04:03)
[2020-05-23] MEDS ORDERED: NA CHLORIDE 0.9% 1,000 ML IV SCH (05:00)
[2020-05-23 05:24] LABS: Blood Gas Oxyhemoglobin 92.6 % (94-97); Blood O2 Saturation 95.6 % (92-98.5)
[2020-05-23 05:57] LABS: Absolute Lymphocytes (CBC) 1.1 K/uL (0.7-4.9); Basophils % 0.4 % (0-1.3); MPV 7.6 fL (7.6-11.3); RBC Red Blood Cell Count 3.21 M/uL (3.86-4.86)
[2020-05-23 06:05] LABS: BUN Blood Urea Nitrogen 10 mg/dL (7-18); Bicarbonate 31 mmol/L (21-32); Glucose Level 99 mg/dL (74-106); Potassium 4.5 mmol/L (3.5-5.1); Sodium Level 142 mmol/L (136-145)
[2020-05-23 07:13] LABS: Blood Morphology Comment NOT SEEN (NOT SEEN); Platelet Estimate ADEQ; Urine White Blood Cell Casts OK
[2020-05-23] MEDS: IPRATROPIUM BROM 0.5MG/2.5ML NEB PRN (07:30)
[2020-05-23] MEDS: ARFORMOTEROL TARTRATE 15 MCG/2 ML VIAL.NEB NEB SCH ×2 (07:30→19:55)
--- NOTE | 2020-05-23 08:04 | RAD REPORT ---
EXAM DESCRIPTION: Michelle Single View05/22/2020 11:17 pm CLINICAL HISTORY: Shortness breath COMPARISON: 2019 FINDINGS: Left basilar opacity with small pleural effusion Right lung appears clear of acute infiltrate. Heart is mildly enlarged IMPRESSION: Left basilar opacity likely pneumonia
[2020-05-23] MEDS ORDERED: HOME MED 1 EA UNK (Esomeprazole Magnesium [Esomeprazole Magnesium] 40 MG) PO SCH (09:00)
[2020-05-23] MEDS: GABAPENTIN 300 MG CAP PO SCH ×2 (09:01→20:27)
[2020-05-23] MEDS: PANTOPRAZOLE 40MG TABLET PO SCH (09:02)
[2020-05-23] MEDS: predniSONE 5 MG TAB PO SCH (09:02)
[2020-05-23] MEDS: ALPRAZOLAM 1 MG TABLET PO SCH ×3 (09:02→20:28)
[2020-05-23] MEDS: CITALOPRAM 10 MG TABLET PO SCH (09:02)
[2020-05-23] MEDS: MONTELUKAST 10 MG TAB PO SCH (09:02)
[2020-05-23] MEDS: METOPROLOL TAR 25 MG TAB PO SCH ×2 (09:03→20:28)
[2020-05-23] MEDS: PRIMIDONE 50 MG TAB PO SCH ×3 (09:08→20:27)
[2020-05-23] MEDS: HYDROCODONE/APAP 10/325 TAB PO PRN (09:09)
--- NOTE | 2020-05-23 15:29 | P.PN ---
Subjective Date of Service: 05/23/20 Chief Complaint: History of COPD Subjective: Improving, Doing well Physical Examination - Vital Signs Temperature: 98.5 F Blood Pressure: 99/52 Pulse: 78 Respirations: 16 Pulse Ox (%): 96 - Physical Exam General: Alert, In no apparent distress, Oriented x3, Cooperative HEENT: Atraumatic Neck: Supple Respiratory: Clear to auscultation bilaterally, Normal air movement Cardiovascular: Normal pulses, Regular rate/rhythm Gastrointestinal: Normal bowel sounds, No masses, No rebound, No guarding Integumentary: No erythema, No warmth, No cyanosis Neurological: Normal speech, Normal strength at 5/5 x4 extr, Normal tone - Studies Medications List Reviewed: Yes Assessment & Plan Discharge Plan: Home (Home health with physical therapy with possible hospice in the future) - Code Status/Comfort Care Code Status Assessed: Yes (Address in detail) Code Status: Do Not Attempt Resuscitat Physician Review Additional Text: Impression: Fall with noted comminuted avulsion fracture of the left greater trochanter femur COPD on chronic oxygen and steroids UTI Hypertension Depression with anxiety History of CHF likely diastolic 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 Orthopedics reports this is nonsurgical. Recommends physical therapy to immobilize. Weightbearing as tolerated. Spoke with the daughter in detail along with patient. Patient wishes to go home. Will arrange for home health and physical therapy. Also add ressed advance directives yesterday. Patient is do not resuscitate. Will need to consider hospice in the future if further needs are required. Will speak with psychologist social to help arrange this. Advanced care planning address-15 min COPD on chronic oxygen and steroids: Continue COPD medication. Case discussed with pulmonology. UTI: Urine culture is showing Gram-negative rods. Will start Levaquin. Await urine culture results. Hypertension: Continue medication. Blood pressure slightly low. Will decrease metoprolol. Will adjust medication accordingly. Depression with anxiety: Continue medication History of CHF likely diastolic: Patient stable this time. Restart Lasix. Will check chest x-ray. 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 No intervention recommended at this time. Pulmonology recommended no further intervention and evaluation. Chronic pain with history of degenerative disc disease and spinal stenosis: Continue home medication. Limit IV pain medication Anemia of chronic disease: Will monitor closely. Time Spent Managing Pts Care (In Minutes): 55
[2020-05-23] MEDS: Levofloxacin500mg IV 500 MG/100 ML BAG IV SCH (17:55)
[2020-05-23] MEDS: NACHLORIDE 0.45% 1,000 ML IV SCH (17:55)
[2020-05-23] MEDS: QUETIAPINE 25 MG TAB PO SCH (20:27)
[2020-05-23] MEDS: predniSONE 10 MG TAB PO SCH (20:28)
[2020-05-24 05:26] LABS: Arterial Blood Carboxyhemoglob 1.9 % (0-1.5); Blood Gas Oxyhemoglobin 93.9 % (94-97)
[2020-05-24] MEDS: ARFORMOTEROL TARTRATE 15 MCG/2 ML VIAL.NEB NEB SCH ×2 (07:37→19:45)
[2020-05-24] MEDS: PRIMIDONE 50 MG TAB PO SCH ×3 (09:37→20:02)
[2020-05-24] MEDS: ALPRAZOLAM 1 MG TABLET PO SCH ×3 (09:37→20:02)
[2020-05-24] MEDS: MONTELUKAST 10 MG TAB PO SCH (09:37)
[2020-05-24] MEDS: METOPROLOL TAR 25 MG TAB PO SCH ×2 (09:38→20:03)
[2020-05-24] MEDS: GABAPENTIN 300 MG CAP PO SCH ×2 (09:39→20:02)
[2020-05-24] MEDS: PANTOPRAZOLE 40MG TABLET PO SCH (09:39)
[2020-05-24] MEDS: predniSONE 10 MG TAB PO SCH ×2 (09:39→20:03)
[2020-05-24] MEDS: CITALOPRAM 10 MG TABLET PO SCH (09:40)
[2020-05-24] MEDS: FUROSEMIDE 20 MG TABLET PO SCH (09:40)
[2020-05-24] MEDS: NACHLORIDE 0.45% 1,000 ML IV SCH (09:41)
[2020-05-24] MEDS: Levofloxacin500mg IV 500 MG/100 ML BAG IV SCH (16:08)
--- NOTE | 2020-05-24 17:11 | P.PN ---
Subjective Date of Service: 05/24/20 Chief Complaint: History of COPD Subjective: Doing well Physical Examination - Vital Signs Temperature: 98.2 F Blood Pressure: 113/57 Pulse: 73 Respirations: 16 Pulse Ox (%): 100 - Physical Exam General: Alert, Cooperative HEENT: Atraumatic Neck: Supple Respiratory: Clear to auscultation bilaterally, Normal air movement Cardiovascular: Normal pulses, Regular rate/rhythm Gastrointestinal: Normal bowel sounds, No tenderness, No masses, No rebound, No guarding Musculoskeletal: No tenderness, No warmth Integumentary: No erythema, No warmth, No cyanosis Neurological: Normal speech, Normal strength at 5/5 x4 extr, Normal tone, Normal affect - Studies Microbiology Data (last 24 hrs): 05/21/20 20:34 Clean Catch Urine [place] Count - Final >100,000 CFU/ML. 05/21/20 20:34 Clean Catch Urine - Final Proteus Mirabilis Medications List Reviewed: Yes Assessment & Plan Discharge Plan: Home Plan to discharge in: 24 Hours Physician Review Additional Text: Impression: Fall with noted comminuted avulsion fracture of the left greater trochanter femur COPD on chronic oxygen and steroids UTI Hypertension Depression with anxiety History of CHF likely diastolic History of lung mass suspect cancer Chronic pain with history of degenerative disc disease and spinal stenosis Anemia of chronic disease Plan: Fall with noted comminuted avulsion fracture of the left greater trochanter fe mur: Patient was evaluated by orthopedics. Orthopedics reports this is nonsurgical. Recommends physical therapy to immobilize. Weightbearing as tolerated. Spoke with the daughter in detail along with patient. Patient wishes to go home. Will arrange for home health and physical therapy. Social work to work on getting patient at home. Need to discuss with family about options. Spoke to family about advanced directives and planning. She is DNR. COPD on chronic oxygen and steroids: Continue COPD medication. Case discussed with pulmonology. UTI, urine culture-Proteus: Will change to PO Levaquin. Hypertension: Continue medication. Blood pressure slightly low. Will decrease metoprolol. Will adjust medication accordingly. Depression with anxiety: Continue medication History of CHF likely diastolic: Patient stable this time. 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 No intervention recommended at this time. Pulmonology recommended no further intervention and evaluation. Chronic pain with history of degenerative disc disease and spinal stenosis: Continue home medication. Limit IV pain medication Anemia of chronic disease: Will monitor closely. Time Spent Managing Pts Care (In Minutes): 55
[2020-05-24] MEDS: HYDROCODONE/APAP 10/325 TAB PO PRN ×2 (18:48→22:41)
[2020-05-24] MEDS: QUETIAPINE 25 MG TAB PO SCH (20:02)
[2020-05-25] MEDS: ARFORMOTEROL TARTRATE 15 MCG/2 ML VIAL.NEB NEB SCH ×2 (07:43→20:05)
[2020-05-25] MEDS: PANTOPRAZOLE 40MG TABLET PO SCH (08:53)
[2020-05-25] MEDS: GABAPENTIN 300 MG CAP PO SCH ×2 (08:53→20:26)
[2020-05-25] MEDS: MONTELUKAST 10 MG TAB PO SCH (08:53)
[2020-05-25] MEDS: CITALOPRAM 10 MG TABLET PO SCH (08:54)
[2020-05-25] MEDS: PRIMIDONE 50 MG TAB PO SCH ×3 (08:54→20:26)
[2020-05-25] MEDS: FUROSEMIDE 20 MG TABLET PO SCH (08:54)
[2020-05-25] MEDS: METOPROLOL TAR 25 MG TAB PO SCH ×2 (08:55→20:27)
[2020-05-25] MEDS: predniSONE 10 MG TAB PO SCH ×2 (08:56→20:27)
[2020-05-25] MEDS: ALPRAZOLAM 1 MG TABLET PO SCH ×3 (08:58→21:40)
[2020-05-25] MEDS ORDERED: levoFLOXacin 500 MG TAB PO SCH (09:00)
--- NOTE | 2020-05-25 17:11 | P.PN ---
Subjective Date of Service: 05/25/20 Chief Complaint: History of COPD Subjective: Doing well Physical Examination - Vital Signs Temperature: 98 F Blood Pressure: 114/55 Pulse: 90 Respirations: 18 Pulse Ox (%): 96 - Physical Exam General: Alert, In no apparent distress, Oriented x3, Cooperative HEENT: Atraumatic Neck: Supple Respiratory: Clear to auscultation bilaterally, Normal air movement Cardiovascular: Normal pulses, Regular rate/rhythm Gastrointestinal: Normal bowel sounds, Soft and benign, Non-distended Neurological: Normal speech, Normal strength at 5/5 x4 extr, Normal tone - Studies Medications List Reviewed: Yes Assessment & Plan Discharge Plan: Other (group home facility) Plan to discharge in: 24 Hours Physician Review Additional Text: Impression: Fall with noted comminuted avulsion fracture of the left greater trochanter femur COPD on chronic oxygen and steroids UTI Hypertension Depression with anxiety History of CHF likely diastolic 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 Options include skilled placement. Patient has agreed to skilled placement. Will continue with process. Anticipate approval for skilled placement in the next 24-48 hr. Continue physical therapy at this time. Patient DNR. DVT prophylaxis in place.. COPD on chronic oxygen and steroids: Continue COPD medication. Case discussed with pulmonology. UTI, urine culture-Proteus: Will change to PO Bactrim. Hypertension: Continue medication. Blood pressure slightly low. Will decrease metoprolol. Will adjust medication accordingly. Depression with anxiety: Continue medication History of CHF likely diastolic: Patient stable this time. 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 No intervention recommended at this time. Pulmonology recommended no further intervention and evaluation. Chronic pain with history of degenerative disc disease and spinal stenosis: Continue home medication. Limit IV pain medication Anemia of chronic disease: Will monitor closely. Time Spent Managing Pts Care (In Minutes): 55
[2020-05-25] MEDS ORDERED: DIPHENHYDRAMINE 25 MG TAB/CAP PO ONE (19:00)
[2020-05-25] MEDS: QUETIAPINE 25 MG TAB PO SCH (20:26)
[2020-05-25] MEDS: SMZ./TMP. 800/160 MG TABLET PO SCH (20:26)
[2020-05-26] MEDS: ARFORMOTEROL TARTRATE 15 MCG/2 ML VIAL.NEB NEB SCH ×2 (08:05→20:05)
[2020-05-26] MEDS: MONTELUKAST 10 MG TAB PO SCH (09:15)
[2020-05-26] MEDS: CITALOPRAM 10 MG TABLET PO SCH (09:15)
[2020-05-26] MEDS: FUROSEMIDE 20 MG TABLET PO SCH (09:15)
[2020-05-26] MEDS: PANTOPRAZOLE 40MG TABLET PO SCH (09:15)
[2020-05-26] MEDS: METOPROLOL TAR 25 MG TAB PO SCH ×2 (09:15→20:44)
[2020-05-26] MEDS: GABAPENTIN 300 MG CAP PO SCH ×2 (09:16→20:45)
[2020-05-26] MEDS: PRIMIDONE 50 MG TAB PO SCH ×3 (09:16→20:44)
[2020-05-26] MEDS: predniSONE 10 MG TAB PO SCH ×2 (09:16→20:44)
[2020-05-26] MEDS: SMZ./TMP. 800/160 MG TABLET PO SCH ×2 (09:16→20:43)
[2020-05-26] MEDS: ALPRAZOLAM 1 MG TABLET PO SCH ×3 (09:16→20:44)
[2020-05-26] MEDS: HYDROCODONE/APAP 10/325 TAB PO PRN (11:11)
--- NOTE | 2020-05-26 15:47 | P.PN ---
Subjective Date of Service: 05/26/20 Chief Complaint: History of COPD Subjective: Improving, Doing well Physical Examination - Vital Signs Temperature: 97.7 F Blood Pressure: 142/68 Pulse: 77 Respirations: 16 Pulse Ox (%): 98 - Physical Exam General: Alert, In no apparent distress, Oriented x3, Cooperative HEENT: Atraumatic Neck: Supple Respiratory: Clear to auscultation bilaterally, Normal air movement Cardiovascular: Normal pulses, Regular rate/rhythm Gastrointestinal: Normal bowel sounds Neurological: Normal speech, Normal strength at 5/5 x4 extr, Normal tone, Normal affect - Studies Medications List Reviewed: Yes Assessment & Plan Discharge Plan: Other (Skilled facility) Plan to discharge in: 72 Hours Physician Review Additional Text: Impression: Fall with noted comminuted avulsion fracture of the left greater trochanter femur COPD on chronic oxygen and steroids UTI Hypertension Depression with anxiety History of CHF likely diastolic 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 Options include skilled placement. Patient has agreed to skilled placement. Still waiting skilled placement facility approval. This will likely occur on Friday. Will need to check coded test on Friday in preparation for placement. COPD on chronic oxygen and steroids: Continue COPD medication. Case discussed with pulmonology. UTI, urine culture-Proteus: Will change to PO Bactrim. Hypertension: Continue medication. Medication has been adjusted. Will continue to monitor and adjust.. Will adjust medication accordingly. Depression with anxiety: Continue medication History of CHF likely diastolic: Patient stable this time. 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 No intervention recommended at this time. Pulmonology recommended no further intervention and evaluation. Chronic pain with history of degenerative disc disease and spinal stenosis: Continue home medication. Limit IV pain medication Anemia of chronic disease: Will monitor closely. Time Spent Managing Pts Care (In Minutes): 55
[2020-05-26] MEDS: IPRATROPIUM BROM 0.5MG/2.5ML NEB PRN (20:05)
[2020-05-26] MEDS: QUETIAPINE 25 MG TAB PO SCH (20:44)
[2020-05-27 06:20] LABS: BUN Blood Urea Nitrogen 19 mg/dL (7-18); Bicarbonate 34 mmol/L (21-32); Glucose Level 157 mg/dL (74-106); Magnesium 2.4 mg/dL (1.8-2.4); Phosphorus 2.8 mg/dL (2.5-4.9); Potassium 4.4 mmol/L (3.5-5.1); Sodium Level 140 mmol/L (136-145)
[2020-05-27] MEDS ORDERED: IPRATROPIUM BROM 0.5MG/2.5ML NEB PRN (08:00)
[2020-05-27] MEDS: ARFORMOTEROL TARTRATE 15 MCG/2 ML VIAL.NEB NEB SCH ×2 (08:51→20:05)
[2020-05-27] MEDS: PANTOPRAZOLE 40MG TABLET PO SCH (09:49)
[2020-05-27] MEDS: GABAPENTIN 300 MG CAP PO SCH ×2 (09:49→20:12)
[2020-05-27] MEDS: predniSONE 10 MG TAB PO SCH ×2 (09:49→20:13)
[2020-05-27] MEDS: METOPROLOL TAR 25 MG TAB PO SCH ×2 (09:49→20:12)
[2020-05-27] MEDS: ALPRAZOLAM 1 MG TABLET PO SCH ×3 (09:49→20:13)
[2020-05-27] MEDS: PRIMIDONE 50 MG TAB PO SCH ×3 (09:50→20:15)
[2020-05-27] MEDS: FUROSEMIDE 20 MG TABLET PO SCH (09:50)
[2020-05-27] MEDS: CITALOPRAM 10 MG TABLET PO SCH (09:50)
[2020-05-27] MEDS: MONTELUKAST 10 MG TAB PO SCH (09:50)
[2020-05-27] MEDS: SMZ./TMP. 800/160 MG TABLET PO SCH ×2 (09:50→20:12)
[2020-05-27] MEDS ORDERED: ALBUTEROL 2.5 MG/3 ML NEB SOL NEB PRN (10:00)
[2020-05-27] MEDS: ENOXAPARIN 40 MG/0.4 ML SQ SCH (11:07)
--- NOTE | 2020-05-27 13:04 | P.PN ---
Subjective Date of Service: 05/27/20 Chief Complaint: History of COPD Subjective: Tolerating diet, Improving (In bed resting. Pain controlled. Afebrile overnite), Doing well Review of Systems General: Unremarkable Eyes: Unremarkable ENT: Unremarkable Respiratory: Unremarkable Cardiovascular: Unremarkable Gastrointestinal: Unremarkable Musculoskeletal: Unremarkable Integumentary: Unremarkable Neurological: Weakness (Left leg) Physical Examination - Vital Signs Temperature: 97.0 F Blood Pressure: 146/78 Pulse: 70 Respirations: 16 Pulse Ox (%): 98 - Physical Exam General: Alert, In no apparent distress, Oriented x2 HEENT: Atraumatic, Normocephalic Neck: Supple, No LAD, Other (Trachea midline) Respiratory: Clear to auscultation bilaterally, Normal air movement Cardiovascular: No edema, Normal pulses Capillary refill: <2 Seconds Gastrointestinal: Soft and benign, Non-distended Musculoskeletal: No swelling, No erythema, No tenderness Integumentary: No rashes, No breakdown Neurological: Normal speech, Normal tone, Sensation intact - Studies Medications List Reviewed: Yes Assessment And Plan - Plan Impression: Fall with noted comminuted avulsion fracture of the left greater trochanter femur status post repair COPD on chronic oxygen and steroids UTI Hypertension Depression with anxiety History of CHF likely diastolic 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 Social work spoke to family. Options include skilled placement. Patient has agreed to skilled placement. Still waiting skilled placement facility approval. This will likely occur on Friday. Will need to check Covid test on Friday in preparation for placement. COPD on chronic oxygen and steroids: At baseline. Continue COPD medication. Case discussed with pulmonology. UTI, urine culture-Proteus: Continue PO Bactrim. Tolerating antibiotic well. Hypertension: Continue metoprolol 12.5 mg b.i.d. Will continue to monitor and adjust as necessary. Depression with anxiety: Continue medication. In good spirits today. History of CHF likely diastolic: Patient stable this time. 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 No intervention recommended at this time. Pulmonology recommended no further intervention and evaluation. Chronic pain with history of degenerative disc disease and spinal stenosis: Pain control. Continue home medication. Limit IV pain medication. Anemia of chronic disease: Will monitor closely. 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 Options include skilled placement. Patient has agreed to skilled placement. Still waiting skilled placement facility approval. This will likely occur on Friday. Will need to check coded test on Friday in preparation for placement. COPD on chronic oxygen and steroids: Continue COPD medication. Case discussed with pulmonology. UTI, urine culture-Proteus: Will change to PO Bactrim. Hypertension: Continue medication. Medication has been adjusted. Will [place] to monitor and adjust.. Will adjust medication accordingly. Depression with anxiety: Continue medication History of CHF likely diastolic: Patient stable this time. 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 No intervention recommended at this time. Pulmonology recommended no further intervention and evaluation. Chronic pain with history of degenerative disc disease and spinal stenosis: Continue home medication. Limit IV pain medication Anemia of chronic disease: Will monitor closely. Time Spent Managing PTS Care (In Minutes): 55
[2020-05-27] MEDS: QUETIAPINE 25 MG TAB PO SCH (20:12)
[2020-05-28 06:03] LABS: Absolute Lymphocytes (CBC) 0.9 K/uL (0.7-4.9); Basophils % 0.4 % (0-1.3); Hematocrit 26.2 % (36.0-45.0); Lymphocytes % 21.1 % (15.3-44.8); MPV 7.2 fL (7.6-11.3); RBC Red Blood Cell Count 2.87 M/uL (3.86-4.86)
[2020-05-28 06:24] LABS: Potassium 4.6 mmol/L (3.5-5.1)
[2020-05-28] MEDS: ARFORMOTEROL TARTRATE 15 MCG/2 ML VIAL.NEB NEB SCH ×2 (07:39→20:20)
[2020-05-28] MEDS: ALPRAZOLAM 1 MG TABLET PO SCH ×3 (08:54→21:30)
[2020-05-28] MEDS: SMZ./TMP. 800/160 MG TABLET PO SCH ×2 (08:55→21:29)
[2020-05-28] MEDS: CITALOPRAM 10 MG TABLET PO SCH (08:55)
[2020-05-28] MEDS: GABAPENTIN 300 MG CAP PO SCH ×2 (08:55→21:27)
[2020-05-28] MEDS: METOPROLOL TAR 25 MG TAB PO SCH ×2 (08:55→21:28)
[2020-05-28] MEDS: PRIMIDONE 50 MG TAB PO SCH ×3 (08:57→21:30)
[2020-05-28] MEDS: MONTELUKAST 10 MG TAB PO SCH (08:58)
[2020-05-28] MEDS: FUROSEMIDE 20 MG TABLET PO SCH (08:58)
[2020-05-28] MEDS: PANTOPRAZOLE 40MG TABLET PO SCH (08:58)
[2020-05-28] MEDS: ENOXAPARIN 40 MG/0.4 ML SQ SCH (08:59)
[2020-05-28] MEDS: predniSONE 10 MG TAB PO SCH ×2 (08:59→21:27)
--- NOTE | 2020-05-28 11:19 | P.PN ---
Subjective Date of Service: 05/28/20 Chief Complaint: History of COPD Subjective: No new changes, Improving, Working w/ PT (Ambulating hallway in a wheelchair with PT), Doing well Review of Systems 10-point ROS is otherwise unremarkable Physical Examination - Vital Signs Temperature: 97.8 F Blood Pressure: 124/59 Pulse: 69 Respirations: 18 Pulse Ox (%): 98 - Physical Exam General: Alert, In no apparent distress, Oriented x3 HEENT: Atraumatic, Normocephalic, PERRLA Neck: Supple, Other (Trachea midline) Respiratory: Clear to auscultation bilaterally, Normal air movement Cardiovascular: No edema, Normal pulses, Regular rate/rhythm, Normal S1 S2 Capillary refill: <2 Seconds Gastrointestinal: Normal bowel sounds, Soft and benign, Non-distended Musculoskeletal: No clubbing, No swelling, No contractures, No erythema Integumentary: No rashes, No breakdown, No significant lesion Neurological: Normal speech, Normal strength at 5/5 x4 extr, Normal tone, Normal affect - Studies Medications List Reviewed: Yes Assessment And Plan - Plan Impression: Fall with noted comminuted avulsion fracture of the left greater trochanter femur status post repair COPD on chronic oxygen and steroids UTI Hypertension Depression with anxiety History of CHF likely diastolic 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 Ambulating hallway with use a wheelchair. PT states patient is doing well and continues improving. Social work spoke to family. Options include skilled placement. Patient has agreed to skilled placement. Still waiting skilled placement facility approval. This will likely occur on Friday. Patient is schedule for Covid screening test today. COPD on chronic oxygen and steroids: At baseline. Doing well. Continue COPD medication. Case discussed with pulmonology. UTI, urine culture-Proteus: Continue PO Bactrim. Tolerating antibiotic well. Hypertension: Continue metoprolol 12.5 mg b.i.d. Will continue to monitor and adjust as necessary. Depression with anxiety: Continue medication. In good spirits today. History of CHF likely diastolic: Patient stable this time. 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 No intervention recommended at this time. Pulmonology recommended no further intervention and evaluation. Chronic pain with history of degenerative disc disease and spinal stenosis: Pain control. Continue home medication. Limit IV pain medication. Not requiring much pain medication at all. Anemia of chronic disease: Will monitor closely. 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 Options include skilled placement. Patient has agreed to skilled placement. Still waiting skilled placement facility approval. This will likely occur on Friday. Will need to check coded test on Friday in preparation for placement. COPD on chronic oxygen and steroids: Continue COPD medication. Case discussed with pulmonology. UTI, urine culture-Proteus: Will change to PO Bactrim. Hypertension: Continue medication. Medication has been adjusted. Will continue to monitor and adjust.. Will adjust medication accordingly. Depression with anxiety: Continue medication History of CHF likely diastolic: Patient stable this time. 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 No intervention recommended at this time. Pulmonology recommended no further intervention and evaluation. Chronic pain with history of degenerative disc disease and spinal stenosis: Continue home medication. Limit IV pain medication Anemia of chronic disease: Will monitor closely. Time Spent Managing PTS Care (In Minutes): 55
[2020-05-28] MEDS: QUETIAPINE 25 MG TAB PO SCH (21:26)
[2020-05-28] MEDS: HYDROCODONE/APAP 10/325 TAB PO PRN (21:29)
[2020-05-29] MEDS: ARFORMOTEROL TARTRATE 15 MCG/2 ML VIAL.NEB NEB SCH ×2 (07:27→20:20)
[2020-05-29] MEDS: GABAPENTIN 300 MG CAP PO SCH ×2 (08:50→20:29)
[2020-05-29] MEDS: CITALOPRAM 10 MG TABLET PO SCH (08:50)
[2020-05-29] MEDS: ENOXAPARIN 40 MG/0.4 ML SQ SCH (08:50)
[2020-05-29] MEDS: predniSONE 10 MG TAB PO SCH ×2 (08:51→20:31)
[2020-05-29] MEDS: ALPRAZOLAM 1 MG TABLET PO SCH ×3 (08:51→20:31)
[2020-05-29] MEDS: SMZ./TMP. 800/160 MG TABLET PO SCH ×2 (08:51→20:29)
[2020-05-29] MEDS: FUROSEMIDE 20 MG TABLET PO SCH (08:51)
[2020-05-29] MEDS: METOPROLOL TAR 25 MG TAB PO SCH ×2 (08:52→20:30)
[2020-05-29] MEDS: PANTOPRAZOLE 40MG TABLET PO SCH (08:52)
[2020-05-29] MEDS: PRIMIDONE 50 MG TAB PO SCH ×3 (08:56→20:31)
[2020-05-29] MEDS: MONTELUKAST 10 MG TAB PO SCH (08:57)
[2020-05-29 10:17] LABS: Absolute Lymphocytes (CBC) 1.7 K/uL (0.7-4.9); Basophils % 0.7 % (0-1.3); Hematocrit 27.7 % (36.0-45.0); Lymphocytes % 26.3 % (15.3-44.8); MPV 7.4 fL (7.6-11.3); RBC Red Blood Cell Count 3.04 M/uL (3.86-4.86)
[2020-05-29 10:29] LABS: Potassium 4.9 mmol/L (3.5-5.1)
--- NOTE | 2020-05-29 11:28 | P.PN ---
Subjective Date of Service: 05/29/20 Chief Complaint: History of COPD Subjective: Improving, Doing well Physical Examination - Vital Signs Temperature: 97.2 F Blood Pressure: 105/68 Pulse: 69 Respirations: 18 Pulse Ox (%): 95 - Physical Exam General: Alert, In no apparent distress, Oriented x3, Cooperative HEENT: Atraumatic Neck: Supple Respiratory: Clear to auscultation bilaterally, Normal air movement Cardiovascular: Normal pulses, Regular rate/rhythm Gastrointestinal: Normal bowel sounds, Soft and benign, Non-distended Neurological: Normal speech, Normal strength at 5/5 x4 extr, Normal tone, Normal affect - Studies Medications List Reviewed: Yes Assessment & Plan Discharge Plan: Other ([facility] facility) Plan to discharge in: 24 Hours Physician Review Additional Text: Impression: Fall with noted comminuted avulsion fracture of the left greater trochanter femur COPD on chronic oxygen and steroids UTI Hypertension Depression with anxiety History of CHF likely diastolic 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 Continue physical therapy. Awaiting approval for skilled placement facility. If her approve can be discharge as early as today. This will likely occur tomorrow. COPD on chronic oxygen and steroids: Continue COPD medication. Case discussed with pulmonology. UTI, urine culture-Proteus: Continue with antibiotic therapy for total of 7 days. Hypertension: Continue medication. Medication has been adjusted. Will continue to monitor and adjust.. Will adjust medication accordingly. Depression with anxiety: Continue medication History of CHF likely diastolic: Patient stable this time. 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 No intervention recommended at this time. Pulmonology recommended no further intervention and evaluation. Chronic pain with history of degenerative disc disease and spinal stenosis: Continue home medication. Limit IV pain medication Anemia of chronic disease: Will monitor closely. Time Spent Managing Pts Care (In Minutes): 45
[2020-05-29] MEDS: HYDROCODONE/APAP 10/325 TAB PO PRN (13:05)
[2020-05-29] MEDS: QUETIAPINE 25 MG TAB PO SCH (20:31)
[2020-05-30] MEDS: ARFORMOTEROL TARTRATE 15 MCG/2 ML VIAL.NEB NEB SCH ×2 (07:40→20:05)
[2020-05-30] MEDS: ALPRAZOLAM 1 MG TABLET PO SCH ×3 (08:33→20:35)
[2020-05-30] MEDS: ENOXAPARIN 40 MG/0.4 ML SQ SCH (08:33)
[2020-05-30] MEDS: MONTELUKAST 10 MG TAB PO SCH (08:34)
[2020-05-30] MEDS: GABAPENTIN 300 MG CAP PO SCH ×2 (08:34→20:35)
[2020-05-30] MEDS: METOPROLOL TAR 25 MG TAB PO SCH ×2 (08:34→20:34)
[2020-05-30] MEDS: SMZ./TMP. 800/160 MG TABLET PO SCH ×2 (08:34→20:34)
[2020-05-30] MEDS: CITALOPRAM 10 MG TABLET PO SCH (08:34)
[2020-05-30] MEDS: PRIMIDONE 50 MG TAB PO SCH ×3 (08:35→20:34)
[2020-05-30] MEDS: PANTOPRAZOLE 40MG TABLET PO SCH (08:35)
[2020-05-30] MEDS: FUROSEMIDE 20 MG TABLET PO SCH (08:35)
--- NOTE | 2020-05-30 08:50 | P.PN ---
Subjective Date of Service: 05/30/20 Chief Complaint: Left hip fracture Subjective: No new changes, No C/O voiced, Working w/ PT Review of Systems General: Unremarkable Eyes: Unremarkable Respiratory: Unremarkable Cardiovascular: Unremarkable Gastrointestinal: Unremarkable Genitourinary: Unremarkable Musculoskeletal: Leg Pain, As per HPI Integumentary: Unremarkable Neurological: Unremarkable Lymphatics: Unremarkable Physical Examination - Vital Signs Temperature: 97.8 F Blood Pressure: 120/57 Pulse: 76 Respirations: 19 Pulse Ox (%): 98 - Physical Exam General: Alert, In no apparent distress HEENT: Atraumatic, Normocephalic Neck: Supple Respiratory: Clear to auscultation bilaterally, Normal air movement Cardiovascular: No edema, Normal pulses Capillary refill: <2 Seconds Gastrointestinal: Normal bowel sounds, Soft and benign Musculoskeletal: No swelling, No contractures, No erythema Integumentary: No rashes, No breakdown Neurological: Normal speech, Normal tone - Studies Medications List Reviewed: Yes Assessment & Plan Discharge Plan: [facility] Plan to discharge in: 24 Hours Physician Review Additional Text: Impression: Fall with noted comminuted avulsion fracture of the left greater trochanter femur COPD on chronic oxygen and steroids UTI Hypertension Depression with anxiety History of CHF likely diastolic 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 Continue physical therapy. Awaiting approval for skilled placement facility. If her approve can be discharge as early as today. Actually in chart social service agency director has said patient chart to skilled facility and we are currently waiting to hear back. Anticipate discharge either today or tomorrow. COPD on chronic oxygen and steroids: Continue COPD medication. Case discussed with pulmonology. UTI, urine culture-Proteus: Continue with antibiotic therapy for total of 7 days. Hypertension: Continue medication. Medication has been adjusted. Will continue to monitor and adjust.. Will adjust medication accordingly. Depression with anxiety: Continue medication History of CHF likely diastolic: Patient stable this time. 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 No intervention recommended at this time. Pulmonology recommended no further intervention and evaluation. Chronic pain with history of degenerative disc disease and spinal stenosis: Continue home medication. Limit IV pain medication Anemia of chronic disease: Will monitor closely. Critical Care: No Time Spent Managing Pts Care (In Minutes): 55
[2020-05-30] MEDS: HYDROCODONE/APAP 10/325 TAB PO PRN (15:53)
[2020-05-30] MEDS: QUETIAPINE 25 MG TAB PO SCH (20:35)
[2020-05-31] MEDS: ARFORMOTEROL TARTRATE 15 MCG/2 ML VIAL.NEB NEB SCH ×2 (08:00→20:00)
--- NOTE | 2020-05-31 08:20 | P.PN ---
Subjective Date of Service: 05/31/20 Chief Complaint: Left hip fracture Subjective: C/O voiced (Headache, chest congestion) Review of Systems General: Unremarkable Eyes: Unremarkable ENT: Unremarkable Respiratory: As per HPI Cardiovascular: Unremarkable Gastrointestinal: Unremarkable Genitourinary: Unremarkable Musculoskeletal: Leg Pain Integumentary: Unremarkable Neurological: As per HPI Lymphatics: Unremarkable Physical Examination - Vital Signs Temperature: 98.3 F Blood Pressure: 119/65 Pulse: 82 Respirations: 24 Pulse Ox (%): 95 - Physical Exam General: Alert, In no apparent distress, Oriented x3 HEENT: Atraumatic, Normocephalic Neck: Supple Respiratory: Normal air movement Cardiovascular: No edema, Regular rate/rhythm Capillary refill: <2 Seconds Gastrointestinal: Normal bowel sounds, Soft and benign Musculoskeletal: No contractures, No erythema, No warmth Integumentary: No significant lesion, No tenderness/swelling Neurological: Normal speech, Normal tone, Sensation intact, Normal affect - Studies Medications List Reviewed: Yes Assessment & Plan Discharge Plan: [facility] Plan to discharge in: 24 Hours - Code Status/Comfort Care Code Status Assessed: Yes (Patient is DNR) Physician Review Additional Text: Impression: Fall with noted comminuted avulsion fracture of the left greater trochanter femur COPD on chronic oxygen and steroids UTI Hypertension Depression with anxiety History of CHF likely diastolic 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 Patient tested positive for COVID yesterday. Patient complains only of a headache and Chest congestion. Vital signs within normal limits at this time. Patient in no respiratory distress. Patient still appears stable for discharge to nursing home facility for further rehab. Will discuss with social services director to determine the discharge plan. Will continue to monitor patient closely for any new signs or symptoms. COPD on chronic oxygen and steroids: Continue COPD medication. Case discussed with pulmonology. UTI, urine culture-Proteus: Continue with antibiotic therapy for total of 7 days. Hypertension: Continue medication. Medication has been adjusted. Will continue to monitor and adjust.. Will adjust medication accordingly. Depression with anxiety: Continue medication History of CHF likely diastolic: Patient stable this time. 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 No intervention recommended at this time. Pulmonology recommended no further intervention and evaluation. Chronic pain with history of degenerative disc disease and spinal stenosis: Continue home medication. Limit IV pain medication Anemia of chronic disease: Will monitor closely. Critical Care: No Time Spent Managing Pts Care (In Minutes): 55
[2020-05-31] MEDS: MONTELUKAST 10 MG TAB PO SCH (08:43)
[2020-05-31] MEDS: ENOXAPARIN 40 MG/0.4 ML SQ SCH (08:43)
[2020-05-31] MEDS: PANTOPRAZOLE 40MG TABLET PO SCH (08:43)
[2020-05-31] MEDS: GABAPENTIN 300 MG CAP PO SCH ×2 (08:44→20:26)
[2020-05-31] MEDS: FUROSEMIDE 20 MG TABLET PO SCH (08:44)
[2020-05-31] MEDS: ALPRAZOLAM 1 MG TABLET PO SCH ×3 (08:44→20:27)
[2020-05-31] MEDS: METOPROLOL TAR 25 MG TAB PO SCH ×2 (08:44→20:25)
[2020-05-31] MEDS: CITALOPRAM 10 MG TABLET PO SCH (08:44)
[2020-05-31] MEDS: SMZ./TMP. 800/160 MG TABLET PO SCH ×2 (08:44→20:25)
[2020-05-31] MEDS: PRIMIDONE 50 MG TAB PO SCH ×3 (09:30→20:26)
[2020-05-31] MEDS: predniSONE 10 MG TAB PO SCH (20:25)
[2020-05-31] MEDS: QUETIAPINE 25 MG TAB PO SCH (20:27)
[2020-06-01] MEDS: HYDROCODONE/APAP 10/325 TAB PO PRN ×2 (01:40→20:13)
[2020-06-01 04:38] LABS: Basophils % 0.2 % (0-1.3); Hematocrit 27.7 % (36.0-45.0); Lymphocytes % 16.4 % (15.3-44.8); MPV 7.3 fL (7.6-11.3); RBC Red Blood Cell Count 3.07 M/uL (3.86-4.86)
[2020-06-01 04:46] LABS: Potassium 4.9 mmol/L (3.5-5.1)
[2020-06-01] MEDS: GABAPENTIN 300 MG CAP PO SCH ×2 (07:35→20:10)
[2020-06-01] MEDS: MONTELUKAST 10 MG TAB PO SCH (07:36)
[2020-06-01] MEDS: CITALOPRAM 10 MG TABLET PO SCH (07:36)
[2020-06-01] MEDS: SMZ./TMP. 800/160 MG TABLET PO SCH (07:36)
[2020-06-01] MEDS: PANTOPRAZOLE 40MG TABLET PO SCH (07:36)
[2020-06-01] MEDS: ALPRAZOLAM 1 MG TABLET PO SCH ×3 (07:36→20:11)
[2020-06-01] MEDS: FUROSEMIDE 20 MG TABLET PO SCH (07:36)
[2020-06-01] MEDS: ENOXAPARIN 40 MG/0.4 ML SQ SCH (07:37)
[2020-06-01] MEDS: predniSONE 10 MG TAB PO SCH ×2 (07:37→20:10)
[2020-06-01] MEDS: PRIMIDONE 50 MG TAB PO SCH ×3 (07:37→20:11)
[2020-06-01] MEDS: ARFORMOTEROL TARTRATE 15 MCG/2 ML VIAL.NEB NEB SCH ×2 (08:00→20:00)
[2020-06-01] MEDS: METOPROLOL TAR 25 MG TAB PO SCH ×2 (08:09→20:11)
[2020-06-01] MEDS: NA CHLORIDE 0.9% 1,000 ML IV SCH (08:34)
--- NOTE | 2020-06-01 10:51 | P.PN ---
Subjective Date of Service: 06/01/20 Chief Complaint: Left hip fracture Subjective: No new changes, Improving (Patient states she is very well today.) Review of Systems General: Unremarkable Eyes: Unremarkable ENT: Unremarkable Respiratory: Unremarkable Cardiovascular: Unremarkable Gastrointestinal: Unremarkable Genitourinary: Unremarkable Musculoskeletal: As per HPI Integumentary: Unremarkable Neurological: Unremarkable Lymphatics: Unremarkable Physical Examination - Vital Signs Temperature: 97.4 F Blood Pressure: 106/57 Pulse: 61 Respirations: 16 Pulse Ox (%): 98 - Physical Exam General: Alert, In no apparent distress, Oriented x3 HEENT: Atraumatic, Normocephalic Neck: Supple Respiratory: Normal air movement Cardiovascular: Normal pulses, Regular rate/rhythm Capillary refill: <2 Seconds Gastrointestinal: Normal bowel sounds, Soft and benign Musculoskeletal: No erythema, No tenderness Integumentary: No erythema Neurological: Normal speech, Normal tone - Studies Medications List Reviewed: Yes Assessment & Plan Discharge Plan: Intermediate Plan to discharge in: 24 Hours - Code Status/Comfort Care Code Status Assessed: Yes (Patient is DNR) Physician Review Additional Text: Impression: Fall with noted comminuted avulsion fracture of the left greater trochanter femur COPD on chronic oxygen and steroids UTI Hypertension Depression with anxiety History of CHF likely diastolic 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 Received COVID testing both from day of admission and from yesterday, both were positive. Patient has remained relatively asymptomatic during this hospitalization complaining only of mild headache and Chest congestion. Vital signs within normal limits at this time. Patient in no respiratory distress. Patient still appears stable for discharge to halfway facility for further rehab. Will discuss with manager social to determine the discharge plan. Will continue to monitor patient closely for any new signs or symptoms. COPD on chronic oxygen and steroids: Continue COPD medication and prednisone. UTI, urine culture-Proteus: Continue with antibiotic therapy for total of 7 days. Hypertension: Will adjust medication accordingly as needed. Depression with anxiety: Continue medication History of CHF likely diastolic: Patient stable this time. 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 No intervention recommended at this time. Pulmonology recommended no further intervention and evaluation. Chronic pain with history of degenerative disc disease and spinal stenosis: Continue home medication. Limit IV pain medication Anemia of chronic disease: Will monitor closely. Critical Care: No Time Spent Managing Pts Care (In Minutes): 55
[2020-06-01] MEDS: QUETIAPINE 25 MG TAB PO SCH (20:11)
[2020-06-02] MEDS: NA CHLORIDE 0.9% 1,000 ML IV SCH (04:18)
[2020-06-02] MEDS: ARFORMOTEROL TARTRATE 15 MCG/2 ML VIAL.NEB NEB SCH (08:00)
[2020-06-02] MEDS: PANTOPRAZOLE 40MG TABLET PO SCH (08:11)
[2020-06-02] MEDS: METOPROLOL TAR 25 MG TAB PO SCH (08:12)
[2020-06-02] MEDS: ALPRAZOLAM 1 MG TABLET PO SCH ×2 (08:12→13:29)
[2020-06-02] MEDS: MONTELUKAST 10 MG TAB PO SCH (08:12)
[2020-06-02] MEDS: GABAPENTIN 300 MG CAP PO SCH (08:12)
[2020-06-02] MEDS: predniSONE 10 MG TAB PO SCH (08:12)
[2020-06-02] MEDS: CITALOPRAM 10 MG TABLET PO SCH (08:13)
[2020-06-02] MEDS: ENOXAPARIN 40 MG/0.4 ML SQ SCH (08:13)
[2020-06-02] MEDS: FUROSEMIDE 20 MG TABLET PO SCH (08:13)
[2020-06-02] MEDS: PRIMIDONE 50 MG TAB PO SCH ×2 (08:13→13:29)
--- NOTE | 2020-06-02 08:53 | P.PN ---
Subjective Date of Service: 06/02/20 Chief Complaint: Left hip fracture Subjective: No new changes, Improving (Patient is able to transfer with assistance to bedside commode.) Review of Systems General: Unremarkable Eyes: Unremarkable ENT: As per HPI Respiratory: Unremarkable Cardiovascular: Unremarkable Gastrointestinal: Unremarkable Genitourinary: Unremarkable Musculoskeletal: Unremarkable Neurological: Unremarkable Lymphatics: Unremarkable Physical Examination - Vital Signs Temperature: 95.1 F Blood Pressure: 128/66 Pulse: 78 Respirations: 18 Pulse Ox (%): 99 - Physical Exam General: Alert, In no apparent distress, Oriented x3 HEENT: Atraumatic, Normocephalic Neck: Supple Respiratory: Clear to auscultation bilaterally, Normal air movement Cardiovascular: No edema, Normal pulses, Normal S1 S2 Capillary refill: <2 Seconds Gastrointestinal: Normal bowel sounds, Soft and benign Musculoskeletal: No contractures, No erythema Integumentary: No tenderness/swelling, No erythema, No warmth Neurological: Normal speech, Normal tone - Studies Medications List Reviewed: Yes Assessment & Plan Discharge Plan: Shelter Plan to discharge in: 24 Hours - Code Status/Comfort Care Code Status Assessed: Yes (Patient is full code) Physician Review Additional Text: Impression: Fall with noted comminuted avulsion fracture of the left greater trochanter femur COPD on chronic oxygen and steroids UTI Hypertension Depression with anxiety History of CHF likely diastolic 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 Received COVID testing both from day of admission and from yesterday, both were positive. Patient reports that her headache and chest congestion from yesterday have improved. Vital signs within normal limits at this time. Patient in no respiratory distress. Patient still appears stable for discharge to senior living facility for further rehab. Will discuss with web content & social media manager to determine the discharge plan. Will continue to monitor patient closely for any new signs or symptoms. COPD on chronic oxygen and steroids: Continue COPD medication and prednisone. UTI, urine culture-Proteus: Continue with antibiotic therapy for total of 7 days. Hypertension: Will adjust medication accordingly as needed. Depression with anxiety: Continue medication History of CHF likely diastolic: Patient stable this time. 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 No intervention recommended at this time. Pulmonology recommended no further intervention and evaluation. Chronic pain with history of degenerative disc disease and spinal stenosis: Continue home medication. Limit IV pain medication Anemia of chronic disease: Will monitor closely. Critical Care: No Time Spent Managing Pts Care (In Minutes): 55
[2020-06-02 12:20] VITALS: O2SAT 98
[2020-06-02] MEDS: HYDROCODONE/APAP 10/325 TAB PO PRN (13:29)
--- NOTE | 2020-06-02 15:43 | P.DS ---
Admission Date: 05/21/20 Discharge Date: 06/02/20 Primary Care Provider: unknown Disposition: TRANSFER TO SNF - MEDICAL Discharge Condition: GOOD Reason for Admission: Left hip fracture Consultations: Pulmonary-Dr. Orellana Orthopedics-Dr. Cross Procedures: CT: FINDINGS: Comminuted avulsion fracture involves the greater trochanter left femur. No dislocation The bones are osteoporotic. Rectal wall appears thickened IMPRESSION: Comminuted avulsion fracture greater trochanter left femur Apparent thickening rectal wall may be secondary to inflammation, mass or incomplete distention Medical problem list: Fall with noted comminuted avulsion fracture of the left greater trochanter femur COVID positive infection, COPD on chronic oxygen and steroids UTI, urine culture positive for Proteus, resolved Hypertension Depression with anxiety History of CHF likely diastolic History of lung mass suspect cancer Chronic pain with history of degenerative disc disease and spinal stenosis Anemia of chronic disease Brief History of Present Illness: 80-year-old female with multiple medical problems presented to the emergency room after a fall. Patient was found to have a comminuted avulsion fracture of the left greater trochanter femur. Patient was admitted for further evaluation and treatment. Hospital Course: Patient presented with fall with noted comminuted avulsion fracture of the left greater trochanter femur. Patient was seen and evaluated by orthopedics. Orthopedics recommended nonsurgical treatment. Orthopedics recommended weight- bearing as tolerated on her left lower extremity. Physical therapy was consulted. Patient did well during her stay As it relates to her physical therapy. Patient was not able to go home. Skilled placement was recommended. At discharge patient was accepted to go to a skilled facility to continue her care. Patient has history of COPD on chronic oxygen and steroids. COVID testing was done. This was done initially on the day of admission and several days thereafter. In preparation for in preparation for skilled placement in the initial testing was not finalized. Therefore rapid testing was done. She was found to be positive for COVID. Patient had mild symptoms. Patient was seen and evaluated by pulmonology. Patient continued her COPD medication. Patient also takes chronic steroids. This helped her condition. Overall patient continues with her current COPD medication and oxygen. Patient will or need to remain in quarantine for at least 14 days. Patient will continue with mask, hand washing and social distancing. Recommend recheck testing in 14 days. Patient had a UTI upon admission. Patient was positive for Proteus. Patient was treated during the course of her stay. Patient has finished therapy. Patient with hypertension, depression with anxiety, diastolic CHF, history of lung mass suspicious for cancer, chronic pain with degenerative disc and joint disease/spinal stenosis and anemia of chronic disease. This has remained stable. Patient will continue with her current medications. Vital Signs/Physical Exam: Temp Pulse Resp BP Pulse Ox 96.7 F L 77 19 115/54 L 98 06/02/20 12:00 06/02/20 12:00 06/02/20 13:29 06/02/20 12:00 06/02/20 13:29 General: Alert, Cooperative HEENT: Atraumatic Neck: Supple Respiratory: Other (Respiratory stable currently on 3 L.) Cardiovascular: Normal pulses Neurological: Normal speech, Normal strength at 5/5 x4 extr, Normal tone, Normal affect Laboratory Data at Discharge: WBC 6.4 K/uL (4.3-10.9) 06/01/20 03:31 Hgb 9.0 g/dL (12.0-15.0) L 06/01/20 03:31 Hct 27.7 % (36.0-45.0) L 06/01/20 03:31 Plt Count 148 K/uL (152-406) L 06/01/20 03:31 PT 10.6 SECONDS (9.5-12.5) 05/21/20 19:24 INR 0.90 05/21/20 19:24 Sodium 135 mmol/L (136-145) L 06/01/20 03:31 Potassium 4.9 mmol/L (3.5-5.1) 06/01/20 03:31 BUN 21 mg/dL (7-18) H 06/01/20 03:31 Creatinine 0.71 mg/dL (0.55-1.3) 06/01/20 03:31 Glucose 192 mg/dL (74-106) H 06/01/20 03:31 Phosphorus 2.8 mg/dL (2.5-4.9) 05/27/20 05:19 Magnesium 2.4 mg/dL (1.8-2.4) 05/27/20 05:19 Home Medications: Albuterol Sulfate [Proair Hfa] 8.5 gm IH BIDP PRN 05/22/20 Alprazolam [Xanax] 1 mg PO TID 05/22/20 Citalopram Hydrobromide [Citalopram HBr] 10 mg PO DAILY 05/22/20 Esomeprazole Magnesium 40 mg PO DAILY 05/22/20 Furosemide [Lasix*] 20 mg PO DAILY 05/22/20 Gabapentin 600 mg PO BID 05/22/20 Hydrocodone Bit/Acetaminophen [Hydrocodon-Acetaminophn 10-325] 1 each PO Q4HP PRN 05/22/20 Ipratropium/Albuterol Sulfate [Combivent Respimat 20-100 Mcg] 4 gm IH BID 05/22/20 Ipratropium/Albuterol Sulfate [Iprat-Albut 0.5-3(2.5) mg/3 ml] 3 ml IH PRN PRN 05/22/20 Metoprolol Tartrate [Lopressor*] 25 mg PO BID 05/22/20 Montelukast [Singulair*] 10 mg PO DAILY 05/22/20 Nitroglycerin [Nitrostat] 0.4 mg SL Q5M PRN 05/22/20 Primidone [Mysoline] 50 mg PO TID 05/22/20 Quetiapine Fumarate [Seroquel] 50 mg PO BEDTIME 05/22/20 Tizanidine HCl 4 mg PO BIDP PRN 05/22/20 Umeclidinium Brm/Vilanterol Tr [Anoro Ellipta 62.5-25 Mcg INH] 1 puff IH BID 05/22/20 predniSONE [Prednisone*] 5 mg PO BID 05/22/20 Patient Discharge Instructions: 1. Okay to discharge to skilled facility. Patient stable for discharge. 2. Patient presented with fall with noted comminuted avulsion fracture of the left greater trochanter femur. Patient was seen and evaluated by orthopedics. Orthopedics recommended nonsurgical treatment. Orthopedics recommended weight-bearing as tolerated on her left lowe r extremity. Physical therapy was consulted. Patient did well during her stay As it relates to her physical therapy. Patient was not able to go home. Skilled placement was recommended. At discharge patient was accepted to go to a skilled facility to continue her care. 3. Patient has history of COPD on chronic oxygen and steroids. COVID testing was done. This was done initially on the day of admission and several days thereafter. In preparation for in preparation for skilled placement in the initial testing was not finalized. Therefore rapid testing was done. She was found to be positive for COVID. Patient had mild symptoms. Patient was seen and evaluated by pulmonology. Patient continued her COPD medication. Patient also takes chronic steroids. This helped her condition. Overall patient continues with her current COPD medication and oxygen. Patient will or need to remain in quarantine for at least 14 days. Patient will continue with mask, hand washing and social dis tancing. Recommend recheck testing in 14 days. Patient had a UTI upon admission. Patient was positive for Proteus. Patient was treated during the course of her stay. Patient has finished therapy. 4. Patient with hypertension, depression with anxiety, diastolic CHF, history of lung mass suspicious for cancer, chronic pain with degenerative disc and joint disease/spinal stenosis and anemia of chronic disease. This has remained stable. Patient will continue with her current medications. Diet: AHA Activity: Continue orthopedic recommendations Time spent managing pt's care (in minutes): 55
[2020-06-02 17:09] VITALS: BP 115/67; TEMP 98.2
== END 2020-06-02 19:05 | DRG 535 ==
LOC: ER 17:51 → ERHOLD 23:54 → 2ND 05-22 00:43 → 4TH 05-31 03:12
PROVIDERS: ADMIT Internal Medicine; ATTEND Family Medicine
DX: S72.112A Displaced fracture of greater trochanter of left femur, initial encounter for closed fracture (principal); U07.1 COVID-19; J96.11 Chronic respiratory failure with hypoxia; I50.32 Chronic diastolic (congestive) heart failure; N39.0 Urinary tract infection, site not specified; C34.90 Malignant neoplasm of unspecified part of unspecified bronchus or lung; F41.8 Other specified anxiety disorders; B96.4 Proteus (mirabilis) (morganii) as the cause of diseases classified elsewhere; K62.9 Disease of anus and rectum, unspecified; D63.8 Anemia in other chronic diseases classified elsewhere; J43.9 Emphysema, unspecified; I25.10 Atherosclerotic heart disease of native coronary artery without angina pectoris; K21.9 Gastro-esophageal reflux disease without esophagitis; I11.0 Hypertensive heart disease with heart failure; Z79.01 Long term (current) use of anticoagulants; Z79.52 Long term (current) use of systemic steroids; Z79.891 Long term (current) use of opiate analgesic; Z99.81 Dependence on supplemental oxygen; Z66 Do not resuscitate; Z88.0 Allergy status to penicillin; W01.0XXA Fall on same level from slipping, tripping and stumbling without subsequent striking against object, initial encounter
CPT/HCPCS: 36415; 70450; 71045; 72125; 72131; 72170; 72192; 80048; 81003; 81015; 82805; 83735; 84100; 84145; 85025; 85610; 87077; 87086; 87088; 87186; 93005; 94640; 94660; 94760; 96365; 96366; 96375; 97112; 97161; 97530; 97542; 99285; J0696; J1650; J2270; J7030; J7512; J7605; U0002